=== PATIENT | male | born 1940 | race Caucasian/White ===

== ENCOUNTER → 2023-05-17 10:34 | Outpatient (REF) | payer MEDICARE, SELFPAY | LOC: WOUND 10:34 | PROVIDERS: ATTENDING PHYSICIAN Surgery; REFERRING PHYSICIAN Internal Medicine | DX: I87.311 Chronic venous hypertension (idiopathic) with ulcer of right lower extremity (principal); L97.811 Non-pressure chronic ulcer of other part of right lower leg limited to breakdown of skin; I87.2 Venous insufficiency (chronic) (peripheral); Z79.01 Long term (current) use of anticoagulants; E66.01 Morbid (severe) obesity due to excess calories; R60.0 Localized edema; E11.9 Type 2 diabetes mellitus without complications; I48.21 Permanent atrial fibrillation; I10 Essential (primary) hypertension | CPT/HCPCS: 29580; 99213 ==

== ENCOUNTER → 2023-05-24 11:04 | Outpatient (REF) | payer MEDICARE, SELFPAY | LOC: WOUND 11:04 | PROVIDERS: ATTENDING PHYSICIAN Surgery; REFERRING PHYSICIAN Internal Medicine | DX: I87.311 Chronic venous hypertension (idiopathic) with ulcer of right lower extremity (principal); L97.811 Non-pressure chronic ulcer of other part of right lower leg limited to breakdown of skin; I87.2 Venous insufficiency (chronic) (peripheral); Z79.01 Long term (current) use of anticoagulants; E66.01 Morbid (severe) obesity due to excess calories; R60.0 Localized edema; E11.9 Type 2 diabetes mellitus without complications; I48.21 Permanent atrial fibrillation; I10 Essential (primary) hypertension | CPT/HCPCS: 29580; 99212 ==

== ENCOUNTER → 2023-06-07 13:40 | Outpatient (REF) | payer MEDICARE, SELFPAY | LOC: WOUND 13:40 | PROVIDERS: ATTENDING PHYSICIAN Surgery; REFERRING PHYSICIAN Internal Medicine | DX: I87.311 Chronic venous hypertension (idiopathic) with ulcer of right lower extremity (principal); L97.811 Non-pressure chronic ulcer of other part of right lower leg limited to breakdown of skin; I87.2 Venous insufficiency (chronic) (peripheral); Z79.01 Long term (current) use of anticoagulants; E66.01 Morbid (severe) obesity due to excess calories; R60.0 Localized edema; E11.9 Type 2 diabetes mellitus without complications; I48.21 Permanent atrial fibrillation; I10 Essential (primary) hypertension | CPT/HCPCS: 29580; 99212 ==

== ENCOUNTER 2023-06-10 06:41 | Emergency (ER) | payer MEDICARE, SELFPAY ==
[2023-06-10] VITALS (7 sets, daily range): BP systolic 105–147; BP diastolic 58–89; BMI 39.9
[2023-06-10 07:47] LABS: % Basophils 0.6 % (0-2); % Immature Granulocytes 0.4 % (0-0.5); % Lymphocytes 17.1 % (20.5-51.1); % Monocytes 8.3 % (1.7-9.3); % Neutrophils 71.6 % (42.2-75.2); Absolute Basophils 0.1 10^3/uL (0-0.2); Absolute Eosinophils 0.2 10^3/uL (0-0.7); Absolute Lymphocytes 1.5 10^3/uL (1.2-3.4); Absolute Monocytes 0.8 10^3/uL (0.1-0.6); Absolute Neutrophils 6.4 10^3/uL (1.4-6.5); Hematocrit 37.6 % (39.0-52.0); Hemoglobin 12.5 g/dL (13.0-18.0); Mean Corp Hgb Conc. 33.2 g/dL (33.0-37.0); Mean Corpuscular Hgb 30.5 pg (27.0-31.0); Mean Corpuscular Volume 91.7 fL (80.0-94.0); Mean Platelet Volume 9.6 fL (7.4-10.4); Nucleated Red Blood Cells % 0 % (-); Platelet Count 213 10^3/uL (130-400); Red Cell Dist. Width 15.1 % (11.5-14.5)
[2023-06-10 07:56] LABS: ALT (SGPT) 24 U/L (0-50); AST (SGOT) 32 U/L (17-59); Albumin 4.3 g/dl (3.5-5.0); Alkaline Phosphatase 77 U/L (38-126); Blood Urea Nitrogen 25 mg/dl (9-20); Carbon Dioxide 29 mmol/L (22-30); Chloride 101 mmol/L (98-107); Glucose 185 mg/dl (70-99); Sodium 136 mmol/L (135-145); Total Bilirubin 0.8 mg/dl (0.2-1.3); Total Protein 7.4 g/dl (6.3-8.2); eGFR 54.17
[2023-06-10 08:01] LABS: NT-proBNP 1600 pg/ml; Troponin I < 0.012 ng/ml
--- NOTE | 2023-06-10 09:54 | ED.GENMED ---
History of Present Illness
General
Chief Complaint: Breathing Problem
Source: patient and family
Exam Limitations: none
Time Seen by Provider: 06/10/23 08:51
Travel History
Have you had any contact with someone who has COVID-19?: No
Do you have any symptoms of coronavirus? Fever > 100 degrees, chills, cough, shortness of breath, sore throat, loss of taste or smell, muscle aches, or headache?: No
History of Present Illness
History of Present Illness:
82-year-old male who presents with about a month of a 20 pound weight gain and increased lower extremity edema. Patient states he has chronic orthopnea that has not really changed. Shortness of breath is about at baseline. No fevers. He has been
taking a little more Lasix intermittently over the last 2 weeks. No chest pain. No fevers. Has chronic A-fib. States he has not slept in a bed in a long time as the sleep sitting up. Tries to lift his legs often. Has an appoint with his
histological illustrator on Sunday
Past History
Past History
ED Past Medical History: Arrthythmia (Atrial fibrillation), CHF, HTN, Hypercholesterolemia, NIDDM and Other (Benign brain tumor)
ED Past Surgical History: Brain, Orthopedic and Tonsilectomy
Social History
Tobacco: Non-smoker
Alcohol: None
Drug: None
Living: with family
Employment: Retired
Family History
Family History: Other (Noncontributory)
Phy Exam
Physical Exam
Physical Exam:
CONSTITUTIONAL Patient alert and oriented to person, place and time. Well-appearing. Vital signs reviewed. Obese
HEAD atraumatic, normocephalic.
EYES eyelids normal to inspection, Pupils equally round and reactive to light, Extraocular muscles intact, Conjunctiva normal, Sclera normal.
NECK normal range of motion, Trachea midline, no jugular venous distention.
RESPIRATORY CHEST No respiratory distress noted, Chest expansion equal, diminished right base
CARDIOVASCULAR somewhat regular with ectopy, Heart sounds normal.
ABDOMEN abdomen nontender, Bowel sounds normal. No distention.
BACK normal inspection, no obvious deformities
UPPER EXTREMITY range of motion normal, Motor strength normal, no cyanosis, no edema.
LOWER EXTREMITY range of motion normal, Motor strength normal, no cyanosis, chronic venous stasis changes to bilateral lower extremities with edema bilaterally to the knees.
NEURO Speech normal, No focal motor deficits, [place] coma scale 15, Memory normal, Cranial Nerves intact to screening exam.
SKIN skin warm, dry, and normal in color.
PSYCHIATRIC patient oriented to person place and time, Normal affect.
Scores
Heart Failure Risk
Heart Failure Risk Score: Yes
History of Stroke or TIA: No
History of intubation for respiratory distress: No
Heart rate on ED arrival >/= 110: No
SaO2 <90% on arrival on room air: No
HR >/=110 during 3min walk test (or too ill to perform test): No
ECG has acute ischemic changes: No
Urea >/=12mmol/L (BUN 33.6mg/dL): No
Serum CO2>/=35mmol/L: No
Troponin I or T elevated to MT Level (0.4mg/dL): No
NT-proBNP >/=5,000ng/L (5,000pg/ml): No
HF Risk Score: 0
Admission Status: LOW RISK 2.8% Consider discharge to home with f/u visit to PCP/Diaper Folder
Course
Orders/Labs/Results
Orders:
Orders
06/10/23 07:04
EKG [Electrocardiogram (*1)] Urgent
Reason for Study: Shortness of Breath
EKG- Treatment ONCE
06/10/23 07:33
BNP [NT-proBNP] Urgent
CMP [Comprehensive Metabolic Panel] Urgent
Complete Blood Count/With Diff Urgent
Troponin I Urgent
06/10/23 08:52
CR Chest - 2 Views Urgent
Comment:
Reason For Exam: sob
06/10/23 10:06
Furosemide [Lasix] 40 mg IV NOW STA
Abnormal Lab Results
06/10/23
07:33
RBC 4.10 L 10^6/uL
(4.70-6.10)
Hgb 12.5 L g/dL
(13.0-18.0)
Hct 37.6 L %
(39.0-52.0)
RDW 15.1 H %
(11.5-14.5)
Absolute Monos (auto) 0.8 H 10^3/uL
(0.1-0.6)
Lymphocytes % 17.1 L %
(20.5-51.1)
BUN 25 H mg/dl
(9-20)
Glucose 185 H mg/dl
(70-99)
06/10/23 07:33
06/10/23 07:33
Vital Signs
Initial and Last Documented VS:
Initial Vital Signs
Temp Pulse Resp BP Pulse Ox
98.5 F 63 20 105/89 93
06/10/23 06:59 06/10/23 06:59 06/10/23 06:59 06/10/23 06:59 06/10/23 06:59
Last Documented Vital Signs
Temp Pulse Resp BP Pulse Ox
98.5 F 71 16 142/58 88
06/10/23 06:59 06/10/23 12:30 06/10/23 12:30 06/10/23 12:00 06/10/23 12:30
MDM/Problems Addressed
MDM/Problems Addressed:
Volume overload, history of A-fib, CHF, diabetes
*Radiology
Radiology exam reviewed: preliminary read by ED provider (Mild volume overload) and radiology read reviewed
*Pulse Oximetry
Patient hypoxic: no
*EKG
Interpreted by ED Provider?: Yes
Interpretation: abnormal
Rate: normal
Rhythm: a-fib
[place]: left axis deviation
Ischemia: non-specific ST changes
*Critical Care Note
Total Time (30-74mins, 75-104mins- exclusive of procedures): Not Applicable
Data Reviewed
Review of Other/Old Records Reveals: Other (ECHO reviewed from 2018)
Source: patient and family
Patient Management
Discussion with other providers: Librarian Assistant (Case discussed with cardiology who agrees with outpatient management)
Escalation/DeEscalation of care consider admission/obs:
Patient to see cardiology on Sunday. He will increase his Lasix to twice daily until then. Okay for discharge outpatient management. Patient is well-appearing and diuresed well in the emergency
ED Attending Note
-
Portions of this chart may have been created with voice recognition software.� Occasional wrong word or��sound alike� substitutions may have occurred due to the inherent limitations of voice recognition software.
Discharge Plan
Departure
Patient Disposition: Home (Routine Discharge)
Date of Disposition: 06/10/23
Time of Disposition: 12:59
Patient with high blood pressure during this ER visit?: Yes
Discharge Problem:
Congestive heart failure (CHF)
Instructions: *CBC Heart Failure Instructions
Prescriptions:
No Action
atorvastatin 40 MG tablet
80 mg PO DAILY
allopurinol 100 MG tablet
100 mg PO DAILY
glipizide 5 MG tablet
10 mg PO DAILY
apixaban [Eliquis] 5 MG tablet
5 mg PO BID Qty: 60 2RF
furosemide 40 MG tablet
40 mg PO MOTUWETHFR
naproxen sodium [Aleve] 220 MG tablet
220 mg PO BID PRN (Reason: pain)
acetaminophen [Tylenol Extra Strength] 500 MG tablet
500 mg PO PRN PRN (Reason: pain)
metoprolol succinate 25 MG tablet extended release 24 hr
25 mg PO DAILY
valsartan-hydrochlorothiazide 1 EACH tablet
1 ea PO DAILY
sitagliptin phos-metformin [Janumet XR] 1 EACH tablet, ER multiphase 24 hr
1 ea PO DAILY
doxycycline hyclate 100 MG tablet
100 mg PO BID Qty: 14 0RF
cephalexin 500 mg capsule
500 mg PO Q6H 10 Days Qty: 40 0RF
doxycycline hyclate 100 mg capsule
100 mg PO BID 10 Days Qty: 20 0RF
Triple Antibiotic 3.5mg-400 unit- 5,000 unit/gram ointment
1 applic topical BID Qty: 30 0RF
cephalexin 500 mg capsule
500 mg PO QID 7 Days Qty: 28 0RF
Referrals:
Iker Mann MD [Family Provider] -
Activity Restrictions/Additional Instructions:
Please take your Lasix twice a day until you see your histological illustrator on Sunday. Return immediately for shortness of breath, fevers or any other concerns.
Interventions
Interventions:
*General Assessment Last Done: 06/10/23 10:47
*ED COVID-19 Vaccine History Last Done: 06/10/23 06:59
ED- Cardiac Assessment Last Done: 06/10/23 11:00
ED- Pulmonary Assessment Last Done: 06/10/23 11:00
[2023-06-10] MEDS: LASIX 40 MG IV (10:19)
== END 2023-06-10 14:30 | disposition home or self-care (01) ==
LOC: EMR 06:41
PROVIDERS: EMERGENCY PHYSICIAN Emergency Medicine; FAMILY PHYSICIAN Internal Medicine
DX: I50.9 Heart failure, unspecified (principal); I11.0 Hypertensive heart disease with heart failure
CPT/HCPCS: 99285; 96374; 71046; 80053; 83880; 84484; 85025; 93005

== ENCOUNTER → 2023-06-14 13:58 | Outpatient (REF) | payer MEDICARE, SELFPAY | LOC: WOUND 13:58 | PROVIDERS: ATTENDING PHYSICIAN Surgery; REFERRING PHYSICIAN Internal Medicine | DX: I87.311 Chronic venous hypertension (idiopathic) with ulcer of right lower extremity (principal); L97.811 Non-pressure chronic ulcer of other part of right lower leg limited to breakdown of skin; I87.2 Venous insufficiency (chronic) (peripheral); Z79.01 Long term (current) use of anticoagulants; E66.01 Morbid (severe) obesity due to excess calories; R60.0 Localized edema; E11.9 Type 2 diabetes mellitus without complications; I48.21 Permanent atrial fibrillation; I10 Essential (primary) hypertension | CPT/HCPCS: 29580; 99212 ==

== ENCOUNTER → 2023-06-21 14:24 | Outpatient (REF) | payer MEDICARE, SELFPAY | LOC: WOUND 14:24 | PROVIDERS: ATTENDING PHYSICIAN Surgery; REFERRING PHYSICIAN Internal Medicine | DX: I87.311 Chronic venous hypertension (idiopathic) with ulcer of right lower extremity (principal); L97.811 Non-pressure chronic ulcer of other part of right lower leg limited to breakdown of skin; I87.2 Venous insufficiency (chronic) (peripheral); Z79.01 Long term (current) use of anticoagulants; E66.01 Morbid (severe) obesity due to excess calories; R60.0 Localized edema; E11.9 Type 2 diabetes mellitus without complications; I48.21 Permanent atrial fibrillation; I10 Essential (primary) hypertension | CPT/HCPCS: 99212 ==

== ENCOUNTER 2023-06-26 10:09 | Inpatient (IN) | payer MEDICARE, SELFPAY ==
[2023-06-26] VITALS (10 sets, daily range): BP systolic 144–160; BP diastolic 63–96; BMI 41.3; BMI 39.4
[2023-06-26 00:55] LABS: % Basophils 0.6 % (0-2); % Eosinophils 2.6 % (0-6); % Immature Granulocytes 0.4 % (0-0.5); % Lymphocytes 16.3 % (20.5-51.1); % Monocytes 8.8 % (1.7-9.3); % Neutrophils 71.3 % (42.2-75.2); Absolute Basophils 0.1 10^3/uL (0-0.2); Absolute Eosinophils 0.2 10^3/uL (0-0.7); Absolute Lymphocytes 1.5 10^3/uL (1.2-3.4); Absolute Monocytes 0.8 10^3/uL (0.1-0.6); Absolute Neutrophils 6.5 10^3/uL (1.4-6.5); Hematocrit 36.6 % (39.0-52.0); Hemoglobin 12.4 g/dL (13.0-18.0); Mean Corp Hgb Conc. 33.9 g/dL (33.0-37.0); Mean Corpuscular Volume 94.6 fL (80.0-94.0); Mean Platelet Volume 10.4 fL (7.4-10.4); Nucleated Red Blood Cells % 0 % (-); Platelet Count 200 10^3/uL (130-400); Red Blood Cell Count 3.87 10^6/uL (4.70-6.10); Red Cell Dist. Width 15.4 % (11.5-14.5); White Blood Cell Count 9.1 10^3/uL (4.8-10.8)
[2023-06-26 01:03] LABS: ALT (SGPT) 24 U/L (0-50); AST (SGOT) 32 U/L (17-59); Alkaline Phosphatase 73 U/L (38-126); Blood Urea Nitrogen 39 mg/dl (9-20); Calcium 10.3 mg/dl (8.4-10.2); Carbon Dioxide 30 mmol/L (22-30); Chloride 98 mmol/L (98-107); Estimated Creatinine Clearance 49 ml/min; Glucose 210 mg/dl (70-99); Potassium 3.6 mmol/L (3.5-5.1); Sodium 137 mmol/L (135-145); Total Bilirubin 0.9 mg/dl (0.2-1.3); Total Protein 6.9 g/dl (6.3-8.2); eGFR 41.96
--- NOTE | 2023-06-26 01:11 | ED.GENMED ---
History of Present Illness
General
Chief Complaint: Breathing Problem
Source: patient, records and family
Exam Limitations: none
Time Seen by Provider: 06/26/23 00:41
Nursing documentation reviewed up to this point in time: agreed with
Travel History
Have you had any contact with someone who has COVID-19?: No
Do you have any symptoms of coronavirus? Fever > 100 degrees, chills, cough, shortness of breath, sore throat, loss of taste or smell, muscle aches, or headache?: No
History of Present Illness
History of Present Illness:
Patient very pleasant 83-year-old male with heart failure A-fib diabetes presents with shortness of breath and some chest pressure onset earlier today pulse ox 88% upon arrival, seen in the ER few weeks ago with similar complaints diuretics were
adjusted discharged home he has been taking two 40 mg Lasix in the morningone 40 mg in the evening, does not appreciate much change in his weight recently
No fevers no cough has had some increased leg edema has some recurrent leg edema had some wounds on his legs he was followed at the wound care center until recently
Past History
Past History
ED Past Medical History: Arrthythmia (Atrial fibrillation), CHF, HTN, Hypercholesterolemia, NIDDM and Other (Benign brain tumor)
ED Past Surgical History: Brain, Orthopedic and Tonsilectomy
Social History
Tobacco: Non-smoker
Alcohol: None
Drug: None
Living: with family
Employment: Retired
Family History
Family History: Other (Noncontributory)
Review of Systems
Review of Systems
All Other Systems: ROS reviewed and negative except as documented in HPI and ROS
Constitutional: Denies fever, weight gain, weight loss or fatigue
EENT: Reports no symptoms
Respiratory: Reports trouble breathing
Cardiac: Reports chest pain
ABD/GI: Reports no symptoms
: Reports no symptoms
Musculoskeletal: Reports no symptoms
Skin: Reports no symptoms
Neurological: Reports no symptoms
Hematologic/Lymphatic: Reports no symptoms
Psychiatric: Reports no symptoms
Phy Exam
Physical Exam
Physical Exam:
Physical Exam
General: 83-year male mild distress
Neck: No jaundice
Heart: Irregular
Lungs: Crackles bilaterally
Abdomen: Nontender
Neuro: alert and oriented. no focal neurological deficits
Skin: no rash
Psychiatric: cooperative
Extremities: Edema with venous stasis changes
Scores
Heart Failure Risk
Heart Failure Risk Score: Yes
History of Stroke or TIA: No
History of intubation for respiratory distress: No
Heart rate on ED arrival >/= 110: No
SaO2 <90% on arrival on room air: Yes
HR >/=110 during 3min walk test (or too ill to perform test): Yes
ECG has acute ischemic changes: No
Urea >/=12mmol/L (BUN 33.6mg/dL): Yes
Serum CO2>/=35mmol/L: No
Troponin I or T elevated to CO Level (0.4mg/dL): No
NT-proBNP >/=5,000ng/L (5,000pg/ml): No
HF Risk Score: 4
Admission Status: HIGH RISK 26.1% Consider SNF treatment or admission to hospital
Course
Orders/Labs/Results
Orders:
Orders
06/26/23 00:29
Electrocardiogram (*1) Urgent
Reason for Study: Chest Pain
Cardiac Monitoring- Treatment ONCE
EKG- Treatment ONCE
IV Insert/Care/Rem.- Treatment PRN
O2 Therapy [RESP] Urgent
Titrate/Wean O2 to maintain O2 sat greater than (%): 90
Special Instructions: Maintain sats >/=90%
Pulse Ox/spot Check [RESP] Urgent
Quantity: 1
Special Instructions: ON ROOM AIR
06/26/23 00:30
Complete Blood Count/With Diff Urgent
Comprehensive Metabolic Panel Urgent
NT-proBNP Urgent
Comment: ADDED
Troponin I Urgent
06/26/23 00:42
CR Chest Portable - 1 View Urgent
Comment:
Reason For Exam: sooob
Reason Study Needs to be Portable: Patient Unstable
06/26/23 01:11
Add On- LAB Urgent
Tests Added?: pBNP
06/26/23 01:47
Furosemide [Lasix] 60 mg IV NOW STA
Abnormal Lab Results
06/26/23
00:30
RBC 3.87 L 10^6/uL
(4.70-6.10)
Hgb 12.4 L g/dL
(13.0-18.0)
Hct 36.6 L %
(39.0-52.0)
MCV 94.6 H fL
(80.0-94.0)
MCH 32.0 H pg
(27.0-31.0)
RDW 15.4 H %
(11.5-14.5)
Absolute Monos (auto) 0.8 H 10^3/uL
(0.1-0.6)
Lymphocytes % 16.3 L %
(20.5-51.1)
BUN 39 H mg/dl
(9-20)
Creatinine 1.6 H mg/dL
(0.7-1.3)
Glucose 210 H mg/dl
(70-99)
Calcium 10.3 H mg/dl
(8.4-10.2)
06/26/23 00:30
06/26/23 00:30
Vital Signs
Initial and Last Documented VS:
Initial Vital Signs
Temp Pulse Resp Pulse Ox
98.3 F 72 20 88
06/26/23 00:24 06/26/23 00:24 06/26/23 00:24 06/26/23 00:24
Last Documented Vital Signs
Temp Pulse Resp Pulse Ox
98.3 F 72 20 88
06/26/23 00:24 06/26/23 00:24 06/26/23 00:24 06/26/23 00:24
MDM/Problems Addressed
Differential Diagnosis Includes:
Congestive heart failure, venous stasis, doubt PE as he is anticoagulated, A-fib, low clinical special for pneumonia
MDM/Problems Addressed:
Shortness of breath hypoxia
Chronic conditions affecting care: DM, HTN, Cardiomyopathy and Arrhythmia
Acute Exacerbation and/or Progression of Chronic Illness: DM, HTN, Cardiomyopathy and Arrhythmia
*Radiology
Radiology exam reviewed: preliminary read by ED provider
*Pulse Oximetry
Patient hypoxic: yes
Comment: 88
*EKG
Interpreted by ED Provider?: Yes
Interpretation: abnormal
Comparison EKG: no changes
Heart Rate: 78
Rate: normal
Rhythm: a-fib
Ischemia: non-specific ST changes
*[place] Mixer Operator Interpretation
Rate: normal
Interpretation: normal
Heart Rate: 88
Rhythm: a-fib
*Critical Care Note
Total Time (30-74mins, 75-104mins- exclusive of procedures): 15
Data Reviewed
Review of Other/Old Records Reveals: Labs, Records and Radiology Studies
Source: patient, records and family
Update Note
Update Note:
1:50 AM chest x-ray noted proBNP noted we will start IV diuretic is requiring oxygen will require admission
ED Attending Note
-
Portions of this chart may have been created with voice recognition software.� Occasional wrong word or��sound alike� substitutions may have occurred due to the inherent limitations of voice recognition software.
Discharge Plan
Departure
Prescriptions:
No Action
atorvastatin 40 MG tablet
80 mg PO DAILY
allopurinol 100 MG tablet
100 mg PO DAILY
glipizide 5 MG tablet
10 mg PO DAILY
apixaban [Eliquis] 5 MG tablet
5 mg PO BID Qty: 60 2RF
furosemide 40 MG tablet
40 mg PO MOTUWETHFR
naproxen sodium [Aleve] 220 MG tablet
220 mg PO BID PRN (Reason: pain)
acetaminophen [Tylenol Extra Strength] 500 MG tablet
500 mg PO PRN PRN (Reason: pain)
metoprolol succinate 25 MG tablet extended release 24 hr
25 mg PO DAILY
valsartan-hydrochlorothiazide 1 EACH tablet
1 ea PO DAILY
sitagliptin phos-metformin [Janumet XR] 1 EACH tablet, ER multiphase 24 hr
1 ea PO DAILY
doxycycline hyclate 100 MG tablet
100 mg PO BID Qty: 14 0RF
cephalexin 500 mg capsule
500 mg PO Q6H 10 Days Qty: 40 0RF
doxycycline hyclate 100 mg capsule
100 mg PO BID 10 Days Qty: 20 0RF
Triple Antibiotic 3.5mg-400 unit- 5,000 unit/gram ointment
1 applic topical BID Qty: 30 0RF
cephalexin 500 mg capsule
500 mg PO QID 7 Days Qty: 28 0RF
Referrals:
Iker Mann MD [Family Provider] -
Interventions
Interventions:
*Risk Screen - Suicide Last Done: 06/26/23 00:32
*General Assessment Last Done: 06/26/23 00:24
*Neglect/Abuse Screening Last Done: 06/26/23 00:32
ED- Fall Risk Assessment Last Done: 06/26/23 00:32
*ED COVID-19 Vaccine History Last Done: 06/26/23 00:32
ED- Cardiac Assessment Last Done: 06/26/23 00:32
ED- Pulmonary Assessment Last Done: 06/26/23 00:32
[2023-06-26 01:20] LABS: Troponin I 0.021 ng/ml
[2023-06-26 01:41] LABS: NT-proBNP 1750 pg/ml
[2023-06-26] MEDS: LASIX 60 MG IV (01:54)
--- NOTE | 2023-06-26 04:55 | HPS.HSE ---
Family Physician
-
Family Physician: Iker Mann MD
Chief Complaint
-
SOB
History of Present Illness
The patient is an 83 yo gentleman with PMH significant for A.fib on Eliquis, HFpEF, HLD, NIDDM, benign brain tumor, who presents to the ED due to worsening SOB associated with pleuritic chest pressure left upper chest. He was having worsening
dyspnea after increasing oral Lasix at home and also using compressive boots to help with lymphedema of b/l LE venous stasis. He was had 20 pound weight gain over the past few months; he helps take care of his who has Parkinson's Disease. He
has not noticed a recent change in diet nor change in fluid intake. No current CP. No fever, no chills, no cough, no palpitations, no n/v/d, no abdominal complaints. Symptoms of dyspnea are improving in ED following IV Lasix , however he is still
requiring O2 per NC, which he does not require at home.
ED txt:
Lasix 60 mg IV once
Medical History
Past Medical History
Past Medical History: Reports Arrhythmia (Afib on DOAC), CHF (HFpEF), HTN, Hypercholesterolemia, NIDDM and Other (bening brain tumor)
Past Surgical History: Reports Brain, Orthopedic (left knee replacement) and Tonsilectomy
Social History
Tobacco: Non-smoker
Alcohol: None
Drug: None
Personal:
Living: With Family
Family History
Family History: Not pertinent
Allergies / Home Medications
Allergies reflects when Allergies were last updated in [facility].
Home Medications with original date entered in [facility]
Allergy/Medication List:
Allergies
Allergy/AdvReac Type Severity Reaction Status Date / Time
No Known Allergies Allergy Verified 06/26/23 00:28
Home Medications
allopurinol 100 mg tablet 100 mg PO DAILY 02/18/14
atorvastatin 40 mg tablet 80 mg PO DAILY 02/18/14
glipizide 5 mg tablet 10 mg PO DAILY 02/18/14
apixaban 5 mg tablet (Eliquis) 5 mg PO BID ##60 02/20/14
acetaminophen 500 mg tablet (Tylenol Extra Strength) 500 mg PO PRN PRN pain 01/10/19
furosemide 40 mg tablet 40 mg PO DAILY 01/10/19
metoprolol succinate 25 mg tablet,extended release 24 hr 25 mg PO DAILY 01/10/19
sitagliptin phos 50 mg-metformin ER 1,000 mg tablet,extend rel 24h mp (Janumet XR) 1 ea PO DAILY 01/10/19
valsartan 320 mg-hydrochlorothiazide 25 mg tablet 1 ea PO DAILY 01/10/19
Review of Systems
-
A 12 point ROS was completed and negative except as noted: Yes
Physical Exam
Vital Signs
Vital Signs
Temp Pulse Resp BP Pulse Ox
98.3 F 58 20 160/84 88
06/26/23 00:24 06/26/23 01:54 06/26/23 00:24 06/26/23 01:54 06/26/23 00:24
Physical Exam
General: Well Developed, Well Nourished, No Apparent Distress, Comfortable and Conversant
HEENT: NormoCephalic, Anicteric and Moist mucous membranes
Respiratory: Clear
Cardiac: S1/S2 and Regular Rhythm
GI: Soft, Non Tender, Non Distended and Normal Bowel Sounds
Musculoskeletal: No Clubbing, No Cyanosis, Edema, Left Lower Extremity and Edema, Right Lower Extremity
Skin: Warm, Dry and Other (b/l venous insufficiency LE)
Neuro: AO x 3, No Motor Deficits and Nonfocal/grossly intact
Hematologic/Lymphatic: Other (LE lymphedema)
Psych: Calm
Laboratory Results
-
06/26/23 00:30
06/26/23 00:30
Laboratory Results
Total Bilirubin 0.9 mg/dl (0.2-1.3) 06/26/23 00:30
AST 32 U/L (17-59) 06/26/23 00:30
ALT 24 U/L (0-50) 06/26/23 00:30
Alkaline Phosphatase 73 U/L (38-126) 06/26/23 00:30
Troponin I 0.021 ng/ml 06/26/23 00:30
Data Reviewed
-
Diagnostic Radiology: Image Personally Visualized and interpreted (mild pulmonary vascular congestion)
Lab Data: Labs Reviewed by me
Impression/Plan
-
IMPRESSION:
The patient is an 83 yo gentleman with PMH significant for A.fib on Eliquis, HFpEF, HLD, NIDDM, benign brain tumor, who presents to the ED due to worsening SOB associated with pleuritic chest pressure left upper chest. He was having worsening
dyspnea after increasing oral Lasix at home and also using compressive boots to help with lymphedema of b/l LE venous stasis. He was had 20 pound weight gain over the past few months; he helps take care of his who has Parkinson's Disease. He
has not noticed a recent change in diet nor change in fluid intake. No current CP. No fever, no chills, no cough, no palpitations, no n/v/d, no abdominal complaints. Symptoms of dyspnea are improving in ED following IV Lasix , however he is still
requiring O2 per NC, which he does not require at home.
ED txt:
Lasix 60 mg IV once
#Acute exacerbation HFpEF
#A.fib controlled rate
#Hypoxic respiratory failure, requiring 2L NC currently, not on home oxygen
#Peripheral venous stasis changes
#GAYATHRI creat up to 1.6 from recent baseline likely 1.3, concern is for developing cardiorenal syndrome
-IV Lasix and repeat monitoring of BMP in am
-intake/output, daily weights
Plan:
-Tele monitoring,
-Cards Cx,
-Continue IV Lasix BID
-echocardiogram
-serial troponin
-continue home meds Eliquis, statin, BB
-continue Glipizide, heart healthy diet
-SSI, monitor glucose
Full Code
DVT proph- Eliquis
--- NOTE | 2023-06-26 06:00 | PTCARENOTE ---
Pt rec'd to 4E awake & alert. Denies chest pain or pressure at this time. Able to ambulate w/own walker from riggs to bed. No dyspnea noted.
[2023-06-26 08:35] LABS: Glucose - Point of Care 189 mg/dl (70-99)
[2023-06-26 08:36] LABS: Troponin I 0.016 ng/ml
[2023-06-26] MEDS: ELIQUIS 2.5 MG PO ×2 (08:37→22:09)
[2023-06-26] MEDS: ZYLOPRIM 100 MG PO (08:37)
[2023-06-26] MEDS: LIPITOR 80 MG PO (08:38)
[2023-06-26] MEDS: LASIX 40 MG IV (08:38)
[2023-06-26] MEDS: TOPROL XL 25 MG PO (08:38)
[2023-06-26] MEDS: GLUCOTROL 10 MG PO (08:38)
--- NOTE | 2023-06-26 08:38 | CON.CAR ---
Addendum entered and electronically signed by Maira Solorio MD 06/26/23 11:03:
I saw and examined the patient.
The ENGINEER EXHAUSTER's note was reviewed and I agree with the note.
Comment: 83yo with HFpEF, AF, HTN who has been struggling maintaining euvolemia at home. He has been drinking a lot of water, not releasing that didn't 'flush it all out'. ON exam, he has bibasilar rales, irreg irreg, elevated JVP, 1+ pitting
edema. Will need IV diuresis, CHF team consults for education. Will update his echo. Will monitor renal function, may need to dose reduce Eliquis.
D/w Dr Barr, will follow
Original Note:
Consultation
Consultation Request
Date/Time Consultation Requested: 06/26/23 06:00
Date/Time Consultation Performed: 06/26/23 08:45
Requesting Provider: Dr. Rose
Performing Provider: RASHIDA Washington for Dr. Solorio
Reason for Consultation: Acute on chronic HFpEF
Medical History
-
Chief Complaint: Dyspnea
History of Present Illness:
Aldo Solitario is an 83-year-old male (known to Dr. 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
emergency department the chief complaint of dyspnea. He saw Dr. Chaudhary in the outpatient setting and his furosemide was increased to 80 mg daily until he lost 10 pounds. He reports that occurred over 1 week. He returned back to 40 mg daily
approximately 2 and half weeks ago. Since then he has gained all of the weight back 'and some'. Prior to his heart failure exacerbation and seeing Dr. Chaudhary, he reports a weight of 178 pounds at home. He reports he may be having some more fluid
but denies changes in sodium intake. Cardiology has been consulted for acute heart failure management.
He is tearful during consult. His is at home. 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 She has Parkinson's disease. His children are currently helping with her care while he is hospitalized.
Past Medical History
Past Medical History: Arrhythmias (Permanent atrial fibrillation [on apixaban]), CHF, HTN, Hypercholesterolemia and NIDDM
Social History
Tobacco: Non-Smoker
Alcohol: None
Drug: None
Personal: (He is his 's caregiver)
Living: With Family
Employment: Retired
Family History
Family History: Reviewed & Not Pertinent
Allergies / Home Medications
Allergy/AdvReac Type Severity Reaction Status Date / Time
No Known Allergies Allergy Verified 06/26/23 00:28
Medication Instructions Recorded Confirmed Type
allopurinol 100 mg tablet 100 mg PO DAILY 02/18/14 06/26/23 History
atorvastatin 40 mg tablet 80 mg PO DAILY 02/18/14 06/26/23 History
glipizide 5 mg tablet 10 mg PO DAILY 02/18/14 06/26/23 History
apixaban 5 mg tablet (Eliquis) 5 mg PO BID ##60 02/20/14 06/26/23 Rx
acetaminophen 500 mg tablet 500 mg PO PRN PRN pain 01/10/19 06/26/23 History
(Tylenol Extra Strength)
furosemide 40 mg tablet 40 mg PO DAILY 01/10/19 06/26/23 History
metoprolol succinate 25 mg 25 mg PO DAILY 01/10/19 06/26/23 History
tablet,extended release 24 hr
sitagliptin phos 50 mg-metformin 1 ea PO DAILY 01/10/19 01/10/19 History
ER 1,000 mg tablet,extend rel 24h
mp (Janumet XR)
valsartan 320 1 ea PO DAILY 01/10/19 06/26/23 History
mg-hydrochlorothiazide 25 mg tablet
Review of Systems
-
History Source: Patient
All other systems: Negative unless noted
Constitutional: Weight Gain and Fatigue
Musculoskeletal: Edema
Physical Exam
Vital Signs
Temp Pulse Resp BP Pulse Ox
97.8 F 69 18 144/77 95
06/26/23 06:03 06/26/23 06:03 06/26/23 06:03 06/26/23 06:03 06/26/23 06:03
Lab Results
06/26/23 00:30
06/26/23 00:30
Troponin I 0.016 ng/ml 06/26/23 07:55
Elt-Z-Tfnwnomqorq Pept 1750 pg/ml 06/26/23 00:30
Physical Exam
General: Well Developed, Well Nourished, No Apparent Distress and Comfortable
HEENT: Normocephalic, Anicteric and Moist Mucous Membranes
Respiratory: Clear and Non Labored Respirations
Cardiac: S1/S2, Regular Rhythm and Peripheral Edema
Breast: Deferred by me
GI: Soft, Non Tender, Non Distended and Normal Bowel Sounds
Rectal: Deferred by Provider
Genito-urinary: No Costovertebral Tender
Musculoskeletal: No Clubbing, No Cyanosis and Edema
Skin: Warm and Dry
Neuro: AO x 3
Hematologic/Lymphatic: No Lymphadenopathy
Psych: Calm
Impression / Plan
-
HFpEF, acute on chronic, severe requiring hospitalization
-Diuresis with furosemide 80 IV BID, this requires intensive monitoring
-He reports a weight of 178 pounds 5 weeks ago
-He will likely need an increase in his standing diuretic
-TTE today
-Heart failure education
Permanent atrial fibrillation
-Rate controlled on metoprolol succinate
-Oral Anticoagulation: Apixaban 5mg BID, if creatinine remains >1.5 will need to decrease to 2.5 mg twice daily for age and renal function
-[id number]: Score at least 5 (Heart failure, HTN, age 75 or more, Diabetes Mellitus)
Chronic kidney disease, follow with diuresis
HTN, chronic and stable
PVD, B/L LE compression recommended
Obesity, BMI 39, affects all aspects of care
Data Reviewed
-
EKG: Report Reviewed by me (Atrial fibrillation with slow ventricular response, rate 57)
Radiology: Report Reviewed by me (CXR: Small focus of patchy increased parenchymal opacity in the medial left lower lung, with main differential considerations of atelectasis and/or pneumonia. Subtle increased interstitial markings bilaterally with
slight indistinctness of the central pulmonary vasculature. Main differential consid)
Labs: Labs Reviewed by me
Old Records: Reviewed
[2023-06-26] MEDS: NOVOLOG FLEXPEN-LOW RESISTANCE 1 UNITS SC ×2 (08:40→16:39)
[2023-06-26] MEDS: HYDROPHOR 1 APPLIC TOPICAL (10:15)
--- NOTE | 2023-06-26 11:26 | CM ---
Addendum entered by Colleen Macedo 06/26/23 12:21:
Patient seen bedside.
patient lives with spouse in a 2 story home with first floor set up.
Patient ambulates with a Rollator.
Assists spouse at home, she has Parkinsons, 3 children live close by.
Patient drives.
Patients spouse has services in the home, not sure what agency, not sure if its private or VN.
PCP: Liu
Pharmacy: [facility].
Plan: home with no needs anticiapted.
Original Note:
CM consult re medication costs.
Jardiance 10 mg, 30 tabs $96.27 per month
Farxiga 10 mg , 30 tabs $91.73 per month.
[2023-06-26 11:43] LABS: Glycohemoglobin (HgbA1c) 7.7 % (4.0-5.6)
[2023-06-26 12:12] LABS: Glucose - Point of Care 206 mg/dl (70-99)
[2023-06-26] MEDS: NOVOLOG FLEXPEN-LOW RESISTANCE 2 UNITS SC (12:47)
[2023-06-26 13:37] LABS: Troponin I 0.015 ng/ml
--- NOTE | 2023-06-26 14:58 | W.PN.HOSP.TC ---
Today's Communication/Plan
-
cont diuresis
follow weights I/Os
apprec cards
Assessment / Plan
Assessment / Plan
pt is an 83 year old male
acute hypoxemic resp failure from Hypoxic respiratory failure, requiring 2L NC currently, not on home oxygen--Acute exacerbation HFpEF--apprec cards--cont IV lasix BID--daily weights, I/Os--apprec cards--echo with EF 60-65%--troponin neg
permanent A.fib controlled rate--apprec cards--cont eliquis
Peripheral venous stasis changes--legs wrapped
GAYATHRI creat up to 1.6 from recent baseline likely 1.3, concern is for developing cardiorenal syndrome--follow creat with diuresis
type 2 DM--continue Glipizide--SSI, monitor glucose
Full Code
DVT proph- Eliquis
Anticipated Discharge: > 48 hours
Subjective/Interval History
-
Date of Service: June 26, 2023
pt does not wear O2
SOB
Objective Data
-
Vital Signs:
max temp for 24 hours
06/26/23
00:24
Temp 98.3 F
Vital Signs
Temp Pulse Resp BP Pulse Ox
97.5 F 71 20 147/72 91
06/26/23 11:10 06/26/23 11:10 06/26/23 11:10 06/26/23 11:10 06/26/23 11:10
I&O
06/25/23 06/26/23 06/27/23
06:59 06:59 06:59
Output Total 1000 / 1000
Balance -1000 / -1000
Review of Systems
-
All other systems: Reviewed and negative
Physical Exam
-
General: Well Developed, Well Nourished and No Apparent Distress
HEENT: Normocephalic and Atraumatic
Respiratory: Crackles; Negative Clear to Auscultation, Wheezes or Rhonchi
Cardiac: Irregular Rhythm; Negative Murmur
GI: Soft, Nontender, Nondistended and Normal Bowel Sounds
Musculoskeletal: No Clubbing and No Cyanosis; Negative No Edema (legs wrapped)
Skin: Warm
Neuro: Awake
[2023-06-26] MEDS: LASIX 80 MG IV (16:32)
[2023-06-26 16:38] LABS: Glucose - Point of Care 150 mg/dl (70-99)
[2023-06-26] MEDS: NEURONTIN 300 MG PO ×2 (17:46→22:09)
--- NOTE | 2023-06-26 19:39 | PTCARENOTE ---
Received patient this am AAOx3. Pt medicated with IV Lasix as ordered an diuresis well. Tolerated diet well. OOB ambulating to bathroom with assistance x1 and walker. Pt offered no complaints. Made patient comfortable. Cont to assess patient
status.
[2023-06-26 21:40] LABS: Glucose - Point of Care 173 mg/dl (70-99)
[2023-06-27 05:03] VITALS: BP 128/62
[2023-06-27 07:19] VITALS: BP 138/78
[2023-06-27 07:41] LABS: Glucose - Point of Care 187 mg/dl (70-99)
[2023-06-27] MEDS: GLUCOTROL 10 MG PO (07:53)
[2023-06-27] MEDS: LIPITOR 80 MG PO (07:54)
[2023-06-27] MEDS: ZYLOPRIM 100 MG PO (07:55)
[2023-06-27] MEDS: ELIQUIS 2.5 MG PO ×2 (07:56→20:56)
[2023-06-27] MEDS: TOPROL XL 25 MG PO (07:56)
[2023-06-27] MEDS: NEURONTIN 300 MG PO ×3 (07:58→21:00)
[2023-06-27 08:00] VITALS: BMI 38.1
[2023-06-27] MEDS: HYDROPHOR 1 APPLIC TOPICAL (08:00)
[2023-06-27] MEDS: LASIX 80 MG IV ×2 (08:09→16:06)
[2023-06-27] MEDS: NOVOLOG FLEXPEN-LOW RESISTANCE 1 UNITS SC ×2 (08:09→17:22)
[2023-06-27 08:16] VITALS: BMI 39.4
[2023-06-27 08:18] LABS: Blood Urea Nitrogen 35 mg/dl (9-20); Carbon Dioxide 29 mmol/L (22-30); Chloride 99 mmol/L (98-107); Estimated Creatinine Clearance 58 ml/min; Glucose 200 mg/dl (70-99); HDL Cholesterol 54 mg/dl; LDL Cholesterol, Calculated 59 mg/dl; Magnesium 1.8 mg/dl (1.6-2.3); Potassium 3.2 mmol/L (3.5-5.1); Sodium 135 mmol/L (135-145); Total Cholesterol 132 mg/dl (50-199); Triglyceride 99 mg/dl (10-149); Very Low Density Lipoprotein 19 mg/dl (0-30); eGFR 53.84
--- NOTE | 2023-06-27 09:07 | W.PN.CD ---
Today's Communication / Plan
-
Diurese to 275-278 lbs. and then transition to oral Lasix (60 or 80 to be decided)
Impression / Plan
-
Impression: 83yo with HFpEF, AF, HTN who has been struggling maintaining euvolemia at home.�
Plan
HFpEF, acute on chronic, severe requiring hospitalization
-Diuresis with furosemide 80 IV BID, this requires intensive monitoring
-He reports a weight of 278 pounds 5 weeks ago -> aim for that (he thinks 275 lbs. is goal weight)
-He will need an increase in his standing diuretic
-TTE (below) is unchanged
-Heart failure education
Permanent atrial fibrillation
-Rate controlled on metoprolol succinate
-Oral Anticoagulation: Apixaban 5mg BID, if creatinine goes above >1.5 again will need to decrease to 2.5 mg twice daily for age and renal function
-[id number]: Score at least 5 (Heart failure, HTN, age 75 or more, Diabetes Mellitus)
Chronic kidney disease -> improved
HTN, chronic and stable
PVD, B/L LE compression recommended
Obesity, BMI 39, affects all aspects of care
Subjective: Dyspnea is improved, no CP or palps.
Laboratory Data
06/26/23 06/27/23
00:30 07:00
Hgb 12.4 L
Potassium 3.2 L
Creatinine 1.6 H 1.3
Selected Entries
06/26/23
00:39 06/26/23
06:00 06/27/23
08:00
Actual Weight 304 lb 0.279 oz 290 lb 8 oz 281 lb
05/15/20
09:05
Actual Weight 271 lb 6.224 oz
Generic Name Dose Route Start Last Admin
Trade Name Freq PRN Reason Stop Dose Admin
Metoprolol Succinate 25 mg 06/26/23 08:00
Metoprolol 25 Mg Extended Release Tablet PO 07/24/23 07:59
DAILY HELENE
Apixaban 2.5 mg 06/26/23 08:00
Apixaban (Eliquis) 2.5 Mg Tablet PO 07/24/23 07:59
BID HELENE
Atorvastatin Calcium 80 mg 06/26/23 08:00
Atorvastatin (Lipitor) 40 Mg Tablet PO 07/24/23 07:59
DAILY HELENE
Furosemide 80 mg 06/26/23 16:00
Furosemide 100 Mg (10 Mg/Ml) 10 Ml Vial IV 07/24/23 15:59
BID AT 0800,1600 HELENE
Physical Exam
Vital Signs/Labs
Vital Signs
Temp Pulse Resp BP Pulse Ox
36.8 C 77 18 138/78 93
06/27/23 07:19 06/27/23 08:09 06/27/23 07:19 06/27/23 08:09 06/27/23 07:19
06/26/23 06/27/23 06/28/23
06:59 06:59 06:59
Actual Weight 290 lb 8 oz 281 lb
06/26/23 00:30
06/27/23 07:00
Magnesium 1.8 mg/dl (1.6-2.3) 06/27/23 07:00
Triglycerides 99 mg/dl (10-149) 06/27/23 07:00
LDL Cholesterol, Calc 59 mg/dl 06/27/23 07:00
VLDL Cholesterol, Calc 19 mg/dl (0-30) 06/27/23 07:00
HDL Cholesterol 54 mg/dl 06/27/23 07:00
06/26/23
00:30
Spn-I-Pcdvjwzpupq Pept 1750
LAB Results
06/26/23 06/26/23 06/26/23
00:30 07:10 07:55
Troponin I 0.021 Cancelled 0.016
06/26/23
13:02
Troponin I 0.015
Physical Exam
Constitutional: No acute distress
EENT: Anicteric and Moist mucous membranes
Cardiovascular: Systolic murmur absent, Diastolic murmur absent, Rhythm/rate is irregular and Pedal edema present
Respiratory: Respiratory effort normal
GI: Soft, Distention absent and Normal bowel sounds
Neuro/Psych: Alert and Oriented
Data Reviewed
-
Date of Service: June 27, 2023
[2023-06-27 11:02] VITALS: BP 130/60
[2023-06-27 12:38] LABS: Glucose - Point of Care 254 mg/dl (70-99)
[2023-06-27] MEDS: NOVOLOG FLEXPEN-LOW RESISTANCE 3 UNITS SC (12:40)
--- NOTE | 2023-06-27 14:32 | W.PN.HOSP.TC ---
Today's Communication/Plan
-
replete K
hopeful d/c tomorrow
Assessment / Plan
Assessment / Plan
pt is an 83 year old male
acute hypoxemic resp failure from acute diastolic CHF exacerbation-- weaned off O2---apprec cards--cont IV lasix BID--daily weights, I/Os---echo with EF 60-65%--troponin neg--weights down
permanent A.fib controlled rate--apprec cards--cont eliquis
Peripheral venous stasis changes--legs wrapped
GAYATHRI creat up to 1.6 from recent baseline likely 1.3, concern is for developing cardiorenal syndrome--follow creat with diuresis, improving
type 2 DM--continue Glipizide--SSI, monitor glucose
Full Code
DVT proph- Eliquis
Anticipated Discharge: Within 24 hours
Subjective/Interval History
-
Date of Service: June 27, 2023
pt wants d/c
Objective Data
-
Labs:
Laboratory Results
06/27/23
07:00
Sodium 135
Potassium 3.2 L
Chloride 99
Carbon Dioxide 29
BUN 35 H
Creatinine 1.3
Glucose 200 H
Calcium 10.0
Vital Signs:
max temp for 24 hours
06/27/23
07:19
Temp 98.2 F
Vital Signs
Temp Pulse Resp BP Pulse Ox
97.2 F 75 18 130/60 92
06/27/23 11:02 06/27/23 11:02 06/27/23 11:02 06/27/23 11:02 06/27/23 11:02
I&O
06/26/23 06/27/23 06/28/23
06:59 06:59 06:59
Intake Total 900 / 900
Output Total 1000 / 1000 2550 / 2550 300 / 300
Balance -1000 / -1000 -1650 / -1650 -300 / -300
Review of Systems
-
All other systems: Reviewed and negative
Physical Exam
-
General: Well Developed, Well Nourished and No Apparent Distress
HEENT: Normocephalic and Atraumatic
Respiratory: Clear to Auscultation; Negative Wheezes, Rales, Rhonchi or Crackles
Cardiac: Regular Rhythm and S1/S2; Negative Murmur
GI: Soft, Nontender, Nondistended and Normal Bowel Sounds
Musculoskeletal: No Clubbing, No Cyanosis and No Edema
Neuro: Awake
[2023-06-27] MEDS: KCL 40 MEQ PO (14:51)
[2023-06-27 15:19] VITALS: BP 124/53
--- NOTE | 2023-06-27 16:21 | CM ---
Plan for discharge home tomorrow with no VN, IMM provided for review. CM will continue to follow for discharge planning needs.
[2023-06-27 16:39] LABS: Glucose - Point of Care 184 mg/dl (70-99)
[2023-06-27 19:25] VITALS: BP 134/70
[2023-06-27 21:49] LABS: Glucose - Point of Care 176 mg/dl (70-99)
[2023-06-27] MEDS: DICLOFENAC 1% TOPICAL GEL 100 GRAM TOPICAL (21:55)
[2023-06-27 23:48] VITALS: BP 146/72
[2023-06-28 03:50] VITALS: BP 131/62
--- NOTE | 2023-06-28 06:58 | W.PN.UPDATE ---
Update Note
Progress Note Update
RN notifed DOG BREEDER, patient c/o chest pain/pressure with deep breaths, having since 5Am. Advised nursing to give Lasix early dose, will order Troponin once, EKG, stat Chest Xray, and 1mg IV morphine. Stable VS at present.
[2023-06-28 07:32] LABS: Glucose - Point of Care 206 mg/dl (70-99)
--- NOTE | 2023-06-28 07:38 | PTCARENOTE ---
Patient stated that he was having chest pressure when breathing. Patient AAOx3. VS BP 129/69, RR 22, O2 Sat 93% on 2L HR 79. RN reached out to the PERMIT SPECIALIST Henrietta Reilly. EKG showed A.Fib, shared to house PERMIT SPECIALIST. PERMIT SPECIALIST ordered morphine See NATALIE, chest-xray
ordered, PERMIT SPECIALIST to update attending MD. Patient reported feeling 'acceptable'.
[2023-06-28 07:44] LABS: Troponin I 0.022 ng/ml
[2023-06-28 07:49] LABS: Blood Urea Nitrogen 39 mg/dl (9-20); Calcium 9.8 mg/dl (8.4-10.2); Carbon Dioxide 33 mmol/L (22-30); Chloride 96 mmol/L (98-107); Estimated Creatinine Clearance 47 ml/min; Glucose 216 mg/dl (70-99); Potassium 3.2 mmol/L (3.5-5.1); Sodium 135 mmol/L (135-145); eGFR 41.96
--- NOTE | 2023-06-28 08:25 | W.PN.CD ---
Today's Communication / Plan
-
-
check O2 w ambulation
HF education - he needs the special manual for charming but thick-headed Italians
switch to lasix 80mg po/day starting 06/29
dc planning, probably in 24hrs
Impression / Plan
-
Impression: 83yo with HFpEF, AF, HTN who has been struggling maintaining euvolemia at home.�
Plan
HFpEF, acute on chronic, severe requiring hospitalization
-Diuresis with furosemide 80 IV BID, this requires intensive monitoring
-He reports a weight of 278 pounds 5 weeks ago -> aim for that (he thinks 275 lbs. is goal weight)
-He will need an increase in his standing diuretic to 80mg po/day and he needs to have better diet/fluid compliance
-TTE (below) is unchanged
-Heart failure education
Permanent atrial fibrillation
-Rate controlled on metoprolol succinate
-Oral Anticoagulation: Apixaban 5mg BID, if creatinine goes above >1.5 again will need to decrease to 2.5 mg twice daily for age and renal function
-[id number]: Score at least 5 (Heart failure, HTN, age 75 or more, Diabetes Mellitus)
Chronic kidney disease -> Cr 1.6 is probably his baseline
HTN, chronic and stable
PVD, B/L LE compression recommended
Obesity, BMI 39, affects all aspects of care
Subjective: Dyspnea is improved, no CP or palps.
Laboratory Data
06/26/23 06/27/23
00:30 07:00
Hgb 12.4 L
Potassium 3.2 L
Creatinine 1.6 H 1.3
Selected Entries
06/26/23
00:39 06/26/23
06:00 06/27/23
08:00
Actual Weight 304 lb 0.279 oz 290 lb 8 oz 281 lb
05/15/20
09:05
Actual Weight 271 lb 6.224 oz
Generic Name Dose Route Start Last Admin
Trade Name Raymond PALUMBO Reason Stop Dose Admin
Metoprolol Succinate 25 mg 06/26/23 08:00
Metoprolol 25 Mg Extended Release Tablet PO 07/24/23 07:59
DAILY HELENE
Apixaban 2.5 mg 06/26/23 08:00
Apixaban (Eliquis) 2.5 Mg Tablet PO 07/24/23 07:59
BID HELENE
Atorvastatin Calcium 80 mg 06/26/23 08:00
Atorvastatin (Lipitor) 40 Mg Tablet PO 07/24/23 07:59
DAILY HELENE
Furosemide 80 mg 06/26/23 16:00
Furosemide 100 Mg (10 Mg/Ml) 10 Ml Vial IV 07/24/23 15:59
BID AT 0800,1600 HELENE
Physical Exam
Vital Signs/Labs
Vital Signs
Temp Pulse Resp BP Pulse Ox
97.7 F 66 18 131/62 97
06/28/23 03:50 06/28/23 03:50 06/28/23 03:50 06/28/23 03:50 06/28/23 03:50
06/27/23 06/28/23 06/29/23
06:59 06:59 06:59
Actual Weight 281 lb
06/26/23 00:30
06/28/23 07:05
Magnesium 1.8 mg/dl (1.6-2.3) 06/27/23 07:00
Triglycerides 99 mg/dl (10-149) 06/27/23 07:00
LDL Cholesterol, Calc 59 mg/dl 06/27/23 07:00
VLDL Cholesterol, Calc 19 mg/dl (0-30) 06/27/23 07:00
HDL Cholesterol 54 mg/dl 06/27/23 07:00
06/26/23
00:30
Lbu-T-Ujxuqzpngtn Pept 1750
LAB Results
06/26/23 06/26/23 06/26/23
00:30 07:10 07:55
Troponin I 0.021 Cancelled 0.016
06/26/23 06/28/23
13:02 07:05
Troponin I 0.015 0.022
Physical Exam
Cardiovascular: Rhythm & rate is regular and Pedal edema present
Respiratory: Respiratory effort normal and Crackles Present
Data Reviewed
-
Date of Service: June 28, 2023
EKG: Tracing Personally Visualized and interpreted
Labs: Labs Reviewed by me
[2023-06-28] MEDS: LASIX 80 MG IV ×2 (09:06→15:47)
[2023-06-28] MEDS: LIPITOR 80 MG PO (09:07)
[2023-06-28] MEDS: NEURONTIN 300 MG PO ×3 (09:07→21:30)
[2023-06-28] MEDS: ZYLOPRIM 100 MG PO (09:07)
[2023-06-28] MEDS: ELIQUIS 2.5 MG PO ×2 (09:07→20:31)
[2023-06-28] MEDS: TOPROL XL 25 MG PO (09:07)
[2023-06-28] MEDS: DICLOFENAC 1% TOPICAL GEL 1 GRAM TOPICAL ×3 (09:08→18:34)
[2023-06-28] MEDS: GLUCOTROL 10 MG PO (09:08)
[2023-06-28] MEDS: HYDROPHOR 1 APPLIC TOPICAL (09:10)
--- NOTE | 2023-06-28 09:12 | PTCARENOTE ---
Pt is not experiencing any chest pain. He refused the Morphine at this time.
[2023-06-28] MEDS: NOVOLOG FLEXPEN-LOW RESISTANCE 2 UNITS SC (09:14)
[2023-06-28 10:07] VITALS: O2SAT 92; O2SAT 95
[2023-06-28 10:44] VITALS: BMI 38.2
[2023-06-28 11:02] LABS: Glucose - Point of Care 258 mg/dl (70-99)
--- NOTE | 2023-06-28 14:21 | CM ---
Patient seen at bedside with physician. Patient completed IMM and form placed on chart. Patient requested referral to have [facility] at discharge. CM will continue to follow for discharge planning needs.
Plan; home with [facility] referral pending acceptance.
[2023-06-28] MEDS: NOVOLOG FLEXPEN-LOW RESISTANCE 3 UNITS SC ×2 (15:12→18:34)
[2023-06-28 15:25] VITALS: BP 146/70
--- NOTE | 2023-06-28 16:15 | W.PN.HOSP.TC ---
Today's Communication/Plan
-
plan for d/c tomorrow if OK with cards
replete K
Assessment / Plan
Assessment / Plan
pt is an 83 year old male
acute hypoxemic resp failure from acute diastolic CHF exacerbation-- weaned off O2---apprec cards--cont IV lasix BID--daily weights, I/Os---echo with EF 60-65%--troponin neg--weights down
hypokalemia--replete
permanent A.fib controlled rate--apprec cards--cont eliquis
Peripheral venous stasis changes--legs wrapped
GAYATHRI creat up to 1.6 from recent baseline likely 1.3, concern is for developing cardiorenal syndrome--follow creat with diuresis, improving
type 2 DM--continue Glipizide--SSI, monitor glucose
Full Code
DVT proph- Eliquis
Anticipated Discharge: Within 24 hours
Subjective/Interval History
-
Date of Service: June 28, 2023
pt had chest pain early this AM--none since
Objective Data
-
Labs:
Laboratory Results
06/28/23
07:05
Sodium 135
Potassium 3.2 L
Chloride 96 L
Carbon Dioxide 33 H
BUN 39 H
Creatinine 1.6 H
Glucose 216 H
Calcium 9.8
Vital Signs:
max temp for 24 hours
06/28/23
11:18
Temp 98.1 F
Vital Signs
Temp Pulse Resp BP Pulse Ox
98.3 F 70 18 146/70 92
06/28/23 15:25 06/28/23 15:47 06/28/23 15:25 06/28/23 15:47 06/28/23 15:25
I&O
06/27/23 06/28/23 06/29/23
06:59 06:59 06:59
Intake Total 900 / 900 720 / 720
Output Total 2550 / 2550 1999 / 1999
Balance -1650 / -1650 -1280 / -1280
Review of Systems
-
All other systems: Reviewed and negative
Physical Exam
-
General: Well Developed, Well Nourished and No Apparent Distress
HEENT: Normocephalic and Atraumatic
Respiratory: Crackles
Cardiac: Irregular Rhythm
GI: Soft, Nontender, Nondistended and Normal Bowel Sounds
Musculoskeletal: No Clubbing, No Cyanosis and No Edema (legs wrapped)
Neuro: Awake
[2023-06-28] MEDS: KCL 40 MEQ PO (16:26)
[2023-06-28 16:49] LABS: Glucose - Point of Care 254 mg/dl (70-99)
[2023-06-28 19:55] VITALS: BP 133/64
[2023-06-28 21:22] LABS: Glucose - Point of Care 231 mg/dl (70-99)
[2023-06-28] MEDS: DICLOFENAC 1% TOPICAL GEL 100 GRAM TOPICAL (21:30)
[2023-06-28 23:36] VITALS: BP 115/59
[2023-06-29 03:04] VITALS: BP 120/59
[2023-06-29 06:00] VITALS: BMI 37.8
[2023-06-29 07:00] VITALS: BP 122/61
[2023-06-29 07:33] LABS: Glucose - Point of Care 222 mg/dl (70-99)
[2023-06-29] MEDS: DICLOFENAC 1% TOPICAL GEL 2 GRAM TOPICAL (08:17)
[2023-06-29] MEDS: NOVOLOG FLEXPEN-LOW RESISTANCE 2 UNITS SC (08:22)
[2023-06-29] MEDS: LIPITOR 80 MG PO (08:24)
[2023-06-29] MEDS: LASIX 80 MG IV (08:24)
[2023-06-29] MEDS: ZYLOPRIM 100 MG PO (08:25)
[2023-06-29] MEDS: HYDROPHOR 1 APPLIC TOPICAL (08:25)
[2023-06-29] MEDS: ELIQUIS 2.5 MG PO (08:25)
[2023-06-29] MEDS: GLUCOTROL 10 MG PO (08:25)
[2023-06-29] MEDS: TOPROL XL 25 MG PO (08:25)
[2023-06-29] MEDS: NEURONTIN 300 MG PO (08:26)
--- NOTE | 2023-06-29 08:26 | W.PN.CD ---
Today's Communication / Plan
-
-
he looks ok for discharge (pending review of Renal labs)
dc lasix should be 40po BID (at 8am and 2pm)
i reviewed again fluid restriction and 2gr Na diet
Impression / Plan
-
Impression: 83yo with HFpEF, AF, HTN who has been struggling maintaining euvolemia at home. He admits to dietary indiscretion�
Plan
HFpEF, acute on chronic, severe requiring hospitalization - now, much improved
-Diuresis with furosemide 80 IV BID, this requires intensive monitoring
-He reports a weight of 278 pounds 5 weeks ago -> aim for that (he thinks 275 lbs. is goal weight)
-He will need an increase in his standing diuretic to 80mg po/day (40 po BID) and he needs to have better diet/fluid compliance
-TTE (below) is unchanged
-Heart failure education has been done
Permanent atrial fibrillation
-Rate controlled on metoprolol succinate
-Oral Anticoagulation: Apixaban 5mg BID, if creatinine goes above >1.5 again will need to decrease to 2.5 mg twice daily for age and renal function
-[id number]: Score at least 5 (Heart failure, HTN, age 75 or more, Diabetes Mellitus)
Chronic kidney disease -> Cr 1.6 is probably his baseline
HTN, chronic and stable
PVD, B/L LE compression recommended
Obesity, BMI 39, affects all aspects of care
Subjective: Dyspnea is improved, no CP or palps.
Laboratory Data
06/26/23 06/27/23
00:30 07:00
Hgb 12.4 L
Potassium 3.2 L
Creatinine 1.6 H 1.3
Selected Entries
06/26/23
00:39 06/26/23
06:00 06/27/23
08:00
Actual Weight 304 lb 0.279 oz 290 lb 8 oz 281 lb
05/15/20
09:05
Actual Weight 271 lb 6.224 oz
Generic Name Dose Route Start Last Admin
Trade Name Raymond PRN Reason Stop Dose Admin
Metoprolol Succinate 25 mg 06/26/23 08:00
Metoprolol 25 Mg Extended Release Tablet PO 07/24/23 07:59
DAILY HELENE
Apixaban 2.5 mg 06/26/23 08:00
Apixaban (Eliquis) 2.5 Mg Tablet PO 07/24/23 07:59
BID HELENE
Atorvastatin Calcium 80 mg 06/26/23 08:00
Atorvastatin (Lipitor) 40 Mg Tablet PO 07/24/23 07:59
DAILY HELENE
Furosemide 80 mg 06/26/23 16:00
Furosemide 100 Mg (10 Mg/Ml) 10 Ml Vial IV 07/24/23 15:59
BID AT 0800,1600 HELENE
Physical Exam
Vital Signs/Labs
Vital Signs
Temp Pulse Resp BP Pulse Ox
98 F 77 20 120/59 95
06/29/23 03:04 06/29/23 03:04 06/29/23 03:04 06/29/23 03:04 06/29/23 03:04
06/28/23 06/29/23 06/30/23
06:59 06:59 06:59
Actual Weight 281 lb 278 lb 8 oz
06/26/23 00:30
Magnesium 1.8 mg/dl (1.6-2.3) 06/27/23 07:00
Triglycerides 99 mg/dl (10-149) 06/27/23 07:00
LDL Cholesterol, Calc 59 mg/dl 06/27/23 07:00
VLDL Cholesterol, Calc 19 mg/dl (0-30) 06/27/23 07:00
HDL Cholesterol 54 mg/dl 06/27/23 07:00
06/26/23
00:30
Eeq-B-Gccsrlcwgqd Pept 1750
LAB Results
06/26/23 06/26/23 06/28/23
07:55 13:02 07:05
Troponin I 0.016 0.015 0.022
Physical Exam
Constitutional: Comfortable
Cardiovascular: Rhythm/rate is irregular and Pedal edema present
Respiratory: Respiratory effort normal and Lungs clear to auscul.
Data Reviewed
-
Date of Service: June 29, 2023
EKG: Tracing Personally Visualized and interpreted
Medical Tests (PFT, Pathology etc): Report Reviewed by me
Labs: Labs Reviewed by me
[2023-06-29 09:05] LABS: Blood Urea Nitrogen 41 mg/dl (9-20); Calcium 9.9 mg/dl (8.4-10.2); Carbon Dioxide 32 mmol/L (22-30); Chloride 95 mmol/L (98-107); Estimated Creatinine Clearance 49 ml/min; Glucose 228 mg/dl (70-99); Magnesium 1.9 mg/dl (1.6-2.3); Potassium 3.5 mmol/L (3.5-5.1); Sodium 137 mmol/L (135-145); eGFR 45.34
--- NOTE | 2023-06-29 09:51 | PN.CDI ---
Addendum entered and electronically signed by Tameka Barr MD 06/29/23 15:22:
documentation complete
Original Note:
CDI
- -
CDI:
Physician Documentation Request
Admit Date: 06/26/23 10:09
Dear Doctor Cortney,
Please review the following and provide your response in the progress notes.
Clinical Indicators:
Documentation in the record 06/26-04/28 Progress notes includes the diagnosis of Acute Hypoxic Respiratory Failure. The patient's respiratory clinical indicators were the following:
Documented H&P,' #Hypoxic respiratory failure, requiring 2L NC currently, not on home oxygen..'
Progress notes 06/26-06/28,' acute hypoxemic resp failure from Hypoxic respiratory failure, requiring 2L NC..'
No documented tachypnea/tachycardia or accessory muscle use
Recognized standard criteria for respiratory failure includes:
(Source: [facility] Hospitalist Mar 2013)
ABGs (1 or more)
�PO2 <60 or RA SpO2 <91%
�PcO2 >50 and pH <7.35
�pO2 decrease or pcO2 increase by 10 mmHg from baseline if known Symptoms:
�Tachypnea, SOB, dyspnea
�Pallor or cyanosis
�Anxiety or restlessness
�Use of accessory muscles
�Retractions (grunting in newborns)
�Unable to speak in complete sentences
Supplemental O2 requirement of 40% (5LPM) or more Intubation is not required
Based on the above information and the recognized standard for respiratory failure could you please verify this diagnoses is still accurate and reflective of the patient�s condition to ensure quality of the medical record.
Please clarify in the Progress Notes:
� Acute Hypoxic Respiratory Failure is/was present and is a clinical diagnosis based on (please include this additional support in the medical record)
�After study Acute Hypoxic Respiratory failure has been ruled out
�Other
�Unable to determine
Use of terms such as suspected, likely, concern for, or probable (associated with a specific diagnosis that is being evaluated, monitored, or treated as if it exists) are acceptable and can be coded in the inpatient setting, when documented at the
time of discharge.
Thank you,
Mayra Gaoan RN
CDI Specialist
[place] [facility]
Please use your independent medical judgment in providing your response.
--- NOTE | 2023-06-29 10:03 | PN.CDI ---
Addendum entered and electronically signed by Tameka Barr MD 06/29/23 15:22:
documentation complete
Original Note:
CDI
- -
CDI:
Physician Documentation Request
Admit Date: 06/26/23 10:09
Dear Doctor Cortney,
Please review the following and provide your response in the progress notes.
Clinical Indicators:
Pt admitted with Acute on Chronic Diastolic CHF exacerbation on IV Lasix
Documented per H&P,' GAYATHRI creat up to 1.6 from recent baseline likely 1.3, concern is for developing cardiorenal syndrome...'
Cardiology notes,' Chronic kidney disease, follow with diuresis..'
Cardiology note 06/29,'Chronic kidney disease -> Cr 1.6 is probably his baseline...'
06/26/23 06/26/23 06/27/23
00:30 00:30 07:00
Creatinine 1.6 H 1.3
eGFR 41.96
06/27/23 06/28/23 06/28/23
07:00 07:05 07:05
Creatinine 1.6 H
eGFR 53.84 41.96
06/29/23 06/29/23
07:10 07:10
Creatinine 1.5 H
eGFR 45.34
Clarify which of the following accurately represents the patient's renal status:
GAYATHRI on CKD (Please specify stage)
GAYATHRI only
CKD (please specify stage)
Criteria for GAYATHRI*
1 Increase in serum creatinine by > or = to 0.3 mg/dL (> or = to 26.5 micromol/L) within 48 hours, OR
2 Increase in serum creatinine to > or = to 1.5 times baseline, which is known or presumed to have occurred within 7 days, OR
3 Urine volume < 0.5 nL/kg/hour for six hours
Stages of Chronic Kidney Disease*
Level Description GFR
G1 Normal or High >90
G2 Mildly decreased 60-89
G3a Mildly to moderately decreased 45-59
G3b Moderately to severely decreased 30-44
G4 Severely decreased 15-29
G5 Kidney failure <15
Use of terms such as suspected, likely, concern for, or probable (associated with a specific diagnosis that is being evaluated, monitored, or treated as if it exists) are acceptable and can be coded in the inpatient setting, when documented at the
time of discharge.
Thank you,
Mayra Gaona RN
CDI Specialist
[place] [facility]
Please use your independent medical judgment in providing your response.
*Source: Kidney Disease: Improving Global Outcomes (KDIGO) 2012
--- NOTE | 2023-06-29 11:13 | W.HF.CON ---
Heart Failure
- LV Function
Left ventricular function study result: LV Ejection fraction >40%
Ejection Fraction Percentage: 60-65
- ARNI
Patient already on ARNI: No
Heart Failure ARNI Not Indicated: LV Ejection Fraction >/= 40%
- ACEI/ARB
Patient already on ACEI/ARB: No
Heart Failure ACEI/ARB Not Indicated: LV Ejection Fraction > 40%
- Beta Tye
Patient already on Evidence Based Beta Tye: Yes
- Mineralocorticord Receptor Antagonist
Patient already on MRA: No
Heart Failure MRA Not Indicated: LV Ejection Fraction > 40%
- SGLT-2 Inhibitor
Patient already on SGLT-2 Inhibitor: No
Heart Failure SGLT-2 Inhibitor Not Indicated: LV Ejection Fraction >40%
- Afib Anticoagulation
Patient already on Anticoagulation for Afib: Yes
- NYHA CHF Classification
NYHA CHF Classification Level: Class III - Symptoms w/ min exertion, interferes w/ nml daily activity
- ACC/AHA Stage
ACC/AHA Stage: Stage C: Symptomatic Heart Failure
[2023-06-29 11:15] VITALS: BP 135/66
[2023-06-29 11:56] LABS: Glucose - Point of Care 274 mg/dl (70-99)
[2023-06-29] MEDS: NOVOLOG FLEXPEN-LOW RESISTANCE 3 UNITS SC (13:03)
--- NOTE | 2023-06-29 15:03 | W.PN.HOSP.TC ---
Today's Communication/Plan
-
d/c
Assessment / Plan
Assessment / Plan
pt is an 83 year old male
acute hypoxemic resp failure from acute diastolic CHF exacerbation-- weaned off O2---apprec cards--cont IV lasix BID--daily weights, I/Os---echo with EF 60-65%--troponin neg--weights down
hypokalemia--replete
permanent A.fib controlled rate--apprec cards--cont eliquis
Peripheral venous stasis changes--legs wrapped
GAYATHRI creat up to 1.6 from recent baseline likely 1.3, concern is for developing cardiorenal syndrome--follow creat with diuresis, improving-may end up being chronic and new baseline but cannot say that currently
type 2 DM--continue Glipizide--SSI, monitor glucose
Full Code
DVT proph- Eliquis
Anticipated Discharge: Today
Subjective/Interval History
-
Date of Service: June 29, 2023
pt cleared for d/c by cards
Objective Data
-
Labs:
Laboratory Results
06/29/23
07:10
Sodium 137
Potassium 3.5
Chloride 95 L
Carbon Dioxide 32 H
BUN 41 H
Creatinine 1.5 H
Glucose 228 H
Calcium 9.9
Vital Signs:
max temp for 24 hours
06/10/23
10:12 06/28/23
15:25 06/29/23
06:00
Temp 98.3 F
Actual Weight 133.4 kg 126.325 kg
Vital Signs
Temp Pulse Resp BP Pulse Ox
98.3 F 75 20 135/66 92
06/29/23 11:15 06/29/23 11:15 06/29/23 11:15 06/29/23 11:15 06/29/23 14:01
I&O
06/28/23 06/29/23 06/30/23
06:59 06:59 06:59
Intake Total 720 / 720 900 / 900
Output Total 1999
Balance -1280 / -1280 -1100 / -1100
Review of Systems
-
All other systems: Reviewed and negative
Physical Exam
-
General: Well Developed, Well Nourished and No Apparent Distress
HEENT: Normocephalic and Atraumatic
Respiratory: Clear to Auscultation; Negative Wheezes or Rhonchi
Cardiac: Irregular Rhythm
GI: Soft, Nontender, Nondistended and Normal Bowel Sounds
Musculoskeletal: No Clubbing, No Cyanosis and No Edema (legs wrapped)
Skin: Warm
Neuro: Awake
--- NOTE | 2023-06-29 15:15 | CM ---
Patient seen at bedside with physician. Patient for discharge home today and hard copy of prescription to accompany fax. Patient for transportation with daughter and [facility] pt/ot to follow for therapy. Please fax prescription and discharge summary to
[phone]. CM will continue to follow for discharge planning needs.
Plan; home with therapy with [facility].
[2023-06-29 15:20] VITALS: BP 137/77
--- NOTE | 2023-06-30 13:00 | W.DCSUMMARY ---
Discharge Summary
Discharge Data
Date of Admission: 06/26/23
Date of Discharge: 06/29/23
-
Pending Results: No
Hospital Course
Primary care physician : Iker Mann
Principal Discharge diagnosis : Acute hypoxemic respiratory failure from acute diastolic congestive heart failure exacerbation with hypokalemia
Chronic Discharge diagnosis : Permanent atrial fibrillation with controlled rate, peripheral venous stasis changes, acute kidney injury on chronic kidney disease likely, type 2 diabetes mellitus
Hospital Course : Patient is an 83-year-old male with a history of permanent atrial fibrillation on Eliquis, diastolic congestive heart failure among other issues who presented with worsening shortness of breath and pleuritic chest pain in the left
upper chest. He did increase his oral Lasix at home and used compressive boots to improve his lower extremity edema. He also had a 20 pound weight gain over the past few months. In the emergency department he received IV Lasix and symptoms
started to improve. But he was still requiring oxygen which she does not wear at home. He was admitted.
Problem #1: Acute hypoxemic respiratory failure from acute diastolic congestive heart failure exacerbation with hypokalemia. Patient was admitted and seen in consultation by cardiology. He was given IV Lasix for diuresis. Echocardiogram done
showed preserved ejection fraction of 60 to 65%. Weights came down nicely and the patient was weaned off oxygen. He has been cleared for discharge by cardiology.
Problem #2: All other medical issues. These include Permanent atrial fibrillation with controlled rate, peripheral venous stasis changes, acute kidney injury on chronic kidney disease likely, type 2 diabetes mellitus. These medical issues were
stable during his hospitalization. Medications were continued as able.
Patient is stable for discharge home at this time. If there are any questions regarding this dictation or his hospital stay, please not hesitate to call. Our office number is [phone].
Discharge Plan
-
Patient Disposition: Home (Routine Discharge)
Discharge Diagnosis/Procedures: Acute hypoxemic respiratory failure from acute diastolic congestive heart failure exacerbation, hypokalemia, permanent atrial fibrillation with controlled rate, peripheral venous stasis changes, acute kidney injury,
type 2 diabetes mellitus
Condition: Good
Diet: Low Sodium and Diabetic, Carb Controlled
Activity: As tolerated
Driving Restrictions: As prior to admission
Bathing Restrictions: None
Specialty Instructions: Weigh Daily- Call MD for wt gain/loss 3 lbs overnight/5 lbs in 1 week
Instructions: *CBC Heart Failure Instructions
Referrals:
Iker Mann MD [Family Provider] -
Sharon Parker CRNP [Specified Professional Personl] - 07/17/23 10:40 am
Prescriptions:
New
Eliquis 2.5 mg Tablet
2.5 mg PO BID Qty: 60 0RF
Rx Instructions:
new dose
furosemide 40 mg tablet
40 mg PO BID Qty: 60 0RF
Continued
atorvastatin 40 MG tablet
80 mg PO DAILY
allopurinol 100 MG tablet
100 mg PO DAILY
glipizide 5 MG tablet
10 mg PO DAILY
acetaminophen [Tylenol Extra Strength] 500 MG tablet
500 mg PO PRN PRN (Reason: pain)
metoprolol succinate 25 MG tablet extended release 24 hr
25 mg PO DAILY
Janumet XR 1 EACH tablet, ER multiphase 24 hr
1 ea PO DAILY
gabapentin
300 mg PO TID
Held
valsartan-hydrochlorothiazide 1 EACH tablet
160 tab PO DAILY
Hold Instructions: discuss resuming with cardiology
Rx Instructions:
pt takes 160 mg/12.5 mg
Discontinued
Eliquis 5 MG tablet
5 mg PO BID Qty: 60 2RF
furosemide 40 MG tablet
40 mg PO DAILY
Discharge Orders:
Discharge Patient (As Directed); Ordered 06/29/23
Ordered By: Tameka Barr
Discharge Date and Time
Discharge Date/Time: 06/29/23 17:48
== END 2023-06-29 17:48 | disposition home health service (06) | DRG 291 ==
LOC: 4 EAST ACU 10:09
PROVIDERS: Emergency Medicine; Nurse Practitioner Gerontology; ADMITTING PHYSICIAN Internal Medicine; ATTENDING PHYSICIAN Internal Medicine; EMERGENCY PHYSICIAN Emergency Medicine; FAMILY PHYSICIAN Internal Medicine; OTHER PHYSICIAN Internal Medicine Cardiovascular Disease
DX: I13.0 Hypertensive heart and chronic kidney disease with heart failure and stage 1 through stage 4 chronic kidney disease, or unspecified chronic kidney disease (principal); I50.33 Acute on chronic diastolic (congestive) heart failure; J96.01 Acute respiratory failure with hypoxia; N17.9 Acute kidney failure, unspecified; I48.21 Permanent atrial fibrillation; Z79.01 Long term (current) use of anticoagulants; E78.00 Pure hypercholesterolemia, unspecified; N18.9 Chronic kidney disease, unspecified; E11.22 Type 2 diabetes mellitus with diabetic chronic kidney disease; I87.8 Other specified disorders of veins; E66.9 Obesity, unspecified; Z68.39 Body mass index [BMI] 39.0-39.9, adult; E87.6 Hypokalemia
CPT/HCPCS: 71045; 80048; 80053; 80061; 82962; 83036; 83735; 83880; 84443; 84484; 85025; 93005; 93306; 94761; 96374; 99285

== ENCOUNTER → 2023-07-30 11:25 | Outpatient (REF) | payer MEDICARE, SELFPAY | LOC: WOUND 11:25 | PROVIDERS: ATTENDING PHYSICIAN Surgery; FAMILY PHYSICIAN Internal Medicine | DX: I87.311 Chronic venous hypertension (idiopathic) with ulcer of right lower extremity (principal); L97.812 Non-pressure chronic ulcer of other part of right lower leg with fat layer exposed; R60.0 Localized edema; I50.32 Chronic diastolic (congestive) heart failure; E11.9 Type 2 diabetes mellitus without complications; E66.01 Morbid (severe) obesity due to excess calories; I11.0 Hypertensive heart disease with heart failure | CPT/HCPCS: 97597; 97598; 99213 ==

== ENCOUNTER → 2023-08-07 10:18 | Outpatient (REF) | payer MEDICARE, SELFPAY | LOC: WOUND 10:18 | PROVIDERS: ATTENDING PHYSICIAN Surgery; FAMILY PHYSICIAN Internal Medicine | DX: I87.311 Chronic venous hypertension (idiopathic) with ulcer of right lower extremity (principal); L97.812 Non-pressure chronic ulcer of other part of right lower leg with fat layer exposed; R60.0 Localized edema; I50.32 Chronic diastolic (congestive) heart failure; E11.9 Type 2 diabetes mellitus without complications; I10 Essential (primary) hypertension; E66.01 Morbid (severe) obesity due to excess calories | CPT/HCPCS: 29581; 99213 ==

== ENCOUNTER → 2023-08-15 10:10 | Outpatient (REF) | payer MEDICARE, SELFPAY | LOC: WOUND 10:10 | PROVIDERS: ATTENDING PHYSICIAN Surgery; FAMILY PHYSICIAN Internal Medicine | DX: I87.311 Chronic venous hypertension (idiopathic) with ulcer of right lower extremity (principal); L97.812 Non-pressure chronic ulcer of other part of right lower leg with fat layer exposed; R60.0 Localized edema; I50.32 Chronic diastolic (congestive) heart failure; E11.9 Type 2 diabetes mellitus without complications; I10 Essential (primary) hypertension; E66.01 Morbid (severe) obesity due to excess calories | CPT/HCPCS: 29581 ==

== ENCOUNTER → 2023-08-22 10:51 | Outpatient (REF) | payer MEDICARE, SELFPAY | LOC: WOUND 10:51 | PROVIDERS: ATTENDING PHYSICIAN Surgery; FAMILY PHYSICIAN Internal Medicine | DX: I87.311 Chronic venous hypertension (idiopathic) with ulcer of right lower extremity (principal); L97.812 Non-pressure chronic ulcer of other part of right lower leg with fat layer exposed; R60.0 Localized edema; I50.32 Chronic diastolic (congestive) heart failure; E11.9 Type 2 diabetes mellitus without complications; I10 Essential (primary) hypertension; E66.01 Morbid (severe) obesity due to excess calories | CPT/HCPCS: 99213 ==

== ENCOUNTER → 2023-09-24 11:29 | Outpatient (REF) | payer MEDICARE, SELFPAY | LOC: WOUND 11:29 | PROVIDERS: ATTENDING PHYSICIAN Surgery; FAMILY PHYSICIAN Internal Medicine | DX: I87.311 Chronic venous hypertension (idiopathic) with ulcer of right lower extremity (principal); L97.812 Non-pressure chronic ulcer of other part of right lower leg with fat layer exposed; R60.0 Localized edema; I50.32 Chronic diastolic (congestive) heart failure; E11.9 Type 2 diabetes mellitus without complications; I10 Essential (primary) hypertension; E66.01 Morbid (severe) obesity due to excess calories | CPT/HCPCS: 29580; 99213 ==

== ENCOUNTER → 2023-10-01 11:40 | Outpatient (REF) | payer MEDICARE, SELFPAY | LOC: WOUND 11:40 | PROVIDERS: ATTENDING PHYSICIAN Surgery; FAMILY PHYSICIAN Internal Medicine | DX: I87.311 Chronic venous hypertension (idiopathic) with ulcer of right lower extremity (principal); L97.812 Non-pressure chronic ulcer of other part of right lower leg with fat layer exposed; R60.0 Localized edema; I50.32 Chronic diastolic (congestive) heart failure; E11.9 Type 2 diabetes mellitus without complications; I11.0 Hypertensive heart disease with heart failure; E66.01 Morbid (severe) obesity due to excess calories | CPT/HCPCS: 29580; 99213 ==

== ENCOUNTER → 2023-10-09 13:55 | Outpatient (REF) | payer MEDICARE, SELFPAY | LOC: WOUND 13:55 | PROVIDERS: ATTENDING PHYSICIAN Surgery; FAMILY PHYSICIAN Internal Medicine | DX: I87.311 Chronic venous hypertension (idiopathic) with ulcer of right lower extremity (principal); L97.812 Non-pressure chronic ulcer of other part of right lower leg with fat layer exposed; R60.0 Localized edema; I50.32 Chronic diastolic (congestive) heart failure; E66.01 Morbid (severe) obesity due to excess calories; I11.0 Hypertensive heart disease with heart failure | CPT/HCPCS: 97597 ==

== ENCOUNTER → 2023-10-12 09:05 | Outpatient (REF) | payer MEDICARE, SELFPAY | LOC: WOUND 09:05 | PROVIDERS: ATTENDING PHYSICIAN Surgery; FAMILY PHYSICIAN Internal Medicine | DX: I87.313 Chronic venous hypertension (idiopathic) with ulcer of bilateral lower extremity (principal); L97.812 Non-pressure chronic ulcer of other part of right lower leg with fat layer exposed; L97.821 Non-pressure chronic ulcer of other part of left lower leg limited to breakdown of skin; R60.0 Localized edema; I50.32 Chronic diastolic (congestive) heart failure; E11.9 Type 2 diabetes mellitus without complications; E66.01 Morbid (severe) obesity due to excess calories; I11.0 Hypertensive heart disease with heart failure | CPT/HCPCS: 10140; 29581; 99213 ==

== ENCOUNTER → 2023-10-19 09:15 | Outpatient (REF) | payer MEDICARE, SELFPAY | LOC: WOUND 09:15 | PROVIDERS: ATTENDING PHYSICIAN Surgery; FAMILY PHYSICIAN Internal Medicine | DX: I87.313 Chronic venous hypertension (idiopathic) with ulcer of bilateral lower extremity (principal); L97.812 Non-pressure chronic ulcer of other part of right lower leg with fat layer exposed; L97.821 Non-pressure chronic ulcer of other part of left lower leg limited to breakdown of skin; R60.0 Localized edema; I50.32 Chronic diastolic (congestive) heart failure; E11.9 Type 2 diabetes mellitus without complications; E66.01 Morbid (severe) obesity due to excess calories; I11.0 Hypertensive heart disease with heart failure | CPT/HCPCS: 29581; 97597; 97598 ==

== ENCOUNTER 2023-10-23 06:01 | Emergency (ER) | payer MEDICARE, SELFPAY ==
[2023-10-23 06:02] VITALS: BMI 39.4
[2023-10-23 06:04] VITALS: BP 114/87
[2023-10-23 06:06] VITALS: BP 114/87
--- NOTE | 2023-10-23 06:32 | ED.GENMED ---
History of Present Illness
General
Chief Complaint: Extremity Pain (non-traumatic)
Source: patient
Exam Limitations: none
Time Seen by Provider: 10/23/23 06:12
Travel History
Have you had any contact with someone who has COVID-19?: No
Do you have any symptoms of coronavirus? Fever > 100 degrees, chills, cough, shortness of breath, sore throat, loss of taste or smell, muscle aches, or headache?: No
Symptoms:: 11pm
History of Present Illness
History of Present Illness:
See MDM
Past History
Past History
ED Past Medical History: Arrthythmia (Atrial fibrillation), CHF, HTN, Hypercholesterolemia, NIDDM and Other (Benign brain tumor)
ED Past Surgical History: Brain, Orthopedic and Tonsilectomy
Social History
Tobacco: Non-smoker
Alcohol: None
Drug: None
Living: with family
Employment: Retired
Family History
Family History: Other (Noncontributory)
Phy Exam
Physical Exam
Physical Exam:
See MDM
Course
Orders/Labs/Results
Orders:
Orders
10/23/23 06:25
Complete Blood Count/With Diff Urgent
Comprehensive Metabolic Panel Urgent
10/23/23 08:15
Urinalysis Reflex To Culture Urgent
Date Specimen was Collected: 10/23/23
Time Specimen was Collected: 07:59
Urine Microscopic Reflex Cult Urgent
Abnormal Lab Results
10/23/23 10/23/23
06:25 08:15
RBC 3.83 L 10^6/uL
(4.70-6.10)
Hgb 12.3 L g/dL
(13.0-18.0)
Hct 36.4 L %
(39.0-52.0)
MCV 95.0 H fL
(80.0-94.0)
MCH 32.1 H pg
(27.0-31.0)
RDW 14.7 H %
(11.5-14.5)
Absolute Monos (auto) 0.7 H 10^3/uL
(0.1-0.6)
Lymphocytes % 19.5 L %
(20.5-51.1)
BUN 39 H mg/dl
(9-20)
Creatinine 1.7 H mg/dL
(0.7-1.3)
Glucose 159 H mg/dl
(70-99)
Calcium 10.4 H mg/dl
(8.4-10.2)
Ur Occult Blood Reflex 1+ A
(Negative)
Urine RBC 3-6 A /HPF
(0-2)
Urine Bacteria (Reflex) Few A
(Negative)
Urine Glucose 3+ A
(Negative)
10/23/23 06:25
10/23/23 06:25
Vital Signs
Initial and Last Documented VS:
Initial Vital Signs
Temp Resp BP Pulse Ox
98.1 F 18 114/87 93
10/23/23 06:04 10/23/23 06:04 10/23/23 06:04 10/23/23 06:04
Last Documented Vital Signs
Temp Pulse Resp BP Pulse Ox
98.1 F 60 17 123/54 97
10/23/23 06:04 10/23/23 09:22 10/23/23 09:22 10/23/23 09:20 10/23/23 08:06
MDM/Problems Addressed
Differential Diagnosis Includes:
HPI and MDM Narrative:
83-year-old male presenting with tingling in his right hand. He localizes tingling to his thumb and first 2 fingers. Patient states 'I just do not feel well'. He is also concerned about his left leg wound. He is currently being followed by wound
care. Both legs are wrapped complains about his left leg. Once I unwrapped his leg and exposed his left lower leg wound, patient states he started to feel better.
The wound appears chronic and noninfected. I discussed with patient that symptoms are likely related to carpal tunnel syndrome and patient was told that he likely has carpal tunnel. When I asked what made him call the ambulance, patient just
stated that 'I just do not feel well'.
Physical exam
General: Well appearing and non-toxic
HEENT: protecting airway
Neck: appears supple
CV: No evidence of cyanosis
Resp: No accessory muscle use
Abd: Non-distended
Extremities: Chronic wound to left leg. No surrounding infection. Sensation grossly intact to both feet and hands
Neuro: alert
Psych: Normal affect
Skin: Chronic wound to left leg
Problems Addressed including Acute and Chronic Conditions affecting care:
1. Right carpal tunnel syndrome
Acuity: acute
Prognosis: stable
Details: Discussed expectant management
2. Chronic leg wound
Acuity: acute
Prognosis: stable
Details: No evidence of infection
Updates
Blood work appears to be at baseline. Daughter at bedside. They feel comfortable going home
I did discuss that his carpal tunnel is likely the way that he is leaning on his walker and he tends to agree.
Differential Diagnosis (but not limited to): Carpal tunnel syndrome, chronic wound, UTI
Testing considered: EKG
Drug therapy (if applicable): OTC meds, please see d/c instruction regarding Rx drugs
Amount and/or Complexity of Data Reviewed
Clinical info obtained from: Patient
External data reviewed: N/A
Labs I independently reviewed (but not limited to): Creatinine at baseline
Radiology: N/A
Pulse Ox: not hypoxic
EKG independently reviewed: N/A
Staff Rn: N/A
Critical Care: N/A
Risk of Complication:
Social Determinants of health: Good social support
Discussed with other providers: N/A
Escalation of Care includes Admit/Obs: After being observed in the Emergency Department, pt stable for discharge.
Occasional wrong word or 'sound a like' substitutions may have occurred due to the inherent limitations of voice recognition software. Read the chart carefully and recognize, using context, where substitutions have occurred.
*Critical Care Note
Total Time (30-74mins, 75-104mins- exclusive of procedures): Not Applicable
ED Attending Note
-
Portions of this chart may have been created with voice recognition software.� Occasional wrong word or��sound alike� substitutions may have occurred due to the inherent limitations of voice recognition software.
Discharge Plan
Departure
Patient Disposition: Home (Routine Discharge)
Date of Disposition: 10/23/23
Time of Disposition: 09:36
Patient with high blood pressure during this ER visit?: No
Discharge Problem:
Carpal tunnel syndrome, Leg wound, left
Instructions: Carpal Tunnel Exercises
Prescriptions:
No Action
atorvastatin 40 MG tablet
80 mg PO DAILY
allopurinol 100 MG tablet
100 mg PO DAILY
glipizide 5 MG tablet
10 mg PO DAILY
acetaminophen [Tylenol Extra Strength] 500 MG tablet
500 mg PO PRN PRN (Reason: pain)
metoprolol succinate 25 MG tablet extended release 24 hr
25 mg PO DAILY
valsartan-hydrochlorothiazide 1 EACH tablet
160 tab PO DAILY
Hold Instructions: discuss resuming with cardiology
Rx Instructions:
pt takes 160 mg/12.5 mg
Janumet XR 1 EACH tablet, ER multiphase 24 hr
1 ea PO DAILY
furosemide 40 mg tablet
40 mg PO BID Qty: 60 0RF
Jardiance
1 tab PO DAILY
Eliquis 2.5 mg tablet
5 mg PO BID
Rx Instructions:
new dose
Referrals:
Iker Mann MD [Family Provider] -
Activity Restrictions/Additional Instructions:
Please return for any worsening symptoms.
You may return at any time if you have further concerns.
Please follow up with your doctor at the first available appointment, preferably this week.
Thank you for choosing [facility].
Interventions
Interventions:
*Risk Screen - Suicide Last Done: 10/23/23 06:12
*General Assessment Last Done: 10/23/23 06:12
*Neglect/Abuse Screening Last Done: 10/23/23 06:12
ED-Skin Assessment Last Done: 10/23/23 06:39
ED-Peripheral Vascular Assessment Last Done: 10/23/23 06:39
ED-Musculoskeletal Assessment Last Done: 10/23/23 08:06
Discharge Date and Time
Print Language: FINNISH
[2023-10-23 06:40] LABS: % Basophils 0.5 % (0-2); % Eosinophils 1.8 % (0-6); % Immature Granulocytes 0.5 % (0-0.5); % Lymphocytes 19.5 % (20.5-51.1); % Monocytes 8.5 % (1.7-9.3); % Neutrophils 69.2 % (42.2-75.2); Absolute Eosinophils 0.2 10^3/uL (0-0.7); Absolute Lymphocytes 1.7 10^3/uL (1.2-3.4); Absolute Monocytes 0.7 10^3/uL (0.1-0.6); Absolute Neutrophils 5.9 10^3/uL (1.4-6.5); Hematocrit 36.4 % (39.0-52.0); Hemoglobin 12.3 g/dL (13.0-18.0); Mean Corp Hgb Conc. 33.8 g/dL (33.0-37.0); Mean Corpuscular Hgb 32.1 pg (27.0-31.0); Mean Platelet Volume 9.8 fL (7.4-10.4); Nucleated Red Blood Cells % 0 % (-); Platelet Count 215 10^3/uL (130-400); Red Blood Cell Count 3.83 10^6/uL (4.70-6.10); Red Cell Dist. Width 14.7 % (11.5-14.5); White Blood Cell Count 8.6 10^3/uL (4.8-10.8)
[2023-10-23 06:56] LABS: ALT (SGPT) 19 U/L (0-50); AST (SGOT) 28 U/L (17-59); Albumin 4.2 g/dl (3.5-5.0); Alkaline Phosphatase 75 U/L (38-126); Blood Urea Nitrogen 39 mg/dl (9-20); Calcium 10.4 mg/dl (8.4-10.2); Carbon Dioxide 29 mmol/L (22-30); Chloride 100 mmol/L (98-107); Estimated Creatinine Clearance 45 ml/min; Glucose 159 mg/dl (70-99); Potassium 3.7 mmol/L (3.5-5.1); Sodium 139 mmol/L (135-145); Total Bilirubin 0.7 mg/dl (0.2-1.3); Total Protein 7.4 g/dl (6.3-8.2); eGFR 39.02
[2023-10-23 07:00] VITALS: BP 108/54
[2023-10-23 08:43] LABS: Urine Albumin Trace (Neg - Trace); Urine Bilirubin Negative (Negative); Urine Character Clear (Clear); Urine Color Straw; Urine Glucose 3+ (Negative); Urine Ketone Negative (Negative); Urine Leukocyte Negative (Negative); Urine Nitrite Negative (Negative); Urine Occult Blood 1+ (Negative); Urine Specific Gravity 1.015 (<1.030); Urine Urobilinogen Negative (Neg - 1+)
[2023-10-23 09:12] LABS: Urine Bacteria Few (Negative); Urine Squamous Cell 0-2 /LPF (Few); Urine White Cell 0-2 /HPF (0-5)
[2023-10-23 09:20] VITALS: BP 123/54
== END 2023-10-23 10:00 | disposition home or self-care (01) ==
LOC: EMR 06:01
PROVIDERS: EMERGENCY PHYSICIAN Student in an Organized Health Care Education/Training Program; FAMILY PHYSICIAN Internal Medicine
DX: G56.01 Carpal tunnel syndrome, right upper limb (principal); S81.802A Unspecified open wound, left lower leg, initial encounter; X58.XXXA Exposure to other specified factors, initial encounter
CPT/HCPCS: 99283; 80053; 81003; 81015; 85025

== ENCOUNTER → 2023-10-26 09:12 | Outpatient (REF) | payer MEDICARE, SELFPAY | LOC: WOUND 09:12 | PROVIDERS: ATTENDING PHYSICIAN Surgery; FAMILY PHYSICIAN Internal Medicine | DX: I87.313 Chronic venous hypertension (idiopathic) with ulcer of bilateral lower extremity (principal); L97.812 Non-pressure chronic ulcer of other part of right lower leg with fat layer exposed; L97.821 Non-pressure chronic ulcer of other part of left lower leg limited to breakdown of skin; R60.0 Localized edema; I50.32 Chronic diastolic (congestive) heart failure; E11.9 Type 2 diabetes mellitus without complications; E66.01 Morbid (severe) obesity due to excess calories; I11.0 Hypertensive heart disease with heart failure | CPT/HCPCS: 97597 ==

== ENCOUNTER → 2023-11-02 09:23 | Outpatient (REF) | payer MEDICARE, SELFPAY | LOC: WOUND 09:23 | PROVIDERS: ATTENDING PHYSICIAN Surgery; FAMILY PHYSICIAN Internal Medicine | DX: I87.313 Chronic venous hypertension (idiopathic) with ulcer of bilateral lower extremity (principal); L97.812 Non-pressure chronic ulcer of other part of right lower leg with fat layer exposed; L97.821 Non-pressure chronic ulcer of other part of left lower leg limited to breakdown of skin; R60.0 Localized edema; I50.32 Chronic diastolic (congestive) heart failure; E11.9 Type 2 diabetes mellitus without complications; E66.01 Morbid (severe) obesity due to excess calories; I10 Essential (primary) hypertension | CPT/HCPCS: 29580 ==

== ENCOUNTER → 2023-11-09 09:38 | Outpatient (REF) | payer MEDICARE, SELFPAY | LOC: WOUND 09:38 | PROVIDERS: ATTENDING PHYSICIAN Surgery; FAMILY PHYSICIAN Internal Medicine | DX: I87.313 Chronic venous hypertension (idiopathic) with ulcer of bilateral lower extremity (principal); L97.821 Non-pressure chronic ulcer of other part of left lower leg limited to breakdown of skin; R60.0 Localized edema; I50.32 Chronic diastolic (congestive) heart failure; E11.9 Type 2 diabetes mellitus without complications; E66.01 Morbid (severe) obesity due to excess calories; I11.0 Hypertensive heart disease with heart failure | CPT/HCPCS: 97597 ==

== ENCOUNTER 2023-11-10 09:33 | Emergency (ER) | payer MEDICARE, SELFPAY ==
[2023-11-10 09:35] VITALS: BP 124/55
--- NOTE | 2023-11-10 10:02 | ED.GENMED ---
History of Present Illness
General
Chief Complaint: Musculo-Skeletal Complaint
Source: patient
Exam Limitations: none
Time Seen by Provider: 11/10/23 09:43
Nursing documentation reviewed up to this point in time: agreed with
History of Present Illness
History of Present Illness:
83 yo M with h/o afib on eliquis
chronic lymphedema
arthritis, s/p TKR ty 4 years ago
chronically uses walker
neuropathy, diabetic
here with left sided thigh pain x 1 mo
says no injury
but the first 2 weeks mild and ambluatory like usual; but now in the past 2 weeks it has been worse. 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
he also uses 2 doses daily tylenol
no swelling, redness, warmth, radiation from back, weakness new in the leg
no change to chornic mild B/L LE weeping, sees wound care
no trauma
does sleep in a lift chair
pain worse with walking and movement
relieved with icy hot
Past History
Past History
ED Past Medical History: Arrthythmia (Atrial fibrillation), CHF, HTN, Hypercholesterolemia, NIDDM and Other (Benign brain tumor)
ED Past Surgical History: Brain, Orthopedic and Tonsilectomy
Social History
Tobacco: Non-smoker
Alcohol: None
Drug: None
Living: with family
Employment: Retired
Family History
Family History: Other (Noncontributory)
Review of Systems
Review of Systems
Allergies reviewed?: Yes
All Other Systems: Not applicable
Phy Exam
Physical Exam
Physical Exam:
GENERAL: Alert , in no apparent distress
HEAD: NCAT
NECK: no midline tenderness, active ROM intact, no paraspinal muscle tenderness;
EYE: pupils equal and reactive, EOMs intact.
ENT: o/p clr, mmm. no hemotympanum
CARDIAC: Regular rate and rhythm, no edema
LUNGS: Clear breath sounds bilaterally, no acute respiratory distress, no wheezes/rales/rhonchi
ABDOMEN: Soft, without focal tenderness, no r/g, no cvat
NEUROLOGICAL: Alert and oriented, no focal neuro deficits, CN intact, 5/5 strength, sensation intact
SKIN: Warm and dry,
MUSCULOSKELETAL: b/l LE wrapped in dressings, lymphedema
left thigh normal insepction
no swelling
no redness
nontender
miguel angel slightly with hip flexion and rotation niternal and external
no knee effusion or tenderness
back: nontender
no SI joint tendenress, neg straight leg raise
PSYCH: Normal and appropriate interaction.
Course
Orders/Labs/Results
Orders:
Orders
11/10/23 10:00
CR Femur - Left Min 2 Vw Urgent
Comment:
Reason For Exam: left lateral thigh pain x 1 mo
Hip, Left 2-3 Views [CR Hip - LT w/wo Pel 2-3 Vw*] Urgent
Comment:
Reason For Exam: left hip pain
Include a pelvis x-ray?: Yes
Lumbar Spine Complete, 4 View [CR Lumbar Spine Comp Min 4 Vw*] Urgent
Comment:
Reason For Exam: left sided leg pain
11/10/23 11:32
Oxycodone [Roxicodone] 5 mg PO NOW STA
Abnormal Lab Results
11/10/23
11:20
POC Glucose 214 H mg/dl
(70-99)
Vital Signs
Initial and Last Documented VS:
Initial Vital Signs
Temp Pulse Resp BP Pulse Ox
98.2 F 63 16 124/55 95
11/10/23 09:35 11/10/23 09:35 11/10/23 09:35 11/10/23 09:35 11/10/23 09:35
Last Documented Vital Signs
Temp Pulse Resp BP Pulse Ox
98.2 F 65 19 115/64 95
11/10/23 09:35 11/10/23 11:13 11/10/23 11:13 11/10/23 11:13 11/10/23 11:13
MDM/Problems Addressed
Differential Diagnosis Includes:
sciatica, hip arthritis, lumbar ddd
MDM/Problems Addressed:
83 y/o M with 3 weeks of left lateral thigh pain with walking, worse the past week, having more pain with weight bearing
no trauma, no swelling
no color change, no weakness
no fever/chills
no trauma
had previous arthritis severe i knee and then got a total knee replacement and had a lot of complications from that. He does use a walker at baseline now and has lymphedema in his legs. He is concerned if he has significant soreness in his hip
now. He had no trauma. There is no posterior buttock/hip pain that radiates down the back of his leg. He is not having any numbness tingling or weakness. There is no incontinence. The pain is worse with weightbearing and hip internal and
external rotation. He has not having any relief with Tylenol. He has taken his 's oxycodone 5 mg and tolerates it well, he does not get dizzy. Patient is on Eliquis. His x-rays are independently reviewed by me and patient has severe
arthritis of his left hip
Which is likely the cause of his pain. I did caution the patient about taking opiates but he is feeling like he cannot manage with just Tylenol. He will take it more at night. He feels safe with that he says that it has not not made him drowsy
before. He is cautioned about his Eliquis. Patient has Ortho follow-up in several days. Return precautions
*Critical Care Note
Total Time (30-74mins, 75-104mins- exclusive of procedures): Not Applicable
ED Attending Note
-
Portions of this chart may have been created with voice recognition software.� Occasional wrong word or��sound alike� substitutions may have occurred due to the inherent limitations of voice recognition software.
Discharge Plan
Departure
Patient Disposition: Home (Routine Discharge)
Date of Disposition: 11/10/23
Time of Disposition: 11:09
Patient with high blood pressure during this ER visit?: No
Condition: Fair
Discharge Problem:
Arthritis of hip
Instructions: Hip Pain ED
Prescriptions:
New
oxycodone 5 mg tablet
5 mg PO BID PRN (Reason: Pain) Qty: 7 0RF
No Action
atorvastatin 40 MG tablet
80 mg PO DAILY
allopurinol 100 MG tablet
100 mg PO DAILY
glipizide 5 MG tablet
10 mg PO DAILY
acetaminophen [Tylenol Extra Strength] 500 MG tablet
500 mg PO PRN PRN (Reason: pain)
metoprolol succinate 25 MG tablet extended release 24 hr
25 mg PO DAILY
valsartan-hydrochlorothiazide 1 EACH tablet
160 tab PO DAILY
Hold Instructions: discuss resuming with cardiology
Rx Instructions:
pt takes 160 mg/12.5 mg
Janumet XR 1 EACH tablet, ER multiphase 24 hr
1 ea PO DAILY
furosemide 40 mg tablet
40 mg PO BID Qty: 60 0RF
Jardiance
1 tab PO DAILY
Eliquis 2.5 mg tablet
5 mg PO BID
Rx Instructions:
new dose
Referrals:
Iker Mann MD [Family Provider] -
Activity Restrictions/Additional Instructions:
YOU HAVE FAIRLY ADVANCED ARTHRITIS CHANGES OF YOUR HIP WHICH IS LIKELY THE CAUSE OF YOUR HIP PAIN
UNFORTUNATELY, BECAUSE OF YOUR DIABETES AND BECAUSE OF YOUR ELIQUIS WE CANNOT GIVE YOU ANTIINFLAMMATORIES
YOU CAN CONTINUE YOUR TYLENOL 2 TIMES A DAY OR 3 TIMES A DAY
THEN ADDITIONALLY IF PAIN IS SEVERE YOU CAN TRY A DOSE OF OXYCODONE 1 TAB 2 TIMES A DAY NEEDED
YOU WILL NEED A STOOL SOFTENER WITH THIS MEDICATION
IT IS STRONG, NO DRIVING OR ALCOHOL
FOLLOW UPWITH YOUR FMAILY DOCTOR AND ORTHOPEDIST
RETURN FOR: FEVER, INABILITY TO WALK, SEVERE PAIN, WEAKNESS, CHES TPAIN, SHORTNESS OF BREATH, REDNESS TO THE HIP OR ANY CONCERNS.
Interventions
Interventions:
*Risk Screen - Suicide Last Done: 11/10/23 09:35
*General Assessment Last Done: 11/10/23 09:35
*Neglect/Abuse Screening Last Done: 11/10/23 09:35
*ED COVID-19 Vaccine History Last Done: 11/10/23 09:56
*Nursing Disposition Last Done: 11/10/23 11:40
ED-Musculoskeletal Assessment Last Done: 11/10/23 09:57
Discharge Date and Time
Discharge Date/Time: 11/10/23 11:41
Print Language: SERBIAN
[2023-11-10 11:13] VITALS: BP 115/64
[2023-11-10 11:21] LABS: Glucose - Point of Care 214 mg/dl (70-99)
[2023-11-10] MEDS: ROXICODONE 5 MG PO (11:37)
== END 2023-11-10 11:41 | disposition home or self-care (01) ==
LOC: EMR 09:33
PROVIDERS: EMERGENCY PHYSICIAN Student in an Organized Health Care Education/Training Program; FAMILY PHYSICIAN Internal Medicine
DX: M16.12 Unilateral primary osteoarthritis, left hip (principal); I48.91 Unspecified atrial fibrillation; Z79.01 Long term (current) use of anticoagulants; Z96.652 Presence of left artificial knee joint
CPT/HCPCS: 99283; 72110; 73502; 73552; 82962

== ENCOUNTER → 2023-11-23 09:18 | Outpatient (REF) | payer MEDICARE, SELFPAY | LOC: WOUND 09:18 | PROVIDERS: ATTENDING PHYSICIAN Surgery; FAMILY PHYSICIAN Internal Medicine | DX: I87.313 Chronic venous hypertension (idiopathic) with ulcer of bilateral lower extremity (principal); L97.821 Non-pressure chronic ulcer of other part of left lower leg limited to breakdown of skin; R60.0 Localized edema; I50.32 Chronic diastolic (congestive) heart failure; E11.9 Type 2 diabetes mellitus without complications; I10 Essential (primary) hypertension; E66.01 Morbid (severe) obesity due to excess calories | CPT/HCPCS: 11042 ==

== ENCOUNTER → 2023-12-14 09:14 | Outpatient (REF) | payer MEDICARE, SELFPAY | LOC: WOUND 09:14 | PROVIDERS: ATTENDING PHYSICIAN Surgery; FAMILY PHYSICIAN Internal Medicine | DX: I87.313 Chronic venous hypertension (idiopathic) with ulcer of bilateral lower extremity (principal); L97.821 Non-pressure chronic ulcer of other part of left lower leg limited to breakdown of skin; R60.0 Localized edema; I50.32 Chronic diastolic (congestive) heart failure; E11.9 Type 2 diabetes mellitus without complications; I10 Essential (primary) hypertension; E66.01 Morbid (severe) obesity due to excess calories | CPT/HCPCS: 99213 ==

== ENCOUNTER → 2024-05-02 12:41 | Outpatient (REF) | payer MEDICARE, SELFPAY | LOC: WOUND 12:41 | PROVIDERS: ATTENDING PHYSICIAN Surgery; FAMILY PHYSICIAN Internal Medicine | DX: I87.313 Chronic venous hypertension (idiopathic) with ulcer of bilateral lower extremity (principal); L97.811 Non-pressure chronic ulcer of other part of right lower leg limited to breakdown of skin; R60.0 Localized edema; E11.9 Type 2 diabetes mellitus without complications; I48.21 Permanent atrial fibrillation | CPT/HCPCS: 29581; 99214 ==

== ENCOUNTER → 2024-05-09 10:24 | Outpatient (REF) | payer MEDICARE, SELFPAY | LOC: WOUND 10:24 | PROVIDERS: ATTENDING PHYSICIAN Surgery; FAMILY PHYSICIAN Obstetrics & Gynecology | DX: I87.313 Chronic venous hypertension (idiopathic) with ulcer of bilateral lower extremity (principal); L97.811 Non-pressure chronic ulcer of other part of right lower leg limited to breakdown of skin; R60.0 Localized edema; E11.9 Type 2 diabetes mellitus without complications; I48.21 Permanent atrial fibrillation | CPT/HCPCS: 99212 ==

== ENCOUNTER → 2024-06-02 09:41 | Outpatient (REF) | payer MEDICARE, SELFPAY ==
[2024-06-02 10:43] LABS: % Basophils 0.7 % (0-2); % Eosinophils 2.2 % (0-6); % Immature Granulocytes 0.4 % (0-0.5); % Lymphocytes 20.9 % (20.5-51.1); % Monocytes 10.2 % (1.7-9.3); % Neutrophils 65.6 % (42.2-75.2); Absolute Basophils 0.1 10^3/uL (0-0.2); Absolute Eosinophils 0.2 10^3/uL (0-0.7); Absolute Lymphocytes 1.7 10^3/uL (1.2-3.4); Absolute Monocytes 0.9 10^3/uL (0.1-0.6); Absolute Neutrophils 5.5 10^3/uL (1.4-6.5); Hematocrit 42.3 % (39.0-52.0); Hemoglobin 13.7 g/dL (13.0-18.0); Mean Corp Hgb Conc. 32.4 g/dL (33.0-37.0); Mean Corpuscular Hgb 31.1 pg (27.0-31.0); Mean Corpuscular Volume 95.9 fL (80.0-94.0); Mean Platelet Volume 10.8 fL (7.4-10.4); Nucleated Red Blood Cells % 0 % (-); Platelet Count 217 10^3/uL (130-400); Red Blood Cell Count 4.41 10^6/uL (4.70-6.10); Red Cell Dist. Width 14.5 % (11.5-14.5); White Blood Cell Count 8.3 10^3/uL (4.8-10.8)
[2024-06-02 10:51] LABS: ALT (SGPT) 18 U/L (0-50); AST (SGOT) 24 U/L (17-59); Albumin 4.3 g/dl (3.5-5.0); Alkaline Phosphatase 70 U/L (38-126); Blood Urea Nitrogen 43 mg/dl (9-20); Calcium 10.3 mg/dl (8.4-10.2); Carbon Dioxide 30 mmol/L (22-30); Chloride 96 mmol/L (98-107); Glucose 228 mg/dl (70-99); HDL Cholesterol 51 mg/dl; LDL Cholesterol, Calculated 66 mg/dl; Magnesium 2.3 mg/dl (1.6-2.3); Potassium 4.5 mmol/L (3.5-5.1); Sodium 136 mmol/L (135-145); Total Bilirubin 0.6 mg/dl (0.2-1.3); Total Cholesterol 146 mg/dl (50-199); Total Protein 7.2 g/dl (6.3-8.2); Triglyceride 148 mg/dl (10-149); Very Low Density Lipoprotein 29 mg/dl (0-30); eGFR 45.34
[2024-06-02 11:06] LABS: Free T4 1.01 ng/dl (0.78-2.19)
[2024-06-02 11:20] LABS: TSH 4.08 uIU/ml (0.47-4.68)
[2024-06-02 14:39] LABS: Glycohemoglobin (HgbA1c) 8.4 % (4.0-5.6)
== END ==
LOC: REG 09:41
PROVIDERS: ATTENDING PHYSICIAN Registered Nurse
DX: E11.8 Type 2 diabetes mellitus with unspecified complications (principal); I48.91 Unspecified atrial fibrillation; N40.0 Benign prostatic hyperplasia without lower urinary tract symptoms
CPT/HCPCS: 36415; 80053; 80061; 83036; 83735; 84439; 84443; 85025

== ENCOUNTER → 2024-08-15 12:34 | Outpatient (REF) | payer MEDICARE, SELFPAY | LOC: WOUND 12:34 | PROVIDERS: ATTENDING PHYSICIAN Surgery; FAMILY PHYSICIAN Internal Medicine | DX: I87.313 Chronic venous hypertension (idiopathic) with ulcer of bilateral lower extremity (principal); L97.311 Non-pressure chronic ulcer of right ankle limited to breakdown of skin; L97.321 Non-pressure chronic ulcer of left ankle limited to breakdown of skin; I87.2 Venous insufficiency (chronic) (peripheral); E11.9 Type 2 diabetes mellitus without complications; E66.01 Morbid (severe) obesity due to excess calories; I50.32 Chronic diastolic (congestive) heart failure; I48.21 Permanent atrial fibrillation | CPT/HCPCS: 29581; 99213 ==

== ENCOUNTER → 2024-08-22 11:04 | Outpatient (REF) | payer MEDICARE, SELFPAY | LOC: WOUND 11:04 | PROVIDERS: ATTENDING PHYSICIAN Surgery; FAMILY PHYSICIAN Internal Medicine | DX: I87.313 Chronic venous hypertension (idiopathic) with ulcer of bilateral lower extremity (principal); L97.311 Non-pressure chronic ulcer of right ankle limited to breakdown of skin; L97.321 Non-pressure chronic ulcer of left ankle limited to breakdown of skin; I87.2 Venous insufficiency (chronic) (peripheral); E11.9 Type 2 diabetes mellitus without complications; E66.01 Morbid (severe) obesity due to excess calories; I50.32 Chronic diastolic (congestive) heart failure; I48.21 Permanent atrial fibrillation | CPT/HCPCS: 29581; 99213 ==

== ENCOUNTER → 2024-08-29 09:08 | Outpatient (REF) | payer MEDICARE, SELFPAY | LOC: WOUND 09:08 | PROVIDERS: ATTENDING PHYSICIAN Surgery; FAMILY PHYSICIAN Internal Medicine | DX: I87.313 Chronic venous hypertension (idiopathic) with ulcer of bilateral lower extremity (principal); L97.311 Non-pressure chronic ulcer of right ankle limited to breakdown of skin; L97.321 Non-pressure chronic ulcer of left ankle limited to breakdown of skin; I87.2 Venous insufficiency (chronic) (peripheral); E11.9 Type 2 diabetes mellitus without complications; E66.01 Morbid (severe) obesity due to excess calories; I50.32 Chronic diastolic (congestive) heart failure; I48.21 Permanent atrial fibrillation | CPT/HCPCS: 29581; 99213 ==

== ENCOUNTER → 2024-09-05 09:31 | Outpatient (REF) | payer MEDICARE, SELFPAY ==
[2024-09-05 10:47] LABS: % Basophils 0.8 % (0-2); % Eosinophils 4.4 % (0-6); % Immature Granulocytes 0.4 % (0-0.5); % Lymphocytes 22.3 % (20.5-51.1); % Monocytes 11.7 % (1.7-9.3); % Neutrophils 60.4 % (42.2-75.2); Absolute Basophils 0.1 10^3/uL (0-0.2); Absolute Eosinophils 0.3 10^3/uL (0-0.7); Absolute Lymphocytes 1.6 10^3/uL (1.2-3.4); Absolute Monocytes 0.9 10^3/uL (0.1-0.6); Absolute Neutrophils 4.4 10^3/uL (1.4-6.5); Hemoglobin 12.6 g/dL (13.0-18.0); Mean Corp Hgb Conc. 31.5 g/dL (33.0-37.0); Mean Corpuscular Hgb 30.9 pg (27.0-31.0); Mean Platelet Volume 10.6 fL (7.4-10.4); Nucleated Red Blood Cells % 0 % (-); Platelet Count 187 10^3/uL (130-400); Red Blood Cell Count 4.08 10^6/uL (4.70-6.10); Red Cell Dist. Width 15.2 % (11.5-14.5); White Blood Cell Count 7.3 10^3/uL (4.8-10.8)
[2024-09-05 10:55] LABS: ALT (SGPT) 20 U/L (0-50); AST (SGOT) 20 U/L (17-59); Alkaline Phosphatase 61 U/L (38-126); Blood Urea Nitrogen 22 mg/dl (9-20); Calcium 10.1 mg/dl (8.4-10.2); Carbon Dioxide 27 mmol/L (22-30); Chloride 104 mmol/L (98-107); Glucose 157 mg/dl (70-99); Magnesium 2.5 mg/dl (1.6-2.3); Potassium 4.2 mmol/L (3.5-5.1); Sodium 142 mmol/L (135-145); Total Bilirubin 0.8 mg/dl (0.2-1.3); Total Protein 6.5 g/dl (6.3-8.2)
[2024-09-05 12:45] LABS: Glycohemoglobin (HgbA1c) 8.3 % (4.0-5.6)
== END ==
LOC: OLABWPC 09:31
PROVIDERS: ATTENDING PHYSICIAN Family Medicine
DX: E11.40 Type 2 diabetes mellitus with diabetic neuropathy, unspecified (principal); I50.32 Chronic diastolic (congestive) heart failure; M19.90 Unspecified osteoarthritis, unspecified site; N18.31 Chronic kidney disease, stage 3a
CPT/HCPCS: 36415; 80053; 83036; 83735; 85025

== ENCOUNTER → 2024-09-05 10:56 | Outpatient (REF) | payer MEDICARE, SELFPAY | LOC: WOUND 10:56 | PROVIDERS: ATTENDING PHYSICIAN Surgery; FAMILY PHYSICIAN Internal Medicine | DX: I87.313 Chronic venous hypertension (idiopathic) with ulcer of bilateral lower extremity (principal); L97.311 Non-pressure chronic ulcer of right ankle limited to breakdown of skin; L97.321 Non-pressure chronic ulcer of left ankle limited to breakdown of skin; I87.2 Venous insufficiency (chronic) (peripheral); E11.9 Type 2 diabetes mellitus without complications; E66.01 Morbid (severe) obesity due to excess calories; I50.32 Chronic diastolic (congestive) heart failure; I48.21 Permanent atrial fibrillation | CPT/HCPCS: 29581; 99213 ==

== ENCOUNTER → 2024-09-11 14:53 | Outpatient (REF) | payer MEDICARE, SELFPAY | LOC: WOUND 14:53 | PROVIDERS: ATTENDING PHYSICIAN Surgery; FAMILY PHYSICIAN Internal Medicine | DX: I87.313 Chronic venous hypertension (idiopathic) with ulcer of bilateral lower extremity (principal); L97.212 Non-pressure chronic ulcer of right calf with fat layer exposed; L97.311 Non-pressure chronic ulcer of right ankle limited to breakdown of skin; L97.321 Non-pressure chronic ulcer of left ankle limited to breakdown of skin; I87.2 Venous insufficiency (chronic) (peripheral); E11.9 Type 2 diabetes mellitus without complications; E66.01 Morbid (severe) obesity due to excess calories; I50.32 Chronic diastolic (congestive) heart failure; I48.21 Permanent atrial fibrillation | CPT/HCPCS: 29581; 99213 ==

== ENCOUNTER 2024-10-19 06:51 | Inpatient (IN) | payer MEDICARE, SELFPAY ==
[2024-10-19] VITALS (10 sets, daily range): BP systolic 113–161; BP diastolic 54–74; BMI 39.1
[2024-10-19 03:48] LABS: % Basophils 0.6 % (0-2); % Eosinophils 3.6 % (0-6); % Immature Granulocytes 0.5 % (0-0.5); % Lymphocytes 15.2 % (20.5-51.1); % Monocytes 10.2 % (1.7-9.3); % Neutrophils 69.9 % (42.2-75.2); Absolute Basophils 0.1 10^3/uL (0-0.2); Absolute Eosinophils 0.3 10^3/uL (0-0.7); Absolute Lymphocytes 1.3 10^3/uL (1.2-3.4); Absolute Monocytes 0.9 10^3/uL (0.1-0.6); Absolute Neutrophils 5.8 10^3/uL (1.4-6.5); Hematocrit 38.4 % (39.0-52.0); Hemoglobin 12.4 g/dL (13.0-18.0); Mean Corp Hgb Conc. 32.3 g/dL (33.0-37.0); Mean Corpuscular Hgb 30.9 pg (27.0-31.0); Mean Corpuscular Volume 95.8 fL (80.0-94.0); Mean Platelet Volume 9.7 fL (7.4-10.4); Nucleated Red Blood Cells % 0 % (-); Platelet Count 164 10^3/uL (130-400); Red Blood Cell Count 4.01 10^6/uL (4.70-6.10); Red Cell Dist. Width 15.4 % (11.5-14.5); White Blood Cell Count 8.3 10^3/uL (4.8-10.8)
[2024-10-19 04:01] LABS: ALT (SGPT) 19 U/L (0-50); AST (SGOT) 20 U/L (17-59); Albumin 4.1 g/dl (3.5-5.0); Alkaline Phosphatase 70 U/L (38-126); Blood Urea Nitrogen 34 mg/dl (9-20); Calcium 10.4 mg/dl (8.4-10.2); Carbon Dioxide 26 mmol/L (22-30); Chloride 108 mmol/L (98-107); Estimated Creatinine Clearance 46 ml/min; Glucose 195 mg/dl (70-99); Potassium 4.3 mmol/L (3.5-5.1); Sodium 140 mmol/L (135-145)
[2024-10-19 04:10] LABS: INR 1.35; PT 16.9 Sec (11.4-14.6)
[2024-10-19 04:13] LABS: NT-proBNP 3060 pg/ml; Troponin I < 0.012 ng/ml
--- NOTE | 2024-10-19 04:14 | EDRN ---
patient fell asleep and o2 level dropped to 84%, patient placed on 3L nasal canula
--- NOTE | 2024-10-19 05:07 | ED.GENMED ---
History of Present Illness
General
Chief Complaint: Weight Changes
Source: patient
Exam Limitations: none
Time Seen by Provider: 10/19/24 05:06
Nursing documentation reviewed up to this point in time: agreed with
History of Present Illness
History of Present Illness:
Pleasant 84-year-old male presents to the emergency department from [facility] after precipitous weight gain. Patient has congestive heart failure, and feels that his recent weight gain is from his CHF. Patient lives in [place] with his
. She was recently diagnosed with Parkinson's and told that she needed to move out of independent living into the retirement part of the facility. Patient feels that he needs to be with her. 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
that he has been neglecting his own health to care for her. He is here with his daughter who has noticed his recent decline in health. 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
Past History
Past History
ED Past Medical History: Arrthythmia (Atrial fibrillation), CHF, HTN, Hypercholesterolemia, NIDDM and Other (Benign brain tumor)
ED Past Surgical History: Brain, Orthopedic and Tonsilectomy
Social History
Tobacco: Non-smoker
Alcohol: None
Drug: None
Living: with family
Employment: Retired
Family History
Family History: Other (Noncontributory)
Review of Systems
Review of Systems
Allergies reviewed?: Yes
Other source history: family
All Other Systems: ROS reviewed and negative except as documented in HPI and ROS
Constitutional: Reports weight gain (Approximate 30 pounds), fatigue and sleep disturbance
EENT: Reports no symptoms
Respiratory: Reports no symptoms
Cardiac: Reports no symptoms
ABD/GI: Reports no symptoms
: Reports no symptoms
Musculoskeletal: Reports no symptoms
Skin: Reports rash (Bilateral lower extremity erythema)
Neurological: Reports no symptoms
Endocrine: Reports no symptoms
Hematologic/Lymphatic: Reports no symptoms
Psychiatric: Reports no symptoms
Phy Exam
General Physical Exam
General Presentation: mild distress
General age: appears older than age
General Skin: warm and dry
General Habitus: debilitated and elderly
General Mental: alert
General Hydration: appears well hydrated
Cardiovascular Exam
Cardiovascular Exam: irregularly irregular
Pulmonary Exam
Pulmonary Exam: lungs clear and no respiratory distress
Neurological Exam
Neurological Exam: alert and oriented x3
Musculoskeletal Exam
Musculoskeletal Exam: edema and neuro vasc intact
Skin Exam
Skin Exam: erythema and other (Blistering on the lower extremities)
Psychiatric Exam
Psychiatric Exam: normal mood/affect
Scores
Heart Failure Risk
Heart Failure Risk Score: Yes
History of Stroke or TIA: No
History of intubation for respiratory distress: No
Heart rate on ED arrival >/= 110: No
SaO2 <90% on arrival on room air: No
HR >/=110 during 3min walk test (or too ill to perform test): Yes
ECG has acute ischemic changes: No
Urea >/=12mmol/L (BUN 33.6mg/dL): Yes
Serum CO2>/=35mmol/L: No
Troponin I or T elevated to MN Level (0.4mg/dL): No
NT-proBNP >/=5,000ng/L (5,000pg/ml): No
HF Risk Score: 3
Admission Status: HIGH RISK 15.9% Consider SNF treatment or admission to hospital
Course
Orders/Labs/Results
Orders:
Orders
10/19/24 03:39
Electrocardiogram (*1) Urgent
Reason for Study: Other
Other Reason for Exam: Respiratory Distress
Cardiac Monitoring- Treatment ONCE
EKG- Treatment ONCE
IV Insert/Care/Rem.- Treatment PRN
O2 Therapy [RESP] Urgent
Titrate/Wean O2 to maintain O2 sat greater than (%): 93
Special Instructions: TO MAINTAIN CONTINUOUS O2 SATS >/= 93%
Pulse Ox/cont/shift [RESP] Urgent
Quantity: 1
Special Instructions: continuous pulse ox
10/19/24 03:40
Complete Blood Count/With Diff Urgent
Comprehensive Metabolic Panel Urgent
NT-proBNP Urgent
Prothrombin Time Urgent
Troponin I Urgent
Abnormal Lab Results
10/19/24
03:40
RBC 4.01 L 10^6/uL
(4.70-6.10)
Hgb 12.4 L g/dL
(13.0-18.0)
Hct 38.4 L %
(39.0-52.0)
MCV 95.8 H fL
(80.0-94.0)
MCHC 32.3 L g/dL
(33.0-37.0)
RDW 15.4 H %
(11.5-14.5)
Absolute Monos (auto) 0.9 H 10^3/uL
(0.1-0.6)
Lymphocytes % 15.2 L %
(20.5-51.1)
Monocytes % 10.2 H %
(1.7-9.3)
PT 16.9 H Sec
(11.4-14.6)
Chloride 108 H mmol/L
(98-107)
BUN 34 H mg/dl
(9-20)
Creatinine 1.6 H mg/dL
(0.7-1.3)
Glucose 195 H mg/dl
(70-99)
Calcium 10.4 H mg/dl
(8.4-10.2)
10/19/24 03:40
10/19/24 03:40
Vital Signs
Initial and Last Documented VS:
Initial Vital Signs
BP
131/58
10/19/24 03:26
Last Documented Vital Signs
Temp Pulse Resp BP Pulse Ox
98.6 F 58 15 147/71 95
10/19/24 03:29 10/19/24 04:30 10/19/24 04:30 10/19/24 04:00 10/19/24 04:30
*Pulse Oximetry
Patient hypoxic: no (95% on room air)
*Critical Care Note
Total Time (30-74mins, 75-104mins- exclusive of procedures): Not Applicable
ED Attending Note
-
Portions of this chart may have been created with voice recognition software.� Occasional wrong word or��sound alike� substitutions may have occurred due to the inherent limitations of voice recognition software.
Discharge Plan
Departure
Patient Disposition: Admit
Date of Disposition: 10/19/24
Time of Disposition: 05:55
Presentation/result/management discussed w/ accepting MD/DO: Hospitalist
Condition: Fair
Discharge Problem:
CHF (congestive heart failure), Weakness, Weight gain
Prescriptions:
No Action
atorvastatin 40 MG tablet
80 mg PO DAILY
allopurinol 100 MG tablet
100 mg PO DAILY
glipizide 5 MG tablet
10 mg PO DAILY
acetaminophen [Tylenol Extra Strength] 500 MG tablet
500 mg PO PRN PRN (Reason: pain)
metoprolol succinate 25 MG tablet extended release 24 hr
25 mg PO DAILY
furosemide 40 mg tablet
40 mg PO BID Qty: 60 0RF
Eliquis 2.5 mg tablet
5 mg PO BID
Rx Instructions:
new dose
multivitamin Tablet
1 tab PO DAILY
polyethylene glycol 3350 [Miralax] 17 gram Powder In Packet
17 g PO DAILY
potassium chloride 10 mEq Tablet Extended Release
10 meq PO DAILY
melatonin 3 mg Tablet
3 mg PO HS
tamsulosin 0.4 mg Capsule
0.4 mg PO DAILY
gabapentin 300 mg Capsule
300 mg PO TID
valsartan 160 mg Tablet
160 mg PO DAILY
Januvia 100 mg Tablet
100 mg PO DAILY
Referrals:
Major Silva MD [Family Provider, Family Practice]
Activity Restrictions/Additional Instructions:
Thank You for choosing [facility].
It was a pleasure meeting you and taking part in your care. We hope for your continued healing and wellness.
Please read discharge instructions in their entirety. However, they are for general education and may not describe your exact diagnosis at discharge. Information on your ER visit and medical conditions were discussed with you along with appropriate
follow up information...
If indicated, please take your medications as instructed and indicated on discharge paperwork.
Please schedule a follow up appointment as directed. Call to schedule an appointment
Please return to the emergency department with ANY change in, persisting, or worsening of symptoms. If any of your symptoms do not improve, or persist, or become more severe within 6-12 hours, please return to the emergency department for further
care.
Please return to the emergency department if you develop a headache, neck pain/stiffness, fever greater than 100.4F, chest pain, shortness of breath, persistent nausea, vomiting, slurred speech, difficulty walking, numbness/tingling, weakness, signs
of infection or any other symptoms that are worrisome to you.
If you have any questions or concerns please do not hesitate to call the Hospital at or E-mail me directly at [email or web address]
Interventions
Interventions:
*Risk Screen - Suicide Last Done: 10/19/24 03:29
*General Assessment Last Done: 10/19/24 03:29
*Neglect/Abuse Screening Last Done: 10/19/24 03:29
*ED- Fall Risk Assessment Last Done: 10/19/24 03:29
*ED COVID-19 Vaccine History Last Done: 10/19/24 03:29
Discharge Date and Time
Print Language: KOREAN
--- NOTE | 2024-10-19 05:12 | EDRN ---
Patient keeps having episodes of bradycardia, has dropped as low as 40, informed Dr. Lewis, patient is asleep, daughter at bedside said she isnt aware of him having a low heart rate, will continue to monitor and print rhythm strip for episode
--- NOTE | 2024-10-19 05:55 | HPS.HSE ---
Family Physician
-
Family Physician: Major Silva MD
Chief Complaint
-
Weight gain
History of Present Illness
This is an 84-year-old male with past medical history significant for atrial fibrillation, congestive heart failure, dyn-[id number] diabetes, BPH and hypertension who presents to the emergency department with approximately 1 month of
increasing weight gain.
Patient stated that when he left the hospital and the last time he checked his weight about 1 month ago he was 268 pounds. He was told that when he is weight increase it by 10 pounds or more he should be evaluated. Patient checked his weight at
around 2 AM today and he said he weighed 288 pounds. His last check was about 3 weeks to a month ago. Patient has not been checking regularly due to stressor is associated with moving from his current assisted living facility with current location
to accommodate his who was recently diagnosed with Parkinson's and slated to be [facility] facility. Patient does state that he has been having increasing lower extremity edema for which she has been having wound dressing however despite
a wound dressing and some application of compression boots he has had further increases in his lower extremity swelling and associated blistering. He denies any fevers or chills. He reports chronic dyspnea on exertion which he says is slightly
worse recently. Denies orthopnea. Does report getting up in the middle of night to catch his breath. He denies any cough. He denies any wheezing. Denies any recent changes to his medications. He reports that he has been compliant with the use
medication regimen.
In the emergency department he was afebrile, oxygen saturation of 95% on room air. Blood pressure 147/71 with a pulse rate of 58.
ECG shows atrial fibrillation at rate of 57. Troponin less than 0.012, BNP 3000. Xray pending
CBC was unremarkable.
Electrolytes were within normal range. BUN and creatinine were increased from prior at 24 and 1.6. Glucose was 195.
Medical History
Past Medical History
Past Medical History: Reports Arrhythmia (Afib on DOAC), CHF (HFpEF), HTN, Hypercholesterolemia, NIDDM and Other (bening brain tumor)
Past Surgical History: Reports Brain, Orthopedic (left knee replacement) and Tonsilectomy
Social History
Tobacco: Non-smoker
Alcohol: None
Drug: None
Personal:
Living: With Family
Family History
Family History: Not pertinent
Allergies / Home Medications
Allergies reflects when Allergies were last updated in [employer].
Home Medications with original date entered in [employer]
Allergy/Medication List:
Allergies
Allergy/AdvReac Type Severity Reaction Status Date / Time
No Known Allergies Allergy Verified 10/19/24 03:38
Home Medications
allopurinol 100 mg tablet 100 mg PO DAILY Gout 02/18/14
atorvastatin 40 mg tablet 80 mg PO DAILY High Cholesterol 02/18/14
glipizide 5 mg tablet 10 mg PO DAILY Diabetes 02/18/14
acetaminophen 500 mg tablet (Tylenol Extra Strength) 500 mg PO PRN PRN pain 01/10/19
metoprolol succinate 25 mg tablet,extended release 24 hr 25 mg PO DAILY Blood Pressure 01/10/19
furosemide 40 mg tablet 40 mg PO BID Fluid retention/Swelling #60 tabs 06/29/23
apixaban 2.5 mg tablet (Eliquis) 5 mg PO BID Blood clot prevention/tx 10/23/23
gabapentin 300 mg capsule 300 mg PO TID 10/19/24
melatonin 3 mg tablet 3 mg PO HS 10/19/24
multivitamin 1 tab PO DAILY 10/19/24
polyethylene glycol 3350 17 gram oral powder packet (Miralax) 17 g PO DAILY 10/19/24
potassium chloride 10 mEq tablet,extended release 10 meq PO DAILY 10/19/24
sitagliptin phosphate 100 mg tablet (Januvia) 100 mg PO DAILY 10/19/24
tamsulosin 0.4 mg capsule 0.4 mg PO DAILY 10/19/24
valsartan 160 mg tablet 160 mg PO DAILY 10/19/24
Review of Systems
-
Constitutional: Reports No Symptoms
EENT: Reports No Symptoms
Respiratory: Reports No Symptoms
Cardiac: Reports No Symptoms
Abdomen/GI: Reports No Symptoms
: Reports No Symptoms
Musculoskeletal: Reports Edema
Skin: Reports Rash
Neurological: Reports No Symptoms
Endocrine: Reports No Symptoms
Hematologic/Lymphatic: Reports No Symptoms
Psych: Reports No Symptoms
Physical Exam
Vital Signs
Vital Signs
Temp Pulse Resp BP Pulse Ox
98.6 F 58 15 147/71 95
10/19/24 03:29 10/19/24 04:30 10/19/24 04:30 10/19/24 04:00 10/19/24 04:30
Physical Exam
General: No Apparent Distress and Conversant
HEENT: NormoCephalic, Anicteric, Moist mucous membranes, Atraumatic, PERRLA and Oxygen
Respiratory: Clear
Cardiac: S1/S2 and Irregular Rhythm
Breast: Deferred by me
GI: Soft, Non Tender, Non Distended and Normal Bowel Sounds
Rectal: Deferred by Provider
Genito-urinary: Deferred by me
Musculoskeletal: No Clubbing, No Cyanosis, Edema, Left Lower Extremity and Edema, Right Lower Extremity
Skin: Warm and Rash (simple blisters in RLE)
Neuro: AO x 3 and Nonfocal/grossly intact
Hematologic/Lymphatic: No Lymphadenopathy
Laboratory Results
-
10/19/24 03:40
10/19/24 03:40
Laboratory Results
PT 16.9 Sec (11.4-14.6) H 10/19/24 03:40
INR 1.35 10/19/24 03:40
Total Bilirubin 1.0 mg/dl (0.2-1.3) 10/19/24 03:40
AST 20 U/L (17-59) 10/19/24 03:40
ALT 19 U/L (0-50) 10/19/24 03:40
Alkaline Phosphatase 70 U/L (38-126) 10/19/24 03:40
Troponin I < 0.012 ng/ml 10/19/24 03:40
Impression/Plan
-
IMPRESSION:
84-year-old male with past medical history of congestive heart failure, preserved EF, type 2 diabetes, hypertension, hyperlipidemia, atrial fibrillation on anticoagulation who presents emergency department with approximately 30 pound weight gain
over the last 1 month. BNP has doubled. Patient has peripheral edema and is volume overloaded and CHF exacerbation. He has minimal pulmonary symptoms at this time. Provider S2 dietary restrictions noted. No chest pain, rate controlled atrial
fibrillation remains. No signs of acute ischemia.
PLAN:
CHF exacerbation
-Admit to telemetry
-Hemodynamically stable, Lasix 80 mg IV every 12 for now and then titrate to 40 mg weight goes down
-Continue valsartan, continue beta-dez
- Daily weights and ins and outs
-Echo was 1 year ago, obtain repeat echo
-Fluid and salt restriction
-Cardiology consult
Atrial fibrillation-pulmonary atrial fibrillation, rate controlled
-Continue metoprolol succinate 25 mg daily
-Continue anticoagulation with apixaban 5 mg twice daily
Diabetes
- Continue patient's glipizide and sitagliptin
-Sensitive sliding scale insulin
BPH
-Continue tamsulosin
CKD - Mild rise in Cr from 1.3 to 1.6. Suspect due to volume overload
- monitor for now
- avoid nephrotoxins
DVT prophylaxis�on apixaban
CODE STATUS�full code
[2024-10-19] MEDS: LASIX 80 MG IV ×2 (06:14→15:41)
[2024-10-19 08:25] LABS: Glucose - Point of Care 179 mg/dl (70-99)
--- NOTE | 2024-10-19 08:30 | PTCARENOTE ---
Patient admitted from ED, AAOx3, denies any acute complaints. Pulled over from stretcher to bed d/t generalized weakness. Pt satting 98% on 3L NC, oxygen removed and SpO2 96% on RA. Oriented patient and daughter to room and plan of care. Call placed
to patient's living facility for clarification of medication orders, pharmacy made aware of changes.
Notified Dr. Lawler of patient's low HR and A fib status. HR dropping to 35-40on telemetry, patient denying symptoms. Cardiology notified of consult.
[2024-10-19] MEDS: JANUVIA 100 MG PO (09:15)
[2024-10-19] MEDS: GLUCOTROL 10 MG PO (09:15)
[2024-10-19] MEDS: DIOVAN 160 MG PO (09:15)
[2024-10-19] MEDS: LIPITOR 80 MG PO (09:15)
[2024-10-19] MEDS: FLOMAX 0.4 MG PO (09:15)
[2024-10-19] MEDS: NEURONTIN 300 MG PO ×3 (09:15→22:05)
[2024-10-19] MEDS: THERAGRAN 1 TABLET PO (09:15)
[2024-10-19] MEDS: ELIQUIS 2.5 MG PO ×2 (09:16→20:15)
[2024-10-19] MEDS: ZYLOPRIM 100 MG PO (09:16)
[2024-10-19] MEDS: NOVOLOG FLEXPEN-LOW RESISTANCE 1 UNITS SC (09:16)
--- NOTE | 2024-10-19 09:33 | W.PN.HOSP.TC ---
Today's Communication/Plan
-
IV diuresis
Assessment / Plan
Assessment / Plan
Physical Exam
General: No Apparent Distress and Conversant
HEENT: NormoCephalic, Anicteric, Moist mucous membranes, Atraumatic, PERRLA and Oxygen
Respiratory: Clear
Cardiac: S1/S2 and Irregular Rhythm, systolic murmur
GI: Soft, Non Tender, Non Distended and Normal Bowel Sounds
Musculoskeletal: No Clubbing, No Cyanosis, Edema, Left Lower Extremity and Edema, Right Lower Extremity. Wounds on right lower extremity. Venous stasis changes present.
Skin: Warm and Rash (simple blisters in RLE)
Neuro: AO x 3 and Nonfocal/grossly intact
Hematologic/Lymphatic: No Lymphadenopathy
A/P:
Acute on chronic HFpEF:
IV diuretics, Lasix 80 mg twice a day
BNP upon admission 3060
Monitor strict I/O
Monitor daily weight
Monitor renal function and electrolytes
Reviewed latest echocardiogram on our system
Continue guideline-directed medical therapy for heart failure (GDMT)--> B-Blockers, ARB, and SGLT-i.
Fluid restriction
Salt restriction
Heart failure education
Follow up clinical response
Cardiology consult-discussed with cardiology today
GAYATHRI on CKD:
Suspect cardiorenal syndrome
Continue to monitor renal function while diuresis
Avoid nephrotoxic
Permanent A-fib:
On rate control, metoprolol succinate 25 mg p.o. daily
On anticoagulation, Eliquis 2.5 mL twice a day
Chronic lower extremity lymphedema:
Compression after diuresis
Wound care nurse consult
Hypertension:
Continue usual meds
Hyperlipidemia:
Continue statin
Diabetes mellitus type 2:
Insulin sliding scale
Glipizide and sitagliptin
BPH:
Continue tamsulosin 0.4 mg p.o. daily
Gout:
Continue allopurinol
DVT prophylaxis:
On Eliquis
CODE STATUS:
Full code
Anticipated Discharge: > 48 hours
Subjective/Interval History
-
Date of Service: October 19, 2024
He has less lower extremity edema. No shortness of breath at rest but more so on exertion. Afebrile
Objective Data
-
Labs:
Laboratory Results
10/19/24
03:40
WBC 8.3
Hgb 12.4 L
Hct 38.4 L
Plt Count 164
PT 16.9 H
INR 1.35
Sodium 140
Potassium 4.3
Chloride 108 H
Carbon Dioxide 26
BUN 34 H
Creatinine 1.6 H
Glucose 195 H
Calcium 10.4 H
Total Bilirubin 1.0
AST 20
ALT 19
Alkaline Phosphatase 70
Vital Signs:
Vital Signs
Temp Pulse Resp BP Pulse Ox
97.9 F 53 18 146/58 96
10/19/24 08:15 10/19/24 08:15 10/19/24 08:15 10/19/24 08:15 10/19/24 08:40
[2024-10-19] MEDS: TOPROL XL PO (10:09)
[2024-10-19 11:39] LABS: Glucose - Point of Care 226 mg/dl (70-99)
--- NOTE | 2024-10-19 12:30 | CON.CAR ---
Addendum entered and electronically signed by Regan Sagastume MD 10/19/24 13:59:
Patient seen and examined in collaboration with PGY 2 resident; agree with below.
- 84-year-old male (known to Dr. Sanchez, his primary [employer]) with chronic HFpEF, permanent atrial fibrillation (on Eliquis), diabetes, and CKD presenting with CHF exacerbation.
- Patient has been experiencing progressive shortness of breath and weight gain over the past few months; his legs are now weeping and he has been being treated at the wound clinic.
- Physical examination: Heart irregular rate and rhythm, 1/6 systolic murmur; lungs with bibasilar crackles; 3+ bilateral pitting edema with erythema.
- Cardiac BNP is 3060.
- Patient takes furosemide 40 mg twice daily at home; has gained over 20 pounds over the past year and a half.
- Acute on chronic HFpEF exacerbation--this is a threat to life.
- Continue Lasix 80 mg IV twice daily, which was started yesterday.
- Closely monitor daily weights and I/Os.
- library monitor.
- Will follow.
Original Note:
Documented by User: Michele Wheatley MD, Resident 10/19/24 13:17
Consultation
Consultation Request
Date/Time Consultation Requested: 10-19-24
Date/Time Consultation Performed: 10-19-24
Requesting Provider: Dr. Giuseppe Dixon
Performing Provider: Dr. Regan Sagastume
Reason for Consultation: AoC-HFpEF
Medical History
-
Chief Complaint: BL LE edema, weight gain
History of Present Illness:
Aldo Solitario, 84-year-old male with chronic HFpEF, permanent AFib on apixaban, CKD3a and T2DM, is admitted to the hospital with increased BL LE swelling and weight gain. Per the patient, he was about 268 lbs a month ago and has noted significant
weight gain and lower extremity swelling since then. Was 288 lbs before coming into the hospital. He and his have been going through a rough time socially and financially, and he has not taken care of himself well in the past couple of months.
Notes slightly increased dyspnea on exertion. No orthopnea or paroxysmal dyspnea. No palpitations, chest pains, lightheadedness, headaches, abdominal or back pain. He is not on an SGLT2 as it is unaffordable. Not MRA either due to renal function.
Past Medical History
Past Medical History: Arrhythmias (Permanent atrial fibrillation [on apixaban]), CHF, HTN, Hypercholesterolemia and NIDDM
Social History
Tobacco: Non-Smoker
Alcohol: None
Drug: None
Personal: (He is his 's caregiver)
Living: With Family
Employment: Retired
Family History
Family History: Reviewed & Not Pertinent
Allergies / Home Medications
Allergy/AdvReac Type Severity Reaction Status Date / Time
No Known Allergies Allergy Verified 10/19/24 03:38
�Medication �Instructions �Recorded �Confirmed �Type
allopurinol 100 mg tablet 100 mg PO DAILY Gout 02/18/14 10/19/24 History
atorvastatin 40 mg tablet 80 mg PO DAILY High Cholesterol 02/18/14 10/19/24 History
acetaminophen 500 mg tablet 500 mg PO PRN PRN pain 01/10/19 10/19/24 History
(Tylenol Extra Strength)
metoprolol succinate 25 mg 25 mg PO DAILY Blood Pressure 01/10/19 10/19/24 History
tablet,extended release 24 hr
furosemide 40 mg tablet 40 mg PO BID Fluid 06/29/23 10/19/24 Rx
retention/Swelling #60 tabs
apixaban 2.5 mg tablet (Eliquis) 2.5 mg PO BID Blood clot 10/23/23 10/19/24 History
prevention/tx
gabapentin 300 mg capsule 300 mg PO TID 10/19/24 10/19/24 History
glipizide 10 mg tablet, extended 10 mg PO DAILY Diabetes 10/19/24 10/19/24 History
release 24 hr
melatonin 3 mg tablet 3 mg PO HS 10/19/24 10/19/24 History
multivitamin 1 tab PO DAILY 10/19/24 10/19/24 History
polyethylene glycol 3350 17 gram 17 g PO DAILY 10/19/24 10/19/24 History
oral powder packet (Miralax)
potassium chloride 10 mEq 10 meq PO DAILY 10/19/24 10/19/24 History
tablet,extended release
sitagliptin phosphate 100 mg 100 mg PO DAILY 10/19/24 10/19/24 History
tablet (Januvia)
tamsulosin 0.4 mg capsule 0.4 mg PO DAILY 10/19/24 10/19/24 History
valsartan 160 mg tablet 160 mg PO DAILY 10/19/24 10/19/24 History
Review of Systems
-
History Source: Patient
All other systems: Negative unless noted
Respiratory: Other (see HPI)
Cardiac: Other (see HPI)
Musculoskeletal: Other (see HPI)
Physical Exam
Vital Signs
Temp Pulse Resp BP Pulse Ox
97.4 F 59 18 136/55 92
10/19/24 11:30 10/19/24 11:30 10/19/24 11:30 10/19/24 11:30 10/19/24 11:30
Lab Results
10/19/24 03:40
10/19/24 03:40
Troponin I < 0.012 ng/ml 10/19/24 03:40
Swm-S-Xafvbuuyvly Pept 3060 pg/ml 10/19/24 03:40
Physical Exam
General: No Apparent Distress and Comfortable
HEENT: Normocephalic, Anicteric and Moist Mucous Membranes
Respiratory: Crackles (BL diffuse) and Non Labored Respirations
Cardiac: S1/S2 and Irregular Rhythm
GI: Soft and Non Distended
Genito-urinary: No Costovertebral Tender
Musculoskeletal: No Clubbing, No Cyanosis and Edema (3+ BL LE)
Skin: Warm, Dry and Other (wounds)
Neuro: Awake, Alert, Oriented, No Motor Deficits and Nonfocal/Grossly Intact
Hematologic/Lymphatic: No Lymphadenopathy
Psych: Calm
Impression / Plan
-
Acute on chronic heart failure with preserved ejection fraction
- pro-BNP 3060 on admission.
- Continue IV furosemide 80 mg twice a day.
- Daily weights, I&Os, sodium and fluid restriction.
- Repeat echo.
- Follow BMP and Mg.
- SGLT2 previously unaffordable; can check again.
Permanent atrial fibrillation
- Continue metoprolol succinate 25 mg once a day.
- [id number]: Score at least 5 (Heart failure, HTN, age 75 or more, Diabetes Mellitus)
- Continue apixaban 2.5 mg twice a day (age and renal function).
- Monitor on tele.
Chronic kidney disease, follow with diuresis
HTN, chronic and stable
PVD, B/L LE compression recommended
Obesity, BMI 39, affects all aspects of care
Peripheral neuropathy
Financial insecurity
BPH

Documented by User: Regan Sagastume MD 10/19/24 13:54
Data Reviewed
-
EKG: Tracing Personally Visualized and interpreted (EKG 10/19/2024): Atrial fibrillation with slow ventricular response at 57 bpm with left axis deviation, right bundle branch block, and lateral T wave abnormality.)
Medical Tests (Nuc Med, Echo etc): Discussed with Patient
Labs: Labs Reviewed by me
[2024-10-19] MEDS: NOVOLOG FLEXPEN-LOW RESISTANCE 2 UNITS SC (13:40)
--- NOTE | 2024-10-19 15:48 | CM ---
CM reviewed chart, patient seen bedside, initial assessment completed. Patient reside with his who currently is in the [facility] facility at [place], patient resides in independent living at [place]. Patient reports using a wheeled walker
at home, history with [facility] PT/OT, denies SNF. Patient confirms PCP Major Silva, pharmacy [facility] in [place] (preferred) or [facility], confirms prescription coverage. Consult received for cost of Dapagliflozin 10 mg once a day for 90 day
supply, Empagliflozin 10 mg once a day for 90 day supply, spoke with pharmacist, Dapagliflozin- $344.60, Empagliflozin- $361.68. Patient updated, Physician updated. CM will continue to follow for all discharge planning needs, patient may benefit
from PT/OT evals.
Plan; return to [facility], my benefit from PT/OT evals
[2024-10-19 17:11] LABS: Glucose - Point of Care 147 mg/dl (70-99)
[2024-10-19] MEDS: NOVOLOG FLEXPEN-LOW RESISTANCE SC (17:17)
[2024-10-19 21:13] LABS: Glucose - Point of Care 169 mg/dl (70-99)
[2024-10-19] MEDS: MELATONIN 3 MG PO (22:05)
[2024-10-20 03:31] VITALS: BP 141/68
[2024-10-20 06:00] VITALS: BMI 36.0
[2024-10-20 07:00] VITALS: BP 149/80
[2024-10-20 07:43] LABS: Glucose - Point of Care 174 mg/dl (70-99)
[2024-10-20] MEDS: NOVOLOG FLEXPEN-LOW RESISTANCE 1 UNITS SC ×2 (07:53→12:12)
[2024-10-20] MEDS: LASIX 80 MG IV ×2 (07:54→15:14)
[2024-10-20] MEDS: ELIQUIS 2.5 MG PO ×2 (07:54→20:06)
[2024-10-20] MEDS: GLUCOTROL 10 MG PO (07:54)
[2024-10-20] MEDS: JANUVIA 100 MG PO (07:54)
[2024-10-20] MEDS: FLOMAX 0.4 MG PO (07:54)
[2024-10-20] MEDS: DIOVAN 160 MG PO (07:54)
[2024-10-20] MEDS: NEURONTIN 300 MG PO ×3 (07:55→21:42)
[2024-10-20] MEDS: LIPITOR 80 MG PO (07:55)
[2024-10-20] MEDS: TOPROL XL PO (07:55)
[2024-10-20] MEDS: THERAGRAN 1 TABLET PO (07:55)
[2024-10-20] MEDS: ZYLOPRIM 100 MG PO (07:55)
[2024-10-20 08:22] LABS: Blood Urea Nitrogen 34 mg/dl (9-20); Calcium 10.2 mg/dl (8.4-10.2); Carbon Dioxide 29 mmol/L (22-30); Chloride 104 mmol/L (98-107); Estimated Creatinine Clearance 47 ml/min; Glucose 167 mg/dl (70-99); Magnesium 2.3 mg/dl (1.6-2.3); Potassium 4.2 mmol/L (3.5-5.1); Sodium 141 mmol/L (135-145); eGFR 45.06
--- NOTE | 2024-10-20 10:08 | W.PN.CD ---
Today's Communication / Plan
-
IV diuresis
update echo
Impression / Plan
-
A/P: 84-year-old male with chronic HFpEF, permanent AFib on apixaban, CKD3a and T2DM, is admitted to the hospital with increased BL LE swelling and weight gain.
Acute on chronic heart failure with preserved ejection fraction
- pro-BNP 3060 on admission.
- Continue IV furosemide 80 mg twice a day; likley PO tomorrow
- Daily weights, I&Os, sodium and fluid restriction.
- Repeat echo.
- Follow BMP and Mg.
- SGLT2 previously unaffordable
Permanent atrial fibrillation
- Continue metoprolol succinate 25 mg once a day.
- [id number]: Score at least 5 (Heart failure, HTN, age 75 or more, Diabetes Mellitus)
- Continue apixaban 2.5 mg twice a day (age and renal function).
- Monitor on tele.
Chronic kidney disease, follow with diuresis
HTN, chronic and stable
PVD, B/L LE compression recommended
Obesity, BMI 39, affects all aspects of care
Peripheral neuropathy
Financial insecurity
BPH
Subjective: Feeling improved
Physical Exam
Vital Signs/Labs
Vital Signs
Temp Pulse Resp BP Pulse Ox
97.8 F 57 18 149/80 93
10/20/24 07:00 10/20/24 07:55 10/20/24 07:00 10/20/24 07:00 10/20/24 08:30
10/19/24 10/20/24 10/21/24
06:59 06:59 06:59
Actual Weight 288 lb 265 lb 1 oz
10/19/24 03:40
10/20/24 05:58
PT 16.9 Sec (11.4-14.6) H 10/19/24 03:40
INR 1.35 10/19/24 03:40
Magnesium 2.3 mg/dl (1.6-2.3) 10/20/24 05:58
10/19/24
03:40
Sip-M-Zpdwnooblqm Pept 3060
LAB Results
10/19/24
03:40
Troponin I < 0.012
Physical Exam
Constitutional: No acute distress
EENT: Anicteric
Cardiovascular: Rhythm/rate is irregular and Pedal edema present (chronic venous stasis )
Respiratory: Respiratory effort normal and Lungs clear to auscul.
GI: Soft
Neuro/Psych: AO x 3
Data Reviewed
-
Date of Service: October 20, 2024
EKG: Tracing Personally Visualized and interpreted (af)
Echo: Report Reviewed by me
Labs: Labs Reviewed by me
--- NOTE | 2024-10-20 11:09 | WOUNDNOTE ---
L LATERAL 5TH TOE
--- NOTE | 2024-10-20 11:10 | WOUNDNOTE ---
R ANTERIOR LOWER LEG
--- NOTE | 2024-10-20 11:10 | WOUNDNOTE ---
R MEDIAL LOWER LEG
--- NOTE | 2024-10-20 11:15 | WOUNDNOTE ---
WON RN note: Patient admitted with CHF.
See H&P for complete history. Lives at [place].
PMH: Past Medical History: Reports Arrhythmia (Afib on DOAC), CHF (HFpEF), HTN, Hypercholesterolemia, NIDDM and Other (bening brain tumor)
Past Surgical History: Reports Brain, Orthopedic (left knee replacement) and Tonsilectomy
Wound Location and type/assessment: Patient admitted with: R medial lower leg venous ulcer with cluster of open blisters, small drainage. + palpable pedal pulses, 2+ edema. Patient able to turn self in bed, sacrum and heels are intact. Patient
states he went to [facility] in past, last was 09/11/24. He confirmed he had other blisters on R leg that were healed out at wound center. R leg with visible pink scars from previous ulcers. Patient states he gets wound care at [place], using Betadine and
dry dressing, not using compression stockings. Patient said he does have lymphedema pumps that he uses 2 x per day and has a recliner chair to elevate his legs.
Appetite: Good.
Pressure redistribution devices in place: Accumax, is Ad jacquie and can turn self in bed.
Plan: Dressing changed on R leg, honey gel dressing and samuel wrap applied. Encouraged patient to elevate legs whenever he is in recliner chair at bedside. Teaching done with patient regarding wound care and compression.
Will confirm orders with hospitalist and updated nurse Maria Del Rosario. Updated care plan and will follow as needed.
Note to case management of equipment requested for discharge: [facility] for wound care.
Recommend follow up at wound care center upon discharge.
[2024-10-20 12:07] LABS: Glucose - Point of Care 179 mg/dl (70-99)
--- NOTE | 2024-10-20 12:13 | W.PN.HOSP.TC ---
Today's Communication/Plan
-
See plan
Assessment / Plan
Assessment / Plan
Gen: NAD, AAOx3.
Eyes: EOMI, PERRLA, no scleral icterus.
Neck: supple.
CV: RRR, +S1/S2, no m/r/g.
Resp: CTAB, no rales, wheezes, or rhonchi.
Abd: +BS, soft, NT, ND
Skin: B/L LE chronic venous stasis dermatitis and 3+ tense edema
Neuro: CN 2-12 intact, non-focal.
Psych: Normal mood and affect.
CXR: Mild cardiomegaly and increased pulmonary vascularity suggesting mild CHF.
Acute on chronic HFpEF:
-CXR above
-proBNP 3060, trop NEG
-cont IV lasix, daily wts, I/Os, FR
-check echo
-cards following, discussed with cardiology. Likely transition to PO diuretic tomorrow.
Other problems:
GAYATHRI has been ruled out, CKD3a only
Permanent A-fib: Cont BB/Eliquis
Chronic lower extremity lymphedema: compression
Essential HTN: cont BB/ARB
HLD: cont statin
DM2: cont glipizide/sitagliptin/SSI/accuchecks
BPH: cont Flomax
Gout: cont allopurinol
FULL/Eliquis
Anticipated Discharge: Within 24 hours
Subjective/Interval History
-
Date of Service: October 20, 2024
Currently denies shortness of breath.
Objective Data
-
Labs:
Laboratory Results
10/20/24
05:58
Sodium 141
Potassium 4.2
Chloride 104
Carbon Dioxide 29
BUN 34 H
Creatinine 1.5 H
Glucose 167 H
Calcium 10.2
Vital Signs:
Vital Signs
Temp Pulse Resp BP Pulse Ox
97.7 F 51 18 149/80 95
10/20/24 11:00 10/20/24 11:00 10/20/24 11:00 10/20/24 07:00 10/20/24 11:00
I&O
10/19/24 10/20/24 10/21/24
06:59 06:59 06:59
Intake Total 600 / 600
Output Total 2125 / 2125
Balance -1525 / -1525
[2024-10-20 12:16] VITALS: BP 133/61
[2024-10-20 15:30] VITALS: BP 157/63
[2024-10-20 16:56] LABS: Glucose - Point of Care 200 mg/dl (70-99)
[2024-10-20] MEDS: NOVOLOG FLEXPEN-LOW RESISTANCE 2 UNITS SC (16:59)
[2024-10-20 19:11] VITALS: BP 138/62
[2024-10-20 21:00] LABS: Glucose - Point of Care 127 mg/dl (70-99)
[2024-10-20] MEDS: MELATONIN 3 MG PO (21:43)
[2024-10-20 22:57] VITALS: BP 99/42
[2024-10-21 02:57] VITALS: BP 113/55
[2024-10-21 06:00] VITALS: BMI 36.8
[2024-10-21 07:00] VITALS: BP 136/67
[2024-10-21 07:38] LABS: Glucose - Point of Care 169 mg/dl (70-99)
[2024-10-21 07:39] LABS: Blood Urea Nitrogen 33 mg/dl (9-20); Calcium 10.3 mg/dl (8.4-10.2); Carbon Dioxide 31 mmol/L (22-30); Chloride 102 mmol/L (98-107); Estimated Creatinine Clearance 51 ml/min; Glucose 180 mg/dl (70-99); Potassium 3.6 mmol/L (3.5-5.1); Sodium 142 mmol/L (135-145); eGFR 48.95
[2024-10-21] MEDS: NOVOLOG FLEXPEN-LOW RESISTANCE 1 UNITS SC ×3 (07:58→17:12)
[2024-10-21] MEDS: FLOMAX 0.4 MG PO (08:00)
[2024-10-21] MEDS: HYDROPHOR 1 APPLIC TOPICAL (08:00)
[2024-10-21] MEDS: ELIQUIS 2.5 MG PO ×2 (08:00→09:06)
[2024-10-21] MEDS: GLUCOTROL 10 MG PO (08:00)
[2024-10-21] MEDS: DIOVAN 160 MG PO (08:00)
[2024-10-21] MEDS: THERAGRAN 1 TABLET PO (08:01)
[2024-10-21] MEDS: NEURONTIN 300 MG PO ×3 (08:01→22:06)
[2024-10-21] MEDS: JANUVIA 100 MG PO (08:01)
[2024-10-21] MEDS: TOPROL XL 25 MG PO (08:01)
[2024-10-21] MEDS: LIPITOR 80 MG PO (08:01)
[2024-10-21] MEDS: ZYLOPRIM 100 MG PO (08:02)
[2024-10-21] MEDS: LASIX 80 MG IV ×2 (08:07→15:10)
--- NOTE | 2024-10-21 08:34 | W.PN.CD ---
Today's Communication / Plan
-
Last day of diuretics
Continue apixaban adjust to 5 mg today given Cr of 1.4
Switch to PO lasix tomorrow
We will sign off please call with questions/concerns.
Impression / Plan
-
A/P: 84-year-old male with chronic HFpEF, permanent AFib on apixaban, CKD3a and T2DM, is admitted to the hospital with increased BL LE swelling and weight gain.
Acute on chronic heart failure with preserved ejection fraction
- pro-BNP 3060 on admission.
- Continue IV furosemide 80 mg twice a day last day today
- Daily weights, I&Os, sodium and fluid restriction.
- Echo below
- Follow BMP and Mg.
- SGLT2 previously unaffordable
Permanent atrial fibrillation
- Continue metoprolol succinate 25 mg once a day.
- [id number]: Score at least 5 (Heart failure, HTN, age 75 or more, Diabetes Mellitus)
- Continue apixaban adjust to 5 mg today given Cr of 1.4
- Monitor on tele.
Chronic kidney disease, follow with diuresis
HTN, chronic and stable
PVD, B/L LE compression recommended
Obesity, BMI 39, affects all aspects of care
Peripheral neuropathy
Financial insecurity
BPH
Subjective: Feeling improved
Physical Exam
Vital Signs/Labs
Vital Signs
Temp Pulse Resp BP Pulse Ox
97.3 F 64 16 136/67 98
10/21/24 07:00 10/21/24 08:01 10/21/24 07:00 10/21/24 07:00 10/21/24 07:00
10/20/24 10/21/24 10/22/24
06:59 06:59 06:59
Actual Weight 265 lb 1 oz 271 lb 1 oz
10/19/24 03:40
10/21/24 06:19
PT 16.9 Sec (11.4-14.6) H 10/19/24 03:40
INR 1.35 10/19/24 03:40
Magnesium 2.3 mg/dl (1.6-2.3) 10/20/24 05:58
10/19/24
03:40
Llg-G-Cmsufgxeuwq Pept 3060
LAB Results
10/19/24
03:40
Troponin I < 0.012
Physical Exam
Constitutional: No acute distress and Comfortable
EENT: Anicteric
Cardiovascular: Rhythm/rate is irregular and Pedal edema present (tense edematous legs)
Respiratory: Respiratory effort normal and Lungs clear to auscul.
GI: Soft
Neuro/Psych: AO x 3
Data Reviewed
-
Date of Service: October 21, 2024
EKG: Tracing Personally Visualized and interpreted (af)
Echo: Tracing Personally Visualized and interpreted and Report Reviewed by me
Labs: Labs Reviewed by me
[2024-10-21 11:07] VITALS: BP 119/58
[2024-10-21 11:17] LABS: Glucose - Point of Care 197 mg/dl (70-99)
--- NOTE | 2024-10-21 11:58 | W.PN.HOSP.TC ---
Today's Communication/Plan
-
see plan
Assessment / Plan
Assessment / Plan
Gen: NAD, AAOx3.
Eyes: EOMI, PERRLA, no scleral icterus.
Neck: supple.
CV: Remains RRR, +S1/S2, no m/r/g.
Resp: Faint rales in the bases
Abd: +BS, soft, NT, ND
Skin: Remains B/L LE chronic venous stasis dermatitis and 3+ tense edema
Neuro: CN 2-12 intact, non-focal.
Psych: Normal mood and affect.
CXR: Mild cardiomegaly and increased pulmonary vascularity suggesting mild CHF.
Echo: TDS.
In limited views normal LV size and function without regional wall motion
abnormality.
LVEF is 55-60% by visual estimation.
Mild concentric LVH.
Dilated RV with normal systolic function.
Mild aortic regurgitation.
Estimated pulmonary artery pressure of 30-35 mmHg assuming a right atrial
pressure of 3 mmHg.
Compared to prior from June 26, 2023, no significant change.
Acute on chronic HFpEF:
-CXR above
-proBNP 3060, trop NEG
-cont IV lasix, daily wts, I/Os, FR
-echo above
-cards following, discussed with cardiology. Cont IV Lasix today, likely transition to PO diuretic tomorrow.
Other problems:
GAYATHRI has been ruled out, CKD3a only
Permanent A-fib: Cont BB/Eliquis
Chronic lower extremity lymphedema: compression to B/L LEs
Essential HTN: cont BB/ARB
HLD: cont statin
DM2: cont glipizide/sitagliptin/SSI/accuchecks
BPH: cont Flomax
Gout: cont allopurinol
FULL/Eliquis
Anticipated Discharge: Within 24 hours
Subjective/Interval History
-
Date of Service: October 21, 2024
No new complaints.
Objective Data
-
Labs:
Laboratory Results
10/21/24
06:19
Sodium 142
Potassium 3.6
Chloride 102
Carbon Dioxide 31 H
BUN 33 H
Creatinine 1.4 H
Glucose 180 H
Calcium 10.3 H
Vital Signs:
Vital Signs
Temp Pulse Resp BP Pulse Ox
97.6 F 60 20 119/58 97
10/21/24 11:07 10/21/24 11:07 10/21/24 11:07 10/21/24 11:07 10/21/24 11:07
I&O
10/20/24 10/21/24 10/22/24
06:59 06:59 06:59
Intake Total 1080 / 1080 900 / 900
Output Total 2124 / 212 1900 / 1900
Balance -1045 / -1045 -1000 / -1000
[2024-10-21 15:00] VITALS: BP 110/48
--- NOTE | 2024-10-21 15:53 | CM ---
front of house manager reviewed patient's chart and met with patient and is for discharge to home when stable, patient is currently on 1 liter of oxygen 95%, patient did not require oxygen prior to admission, patient would benefit from visiting nurses at
discharge and patient is agreeable to [facility], [facility] liaison contacted.
Plan; Home with spouse and [facility].
--- NOTE | 2024-10-21 16:28 | VNURNOTE ---
Home Health Liaison met with patient at bedside to discuss [facility] nurse/therapy, visits, schedule and homebound status. Patient is agreeable and understands that visits at home will be 2-3 x per week to assess and teach medical management. Patient
states he will be moving to [facility] this Sunday. He will no longer be at [facility]. Pt is unsure if he will continue with DR Silva as PCP or if he'll return to Dr Mann - he is agreeable to continue with Dr Silva if he goes to [facility]. Patient
will contact [facility] to obtain info.
Patient is aware that [facility]N will contact them for start of care in 1-2 days after discharge from .
[facility] referral completed in [facility].
[2024-10-21 16:36] LABS: Glucose - Point of Care 192 mg/dl (70-99)
[2024-10-21 19:03] VITALS: BP 133/56
[2024-10-21] MEDS: ELIQUIS 5 MG PO (19:50)
[2024-10-21 21:23] LABS: Glucose - Point of Care 227 mg/dl (70-99)
[2024-10-21] MEDS: MELATONIN 3 MG PO (22:06)
[2024-10-21 23:00] VITALS: BP 104/45
[2024-10-22 03:00] VITALS: BP 111/54
[2024-10-22 06:00] VITALS: BMI 36.7
[2024-10-22 07:30] VITALS: BP 116/50
[2024-10-22 07:42] LABS: Glucose - Point of Care 204 mg/dl (70-99)
[2024-10-22 07:58] LABS: Blood Urea Nitrogen 43 mg/dl (9-20); Calcium 10.3 mg/dl (8.4-10.2); Carbon Dioxide 31 mmol/L (22-30); Chloride 99 mmol/L (98-107); Estimated Creatinine Clearance 45 ml/min; Glucose 185 mg/dl (70-99); Potassium 3.4 mmol/L (3.5-5.1); Sodium 140 mmol/L (135-145)
[2024-10-22] MEDS: NEURONTIN 300 MG PO (08:26)
[2024-10-22] MEDS: GLUCOTROL 10 MG PO (08:26)
[2024-10-22] MEDS: THERAGRAN 1 TABLET PO (08:26)
[2024-10-22] MEDS: JANUVIA 100 MG PO (08:26)
[2024-10-22] MEDS: LIPITOR 80 MG PO (08:26)
[2024-10-22] MEDS: ELIQUIS 5 MG PO (08:27)
[2024-10-22] MEDS: LASIX 40 MG PO (08:27)
[2024-10-22] MEDS: TOPROL XL 25 MG PO (08:27)
[2024-10-22] MEDS: ZYLOPRIM 100 MG PO (08:27)
[2024-10-22] MEDS: DIOVAN 160 MG PO (08:27)
[2024-10-22] MEDS: FLOMAX 0.4 MG PO (08:27)
[2024-10-22] MEDS: NOVOLOG FLEXPEN-LOW RESISTANCE 2 UNITS SC (08:28)
[2024-10-22] MEDS: HYDROPHOR 1 APPLIC TOPICAL (08:29)
--- NOTE | 2024-10-22 10:15 | W.PN.HOSP.TC ---
Today's Communication/Plan
-
d/c
Assessment / Plan
Assessment / Plan
Gen: NAD, AAOx3.
Eyes: EOMI, PERRLA, no scleral icterus.
Neck: supple.
CV: Continues to remain RRR, +S1/S2, no m/r/g.
Resp: CTAB anteriorly
Abd: +BS, soft, NT, ND
Skin: 3+ B/L LE tense edema
Neuro: CN 2-12 intact, non-focal.
Psych: Normal mood and affect.
CXR: Mild cardiomegaly and increased pulmonary vascularity suggesting mild CHF.
Echo: TDS.
In limited views normal LV size and function without regional wall motion
abnormality.
LVEF is 55-60% by visual estimation.
Mild concentric LVH.
Dilated RV with normal systolic function.
Mild aortic regurgitation.
Estimated pulmonary artery pressure of 30-35 mmHg assuming a right atrial
pressure of 3 mmHg.
Compared to prior from June 26, 2023, no significant change.
Acute on chronic HFpEF:
-CXR above
-proBNP 3060, trop NEG
-s/p IV lasix, now transitioned to PO Lasix
-daily wts, I/Os, FR
-echo above
-cards following, discussed with cardiology, medically cleared for d/c
Other problems:
GAYATHRI has been ruled out, CKD3a only
Permanent A-fib: Cont BB/Eliquis
Chronic lower extremity lymphedema: compression to B/L LEs
Essential HTN: cont BB/ARB
HLD: cont statin
DM2: cont glipizide/sitagliptin/SSI/accuchecks
BPH: cont Flomax
Gout: cont allopurinol
FULL/Eliquis
Total time spent on d/c = 31 min. This included today's physical exam, progress note, review of laboratory and diagnostic data, preparation of discharge documents and prescriptions, and discussions about the pt's hospital course and discharge plan
with the patient and other medical office manager involved in the patient's care.
Anticipated Discharge: Today
Subjective/Interval History
-
Date of Service: October 22, 2024
Denies shortness of breath.
Objective Data
-
Labs:
Laboratory Results
10/22/24
06:28
Sodium 140
Potassium 3.4 L
Chloride 99
Carbon Dioxide 31 H
BUN 43 H
Creatinine 1.6 H
Glucose 185 H
Calcium 10.3 H
Vital Signs:
Vital Signs
Temp Pulse Resp BP Pulse Ox
98.2 F 63 16 116/50 91
10/22/24 07:30 10/22/24 08:27 10/22/24 07:30 10/22/24 08:27 10/22/24 07:30
I&O
10/21/24 10/22/24 10/23/24
06:59 06:59 06:59
Intake Total 900 / 900 900 / 900
Output Total 1900 / 1900 950 / 950
Balance -1000 / -1000 -50 / -50
[2024-10-22 10:42] LABS: Glucose - Point of Care 257 mg/dl (70-99)
[2024-10-22 11:01] VITALS: BP 102/45
--- NOTE | 2024-10-22 11:26 | CM ---
Chart reviewed and patient is for discharge today to home with [facility]. Per patient his family, daughter and son in law to transport to home.
Plan; H0me today with [facility]
[2024-10-22] MEDS: NOVOLOG FLEXPEN-LOW RESISTANCE 3 UNITS SC (12:19)
[2024-10-22 14:28] VITALS: BP 105/69
--- NOTE | 2024-10-22 16:05 | W.DCSUMMARY ---
Discharge Summary
Discharge Data
Date of Admission: 10/19/24
Date of Discharge: 10/22/24
-
Pending Results: No
Hospital Course
Primary diagnoses:
Acute on chronic heart failure with preserved ejection fraction
Secondary diagnoses:
Chronic kidney disease stage 3a
Permanent atrial fibrillation
Chronic lower extremity lymphedema
Essential hypertension
Hyperlipidemia
Type 2 diabetes mellitus
Benign prostatic hypertrophy
Gout
Consultants:
Cardiology
Imaging:
CXR: Mild cardiomegaly and increased pulmonary vascularity suggesting mild CHF.
Echo: TDS.
In limited views normal LV size and function without regional wall motion
abnormality.
LVEF is 55-60% by visual estimation.
Mild concentric LVH.
Dilated RV with normal systolic function.
Mild aortic regurgitation.
Estimated pulmonary artery pressure of 30-35 mmHg assuming a right atrial
pressure of 3 mmHg.
Compared to prior from June 26, 2023, no significant change.
Hospital course: 84-year-old male who presented with a chief complaint of weight gain as outlined in the H&P done on admission. Chest x-ray above. proBNP was 3060, troponin was negative. The patient was diuresed with IV Lasix and then transition
to oral Lasix. Echocardiogram above. Cardiology is on consultation and medically cleared the patient for discharge.
Discharge Plan
-
Patient Disposition: Home with Home Care
Discharge Diagnosis/Procedures: Acute on chronic heart failure with preserved ejection fraction
Condition: Good
Diet: Diabetic, Carb Controlled and Other diet
Additional Diets: fluid restrict to 1200cc/day
Activity: As tolerated
Driving Restrictions: Not until seen by your Dr
Blood Work: BMP and CBC in 1 week, prescription from PCP
Activity Restrictions/Additional Instructions:
Wound Care Instructions
R medial lower leg: clean with soap and water, smear of honey gel to open areas then dry dressing, change daily.
R leg knee high Lincoln wrap daily can remove at bedtime
Resume Lymphedema pumps as previously ordered, can keep lincoln wrap on during treatment
leg elevation when sitting
Increase protein in diet to help with wound healing
Follow up at wound care center call for an appointment.
Instructions: *CBC Heart Failure Instructions
Referrals:
Major Silva MD [Family Provider, Family Practice] - in less than 1 week
Prescriptions:
Continued
atorvastatin 40 MG tablet
80 mg PO DAILY
allopurinol 100 MG tablet
100 mg PO DAILY
acetaminophen [Tylenol Extra Strength] 500 MG tablet
500 mg PO PRN PRN (Reason: pain)
metoprolol succinate 25 MG tablet extended release 24 hr
25 mg PO DAILY
furosemide 40 mg tablet
40 mg PO BID Qty: 60 0RF
Eliquis 2.5 mg tablet
2.5 mg PO BID
multivitamin Tablet
1 tab PO DAILY
polyethylene glycol 3350 [Miralax] 17 gram Powder In Packet
17 g PO DAILY
potassium chloride 10 mEq Tablet Extended Release
10 meq PO DAILY
melatonin 3 mg Tablet
3 mg PO HS
tamsulosin 0.4 mg Capsule
0.4 mg PO DAILY
gabapentin 300 mg Capsule
300 mg PO TID
valsartan 160 mg Tablet
160 mg PO DAILY
Januvia 100 mg Tablet
100 mg PO DAILY
glipizide 10 mg tablet extended release 24hr
10 mg PO DAILY
Discharge Orders:
Discharge Patient (As Directed); Ordered 10/22/24
Ordered By: Romero Brown
Discharge Date and Time
Print Language: ZAMBIAN
--- NOTE | 2024-10-22 16:34 | PTCARENOTE ---
Pt dc'd to home with VN, iv removed, tele removed, paperowrk reviewed, all belongings with pt. Pt escorted to son's car via staff escort via w/c
--- NOTE | 2024-10-23 15:44 | W.HF.CON ---
Heart Failure
- LV Function
Left ventricular function study result: LV Ejection fraction >/= 50%
Ejection Fraction Percentage: 55-60
- ARNI
Patient already on ARNI: No
Heart Failure ARNI Not Indicated: LV Ejection Fraction >/= 40%
- ACEI/ARB
Patient already on ACEI/ARB: Yes
- Beta Tye
Patient already on Evidence Based Beta Tye: Yes
- Mineralocorticord Receptor Antagonist
Patient already on MRA: No
Heart Failure MRA Not Indicated: LV Ejection Fraction > 40%
- SGLT-2 Inhibitor
Patient already on SGLT-2 Inhibitor: No
Heart Failure SGLT-2 Inhibitor Contraindication: Patient Refusal
- Afib Anticoagulation
Patient already on Anticoagulation for Afib: Yes
- NYHA CHF Classification
NYHA CHF Classification Level: Class III - Symptoms w/ min exertion, interferes w/ nml daily activity
- ACC/AHA Stage
ACC/AHA Stage: Stage C: Symptomatic Heart Failure
== END 2024-10-22 16:15 | disposition home health service (06) | DRG 291 ==
LOC: 4 WEST ACU 06:51
PROVIDERS: ADMITTING PHYSICIAN Internal Medicine; ATTENDING PHYSICIAN Internal Medicine; CONSULT PHYSICIAN Internal Medicine; EMERGENCY PHYSICIAN Student in an Organized Health Care Education/Training Program; FAMILY PHYSICIAN Family Medicine
DX: I13.0 Hypertensive heart and chronic kidney disease with heart failure and stage 1 through stage 4 chronic kidney disease, or unspecified chronic kidney disease (principal); I50.33 Acute on chronic diastolic (congestive) heart failure; I48.21 Permanent atrial fibrillation; E11.22 Type 2 diabetes mellitus with diabetic chronic kidney disease; E11.51 Type 2 diabetes mellitus with diabetic peripheral angiopathy without gangrene; E11.42 Type 2 diabetes mellitus with diabetic polyneuropathy; N18.31 Chronic kidney disease, stage 3a; N40.0 Benign prostatic hyperplasia without lower urinary tract symptoms; I89.0 Lymphedema, not elsewhere classified; E78.00 Pure hypercholesterolemia, unspecified; M10.9 Gout, unspecified; G20.A1 Parkinson's disease without dyskinesia, without mention of fluctuations; E66.9 Obesity, unspecified; Z79.01 Long term (current) use of anticoagulants; Z79.899 Other long term (current) drug therapy; Z68.39 Body mass index [BMI] 39.0-39.9, adult; Z59.86 Financial insecurity
CPT/HCPCS: 71046; 80048; 80053; 82962; 83735; 83880; 84443; 84484; 85025; 85610; 87070; 93005; 93306; 99285

== ENCOUNTER → 2024-10-27 11:52 | Outpatient (REF) | payer MEDICARE, SELFPAY ==
[2024-10-27 13:15] LABS: % Basophils 0.8 % (0-2); % Eosinophils 3.7 % (0-6); % Immature Granulocytes 0.2 % (0-0.5); % Lymphocytes 18.7 % (20.5-51.1); % Monocytes 9.6 % (1.7-9.3); Absolute Basophils 0.1 10^3/uL (0-0.2); Absolute Eosinophils 0.3 10^3/uL (0-0.7); Absolute Lymphocytes 1.6 10^3/uL (1.2-3.4); Absolute Monocytes 0.8 10^3/uL (0.1-0.6); Absolute Neutrophils 5.8 10^3/uL (1.4-6.5); Hematocrit 39.8 % (39.0-52.0); Hemoglobin 12.5 g/dL (13.0-18.0); Mean Corp Hgb Conc. 31.4 g/dL (33.0-37.0); Mean Corpuscular Hgb 30.2 pg (27.0-31.0); Mean Corpuscular Volume 96.1 fL (80.0-94.0); Mean Platelet Volume 11.2 fL (7.4-10.4); Nucleated Red Blood Cells % 0 % (-); Platelet Count 215 10^3/uL (130-400); Red Blood Cell Count 4.14 10^6/uL (4.70-6.10); Red Cell Dist. Width 15.5 % (11.5-14.5); White Blood Cell Count 8.7 10^3/uL (4.8-10.8)
[2024-10-27 13:36] LABS: ALT (SGPT) 18 U/L (0-50); AST (SGOT) 24 U/L (17-59); Albumin 4.2 g/dl (3.5-5.0); Alkaline Phosphatase 57 U/L (38-126); Blood Urea Nitrogen 45 mg/dl (9-20); Calcium 10.3 mg/dl (8.4-10.2); Carbon Dioxide 27 mmol/L (22-30); Chloride 105 mmol/L (98-107); Glucose 170 mg/dl (70-99); Potassium 4.2 mmol/L (3.5-5.1); Sodium 140 mmol/L (135-145); Total Bilirubin 1.2 mg/dl (0.2-1.3); Total Protein 7.3 g/dl (6.3-8.2); eGFR 45.06
[2024-10-27 14:02] LABS: Glycohemoglobin (HgbA1c) 8.5 % (4.0-5.6)
== END ==
LOC: OLABPATH 11:52
PROVIDERS: ATTENDING PHYSICIAN Internal Medicine
DX: I50.32 Chronic diastolic (congestive) heart failure (principal); I48.91 Unspecified atrial fibrillation; E11.8 Type 2 diabetes mellitus with unspecified complications
CPT/HCPCS: 36415; 80053; 83036; 85025

== ENCOUNTER 2024-11-15 12:22 | Inpatient (IN) | payer MEDICARE, SELFPAY ==
[2024-11-15] VITALS (8 sets, daily range): BP systolic 126–150; BP diastolic 54–80; BMI 38.6; BMI 39.0
--- NOTE | 2024-11-15 10:20 | ED.GENMED ---
History of Present Illness
<Eva Magaña PA-C - Last Filed: 11/15/24 11:45>
General
Chief Complaint: Male Genito-Urinary Symptoms
Source: patient and family
Exam Limitations: none
Time Seen by Provider: 11/15/24 09:42
Nursing documentation reviewed up to this point in time: agreed with
History of Present Illness
History of Present Illness:
84 y/o M with h/o HFpEF on lasix 40 mg BID
here with increasing weight gain and edema in legs and now into scrotum and abdomen
pt had been having some chaffing in between his legs and daughter bought a cream so when he started having some swelling in the scrotum she thought maybe it was a reaction to the cream
but pt did mention he was weighed this morning and has put on about 5-6 pounds since discharge 3 weeks ago here for CHF with exac requiring IV diuresis
pt says his legs are pretty swollen at baseline but this is worse and limiting his mobility
he never had scrotal edema before and his penis is not visualized due to the sewlling which is causing some issues urinating. pt doesn't feel like he cannot empty bladder but urine is spraying in different directions
he doesn't have inguinal or perineal pain, fever ,cp, sob
pt is anticoagulated
just moved to a new facility with his who has parkinsons and is having a lot of emotional stress, doesn't like it there.
Past History
<Eva Magaña PA-C - Last Filed: 11/15/24 11:45>
Past History
ED Past Medical History: Arrthythmia (Atrial fibrillation), CHF, HTN, Hypercholesterolemia, NIDDM and Other (Benign brain tumor)
ED Past Surgical History: Brain, Orthopedic and Tonsilectomy
Social History
Tobacco: Non-smoker
Alcohol: None
Drug: None
Living: with family
Employment: Retired
Family History
Family History: Other (Noncontributory)
Review of Systems
<Eva Magaña PA-C - Last Filed: 11/15/24 11:45>
Review of Systems
Allergies reviewed?: Yes
All Other Systems: Not applicable
Phy Exam
<Eva Magaña PA-C - Last Filed: 11/15/24 11:45>
Physical Exam
Physical Exam:
GENERAL: Alert , in no apparent distress
EYE: pupils equal and reactive
NECK: Supple
ENT: o/p clr, mmm.
CARDIAC: Irregular, slow
LUNGS: Crackles at bases bilaterally, no dyspnea
ABDOMEN: Soft, without focal tenderness, some edema into the lower abdomen no r/g, no cvat, normal bowel sounds
Scrotal edema, faint pink skin changes throughout the edema of his legs, thighs, inguinal region
NEUROLOGICAL: Alert and oriented, no focal neuro deficits
SKIN: Warm and dry, skin intact.
MUSCULOSKELETAL: Significant pitting bilateral lower extremity edema extending up through his thighs into his scrotum and abdomen
PSYCH: Normal and appropriate interaction.
Course
<Eva Magaña PA-C - Last Filed: 11/15/24 11:45>
Orders/Labs/Results
Orders:
Orders
11/15/24 10:14
Bladder Scan- Treatment ONCE
11/15/24 10:15
Electrocardiogram (*1) Stat
Reason for Study: Other
Other Reason for Exam: chest pain
EKG- Treatment ONCE
Urinalysis Reflex To Culture Urgent
Date Specimen was Collected: 11/15/24
Time Specimen was Collected: 11:17
CR Chest - 2 Views Urgent
Comment:
Reason For Exam: edema
11/15/24 10:33
Complete Blood Count/With Diff Urgent
Comprehensive Metabolic Panel Urgent
Magnesium Urgent
NT-proBNP Urgent
11/15/24 11:11
Furosemide [Lasix] 40 mg IV NOW STA
11/15/24 11:57
Admit/Transfer Patient As Directed
Co-Sign Provider:
Level of Care: Inpatient admission
Assign to:: Telemetry
Physician / Group: Dr Lawler
Diagnosis: CHF
Reason for Telemetry: Subacute Heart Failure
Date to Stop Telemetry: 11/17/24
Time to Stop Telemetry: 11:00
Reason for Hospitalization: CHF
Expected length of stay greater than two midnights?: Yes
ELOS- Estimated Length of Stay in days: 2
I certify the patient meets the requirements for IP care: Yes
11/15/24 11:58
PRN Pain Medication Management As Directed
May give lesser potent ordered pain med per pt: Yes
preference::
Protocol:: Medication orders for pain may be administered in a
manner that supports deferring to patient preference
when the pt is:
- Requesting an ordered lesser potent pain medication.
Least to most potent pain medications are defined
as: acetaminophen < NSAID < tramadol < opioids
(morphine, oxycodone, hydromorphone).
- Requesting a lesser dose of the same medication IF
ORDERED.
- Requesting a less intrusive route of administration
if both routes are prescribed by the provider (PO <
IV).
11/15/24 11:59
Code Status As Directed
Resuscitation Status: Full Code
11/15/24 12:02
Furosemide [Lasix] 80 mg IV NOW STA
11/15/24 12:11
Dextrose 50%-Water [Dextrose 50% Syringe] 12.5 grams IV [id number] PRN
Glucagon [GlucaGen] 1 mg IM PRN PRN
Bedside Glucose Monitoring As Directed
Frequency: AC&HS
Additional Instructions:: Change to q6h if pt on TPN, tube feeding or not eating
11/15/24 16:30
Insulin Aspart Corrective Mod [Novolog Flexpen-Moderate Resistance] See Protocol SC AC
11/17/24 11:00
DC Protocol for Telemetry ONCE
Abnormal Lab Results
11/15/24
10:33
RBC 4.07 L 10^6/uL
(4.70-6.10)
Hgb 12.5 L g/dL
(13.0-18.0)
MCV 96.3 H fL
(80.0-94.0)
MCHC 31.9 L g/dL
(33.0-37.0)
RDW 16.0 H %
(11.5-14.5)
Absolute Lymphs (auto) 1.0 L 10^3/uL
(1.2-3.4)
Absolute Monos (auto) 0.7 H 10^3/uL
(0.1-0.6)
Neutrophils % 76.7 H %
(42.2-75.2)
Lymphocytes % 11.2 L %
(20.5-51.1)
BUN 32 H mg/dl
(9-20)
Creatinine 1.6 H mg/dL
(0.7-1.3)
Glucose 208 H mg/dl
(70-99)
Calcium 10.5 H mg/dl
(8.4-10.2)
Magnesium 2.4 H mg/dl
(1.6-2.3)
11/15/24 10:33
11/15/24 10:33
Vital Signs
Initial and Last Documented VS:
Initial Vital Signs
Temp Pulse Resp BP Pulse Ox
97.7 F 57 16 131/63 91
11/15/24 09:04 11/15/24 09:04 11/15/24 09:04 11/15/24 09:04 11/15/24 09:04
Last Documented Vital Signs
Temp Pulse Resp BP Pulse Ox
97.7 F 53 11 127/69 97
11/15/24 09:04 11/15/24 12:19 11/15/24 12:00 11/15/24 12:19 11/15/24 12:15
<Meghan Braga MD - Last Filed: 11/15/24 12:38>
Orders/Labs/Results
Orders:
Orders
11/15/24 10:14
Bladder Scan- Treatment ONCE
11/15/24 10:15
Electrocardiogram (*1) Stat
Reason for Study: Other
Other Reason for Exam: chest pain
EKG- Treatment ONCE
Urinalysis Reflex To Culture Urgent
Date Specimen was Collected: 11/15/24
Time Specimen was Collected: 11:17
CR Chest - 2 Views Urgent
Comment:
Reason For Exam: edema
11/15/24 10:33
Complete Blood Count/With Diff Urgent
Comprehensive Metabolic Panel Urgent
Magnesium Urgent
NT-proBNP Urgent
11/15/24 11:11
Furosemide [Lasix] 40 mg IV NOW STA
11/15/24 11:57
Admit/Transfer Patient As Directed
Co-Sign Provider:
Level of Care: Inpatient admission
Assign to:: Telemetry
Physician / Group: Dr Lawler
Diagnosis: CHF
Reason for Telemetry: Subacute Heart Failure
Date to Stop Telemetry: 11/17/24
Time to Stop Telemetry: 11:00
Reason for Hospitalization: CHF
Expected length of stay greater than two midnights?: Yes
ELOS- Estimated Length of Stay in days: 2
I certify the patient meets the requirements for IP care: Yes
11/15/24 11:58
PRN Pain Medication Management As Directed
May give lesser potent ordered pain med per pt: Yes
preference::
Protocol:: Medication orders for pain may be administered in a
manner that supports deferring to patient preference
when the pt is:
- Requesting an ordered lesser potent pain medication.
Least to most potent pain medications are defined
as: acetaminophen < NSAID < tramadol < opioids
(morphine, oxycodone, hydromorphone).
- Requesting a lesser dose of the same medication IF
ORDERED.
- Requesting a less intrusive route of administration
if both routes are prescribed by the provider (PO <
IV).
11/15/24 11:59
Code Status As Directed
Resuscitation Status: Full Code
11/15/24 12:02
Furosemide [Lasix] 80 mg IV NOW STA
11/15/24 12:11
Dextrose 50%-Water [Dextrose 50% Syringe] 12.5 grams IV [id number] PRN
Glucagon [GlucaGen] 1 mg IM PRN PRN
Bedside Glucose Monitoring As Directed
Frequency: AC&HS
Additional Instructions:: Change to q6h if pt on TPN, tube feeding or not eating
11/15/24 16:30
Insulin Aspart Corrective Mod [Novolog Flexpen-Moderate Resistance] See Protocol SC AC
11/17/24 11:00
DC Protocol for Telemetry ONCE
Abnormal Lab Results
11/15/24
10:33
RBC 4.07 L 10^6/uL
(4.70-6.10)
Hgb 12.5 L g/dL
(13.0-18.0)
MCV 96.3 H fL
(80.0-94.0)
MCHC 31.9 L g/dL
(33.0-37.0)
RDW 16.0 H %
(11.5-14.5)
Absolute Lymphs (auto) 1.0 L 10^3/uL
(1.2-3.4)
Absolute Monos (auto) 0.7 H 10^3/uL
(0.1-0.6)
Neutrophils % 76.7 H %
(42.2-75.2)
Lymphocytes % 11.2 L %
(20.5-51.1)
BUN 32 H mg/dl
(9-20)
Creatinine 1.6 H mg/dL
(0.7-1.3)
Glucose 208 H mg/dl
(70-99)
Calcium 10.5 H mg/dl
(8.4-10.2)
Magnesium 2.4 H mg/dl
(1.6-2.3)
11/15/24 10:33
11/15/24 10:33
Vital Signs
Initial and Last Documented VS:
Initial Vital Signs
Temp Pulse Resp BP Pulse Ox
97.7 F 57 16 131/63 91
11/15/24 09:04 11/15/24 09:04 11/15/24 09:04 11/15/24 09:04 11/15/24 09:04
Last Documented Vital Signs
Temp Pulse Resp BP Pulse Ox
97.7 F 53 11 127/69 97
11/15/24 09:04 11/15/24 12:19 11/15/24 12:00 11/15/24 12:19 11/15/24 12:15
<Eva Magaña PA-C - Last Filed: 11/15/24 11:45>
MDM/Problems Addressed
Differential Diagnosis Includes:
chf, urinary retention, beth's
MDM/Problems Addressed:
84 y/o M with h/o CHF on lasix 40 mg BID
doesn't get weighed regularly
inc edema into his scrotum/abdomen
no reports of dyspnea but pt is hypoxic with sleeping
bradycardic, slow a fib on eliquis, on metoprolol, awake and alert, tolerating the RHr 40s
significant edema into his abdomen
scrotal edema
no urinary retnetion
k normal
bnp 2k
cxr mild pulm edema
tra admit for IV diruesis
CKD stable.
<Eva Magaña PA-C - Last Filed: 11/15/24 11:45>
*Pulse Oximetry
SaO2: 91
Oxygen Mode of Delivery: Room air
Patient hypoxic: yes (91)
*Critical Care Note
Total Time (30-74mins, 75-104mins- exclusive of procedures): Not Applicable
ED Attending Note
<Eva Magaña PA-C - Last Filed: 11/15/24 11:45>
-
Portions of this chart may have been created with voice recognition software.� Occasional wrong word or��sound alike� substitutions may have occurred due to the inherent limitations of voice recognition software.
<Meghan Braga MD - Last Filed: 11/15/24 12:38>
ED Attending Note
Patient seen and examined by attending physician: Yes
I performed the substantive portion of visit, reviewed & personally made and approve the management plan that is documented in note by myself or MIKE.: Yes
ED Attending Note:
Patient patient's breathing comfortably. Abdomen is soft and nontender. Patient has a nonfocal neurological exam. Heart rate 30s to 40s.
Discharge Plan
Departure
Patient Disposition: Admit
Date of Disposition: 11/15/24
Time of Disposition: 11:38
Admit to: Telemetry
Presentation/result/management discussed w/ accepting MD/DO: Hospitalist
Condition: Fair
Covid-19: Not Applicable
Discharge Problem:
Diastolic CHF
Interventions
Interventions:
*Risk Screen - Suicide Last Done: 11/15/24 09:04
*General Assessment Last Done: 11/15/24 09:04
*Neglect/Abuse Screening Last Done: 11/15/24 09:04
[2024-11-15 10:49] LABS: Hematocrit 39.2 % (39.0-52.0); Hemoglobin 12.5 g/dL (13.0-18.0); Mean Corp Hgb Conc. 31.9 g/dL (33.0-37.0); Mean Corpuscular Volume 96.3 fL (80.0-94.0); Nucleated Red Blood Cells % 0 % (-); Platelet Count 163 10^3/uL (130-400); Red Cell Dist. Width 16.0 % (11.5-14.5)
[2024-11-15 11:09] LABS: ALT (SGPT) 20 U/L (0-50); AST (SGOT) 20 U/L (17-59); Albumin 4.1 g/dl (3.5-5.0); Alkaline Phosphatase 66 U/L (38-126); Blood Urea Nitrogen 32 mg/dl (9-20); Calcium 10.5 mg/dl (8.4-10.2); Carbon Dioxide 28 mmol/L (22-30); Chloride 107 mmol/L (98-107); Glucose 208 mg/dl (70-99); Magnesium 2.4 mg/dl (1.6-2.3); Potassium 4.2 mmol/L (3.5-5.1); Sodium 140 mmol/L (135-145); Total Protein 7.1 g/dl (6.3-8.2); eGFR 41.70
--- NOTE | 2024-11-15 12:02 | HPS.HSE ---
Family Physician
-
Family Physician: Nima Chase
Chief Complaint
-
sob
History of Present Illness
Patient 84-year-old male with history of CHF, A-fib, hypertension, hyperlipidemia, diabetes mellitus, came into the hospital shortness of breath and increasing peripheral edema patient has been having increased peripheral edema in his lower
extremity, abdomen, scrotal area and he has been experiencing shortness of breath that has been progressively getting worse. Patient also has weight gain. Patient had a recent hospitalization for heart failure. He denies any chest pain. Patient
is compliant with his diuretics. He denies any fevers or chills. In the ER he was noted to have elevated BNP and chest x-ray with heart failure features and he was given IV Lasix. He was referred to hospitalist service for further evaluation.
Medical History
Past Medical History
Past Medical History: Reports Arrhythmia (Afib on DOAC), CHF (HFpEF), HTN, Hypercholesterolemia, NIDDM and Other (bening brain tumor)
Past Surgical History: Reports Brain, Orthopedic (left knee replacement) and Tonsilectomy
Social History
Tobacco: Non-smoker
Alcohol: None
Drug: None
Personal:
Living: With Family
Family History
Family History: Not pertinent
Allergies / Home Medications
Allergies reflects when Allergies were last updated in [facility].
Home Medications with original date entered in [facility]
Allergy/Medication List:
Allergies
Allergy/AdvReac Type Severity Reaction Status Date / Time
No Known Allergies Allergy Verified 11/15/24 09:04
Home Medications
allopurinol 100 mg tablet 100 mg PO DAILY Gout 02/18/14
atorvastatin 40 mg tablet 80 mg PO DAILY High Cholesterol 02/18/14
acetaminophen 500 mg tablet (Tylenol Extra Strength) 500 mg PO PRN PRN pain 01/10/19
metoprolol succinate 25 mg tablet,extended release 24 hr 25 mg PO DAILY Blood Pressure 01/10/19
furosemide 40 mg tablet 40 mg PO BID Fluid retention/Swelling #60 tabs 06/29/23
apixaban 2.5 mg tablet (Eliquis) 2.5 mg PO BID Blood clot prevention/tx 10/23/23
gabapentin 300 mg capsule 300 mg PO TID NEUROPATHIC PAIN 10/19/24
glipizide 10 mg tablet, extended release 24 hr 10 mg PO DAILY Diabetes 10/19/24
melatonin 3 mg tablet 3 mg PO HS Sleep 10/19/24
multivitamin 1 tab PO DAILY Supplement 10/19/24
polyethylene glycol 3350 17 gram oral powder packet (Miralax) 17 g PO DAILY Constipation 10/19/24
potassium chloride 10 mEq tablet,extended release 10 meq PO DAILY Supplement 10/19/24
sitagliptin phosphate 100 mg tablet (Januvia) 100 mg PO DAILY Diabetes 10/19/24
tamsulosin 0.4 mg capsule 0.4 mg PO DAILY Urinary Issue 10/19/24
valsartan 160 mg tablet 160 mg PO DAILY Blood Pressure 10/19/24
Review of Systems
-
A 12 point ROS was completed and negative except as noted: Yes
Physical Exam
Vital Signs
Vital Signs
Temp Pulse Resp BP Pulse Ox
97.7 F 57 16 131/63 91
11/15/24 09:04 11/15/24 09:04 11/15/24 09:04 11/15/24 09:04 11/15/24 10:22
Physical exam:
General: Acutely ill
HEENT: Normocephalic, Atraumatic and Moist Mucous Membranes
Respiratory: Coarse crackles bilaterally, no wheezes or rhonchi
Cardiac: Irregular rate and rhythm, and S1/S2
GI: Soft, Nontender and Nondistended
Musculoskeletal: No Clubbing, No Cyanosis. Bilateral lower extremity edema and anasarca present with scrotal edema
Neuro: Awake, Alert and Oriented, no gross neurological deficits
Psych: Calm
Physical Exam
General: Other
Laboratory Results
-
11/15/24 10:33
11/15/24 10:33
Laboratory Results
Total Bilirubin 1.1 mg/dl (0.2-1.3) 11/15/24 10:33
AST 20 U/L (17-59) 11/15/24 10:33
ALT 20 U/L (0-50) 11/15/24 10:33
Alkaline Phosphatase 66 U/L (38-126) 11/15/24 10:33
Data Reviewed
-
Diagnostic Radiology: Image Personally Visualized and interpreted
Lab Data: Labs Reviewed by me
Impression/Plan
-
IMPRESSION:
Patient 84-year-old male with history of heart failure, CKD, multiple other medical problems presented to the hospital with worsening shortness of breath and exacerbation of heart failure. Patient increased risk morbidity and mortality therefore he
will need to be diuresed intravenously in the hospital and intense monitoring of renal function and electrolytes and vital signs while inpatient.
PLAN:
Acute on chronic HFpEF:
IV diuretics, Lasix 80 mg twice a day
BNP upon admission, 2610
Monitor strict I/O
Monitor daily weight
Monitor renal function and electrolytes
Reviewed latest echocardiogram on our system
Continue guideline-directed medical therapy for heart failure (GDMT)--> B-Blockers of Toprol-XL, ARB of valsartan, SGLT-i of Januvia, no MRA.
Fluid restriction
Salt restriction
Heart failure education
Follow up clinical response
Cardiology consult-discussed with clearance diver Dr. Sagastume
CKD stage III:
Avoid nephrotoxic
Monitor renal function closely
Monitor urine output
Creatinine today 1.6 which is close to his baseline (last creatinine 1.5 on October 2024)
Permanent atrial fibrillation:
Continue rate control agents, B-Blockers of metoprolol succinate 25 mg p.o. daily
Continue anticoagulation, DOAC of Eliquis 2.5 mg p.o. twice a day
Continue cardiac monitoring
Hypertension:
Continue usual meds
Hyperlipidemia:
Continue statin
Diabetes mellitus type 2:
Continue insulin sliding
Hold oral hypoglycemics until follow-up renal function and blood sugars
BPH:
Continue Flomax
Gout:
Continue allopurinol renally dose
Anemia:
No signs of bleeding and hemoglobin close at baseline
Continue to monitor hemoglobin
DVT prophylaxis:
Eliquis
CODE STATUS:
Full code
Time spent 75 minutes
--- NOTE | 2024-11-15 12:13 | CON.CAR ---
Addendum entered and electronically signed by Regan Sagastume MD 11/15/24 14:04:
Patient seen and examined in collaboration with [facility]; agree with below.
- 84-year-old male with chronic KFpEF, permanent A-fib (on Eliquis), hypertension, hyperlipidemia, CKD, and obesity presenting with acute on chronic CHF exacerbation (dyspnea and progressive edema).
-The patient has progressive dyspnea, crackles, and notable edema on examination.
- The patient was recently hospitalized and was discharged to home on Lasix 40 mg PO BID, although it appears the patient should have been discharged on Lasix 80 mg PO BID.
- The patient will be admitted to the hospitalist service for diuresis; recommend Lasix 80 mg IV BID.
- shelter monitor.
Original Note:
Consultation
Consultation Request
Date/Time Consultation Requested: 11/15/2024 11:55
Date/Time Consultation Performed: 11/15/2024 12:05
Requesting Provider: Dr. Lawler
Performing Provider: RASHIDA Washington for Dr. Sagastume
Reason for Consultation: Acute on chronic HFpEF
Medical History
-
Chief Complaint: Swollen testicles
History of Present Illness:
Aldo Solitario is an 84 year old male (known to Dr. Sanchez, his primary frame opener), with chronic HFpEF, permanent atrial fibrillation (on apixaban), CKD3a, and type 2 diabetes mellitus who presented to the emergency department with swollen
testicles. He was found to be in acute on chronic heart failure. He was admitted to the hospital service. Cardiology was consulted for heart failure management. His renal function is at its baseline, proBNP 2610, and CXR with mild pulmonary
edema. He will be admitted for diuresis. He denies missed doses of home diuretic. He denies chest pain and shortness of breath.
Past Medical History
Past Medical History: Arrhythmias (Permanent atrial fibrillation [on apixaban]), CHF (HFpEF), HTN, Hypercholesterolemia, NIDDM and Renal Failure (CKD)
Social History
Tobacco: Non-Smoker
Alcohol: None
Drug: None
Personal:
Employment: Retired
Family History
Family History: Reviewed & Not Pertinent
Allergies / Home Medications
Allergy/AdvReac Type Severity Reaction Status Date / Time
No Known Allergies Allergy Verified 11/15/24 09:04
�Medication �Instructions �Recorded �Confirmed �Type
allopurinol 100 mg tablet 100 mg PO DAILY Gout 02/18/14 10/19/24 History
atorvastatin 40 mg tablet 80 mg PO DAILY High Cholesterol 02/18/14 10/19/24 History
acetaminophen 500 mg tablet 500 mg PO PRN PRN pain 01/10/19 10/19/24 History
(Tylenol Extra Strength)
metoprolol succinate 25 mg 25 mg PO DAILY Blood Pressure 01/10/19 10/19/24 History
tablet,extended release 24 hr
furosemide 40 mg tablet 40 mg PO BID Fluid 06/29/23 10/19/24 Rx
retention/Swelling #60 tabs
apixaban 2.5 mg tablet (Eliquis) 2.5 mg PO BID Blood clot 10/23/23 10/19/24 History
prevention/tx
gabapentin 300 mg capsule 300 mg PO TID NEUROPATHIC PAIN 10/19/24 10/19/24 History
glipizide 10 mg tablet, extended 10 mg PO DAILY Diabetes 10/19/24 10/19/24 History
release 24 hr
melatonin 3 mg tablet 3 mg PO HS Sleep 10/19/24 10/19/24 History
multivitamin 1 tab PO DAILY Supplement 10/19/24 10/19/24 History
polyethylene glycol 3350 17 gram 17 g PO DAILY Constipation 10/19/24 10/19/24 History
oral powder packet (Miralax)
potassium chloride 10 mEq 10 meq PO DAILY Supplement 10/19/24 10/19/24 History
tablet,extended release
sitagliptin phosphate 100 mg 100 mg PO DAILY Diabetes 10/19/24 10/19/24 History
tablet (Januvia)
tamsulosin 0.4 mg capsule 0.4 mg PO DAILY Urinary Issue 10/19/24 10/19/24 History
valsartan 160 mg tablet 160 mg PO DAILY Blood Pressure 10/19/24 10/19/24 History
Review of Systems
-
History Source: Patient
All other systems: Negative unless noted
Constitutional: Weight Gain and Fatigue
EENT: No Symptoms
Respiratory: No Symptoms
Cardiac: No Symptoms
Abdomen/GI: No Symptoms
: Other (Swollen testicles)
Musculoskeletal: Edema
Skin: No Symptoms
Neurological: No Symptoms
Endocrine: No Symptoms
Hematologic/Lymphatic: No Symptoms
Physical Exam
Vital Signs
Temp Pulse Resp BP Pulse Ox
97.7 F 57 16 131/63 91
11/15/24 09:04 11/15/24 09:04 11/15/24 09:04 11/15/24 09:04 11/15/24 10:22
Lab Results
11/15/24 10:33
11/15/24 10:33
Evj-G-Zopbsimdgai Pept 2610 pg/ml 11/15/24 10:33
Physical Exam
General: Well Developed, Well Nourished, No Apparent Distress and Comfortable
HEENT: Normocephalic, Anicteric and Moist Mucous Membranes
Respiratory: Crackles and Non Labored Respirations
Cardiac: S1/S2, Irregular Rhythm and Peripheral Edema
Breast: Deferred by me
GI: Soft, Non Tender and Normal Bowel Sounds
Rectal: Deferred by Provider
Genito-urinary: No Costovertebral Tender
Musculoskeletal: No Clubbing
Skin: Warm and Dry
Neuro: AO x 3
Hematologic/Lymphatic: No Lymphadenopathy
Psych: Calm
Impression / Plan
-
I/P: 84M with chronic HFpEF, permanent atrial fibrillation (on apixaban), CKD3a, and type 2 diabetes mellitus who presented to the emergency department with swollen testicles.
Outpatient frame opener: Dr. Sanchez
HFpEF, acute on chronic
-Pitting edema to thighs, with a proBNP of 2600 and mild pulmonary edema on CXR
-Diuresis with furosemide 80 mg IV twice daily, this requires intensive monitoring
-His discharge dose will likely be furosemide 80 mg p.o. twice daily
-SGLT2i cost prohibitive, no documented hyperkalemia, can consider low-dose MRA
-Daily weights, I&Os, sodium and fluid restriction.
-Echo below
Permanent atrial fibrillation
- Continue metoprolol succinate 25 mg once a day.
- [id number]: Score at least 5 (Heart failure, HTN, age 75 or more, Diabetes Mellitus)
-Oral anticoagulation: Apixaban 2.5 mg twice daily, he denies missed doses and abnormal bleeding (age 84, creatinine 1.6)
Type 2 diabetes mellitus, HgbA1c 8.5%, per primary service
Chronic kidney disease, stage 3, follow with diuresis
HTN, chronic and stable
PVD, B/L LE compression recommended
Obesity, BMI 39, affects all aspects of care
Peripheral neuropathy
BPH
SUBJECTIVE:
As above.
DATA:
Transthoracic echocardiogram, 10/20/2024:
TDS.
In limited views normal LV size and function without regional wall motion
abnormality.
LVEF is 55-60% by visual estimation.
Mild concentric LVH.
Dilated RV with normal systolic function.
Mild aortic regurgitation.
Estimated pulmonary artery pressure of 30-35 mmHg assuming a right atrial
pressure of 3 mmHg.
Compared to prior from June 26, 2023, no significant change.
Data Reviewed
-
EKG: Report Reviewed by me
Radiology: Report Reviewed by me
Medical Tests (Nuc Med, Echo etc): Report Reviewed by me
Labs: Labs Reviewed by me
Old Records: Reviewed
[2024-11-15] MEDS: LASIX 40 MG IV ×2 (12:19→13:13)
[2024-11-15 16:56] LABS: Glucose - Point of Care 158 mg/dl (70-99)
[2024-11-15] MEDS: NOVOLOG FLEXPEN-MODERATE RESISTANCE 1 UNITS SC (17:22)
[2024-11-15 20:40] LABS: Glucose - Point of Care 200 mg/dl (70-99)
[2024-11-15] MEDS: ELIQUIS 2.5 MG PO (20:57)
[2024-11-16] VITALS (7 sets, daily range): BP systolic 113–160; BP diastolic 50–72; PULSE 65; O2SAT 94; BMI 39.0
[2024-11-16 07:30] LABS: Hematocrit 39.0 % (39.0-52.0); Hemoglobin 12.5 g/dL (13.0-18.0); Mean Corp Hgb Conc. 32.1 g/dL (33.0-37.0); Mean Corpuscular Volume 96.1 fL (80.0-94.0); Platelet Count 171 10^3/uL (130-400); Red Cell Dist. Width 15.9 % (11.5-14.5)
[2024-11-16 07:50] LABS: Blood Urea Nitrogen 28 mg/dl (9-20); Calcium 10.1 mg/dl (8.4-10.2); Carbon Dioxide 28 mmol/L (22-30); Chloride 104 mmol/L (98-107); Estimated Creatinine Clearance 49 ml/min; Glucose 173 mg/dl (70-99); Magnesium 2.4 mg/dl (1.6-2.3); Potassium 4.1 mmol/L (3.5-5.1); Sodium 140 mmol/L (135-145); eGFR 45.06
[2024-11-16 08:10] LABS: Glucose - Point of Care 160 mg/dl (70-99)
[2024-11-16] MEDS: TOPROL XL 25 MG PO (09:10)
[2024-11-16] MEDS: ZYLOPRIM 100 MG PO (09:10)
[2024-11-16] MEDS: ELIQUIS 2.5 MG PO ×2 (09:10→20:49)
[2024-11-16] MEDS: FLOMAX 0.4 MG PO (09:10)
[2024-11-16] MEDS: LIPITOR 80 MG PO (09:10)
[2024-11-16] MEDS: LASIX 80 MG IV ×2 (09:11→15:16)
[2024-11-16] MEDS: NOVOLOG FLEXPEN-MODERATE RESISTANCE 1 UNITS SC ×2 (09:12→17:59)
--- NOTE | 2024-11-16 10:27 | W.PN.HOSP.TC ---
Today's Communication/Plan
-
IV Lasix
Assessment / Plan
Assessment / Plan
Physical exam:
General: Acutely ill
HEENT: Normocephalic, Atraumatic and Moist Mucous Membranes
Respiratory: Coarse crackles bilaterally, no wheezes or rhonchi
Cardiac: Irregular rate and rhythm, and S1/S2
GI: Soft, Nontender and Nondistended
Musculoskeletal: No Clubbing, No Cyanosis. Bilateral lower extremity edema and anasarca present with scrotal edema
Neuro: Awake, Alert and Oriented, no gross neurological deficits
Psych: Calm
A/P:
Acute on chronic HFpEF:
Cont IV diuretics, Lasix 80 mg twice a day
Requires intensive monitoring of renal function and electrolytes
BNP upon admission, 2610
Monitor strict I/O
Monitor daily weight
Monitor renal function and electrolytes
Reviewed latest echocardiogram on our system
Continue guideline-directed medical therapy for heart failure (GDMT)--> B-Blockers of Toprol-XL, ARB of valsartan, no MRA or SGL inhibitor.
Fluid restriction
Salt restriction
Heart failure education
Follow up clinical response
Cardiology consult appreciated
PT eval
CKD stage III:
Avoid nephrotoxic
Monitor renal function closely
Monitor urine output
Creatinine today 1.5 which is his baseline (last creatinine 1.5 on October 2024)
Permanent atrial fibrillation:
Continue rate control agents, B-Blockers of metoprolol succinate 25 mg p.o. daily
Continue anticoagulation, DOAC of Eliquis 2.5 mg p.o. twice a day
Continue cardiac monitoring
Hypertension:
Continue usual meds
Hyperlipidemia:
Continue statin
Diabetes mellitus type 2:
Continue insulin sliding
Resume oral hypoglycemics, glipizide and Januvia since renal function stable and mild hyperglycemia.
Continue to monitor blood sugars
BPH:
Continue Flomax
Gout:
Continue allopurinol renally dose
Anemia:
No signs of bleeding and hemoglobin at baseline
Continue to monitor hemoglobin while on anticoagulant
DVT prophylaxis:
Eliquis
CODE STATUS:
Full code
Total time spent on today's encounter was 52 minutes which included time spent in counseling the patient/family regarding diagnosis and treatment plan as listed above, goals of care, and symptom management. Case was discussed with nursing staff,
specialists, and care coordinators/case management. All labs and imaging personally reviewed by me. Remainder the time spent in detailed review of previous records, lab data, imaging, and other medical provider documentation.
Anticipated Discharge: > 48 hours
Subjective/Interval History
-
Date of Service: November 16, 2024
Patient feels better today. Less shortness of breath. Less peripheral edema. No chest pain.
Objective Data
-
Labs:
Laboratory Results
11/16/24
06:10
WBC 8.6
Hgb 12.5 L
Hct 39.0
Plt Count 171
Sodium 140
Potassium 4.1
Chloride 104
Carbon Dioxide 28
BUN 28 H
Creatinine 1.5 H
Glucose 173 H
Calcium 10.1
Vital Signs:
Vital Signs
Temp Pulse Resp BP Pulse Ox
97.9 F 62 17 137/60 95
11/16/24 07:00 11/16/24 07:00 11/16/24 07:00 11/16/24 07:00 11/16/24 07:00
I&O
11/15/24 11/16/24 11/17/24
06:59 06:59 06:59
Intake Total 720 / 720
Output Total 1345 / 1345 750 / 750
Balance -625 / -625 -750 / -750
[2024-11-16 12:16] LABS: Glucose - Point of Care 248 mg/dl (70-99)
[2024-11-16] MEDS: NOVOLOG FLEXPEN-MODERATE RESISTANCE 3 UNITS SC (12:52)
--- NOTE | 2024-11-16 14:51 | CM ---
CM following re: discharge planning.
Reviewed pt's chart, met with pt.
Pt is an 84 year old male, admitted with primary dx of Acute on chronic HFpEF
Pt reports he and his spouse just moved in to [facility] in [place] 1.5 weeks ago, has 4 supportive children. Pt reports her ambulates with a walker, current with [facility] and [facility]. Pt expressed his desire to return
back to [facility] with resumptions of [facility] and [facility].
PT and OT will evaluate the pt to determine a level of care at discharge.
D/C plan: per pt's request return back to [facility] with resumptions of [facility].
CM will follow with discharge plan updates as hospitalization progresses
[2024-11-16] MEDS: JANUVIA 100 MG PO (15:16)
[2024-11-16] MEDS: COLACE 100 MG PO ×2 (15:16→20:48)
[2024-11-16] MEDS: GLUCOTROL 10 MG PO (15:16)
--- NOTE | 2024-11-16 16:21 | W.PN.CD ---
Today's Communication / Plan
-
-Continue furosemide 80 mg IV twice daily
Impression / Plan
-
I/P: 84M with chronic HFpEF, permanent atrial fibrillation (on apixaban), CKD3a, and type 2 diabetes mellitus who presented to the emergency department with swollen testicles.
Outpatient back panel padder: Dr. Sanchez
HFpEF, acute on chronic
-Pitting edema to thighs, with a proBNP of 2600 and mild pulmonary edema on CXR
-Continue furosemide 80 mg IV twice daily; this requires intensive monitoring
-His discharge dose will likely be furosemide 80 mg p.o. twice daily
-SGLT2i cost prohibitive, no documented hyperkalemia, can consider low-dose MRA
-Continue to monitor daily weights, I&Os, sodium and fluid restriction.
Permanent atrial fibrillation
- Continue metoprolol succinate 25 mg once a day.
- [id number]: Score at least 5 (Heart failure, HTN, age 75 or more, Diabetes Mellitus)
-Oral anticoagulation: Apixaban 2.5 mg twice daily, he denies missed doses and abnormal bleeding (age 84, creatinine 1.6)
Type 2 diabetes mellitus
-HgbA1c 8.5%.
- Continue management as per primary Hospitalist team.
Chronic kidney disease, stage 3:
- Relatively stable at baseline.
HTN:
- Slightly increasing
- Continue current medications for now.
PVD, B/L LE compression recommended
Obesity, BMI 39, affects all aspects of care
Peripheral neuropathy
BPH
DATA:
Transthoracic echocardiogram, 10/20/2024:
TDS.
In limited views normal LV size and function without regional wall motion
abnormality.
LVEF is 55-60% by visual estimation.
Mild concentric LVH.
Dilated RV with normal systolic function.
Mild aortic regurgitation.
Estimated pulmonary artery pressure of 30-35 mmHg assuming a right atrial
pressure of 3 mmHg.
Compared to prior from June 26, 2023, no significant change.
Physical Exam
Vital Signs/Labs
Vital Signs
Temp Pulse Resp BP Pulse Ox
98.1 F 64 17 156/71 93
11/16/24 15:00 11/16/24 15:00 11/16/24 15:00 11/16/24 15:00 11/16/24 15:00
11/15/24 11/16/24 11/17/24
06:59 06:59 06:59
Actual Weight 130.272 kg
11/16/24 06:10
11/16/24 06:10
Magnesium 2.4 mg/dl (1.6-2.3) H 11/16/24 06:10
11/15/24
10:33
Ivb-C-Dztnkmmrhpz Pept 2610
Physical Exam
Constitutional: No acute distress and Comfortable
EENT: Anicteric
Cardiovascular: Rhythm/rate is irregular, Pedal edema present (Taught 2-3+ bilateral pitting edema), Systolic murmur present (/) and S1S2 is normal
Respiratory: Respiratory effort normal and Crackles Present (Bibasilar)
GI: Soft
Neuro/Psych: AO x 3
Other: Skin (Warm)
Data Reviewed
-
Date of Service: November 16, 2024
EKG: Tracing Personally Visualized and interpreted (Telemetry: Rate-controlled atrial fibrillation)
Echo: Report Reviewed by me (LVEF 55-60%; mild aortic regurgitation.)
Medical Tests (PFT, Pathology etc): Discussed with Patient
Labs: Labs Reviewed by me
[2024-11-16 17:43] LABS: Glucose - Point of Care 173 mg/dl (70-99)
--- NOTE | 2024-11-16 18:20 | PTCARENOTE ---
Pt 97% on 2L O2. Attempted to have Pt on RA during shift. Pt stated feeling SOB and POX showed 87-89%. 2L placed POX 95%. Verbal education about CHF given to patient when patient asked why he was retaining so much fluid. Pt emotional and is worried
about at long term. Pt was assisted with calling daughter which was effective in reducing anxiety/emotional distress. Denies pain/discomfort. Call saunders within reach.
[2024-11-16 21:25] LABS: Glucose - Point of Care 171 mg/dl (70-99)
[2024-11-16] MEDS: NEURONTIN 100 MG PO (22:02)
[2024-11-16] MEDS: MELATONIN 3 MG PO (22:02)
[2024-11-17] VITALS (7 sets, daily range): BP systolic 102–127; BP diastolic 41–63; O2SAT 95; BMI 36.9; BMI 36.6
[2024-11-17 06:11] LABS: Hematocrit 39.9 % (39.0-52.0); Hemoglobin 12.7 g/dL (13.0-18.0); Mean Corp Hgb Conc. 31.8 g/dL (33.0-37.0); Mean Corpuscular Volume 95.0 fL (80.0-94.0); Platelet Count 171 10^3/uL (130-400); Red Cell Dist. Width 16.0 % (11.5-14.5)
[2024-11-17 06:38] LABS: Blood Urea Nitrogen 30 mg/dl (9-20); Calcium 10.1 mg/dl (8.4-10.2); Carbon Dioxide 30 mmol/L (22-30); Chloride 99 mmol/L (98-107); Estimated Creatinine Clearance 45 ml/min; Glucose 156 mg/dl (70-99); Potassium 3.4 mmol/L (3.5-5.1); Sodium 137 mmol/L (135-145); eGFR 41.70
[2024-11-17 07:55] LABS: Glucose - Point of Care 193 mg/dl (70-99)
--- NOTE | 2024-11-17 08:04 | W.PN.CD ---
Today's Communication / Plan
-
- add low dose Spironolactone. will need to monitor labs closely including renal profile one week and three weeks after discharge
- Patient still with significant edema and needs additional diuresis.
- replace K today
- wean O2 as tolerated
Impression / Plan
-
I/P: 84M with chronic HFpEF, permanent atrial fibrillation (on apixaban), CKD3a, and type 2 diabetes mellitus who presented to the emergency department with scrotal edema
Outpatient senior communications engineer: Dr. Sanchez
HFpEF, acute on chronic
-Pitting edema to thighs, with a proBNP of 2600 and mild pulmonary edema on CXR
-Continue furosemide 80 mg IV twice daily; this requires intensive monitoring
-His discharge dose will likely be furosemide 80 mg p.o. twice daily
-SGLT2i cost prohibitive, no documented hyperkalemia
- add low dose Spironolactone. will need to monitor labs closely including renal profile one week and three weeks after discharge
- Patient still with significant edema and needs addtional diuresis.
-Continue to monitor daily weights, I&Os, sodium and fluid restriction.
Permanent atrial fibrillation
- Continue metoprolol succinate 25 mg once a day.
- [id number]: Score at least 5 (Heart failure, HTN, age 75 or more, Diabetes Mellitus)
-Oral anticoagulation: Apixaban 2.5 mg twice daily, he denies missed doses and abnormal bleeding (age 84, creatinine 1.6)
Type 2 diabetes mellitus
-HgbA1c 8.5%.
- Continue management as per primary Hospitalist team.
Chronic kidney disease, stage 3:
- Relatively stable at baseline.
HTN:
- Slightly increasing
- Continue current medications for now.
PVD, B/L LE compression recommended
Obesity, BMI 39, affects all aspects of care
Peripheral neuropathy
BPH
DATA:
Transthoracic echocardiogram, 10/20/2024:
TDS.
In limited views normal LV size and function without regional wall motion
abnormality.
LVEF is 55-60% by visual estimation.
Mild concentric LVH.
Dilated RV with normal systolic function.
Mild aortic regurgitation.
Estimated pulmonary artery pressure of 30-35 mmHg assuming a right atrial
pressure of 3 mmHg.
Compared to prior from June 26, 2023, no significant change.
Physical Exam
Vital Signs/Labs
Vital Signs
Temp Pulse Resp BP Pulse Ox
97 F 52 16 113/63 97
11/17/24 07:30 11/17/24 07:30 11/17/24 07:30 11/17/24 07:30 11/17/24 07:30
11/16/24 11/17/24 11/18/24
06:59 06:59 06:59
Actual Weight 130.272 kg 123.332 kg
11/17/24 05:53
11/17/24 05:53
Magnesium 2.4 mg/dl (1.6-2.3) H 11/16/24 06:10
11/15/24
10:33
Iua-L-Ojukrhvuxjk Pept 2610
Physical Exam
Constitutional: No acute distress
Cardiovascular: Rhythm/rate is irregular
Respiratory: Respiratory effort normal
GI: Soft
Neuro/Psych: Alert
Other: Other (bilat edema up thorughthe thighs . also some sacral edema)
Data Reviewed
-
Date of Service: November 17, 2024
Medical Decision Making: Reviewed Test Results
Medical Tests (PFT, Pathology etc): Report Reviewed by me
Labs: Labs Reviewed by me
[2024-11-17] MEDS: NOVOLOG FLEXPEN-MODERATE RESISTANCE 1 UNITS SC (08:49)
[2024-11-17] MEDS: LIPITOR 80 MG PO (08:50)
[2024-11-17] MEDS: DIOVAN 160 MG PO (08:50)
[2024-11-17] MEDS: ZYLOPRIM 100 MG PO (08:51)
[2024-11-17] MEDS: ELIQUIS 2.5 MG PO ×2 (08:51→21:19)
[2024-11-17] MEDS: GLUCOTROL 10 MG PO (08:51)
[2024-11-17] MEDS: FLOMAX 0.4 MG PO (08:51)
[2024-11-17] MEDS: TOPROL XL PO (08:52)
[2024-11-17] MEDS: COLACE 100 MG PO (08:53)
[2024-11-17] MEDS: LASIX 80 MG IV ×2 (08:53→15:36)
--- NOTE | 2024-11-17 09:00 | W.PN.HOSP.TC ---
Today's Communication/Plan
-
Add Lantus
c/w IV Lasix
Replace K
Assessment / Plan
Assessment / Plan
Physical exam:
General: Chronically ill looking, Obese, not in distress
HEENT: Normocephalic, Atraumatic and Moist Mucous Membranes
Respiratory: basal crackles bilaterally, no wheezes or rhonchi
Cardiac: Irregular rate and rhythm, and S1/S2
GI: Soft, Nontender and Nondistended
Musculoskeletal: No Clubbing, No Cyanosis. Bilateral lower extremity edema and anasarca present with scrotal edema
Neuro: Awake, Alert and Oriented, no gross neurological deficits
Psych: Calm
A/P:
Acute on chronic HFpEF:
Cont IV diuretics, Lasix 80 mg twice a day
Requires intensive monitoring of renal function and electrolytes
BNP upon admission, 2610
Monitor strict I/O
Monitor daily weight, he lost weight but still clinically volume overload with crackle sin lungs, edema in dependent legs and pt ( still feels the same since coming in )
Monitor renal function and electrolytes
Reviewed latest echocardiogram on our system
Continue guideline-directed medical therapy for heart failure (GDMT)--> B-Blockers of Toprol-XL, ARB of valsartan, no MRA or SGL inhibitor.
Fluid restriction
Salt restriction
Heart failure education
Follow up clinical response
Cardiology consult appreciated
PT eval
CKD stage IIIb:
Avoid nephrotoxic
Monitor renal function closely
Monitor urine output
Creatinine today 1.5 which is his baseline (last creatinine 1.5 on October 2024)
Hypokalemia, replace
Permanent atrial fibrillation:
Continue rate control agents, B-Blockers of metoprolol succinate 25 mg p.o. daily
Continue anticoagulation, DOAC of Eliquis 2.5 mg p.o. twice a day
Continue cardiac monitoring
Essential Hypertension:
Continue BP medications, monitor BP
Hyperlipidemia:
Continue statin
Diabetes mellitus type 2:
Poorly controlled
HGB A1C in October 2024 around 8.5
Continue insulin sliding, ad Lantus
Resumed oral hypoglycemics, glipizide and Januvia since renal function stable.
Continue to monitor blood sugars
Hypercalcemia, resolved.
Hypoxia only
CXR on admission : Cardiomegaly with mild pulmonary edema.
c/w diuretic therapy
No cough
Hypermagnesemia
# Morbid Obesity
BMI 36
# Chronic lower extremity
R lower leg venous ulcer
BPH:
Continue Flomax
Gout:
Continue allopurinol renally dose
Anemia:
No signs of bleeding and hemoglobin at baseline
Continue to monitor hemoglobin while on anticoagulant
DVT prophylaxis:
Eliquis
CODE STATUS:
Full code
Total time spent to see the patient, examine the patient, review data and lab result, discuss treatment plan with patient, nursing staff around 55 minutes
Anticipated Discharge: 24 - 48 hours
Subjective/Interval History
-
Date of Service: November 17, 2024
No chest pain
No abdominal pain
He reports he feels the same
Objective Data
-
Labs:
Laboratory Results
11/17/24
05:53
WBC 9.7
Hgb 12.7 L
Hct 39.9
Plt Count 171
Sodium 137
Potassium 3.4 L
Chloride 99
Carbon Dioxide 30
BUN 30 H
Creatinine 1.6 H
Glucose 156 H
Calcium 10.1
Vital Signs:
Vital Signs
Temp Pulse Resp BP Pulse Ox
97 F 52 16 113/63 97
11/17/24 07:30 11/17/24 07:30 11/17/24 07:30 11/17/24 07:30 11/17/24 07:30
I&O
11/16/24 11/17/24 11/18/24
06:59 06:59 06:59
Intake Total 720 / 720 1380 / 1380
Output Total 1345 / 1345 2750 / 2750 250 / 250
Balance -625 / -625 -1370 / -1370 -250 / -250
[2024-11-17] MEDS: KCL 20 MEQ PO (09:57)
[2024-11-17] MEDS: ALDACTONE 12.5 MG PO (09:57)
[2024-11-17] MEDS: JANUVIA 100 MG PO (09:58)
--- NOTE | 2024-11-17 09:58 | WOUNDNOTE ---
Wound Care Instructions Right Lower Extremity Wound- Clean with normal saline, apply silicone border foam. Change Q 48 hours and PRN drainage.
Continue with compression as ordered by your Physician
Continue following up with your Engraver Machine
--- NOTE | 2024-11-17 09:59 | WOUNDNOTE ---
[facility] RN note: Patient admitted with CHF/SOB
See H&P for complete history.
PMH: A-fib, CHF, HTN, osteoarthritis, diabetes. Resides in [place] with .
Wound Location and type/assessment: Patient admitted with right LE wound, likely venous. See work list for details and measurements. Patient has blood filled flat blister on left 5th toe. Patient follows with repair specialist and has his toenails clipped
last week. No drainage or opening from blister. Patient has + palpable pedal pulses with venous stasis changes to legs. He reports wearing compression wraps at home and wears compression pumps for an hour daily. Sacrum and heels intact. Patient
stands with minimal assistance and ambulates to bathroom.
Appetite: Good
Pressure redistribution devices in place: Centrella Max Air, bariatric air cushion added to chair
Plan: Local wound care provided as ordered to right leg wound. Patient agreeable to have compression applied after AM care. RN Sanju aware of plan. Orders confirmed with Hospitalist.
--- NOTE | 2024-11-17 10:10 | WOUNDNOTE ---
LEFT 5th toe blister 1938, [id number]
--- NOTE | 2024-11-17 10:11 | WOUNDNOTE ---
Right lower leg wound
[2024-11-17 11:36] LABS: Glucose - Point of Care 246 mg/dl (70-99)
[2024-11-17] MEDS: NOVOLOG FLEXPEN-MODERATE RESISTANCE 3 UNITS SC (11:56)
[2024-11-17 16:58] LABS: Glucose - Point of Care 101 mg/dl (70-99)
[2024-11-17] MEDS: NOVOLOG FLEXPEN-MODERATE RESISTANCE SC (17:14)
[2024-11-17] MEDS: COLACE PO (21:18)
[2024-11-17 21:24] LABS: Glucose - Point of Care 174 mg/dl (70-99)
[2024-11-17] MEDS: LANTUS 0.07 UNITS SC (21:30)
[2024-11-17] MEDS: MELATONIN 3 MG PO (21:36)
[2024-11-17] MEDS: NEURONTIN 100 MG PO (21:37)
[2024-11-18] VITALS (7 sets, daily range): BP systolic 105–131; BP diastolic 45–86; PULSE 65; O2SAT 93; BMI 36.1
[2024-11-18 06:14] LABS: Blood Urea Nitrogen 38 mg/dl (9-20); Calcium 10.0 mg/dl (8.4-10.2); Carbon Dioxide 32 mmol/L (22-30); Chloride 100 mmol/L (98-107); Estimated Creatinine Clearance 42 ml/min; Glucose 152 mg/dl (70-99); Potassium 3.4 mmol/L (3.5-5.1); Sodium 137 mmol/L (135-145); eGFR 38.78
[2024-11-18 07:42] LABS: Glucose - Point of Care 155 mg/dl (70-99)
[2024-11-18] MEDS: NOVOLOG FLEXPEN-MODERATE RESISTANCE 1 UNITS SC ×2 (09:05→16:51)
[2024-11-18] MEDS: DIOVAN 160 MG PO (09:06)
[2024-11-18] MEDS: ALDACTONE 12.5 MG PO (09:06)
[2024-11-18] MEDS: LIPITOR 80 MG PO (09:06)
[2024-11-18] MEDS: FLOMAX 0.4 MG PO (09:06)
[2024-11-18] MEDS: ZYLOPRIM 100 MG PO (09:06)
[2024-11-18] MEDS: COLACE 100 MG PO (09:07)
[2024-11-18] MEDS: GLUCOTROL 10 MG PO (09:07)
[2024-11-18] MEDS: JANUVIA 100 MG PO (09:07)
[2024-11-18] MEDS: LASIX 80 MG IV (09:08)
[2024-11-18] MEDS: ELIQUIS 2.5 MG PO ×2 (09:09→20:41)
[2024-11-18] MEDS: BenGay-Like 1 APPLIC TOPICAL ×2 (09:10→16:44)
--- NOTE | 2024-11-18 09:13 | W.PN.HOSP.TC ---
Today's Communication/Plan
-
Discharge if ok with cardiology
Assessment / Plan
Assessment / Plan
Physical exam:
General: Chronically ill looking, Obese, not in distress
HEENT: Normocephalic, Atraumatic and Moist Mucous Membranes
Respiratory: basal crackles bilaterally, no wheezes or rhonchi
Cardiac: Irregular rate and rhythm, and S1/S2
GI: Soft, Nontender and Nondistended
Musculoskeletal: No Clubbing, No Cyanosis. Bilateral lower extremity edema and anasarca present with scrotal edema
Neuro: Awake, Alert and Oriented, no gross neurological deficits
Psych: Calm
A/P:
Acute on chronic HFpEF:
s/ p IV diuretics, Lasix 80 mg twice a day
Required intensive monitoring of renal function and electrolytes
BNP upon admission, 2610
Monitor strict I/O
Monitor daily weight, he lost weight but still clinically volume overload with crackle sin lungs, edema in dependent legs and pt ( still feels the same since coming in )
Monitor renal function and electrolytes
Reviewed latest echocardiogram on our system
Continue guideline-directed medical therapy for heart failure (GDMT)--> B-Blockers of Toprol-XL, ARB of valsartan, no MRA or SGL inhibitor.
Fluid restriction
Salt restriction
Heart failure education
Follow up clinical response
Cardiology consult appreciated
PT eval
CKD stage IIIb:
Avoid nephrotoxic
Monitor renal function closely
Monitor urine output
Creatinine today 1.5 which is his baseline (last creatinine 1.5 on October 2024)
Hypokalemia, replace
Permanent atrial fibrillation:
Continue rate control agents, B-Blockers of metoprolol succinate 25 mg p.o. daily
Continue anticoagulation, DOAC of Eliquis 2.5 mg p.o. twice a day
Continue cardiac monitoring
Essential Hypertension:
Continue BP medications, monitor BP
Hyperlipidemia:
Continue statin
Diabetes mellitus type 2:
Poorly controlled
HGB A1C in October 2024 around 8.5
Continue insulin sliding, ad Lantus
Resumed oral hypoglycemics, glipizide and Januvia since renal function stable.
Continue to monitor blood sugars
Hypercalcemia, resolved.
Hypoxia only
CXR on admission : Cardiomegaly with mild pulmonary edema.
c/w diuretic therapy
No cough
Hypermagnesemia
# Morbid Obesity
BMI 36
# Chronic lower extremity
R lower leg venous ulcer
BPH:
Continue Flomax
Gout:
Continue allopurinol renally dose
Anemia:
No signs of bleeding and hemoglobin at baseline
Continue to monitor hemoglobin while on anticoagulant
DVT prophylaxis:
Eliquis
CODE STATUS:
Full code
Total discharge time spent to see the patient, examine the patient, review data and lab result, discuss discharge plan with patient, nursing staff around 67 minutes
Anticipated Discharge: Today
Subjective/Interval History
-
Date of Service: November 18, 2024
He feels better
He wants to go home
Objective Data
-
Labs:
Laboratory Results
11/18/24
05:31
Sodium 137
Potassium 3.4 L
Chloride 100
Carbon Dioxide 32 H
BUN 38 H
Creatinine 1.7 H
Glucose 152 H
Calcium 10.0
Vital Signs:
Vital Signs
Temp Pulse Resp BP Pulse Ox
98.0 F 64 17 120/60 94
11/18/24 07:18 11/18/24 07:18 11/18/24 07:18 11/18/24 07:18 11/18/24 07:18
I&O
11/17/24 11/18/24 11/19/24
06:59 06:59 06:59
Intake Total 1380 / 1380 1680 / 1680
Output Total 2750 / 2750 950 / 950
Balance -1370 / -1370 730 / 730
[2024-11-18] MEDS: TOPROL XL 25 MG PO (09:24)
[2024-11-18] MEDS: KCL 20 MEQ PO ×2 (11:28→20:43)
[2024-11-18 11:39] LABS: Glucose - Point of Care 225 mg/dl (70-99)
--- NOTE | 2024-11-18 12:29 | W.PN.CD ---
Addendum entered and electronically signed by Fran Siddiqui MD 11/18/24 15:36:
-
We will sign off. Please call with questions.
-
Addendum entered and electronically signed by Fran Siddiqui MD 11/18/24 15:35:
I saw and examined the patient.
The AFFILIATE MANAGER's note was reviewed and I agree with the note.
Comment: He is improved but still has significant edema. He is ready for PO regimen.
We will arrange f/u in our office.
Admit weight 129 kg and today 120.5 but still has at least 3-5 kg of fluid to remove.
Original Note:
Today's Communication / Plan
-
Discharge on lasix 80mg PO BID and spironolactone 12.5mg daily
Impression / Plan
-
I/P: 84M with chronic HFpEF, permanent atrial fibrillation (on apixaban), CKD3a, and type 2 diabetes mellitus who presented to the emergency department with scrotal edema
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 Sanchez
HFpEF, acute on chronic
-Pitting edema to thighs, with a proBNP of 2600 and mild pulmonary edema on CXR
-Transition from IV to oral and discharge on 80mg lasix twice daily
-SGLT2i cost prohibitive, no documented hyperkalemia
- GDMT: On Toprol-XL, ARB of valsartan, SGLT-i of Januvia, no MRA.
- add low dose Spironolactone. Will need to monitor labs closely including renal profile two weeks and four weeks after discharge
- Patient now satting well on room air. Still with significant edema and needs additional diuresis.
- Has lost 8.5kg since admission
-Continue to monitor daily weights, I&Os, sodium and fluid restriction.
Permanent atrial fibrillation
- Continue metoprolol succinate 25 mg once a day.
- [id number]: Score at least 5 (Heart failure, HTN, age 75 or more, Diabetes Mellitus)
-Oral anticoagulation: Apixaban 2.5 mg twice daily, he denies missed doses and abnormal bleeding (age 84, creatinine 1.7)
Type 2 diabetes mellitus
-HgbA1c 8.5%.
- Continue management as per primary Hospitalist team.
Chronic kidney disease, stage 3:
- Relatively stable at baseline.
- repeat labs in outpatient
HTN:
- Slightly increasing
- Continue current medications for now.
Hypokalemia
- Replete as needed
PVD, B/L LE compression recommended
Obesity, BMI 39, affects all aspects of care
Peripheral neuropathy
BPH
DATA:
Transthoracic echocardiogram, 10/20/2024:
TDS.
In limited views normal LV size and function without regional wall motion
abnormality.
LVEF is 55-60% by visual estimation.
Mild concentric LVH.
Dilated RV with normal systolic function.
Mild aortic regurgitation.
Estimated pulmonary artery pressure of 30-35 mmHg assuming a right atrial
pressure of 3 mmHg.
Compared to prior from June 26, 2023, no significant change.
Physical Exam
Vital Signs/Labs
Vital Signs
Temp Pulse Resp BP Pulse Ox
98.1 F 65 16 125/56 96
11/18/24 11:45 11/18/24 11:45 11/18/24 11:45 11/18/24 11:45 11/18/24 11:45
11/17/24 11/18/24 11/19/24
06:59 06:59 06:59
Actual Weight 123.332 kg 120.5 kg
11/17/24 05:53
11/18/24 05:31
Magnesium 2.4 mg/dl (1.6-2.3) H 11/16/24 06:10
11/15/24
10:33
[id number] Pept 2610
Physical Exam
Constitutional: Comfortable
Cardiovascular: Rhythm/rate is irregular and Pedal edema present
Respiratory: Crackles Present (Bilateral lower lung salazar )
GI: Soft, Distention absent and Normal bowel sounds
Neuro/Psych: AO x 3
Other: Other (Scrotal edema )
Data Reviewed
-
Date of Service: November 18, 2024
[2024-11-18] MEDS: NOVOLOG FLEXPEN-MODERATE RESISTANCE 3 UNITS SC (12:42)
[2024-11-18] MEDS: LASIX 40 MG IV (16:45)
[2024-11-18 16:47] LABS: Glucose - Point of Care 153 mg/dl (70-99)
--- NOTE | 2024-11-18 16:48 | CHAP ---
Mr. Solitario called and requested outside production inspector support. I provided emotional and spiritual support for approximately 30 minutes until his nurse came (he had expressed that he was hoping for care soon). I will return tomorrow morning at his request.
[2024-11-18] MEDS: MELATONIN 3 MG PO (20:36)
[2024-11-18] MEDS: NEURONTIN 100 MG PO (20:36)
[2024-11-18] MEDS: LANTUS 0.07 UNITS SC (20:42)
[2024-11-18 21:00] LABS: Glucose - Point of Care 175 mg/dl (70-99)
[2024-11-18] MEDS: LOTRIMIN 1% CREAM 1 APPLIC TOPICAL (21:13)
[2024-11-18] MEDS: BenGay-Like TOPICAL (21:14)
[2024-11-19 03:14] VITALS: BP 109/47
[2024-11-19 06:00] VITALS: BMI 36.3
[2024-11-19 06:10] LABS: Blood Urea Nitrogen 36 mg/dl (9-20); Calcium 10.0 mg/dl (8.4-10.2); Carbon Dioxide 32 mmol/L (22-30); Chloride 100 mmol/L (98-107); Estimated Creatinine Clearance 44 ml/min; Glucose 159 mg/dl (70-99); Potassium 3.5 mmol/L (3.5-5.1); Sodium 136 mmol/L (135-145); eGFR 41.70
[2024-11-19 07:28] VITALS: BP 120/54
[2024-11-19 07:56] LABS: Glucose - Point of Care 156 mg/dl (70-99)
[2024-11-19] MEDS: NOVOLOG FLEXPEN-MODERATE RESISTANCE 1 UNITS SC ×2 (09:04→12:51)
[2024-11-19] MEDS: DIOVAN 160 MG PO (09:04)
[2024-11-19] MEDS: FLOMAX 0.4 MG PO (09:05)
[2024-11-19] MEDS: ELIQUIS 2.5 MG PO (09:05)
[2024-11-19] MEDS: LASIX 80 MG PO (09:05)
[2024-11-19] MEDS: GLUCOTROL 10 MG PO (09:05)
[2024-11-19] MEDS: ZYLOPRIM 100 MG PO (09:05)
[2024-11-19] MEDS: JANUVIA 100 MG PO (09:05)
[2024-11-19] MEDS: BenGay-Like 1 APPLIC TOPICAL (09:05)
[2024-11-19] MEDS: ALDACTONE 12.5 MG PO (09:05)
[2024-11-19] MEDS: TOPROL XL 25 MG PO (09:05)
[2024-11-19] MEDS: LIPITOR 80 MG PO (09:05)
[2024-11-19] MEDS: LOTRIMIN 1% CREAM 1 APPLIC TOPICAL (09:06)
[2024-11-19 09:17] VITALS: PULSE 64; O2SAT 97
--- NOTE | 2024-11-19 09:29 | W.PN.HOSP.TC ---
Today's Communication/Plan
-
dc
Assessment / Plan
Assessment / Plan
Physical exam:
General: Chronically ill looking, Obese, not in distress
HEENT: Normocephalic, Atraumatic and Moist Mucous Membranes
Respiratory: basal crackles bilaterally, no wheezes or rhonchi
Cardiac: Irregular rate and rhythm, and S1/S2
GI: Soft, Nontender and Nondistended. Groin fungal infection.
Musculoskeletal: No Clubbing, No Cyanosis. Bilateral lower extremity edema and anasarca present with scrotal edema
Neuro: Awake, Alert and Oriented, no gross neurological deficits
Psych: Calm
A/P:
Acute on chronic HFpEF:
s/ p IV diuretics, Lasix 80 mg twice a day with Aldactone.
Required intensive monitoring of renal function and electrolytes
BNP upon admission, 2610
Monitored strict I/O
Monitored daily weight, he lost weight but still clinically volume overload with crackle sin lungs, edema in dependent legs and pt ( still feels the same since coming in )
Monitored renal function and electrolytes
Reviewed latest echocardiogram on our system
Continue guideline-directed medical therapy for heart failure (GDMT)--> B-Blockers of Toprol-XL, ARB of valsartan, no MRA or SGL inhibitor.
Fluid restriction & Salt restriction
Heart failure education was done
Cardiology consult appreciated
PT eval
CKD stage IIIb:
Avoid nephrotoxic
Monitored renal function closely
Monitored urine output
Creatinine today 1.6 (last creatinine 1.5 on October 2024)
Hypokalemia, replaced
Permanent atrial fibrillation:
Continue rate control agents, B-Blockers of metoprolol succinate 25 mg p.o. daily
Continue anticoagulation, DOAC of Eliquis 2.5 mg p.o. twice a day
No chest pain or palpitations
Essential Hypertension:
Continue BP medications, monitor BP
Hyperlipidemia:
Continue statin
Diabetes mellitus type 2:
Poorly controlled
HGB A1C in October 2024 around 8.5
Continue insulin sliding, ad Lantus
Resumed oral hypoglycemics, glipizide and Januvia since renal function stable.
Continue to monitor blood sugars
Hypercalcemia, resolved.
# Tinea cruris
given anti-fungal [place]
He was educated to keep it clean and dry after washing with soap and water then apply the skin cream.
Hypoxia only
For home O2 evaluation
CXR on admission : Cardiomegaly with mild pulmonary edema.
c/w diuretic therapy
No cough
Hypermagnesemia
# Morbid Obesity
BMI 36
# Chronic lower extremity
R lower leg venous ulcer
BPH:
Continue Flomax
Gout:
Continue allopurinol renally dose
Anemia:
No signs of bleeding and hemoglobin at baseline
Continue to monitor hemoglobin while on anticoagulant
DVT prophylaxis:
Eliquis
CODE STATUS:
Full code
Total discharge time spent to see the patient, examine the patient, review data and lab result, discuss discharge plan with patient, nursing staff around 67 minutes
Anticipated Discharge: Today
Subjective/Interval History
-
Date of Service: November 19, 2024
No chest pain
No sob
Objective Data
-
Labs:
Laboratory Results
11/19/24
05:23
Sodium 136
Potassium 3.5
Chloride 100
Carbon Dioxide 32 H
BUN 36 H
Creatinine 1.6 H
Glucose 159 H
Calcium 10.0
Vital Signs:
Vital Signs
Temp Pulse Resp BP Pulse Ox
98.4 F 56 18 120/54 97
11/19/24 07:28 11/19/24 09:04 11/19/24 07:28 11/19/24 09:04 11/19/24 07:28
I&O
11/18/24 11/19/24 11/20/24
06:59 06:59 06:59
Intake Total 1680 / 1680 1500 / 1500
Output Total 950 / 950 1290 / 1290
Balance 730 / 730 210 / 210
[2024-11-19 11:09] VITALS: BP 129/58
--- NOTE | 2024-11-19 11:32 | CM ---
CM contacted Aldo' son regarding discharge to [facility] today. He is away and had just found out that his father was in the hospital, but will contact his sister to see if she can take her dad back to [facility]. Alternate plan will be w/c van
transport which will cost $105.
Await update from pt's family regarding transportation back to [facility] and coordinate as needed.
--- NOTE | 2024-11-19 11:43 | CM ---
Addendum entered by Sulema Beltran 11/19/24 12:54:
Pt's daughter called to say that she would be coming to provide transport back to [facility]. She will come to the unit when she arrives.
Original Note:
Pt is cleared for discharge to [facility] today. CM spoke with pt's son who is away on vacation and will contact his sister to discuss transportation.
[facility] report: [phone]
[facility]
[2024-11-19 12:06] LABS: Glucose - Point of Care 189 mg/dl (70-99)
--- NOTE | 2024-11-19 15:16 | W.DCSUMMARY ---
Discharge Summary
Discharge Data
Date of Admission: 11/15/24
Date of Discharge: 11/19/24
-
Pending Results: No
Hospital Course
84 years old male presented to the hospital with increasing fluid retention and scrotal swelling. Patient was diagnosed with acute on chronic heart failure with a preserved ejection fraction. He was started on intravenous furosemide treatment and
was followed by compugraph operator. He had echocardiogram in October 2024 that showed LVEF 55 to 60%, dilated right ventricle, mild aortic root urination, PASP around 30 to 35 mmHg. Chest radiography showed cardiomegaly with mild pulmonary edema. His
admission weight was 130 kg. After aggressive diuretic therapy, his weight dropped to 121 kg upon discharge. Renal function was monitored. His creatinine upon discharge was 1.6. Patient was started on low-dose Aldactone. Pharmaceutical Engineer
recommended to be discharged on Lasix 80 mg twice a day. Patient was given a prescription to repeat blood work after discharge to monitor renal function. He was noted to have severe intertrigo in bilateral groins. He was educated about skin care
and application of antifungal treatment. Patient had hypoxia upon admission but later resolved. Home oxygen evaluation did not show need for oxygen. Patient was evaluated by physical therapy recommended home health services. manager ship was
involved in discharge planning. Patient remained hemodynamically stable was discharged home in a stable condition.
Discharge Plan
-
Patient Disposition: Home with Home Care
Discharge Diagnosis/Procedures: Congestive heart failure, you are seen by compugraph operator. Increase Lasix to 80 mg twice a day and addition of potassium sparing diuretic called Aldactone. Do blood work as instructed.
- Obesity, BMI 36, consistent with obesity class II, continue to lose weight and low carbohydrate diet.
-Fungal infection of the groins. Wash the area with soap and water, dry well. Apply antifungal cream twice daily until redness disappears.
- Kidney insufficiency, we reduced the dose of gabapentin to avoid side effects.
-Diabetes : your hemoglobin A1c is 8.5 in October 2024, which means poorly controlled diabetes. Discuss with your primary care doctor to make adjustments to your diabetes management.
Diet: Low Sodium and Diabetic, Carb Controlled
Blood Work: A BMP has been ordered for you. Please complete it 48 hours prior to your cardiology follow-up.
Referrals:
Eva Rahman NP [Specified Professional Personl, Cardiology] - 11/28/24 9:40 am
Nima Chase DO [Family Provider] - in one to two weeks
Prescriptions:
New
spironolactone 25 mg Tablet
12.5 mg PO DAILY Qty: 30 0RF
furosemide 80 mg Tablet
80 mg PO BID@0800,1600 Qty: 60 0RF
clotrimazole [Athlete's Foot (clotrimazole)] 1 % Cream
1 applic topical BID Qty: 90 0RF
gabapentin 100 mg Capsule
100 mg PO HS Qty: 30 0RF
Continued
allopurinol 100 MG tablet
100 mg PO DAILY
metoprolol succinate 25 MG tablet extended release 24 hr
25 mg PO DAILY
Eliquis 2.5 mg tablet
2.5 mg PO BID
multivitamin Tablet
1 tab PO DAILY
polyethylene glycol 3350 [Miralax] 17 gram Powder In Packet
17 g PO DAILYPRN PRN (Reason: constipation)
melatonin 3 mg Tablet
3 mg PO HS
tamsulosin 0.4 mg Capsule
0.4 mg PO DAILY
valsartan 160 mg Tablet
160 mg PO DAILY
Januvia 100 mg Tablet
100 mg PO DAILY
atorvastatin 80 mg Tablet
80 mg PO HS
acetaminophen [Tylenol] 325 mg Tablet
650 mg PO Q6HPRN MDD 3000 mg PRN (Reason: mild pain)
glipizide 10 mg Tablet
10 mg PO DAILY
loperamide 2 mg Tablet
2 mg PO Q4HPRN MDD 8 mg PRN (Reason: loose stool)
docusate sodium [Colace] 100 mg Capsule
100 mg PO [id number] PRN (Reason: constipation)
potassium chloride 10 mEq Tablet,Er Particles/Crystals
10 meq PO DAILY
Discontinued
acetaminophen [Tylenol Extra Strength] 500 MG tablet
1,000 mg PO BID
furosemide 40 mg tablet
40 mg PO BID Qty: 60 0RF
gabapentin 300 mg Capsule
300 mg PO TID
clotrimazole 1 % Solution
1 applic TOPICAL DIRECTED
Patient Comments:
11/15/2024, 'apply to toes on L foot topically in the morning for athlete's foot; apply to toes daily in A.M. and after showers'.
Discharge Orders:
Discharge Patient (As Directed); Ordered 11/19/24
Ordered By: Sae Houston
Discharge Date and Time
Discharge Date/Time: 11/19/24 16:03
Print Language: MAORI
[2024-11-19 15:19] VITALS: BP 133/53
== END 2024-11-19 16:03 | disposition home health service (06) | DRG 291 ==
LOC: 3 WEST ACU 12:22
PROVIDERS: Physician Assistant; ADMITTING PHYSICIAN Hospitalist; ATTENDING PHYSICIAN Internal Medicine; EMERGENCY PHYSICIAN Emergency Medicine; FAMILY PHYSICIAN Internal Medicine; OTHER PHYSICIAN Internal Medicine
DX: I13.0 Hypertensive heart and chronic kidney disease with heart failure and stage 1 through stage 4 chronic kidney disease, or unspecified chronic kidney disease (principal); I50.33 Acute on chronic diastolic (congestive) heart failure; I48.21 Permanent atrial fibrillation; N18.32 Chronic kidney disease, stage 3b; E11.22 Type 2 diabetes mellitus with diabetic chronic kidney disease; Z79.01 Long term (current) use of anticoagulants; E87.6 Hypokalemia; E83.52 Hypercalcemia; R09.02 Hypoxemia; E66.01 Morbid (severe) obesity due to excess calories; Z68.36 Body mass index [BMI] 36.0-36.9, adult; E83.41 Hypermagnesemia; N40.0 Benign prostatic hyperplasia without lower urinary tract symptoms; D63.1 Anemia in chronic kidney disease; Z79.84 Long term (current) use of oral hypoglycemic drugs; Z96.652 Presence of left artificial knee joint; Z79.899 Other long term (current) drug therapy; B35.3 Tinea pedis; E66.812 Obesity, class 2; E78.00 Pure hypercholesterolemia, unspecified; K59.00 Constipation, unspecified; L30.4 Erythema intertrigo
CPT/HCPCS: 51798; 71046; 80048; 80053; 82962; 83735; 83880; 85025; 85027; 93005; 96374; 97110; 97162; 97166; 97530; 99285

== ENCOUNTER → 2024-11-20 12:06 | Outpatient (REF) | payer MEDICARE, SELFPAY ==
[2024-11-20 12:55] LABS: Blood Urea Nitrogen 42 mg/dl (9-20); Calcium 9.5 mg/dl (8.4-10.2); Carbon Dioxide 31 mmol/L (22-30); Chloride 99 mmol/L (98-107); Glucose 135 mg/dl (70-99); Magnesium 2.5 mg/dl (1.6-2.3); Potassium 3.4 mmol/L (3.5-5.1); Sodium 135 mmol/L (135-145); eGFR 36.21
== END ==
LOC: OLABPATH 12:06
PROVIDERS: ATTENDING PHYSICIAN Internal Medicine
DX: E11.8 Type 2 diabetes mellitus with unspecified complications (principal); I13.0 Hypertensive heart and chronic kidney disease with heart failure and stage 1 through stage 4 chronic kidney disease, or unspecified chronic kidney disease; I50.32 Chronic diastolic (congestive) heart failure
CPT/HCPCS: 36415; 80048; 83735

== ENCOUNTER → 2024-12-02 10:22 | Outpatient (REF) | payer MEDICARE, SELFPAY ==
[2024-12-02 12:32] LABS: Blood Urea Nitrogen 50 mg/dl (9-20); Calcium 9.8 mg/dl (8.4-10.2); Carbon Dioxide 28 mmol/L (22-30); Chloride 103 mmol/L (98-107); Glucose 154 mg/dl (70-99); Potassium 4.3 mmol/L (3.5-5.1); Sodium 137 mmol/L (135-145); eGFR 31.90
== END ==
LOC: OLABPATH 10:22
PROVIDERS: ATTENDING PHYSICIAN Internal Medicine
DX: F41.9 Anxiety disorder, unspecified (principal); M17.0 Bilateral primary osteoarthritis of knee; N40.0 Benign prostatic hyperplasia without lower urinary tract symptoms
CPT/HCPCS: 36415; 80048

== ENCOUNTER → 2024-12-03 11:14 | Outpatient (REF) | payer MEDICARE, SELFPAY ==
[2024-12-03 12:23] LABS: Blood Urea Nitrogen 55 mg/dl (9-20); Calcium 9.8 mg/dl (8.4-10.2); Carbon Dioxide 28 mmol/L (22-30); Chloride 102 mmol/L (98-107); Glucose 168 mg/dl (70-99); Magnesium 2.6 mg/dl (1.6-2.3); Potassium 4.4 mmol/L (3.5-5.1); Sodium 137 mmol/L (135-145); eGFR 28.46
== END ==
LOC: OLABPATH 11:14
PROVIDERS: ATTENDING PHYSICIAN Internal Medicine
DX: E87.6 Hypokalemia (principal); I48.91 Unspecified atrial fibrillation; I50.32 Chronic diastolic (congestive) heart failure
CPT/HCPCS: 36415; 80048; 83735

== ENCOUNTER → 2024-12-18 09:49 | Outpatient (REF) | payer MEDICARE, SELFPAY ==
[2024-12-18 10:24] LABS: Blood Urea Nitrogen 50 mg/dl (9-20); Calcium 10.4 mg/dl (8.4-10.2); Carbon Dioxide 28 mmol/L (22-30); Chloride 101 mmol/L (98-107); Glucose 204 mg/dl (70-99); Potassium 4.0 mmol/L (3.5-5.1); Sodium 137 mmol/L (135-145); eGFR 31.90
== END ==
LOC: OLABPATH 09:49
PROVIDERS: ATTENDING PHYSICIAN Internal Medicine
DX: I50.32 Chronic diastolic (congestive) heart failure (principal); I10 Essential (primary) hypertension
CPT/HCPCS: 36415; 80048

== ENCOUNTER → 2025-02-05 10:53 | Outpatient (REF) | payer MEDICARE, SELFPAY ==
[2025-02-05 12:07] LABS: Hematocrit 35.3 % (39.0-52.0); Hemoglobin 11.6 g/dL (13.0-18.0); Mean Corp Hgb Conc. 32.9 g/dL (33.0-37.0); Mean Corpuscular Volume 93.9 fL (80.0-94.0); Nucleated Red Blood Cells % 0 % (-); Platelet Count 187 10^3/uL (130-400); Red Cell Dist. Width 15.3 % (11.5-14.5)
[2025-02-05 12:17] LABS: ALT (SGPT) 17 U/L (0-50); AST (SGOT) 22 U/L (17-59); Albumin 4.3 g/dl (3.5-5.0); Alkaline Phosphatase 63 U/L (38-126); Blood Urea Nitrogen 97 mg/dl (9-20); Calcium 10.2 mg/dl (8.4-10.2); Carbon Dioxide 26 mmol/L (22-30); Chloride 97 mmol/L (98-107); Glucose 205 mg/dl (70-99); Potassium 4.6 mmol/L (3.5-5.1); Sodium 135 mmol/L (135-145); Total Protein 7.8 g/dl (6.3-8.2); eGFR 18.15
[2025-02-05 13:06] LABS: TSH 6.28 uIU/ml (0.47-4.68)
== END ==
LOC: OLABPATH 10:53
PROVIDERS: ATTENDING PHYSICIAN Internal Medicine
DX: E11.40 Type 2 diabetes mellitus with diabetic neuropathy, unspecified (principal); E78.5 Hyperlipidemia, unspecified; I50.32 Chronic diastolic (congestive) heart failure
CPT/HCPCS: 36415; 80053; 84443; 85025

== ENCOUNTER → 2025-02-12 11:00 | Outpatient (REF) | payer MEDICARE, SELFPAY ==
[2025-02-12 12:08] LABS: Hematocrit 32.9 % (39.0-52.0); Hemoglobin 11.0 g/dL (13.0-18.0); Mean Corp Hgb Conc. 33.4 g/dL (33.0-37.0); Mean Corpuscular Volume 92.2 fL (80.0-94.0); Nucleated Red Blood Cells % 0 % (-); Platelet Count 170 10^3/uL (130-400); Red Cell Dist. Width 15.4 % (11.5-14.5)
[2025-02-12 12:56] LABS: Glycohemoglobin (HgbA1c) 8.8 % (4.0-5.6)
[2025-02-12 13:46] LABS: ALT (SGPT) 17 U/L (0-50); AST (SGOT) 20 U/L (17-59); Albumin 4.2 g/dl (3.5-5.0); Alkaline Phosphatase 61 U/L (38-126); Blood Urea Nitrogen 103 mg/dl (9-20); Calcium 10.0 mg/dl (8.4-10.2); Carbon Dioxide 21 mmol/L (22-30); Chloride 102 mmol/L (98-107); Glucose 174 mg/dl (70-99); Potassium 3.9 mmol/L (3.5-5.1); Total Protein 7.5 g/dl (6.3-8.2); eGFR 21.31
[2025-02-12 14:28] LABS: Sodium 135 mmol/L (135-145)
== END ==
LOC: OLABPATH 11:00
PROVIDERS: ATTENDING PHYSICIAN Internal Medicine
DX: E11.40 Type 2 diabetes mellitus with diabetic neuropathy, unspecified (principal); E78.5 Hyperlipidemia, unspecified; E87.6 Hypokalemia; I10 Essential (primary) hypertension; I13.0 Hypertensive heart and chronic kidney disease with heart failure and stage 1 through stage 4 chronic kidney disease, or unspecified chronic kidney disease; I48.91 Unspecified atrial fibrillation; I50.32 Chronic diastolic (congestive) heart failure; M10.9 Gout, unspecified; R60.9 Edema, unspecified
CPT/HCPCS: 36415; 80053; 83036; 85025

== ENCOUNTER 2025-03-24 03:01 | Inpatient (IN) | payer MEDICARE, SELFPAY ==
[2025-03-23 22:32] VITALS: BP 103/40
[2025-03-24] VITALS (9 sets, daily range): BP systolic 70–143; BP diastolic 40–95; BMI 36.6; BMI 34.0
--- NOTE | 2025-03-24 00:03 | ED.GENMED ---
History of Present Illness
<Negrito Mckenzie MD, Resident - Last Filed: 03/24/25 01:47>
General
Chief Complaint: Skin Problem
Time Seen by Provider: 03/23/25 23:40
History of Present Illness
History of Present Illness:
Patient is an 84-year-old male with PMH of diabetes, chronic venous insufficiency, A-fib, CHF, HTN, and HLD who presents to the [place] ED from [facility] with left lower extremity swelling, redness, and pain. Patient developed an
ulcer on the lateral plantar aspect of his left foot approximately 6 weeks ago. Patient was seen by podiatry at that time and has been followed by weekly wound care for his ulcer for the last 6 weeks. Over the past 2 days, patient has developed
increasing swelling and redness of his foot and left lower leg, with shooting pain in his foot earlier today. Nursing at his assisted living facility became concerned for infection and started him on doxycycline 100 mg p.o. at 7 PM this evening.
No other symptoms, including chest pain, shortness of breath, fever, fatigue, chills, weakness, or numbness.
Past History
<Negrito Mckenzie MD, Resident - Last Filed: 03/24/25 01:47>
Past History
ED Past Medical History: Arrthythmia (Atrial fibrillation), CHF, HTN, Hypercholesterolemia, NIDDM and Other (Benign brain tumor)
ED Past Surgical History: Brain, Orthopedic and Tonsilectomy
Social History
Tobacco: Non-smoker
Alcohol: None
Drug: None
Living: with family
Employment: Retired
Family History
Family History: Other (Noncontributory)
Review of Systems
<Negrito Mckenzie MD, Resident - Last Filed: 03/24/25 01:47>
Review of Systems
Constitutional: Denies fever, fatigue or chills
Respiratory: Denies trouble breathing
Cardiac: Denies chest pain
ABD/GI: Denies abdominal pain, nausea, vomiting or diarrhea
Neurological: Denies weakness or numbness
Phy Exam
<Negrito Mckenzie MD, Resident - Last Filed: 03/24/25 01:47>
Physical Exam
Physical Exam:
General: NAD. Conversant.
MSK: 1�2 cm, foul-smelling, ulcer on lateral plantar aspect of left foot. Left foot and lower leg markedly swollen relative to right. Left foot mildly erythematous, mildly TTP. Motor, sensory intact bilateral lower extremities.
CV: RRR. S1, S2 noted. No M/R/G. Pulses 2+ bilateral lower extremities.
Pulm: CTAB. No wheezes or crackles.
Neuro: A&O x 3. NFD. CN II through XII grossly intact.
Integ: Reddish-brown skin discoloration bilateral lower legs, with left more pronounced than right.
Psych: Calm.
Sepsis
<Negrito Mckenzie MD, Resident - Last Filed: 03/24/25 01:47>
Sepsis Screening
Sepsis Assessment: Sepsis
Sepsis Screen
Sepsis Screen: Sepsis
Date: 03/24/25
Time: 01:45
Course
<Negrito Mckenzie MD, Resident - Last Filed: 03/24/25 01:47>
Orders/Labs/Results
Orders:
Orders
03/24/25 00:13
Foot, Left 3 View [CR Foot - Left Min 3 Views] Urgent
Comment:
Reason For Exam: lateral ulcer
03/24/25 00:38
Complete Blood Count/With Diff Urgent
Comprehensive Metabolic Panel Urgent
03/24/25 01:18
Vancomycin [Vancocin] 2,000 mg 0.9% Sodium Chloride 500 ml [Nss] 500 ml IV NOW
03/24/25 01:19
CefTRIAXone [Rocephin] 1,000 mg IV NOW STA
03/24/25 01:45
Lactic Acid Q4H
Comment: CANCEL 2nd LACTIC ACID IF 1st LACTIC ACID IS LESS THAN 2
Blood Culture Q30M
GREGG Source: Blood/Venous
Specimen Description:
03/24/25 02:15
Blood Culture Q30M
GREGG Source: Blood/Venous
Specimen Description:
03/24/25 05:45
Lactic Acid Q4H
Comment: CANCEL 2nd LACTIC ACID IF 1st LACTIC ACID IS LESS THAN 2
Abnormal Lab Results
03/24/25
00:38
WBC 12.8 H 10^3/uL
(4.8-10.8)
RBC 3.45 L 10^6/uL
(4.70-6.10)
Hgb 10.5 L g/dL
(13.0-18.0)
Hct 31.9 L %
(39.0-52.0)
MCHC 32.9 L g/dL
(33.0-37.0)
RDW 15.3 H %
(11.5-14.5)
Abs Immat Gran (auto) 0.1 H 10^3/uL
(0-0.05)
Absolute Neuts (auto) 9.9 H 10^3/uL
(1.4-6.5)
Absolute Monos (auto) 1.1 H 10^3/uL
(0.1-0.6)
Neutrophils % 76.8 H %
(42.2-75.2)
Lymphocytes % 11.8 L %
(20.5-51.1)
Sodium 131 L mmol/L
(135-145)
Chloride 91 L mmol/L
(98-107)
Carbon Dioxide 31 H mmol/L
(22-30)
BUN 87 H mg/dl
(9-20)
Creatinine 2.3 H mg/dL
(0.7-1.3)
Glucose 268 H mg/dl
(70-99)
03/24/25 00:38
03/24/25 00:38
Vital Signs
Initial and Last Documented VS:
Initial Vital Signs
Temp Pulse Resp BP Pulse Ox
98.4 F 70 24 103/40 95
03/23/25 22:32 03/23/25 22:32 03/23/25 22:32 03/23/25 22:32 03/23/25 22:32
Last Documented Vital Signs
Temp Pulse Resp BP Pulse Ox
98.4 F 63 18 100/43 96
03/23/25 22:32 03/24/25 01:37 03/24/25 01:37 03/24/25 01:37 03/24/25 01:37
<Cecilia Luo, DO - Last Filed: 03/24/25 01:22>
Orders/Labs/Results
Orders:
Orders
03/24/25 00:13
Foot, Left 3 View [CR Foot - Left Min 3 Views] Urgent
Comment:
Reason For Exam: lateral ulcer
03/24/25 00:38
Complete Blood Count/With Diff Urgent
Comprehensive Metabolic Panel Urgent
03/24/25 01:18
Vancomycin [Vancocin] 2,000 mg 0.9% Sodium Chloride 500 ml [Nss] 500 ml IV NOW
03/24/25 01:19
CefTRIAXone [Rocephin] 1,000 mg IV NOW STA
03/24/25 01:45
Lactic Acid Q4H
Comment: CANCEL 2nd LACTIC ACID IF 1st LACTIC ACID IS LESS THAN 2
Blood Culture Q30M
GREGG Source: Blood/Venous
Specimen Description:
03/24/25 02:15
Blood Culture Q30M
GREGG Source: Blood/Venous
Specimen Description:
03/24/25 05:45
Lactic Acid Q4H
Comment: CANCEL 2nd LACTIC ACID IF 1st LACTIC ACID IS LESS THAN 2
Abnormal Lab Results
03/24/25
00:38
WBC 12.8 H 10^3/uL
(4.8-10.8)
RBC 3.45 L 10^6/uL
(4.70-6.10)
Hgb 10.5 L g/dL
(13.0-18.0)
Hct 31.9 L %
(39.0-52.0)
MCHC 32.9 L g/dL
(33.0-37.0)
RDW 15.3 H %
(11.5-14.5)
Abs Immat Gran (auto) 0.1 H 10^3/uL
(0-0.05)
Absolute Neuts (auto) 9.9 H 10^3/uL
(1.4-6.5)
Absolute Monos (auto) 1.1 H 10^3/uL
(0.1-0.6)
Neutrophils % 76.8 H %
(42.2-75.2)
Lymphocytes % 11.8 L %
(20.5-51.1)
Sodium 131 L mmol/L
(135-145)
Chloride 91 L mmol/L
(98-107)
Carbon Dioxide 31 H mmol/L
(22-30)
BUN 87 H mg/dl
(9-20)
Creatinine 2.3 H mg/dL
(0.7-1.3)
Glucose 268 H mg/dl
(70-99)
03/24/25 00:38
03/24/25 00:38
Vital Signs
Initial and Last Documented VS:
Initial Vital Signs
Temp Pulse Resp BP Pulse Ox
98.4 F 70 24 103/40 95
03/23/25 22:32 03/23/25 22:32 03/23/25 22:32 03/23/25 22:32 03/23/25 22:32
Last Documented Vital Signs
Temp Pulse Resp BP Pulse Ox
98.4 F 63 18 100/43 96
03/23/25 22:32 03/24/25 01:37 03/24/25 01:37 03/24/25 01:37 03/24/25 01:37
<Negrito Mckenzie MD, Resident - Last Filed: 03/24/25 01:47>
MDM/Problems Addressed
Differential Diagnosis Includes:
Cellulitis
Osteomyelitis
Necrotizing fasciitis
Sepsis
MDM/Problems Addressed:
Assessment: Patient is an 84-year-old male with PMH of diabetes, CHF, A-fib, HTN, HLD, and chronic venous insufficiency who presents to the ED with 2 days of progressive left foot and lower leg edema, erythema, and pain in the setting of chronic
ulcer on the lateral plantar aspect of his left foot. No chest pain or shortness of breath. Neurovascularly intact. BP somewhat soft (103/40), tachypneic (24), afebrile, nontachycardic. Physical exam shows foul-smelling, mildly TTP ulcer on
plantar aspect of left foot. Started on doxycycline 100 mg p.o. at nursing facility [facility]. Labs remarkable for mild leukocytosis, mild anemia, mild hyponatremia, hyperglycemia, and chronic renal insufficiency. Concern for cellulitis, osteomyelitis,
necrotizing fasciitis, and sepsis, among other pathology.
Plan:
#Left foot ulcer
Labs: CBC, CMP, blood cultures, lactate
Imaging: Left foot x-ray
Antibiotics
- Vancomycin
- Ceftriaxone
Plan for admission
<Negrito Mckenzie MD, Resident - Last Filed: 03/24/25 01:47>
*Pulse Oximetry
SaO2: 95
Oxygen Mode of Delivery: Room air
Patient hypoxic: no
*Critical Care Note
Total Time (30-74mins, 75-104mins- exclusive of procedures): Not Applicable
ED Attending Note
<Negrito Mckenzie MD, Resident - Last Filed: 03/24/25 01:47>
-
Portions of this chart may have been created with voice recognition software.� Occasional wrong word or��sound alike� substitutions may have occurred due to the inherent limitations of voice recognition software.
<Cecilia Luo DO - Last Filed: 03/24/25 01:22>
ED Attending Note
Patient seen and examined by attending physician: Yes
I performed the substantive portion of visit, reviewed & personally made and approve the management plan that is documented in note by myself or MIKE.: Yes
I performed a history and physical exam of patient and discussed management with resident, I reviewed resident's note and agree with documented findings and plan of care.: Yes
ED Attending Note:
84-year-old male with history of diabetes with chronic neuropathy, CHF, hypertension, A-fib presenting to the emergency department for wound to the left plantar foot. Patient reports wound for the past 6 weeks. Patient arrives from her facility,
where podiatry comes about once a month. Reports that initially they were managing it with Betadine. In the past few weeks they were using a different solution. He saw the retail wireless associate 2 weeks ago who switched him back to Betadine. He has wound
care see him daily. Tonight they were concerned that his left lower extremity was swollen and warm. Patient also notes some generalized pain. Denies any fever. Denies any trauma. Vital signs on arrival are significant for mild hypotension.
On exam patient is resting comfortably, no acute distress. Patient is nontoxic in appearance. However does have significant swelling to his left lower extremity with generalized erythema. Swelling extends from the foot up to the proximal hester.
Edema is pitting, 2-3+. Sensation grossly intact and pulses intact. Patient with large ulceration at the lateral aspect of the plantar left foot with malodor. No active drainage. Concern for acute infection. Plan for laboratory analysis and
x-ray imaging. However at this time feel patient will warrant IV antibiotics and podiatry consultation for possible operative debridement
01:15 -x-ray shows soft tissue inflammation at area of left fifth MTP. Cannot safely rule out osteomyelitis. Plan for antibiotics and podiatry consultation.
Discharge Plan
Departure
Patient Disposition: Admit
Date of Disposition: 03/24/25
Time of Disposition: 01:23
Presentation/result/management discussed w/ accepting MD/DO: Hospitalist
Patient with high blood pressure during this ER visit?: No
Condition: Fair
Discharge Problem:
Open wound of plantar aspect of left foot
Prescriptions:
No Action
allopurinol 100 MG tablet
100 mg PO DAILY
metoprolol succinate 25 MG tablet extended release 24 hr
25 mg PO DAILY
Eliquis 2.5 mg tablet
2.5 mg PO BID
multivitamin Tablet
1 tab PO DAILY
polyethylene glycol 3350 [Miralax] 17 gram Powder In Packet
17 g PO DAILYPRN PRN (Reason: constipation)
melatonin 3 mg Tablet
3 mg PO HS
tamsulosin 0.4 mg Capsule
0.4 mg PO DAILY
valsartan 160 mg Tablet
160 mg PO DAILY
Januvia 100 mg Tablet
100 mg PO DAILY
atorvastatin 80 mg Tablet
80 mg PO HS
acetaminophen [Tylenol] 325 mg Tablet
650 mg PO Q6HPRN MDD 3000 mg PRN (Reason: mild pain)
glipizide 10 mg Tablet
10 mg PO DAILY
loperamide 2 mg Tablet
2 mg PO Q4HPRN MDD 8 mg PRN (Reason: loose stool)
docusate sodium [Colace] 100 mg Capsule
100 mg PO [id number] PRN (Reason: constipation)
potassium chloride 10 mEq Tablet,Er Particles/Crystals
10 meq PO DAILY
spironolactone 25 mg Tablet
12.5 mg PO DAILY Qty: 30 0RF
furosemide 80 mg Tablet
80 mg PO BID@0800,1600 Qty: 60 0RF
clotrimazole [Athlete's Foot (clotrimazole)] 1 % Cream
1 applic topical BID Qty: 90 0RF
gabapentin 100 mg Capsule
100 mg PO HS Qty: 30 0RF
Referrals:
Nima Chase, [Family Provider]
Interventions
Interventions:
*Risk Screen - Suicide Last Done: 03/23/25 22:32
*Neglect/Abuse Screening Last Done: 03/23/25 22:32
ED-Skin Assessment Last Done: 03/23/25 22:45
Discharge Date and Time
Print Language: ITALIAN
[2025-03-24 00:51] LABS: Hematocrit 31.9 % (39.0-52.0); Hemoglobin 10.5 g/dL (13.0-18.0); Mean Corp Hgb Conc. 32.9 g/dL (33.0-37.0); Mean Corpuscular Volume 92.5 fL (80.0-94.0); Nucleated Red Blood Cells % 0 % (-); Platelet Count 187 10^3/uL (130-400); Red Cell Dist. Width 15.3 % (11.5-14.5)
[2025-03-24 01:07] LABS: ALT (SGPT) 14 U/L (0-50); AST (SGOT) 22 U/L (17-59); Albumin 3.7 g/dl (3.5-5.0); Alkaline Phosphatase 65 U/L (38-126); Blood Urea Nitrogen 87 mg/dl (9-20); Calcium 10.0 mg/dl (8.4-10.2); Carbon Dioxide 31 mmol/L (22-30); Chloride 91 mmol/L (98-107); Glucose 268 mg/dl (70-99); Potassium 3.7 mmol/L (3.5-5.1); Sodium 131 mmol/L (135-145); Total Protein 6.9 g/dl (6.3-8.2); eGFR 26.98
[2025-03-24] MEDS: ROCEPHIN 1000 MG IV (01:30)
[2025-03-24] MEDS: VANCOCIN 540 MG IV (01:33)
--- NOTE | 2025-03-24 02:01 | HPS.HSE ---
Family Physician
-
Family Physician: Nima Chase
Chief Complaint
-
Leg swelling
History of Present Illness
This is a 84-year-old male with past medical history significant for jce-zzrcxfc-ytwqpuuuf diabetes, CHF with preserved EF, atrial fibrillation on anticoagulation, gout, BPH presenting to the emergency department with swelling and redness in the
left lower extremity.
Patient reports that he has had a left lateral foot wound for several weeks that is being followed by wound care nurse and podiatry. He had been told that the wound was healing for a while although he has had constant drainage from that wound which
is on the plantar surface of the lateral fifth metatarsal. He has been wrapping his foot to prevent swelling. When his nurse came to visit him today and unwrap the foot and she noted swelling and erythema up to the knee. She was concerned about
infection. Call was made to the physician who recommended starting doxycycline and sending patient to the emergency department.
Patient himself denies having any fevers or chills. He reports pain radiating from the tip of his toes to his Achilles but not up his leg. He has not had pain with this wound in the past.
In the emergency department patient was afebrile, blood pressure 100/40 with a pulse rate of 63 and oxygen saturation of 96% on room air. X-ray of the left lower extremity shows some soft tissue changes lateral to the wound concerning for
osteomyelitis.
He had a white count of 12.8 hemoglobin and platelets were normal. Electrolytes show a sodium of 131 potassium of 3.7 with normal being bicarb. He has been in creatinine similar to his recent baseline of 87 and 2.3 with a glucose of 268. Rest of
the labs are unremarkable. Lactate is pending
Medical History
Past Medical History
Past Medical History: Reports Arrhythmia (Afib on DOAC), CHF (HFpEF), HTN, Hypercholesterolemia, NIDDM and Other (bening brain tumor)
Past Surgical History: Reports Brain, Orthopedic (left knee replacement) and Tonsilectomy
Social History
Tobacco: Non-smoker
Alcohol: None
Drug: None
Personal:
Living: With Family
Family History
Family History: Not pertinent
Allergies / Home Medications
Allergies reflects when Allergies were last updated in [employer] [employer].
Home Medications with original date entered in [employer] [employer]
Allergy/Medication List:
Allergies
Allergy/AdvReac Type Severity Reaction Status Date / Time
No Known Allergies Allergy Verified 11/15/24 09:04
Home Medications
allopurinol 100 mg tablet 100 mg PO DAILY Gout 02/18/14
atorvastatin 40 mg tablet 80 mg PO DAILY High Cholesterol 02/18/14
acetaminophen 500 mg tablet (Tylenol Extra Strength) 500 mg PO PRN PRN pain 01/10/19
metoprolol succinate 25 mg tablet,extended release 24 hr 25 mg PO DAILY Blood Pressure 01/10/19
furosemide 40 mg tablet 40 mg PO BID Fluid retention/Swelling #60 tabs 06/29/23
apixaban 2.5 mg tablet (Eliquis) 2.5 mg PO BID Blood clot prevention/tx 10/23/23
gabapentin 300 mg capsule 300 mg PO TID NEUROPATHIC PAIN 10/19/24
glipizide 10 mg tablet, extended release 24 hr 10 mg PO DAILY Diabetes 10/19/24
melatonin 3 mg tablet 3 mg PO HS Sleep 10/19/24
multivitamin 1 tab PO DAILY Supplement 10/19/24
polyethylene glycol 3350 17 gram oral powder packet (Miralax) 17 g PO DAILY Constipation 10/19/24
potassium chloride 10 mEq tablet,extended release 10 meq PO DAILY Supplement 10/19/24
sitagliptin phosphate 100 mg tablet (Januvia) 100 mg PO DAILY Diabetes 10/19/24
tamsulosin 0.4 mg capsule 0.4 mg PO DAILY Urinary Issue 10/19/24
valsartan 160 mg tablet 160 mg PO DAILY Blood Pressure 10/19/24
Review of Systems
-
Constitutional: Reports No Symptoms
EENT: Reports No Symptoms
Respiratory: Reports No Symptoms
Cardiac: Reports No Symptoms
Abdomen/GI: Reports No Symptoms
: Reports No Symptoms
Musculoskeletal: Reports Edema and Other (Left lower extremity swelling, wound in the left foot with some drainage redness and pain)
Skin: Reports No Symptoms
Neurological: Reports No Symptoms
Endocrine: Reports No Symptoms
Hematologic/Lymphatic: Reports No Symptoms
Psych: Reports No Symptoms
Physical Exam
Vital Signs
Vital Signs
Temp Pulse Resp BP Pulse Ox
98.4 F 63 18 100/43 96
03/23/25 22:32 03/24/25 01:37 03/24/25 01:37 03/24/25 01:37 03/24/25 01:37
Physical Exam
General: Well Developed, Well Nourished and No Apparent Distress
HEENT: NormoCephalic, Moist mucous membranes and Atraumatic
Respiratory: Clear
Cardiac: S1/S2 and Regular Rhythm; No Murmur or Rub
GI: Soft, Non Tender, Non Distended and Normal Bowel Sounds; No Organomegaly
Rectal: Deferred by Provider
Musculoskeletal: No Clubbing, No Cyanosis and Edema, Left Lower Extremity
Skin: Ulcers (Ulcer in the lateral aspect of the fifth metatarsal on the plantar surface that is about 3 cm in diameter. There is now minimal drainage from the site but it is open. I could not see any bone. There is surrounding erythema
induration going up the leg to the knee.); No Rash
Neuro: AO x 3 and Nonfocal/grossly intact
Hematologic/Lymphatic: No Lymphadenopathy
Laboratory Results
-
03/24/25 00:38
03/24/25 00:38
Laboratory Results
Total Bilirubin 1.0 mg/dl (0.2-1.3) 03/24/25 00:38
AST 22 U/L (17-59) 03/24/25 00:38
ALT 14 U/L (0-50) 03/24/25 00:38
Alkaline Phosphatase 65 U/L (38-126) 03/24/25 00:38
Data Reviewed
-
Diagnostic Radiology: Image Personally Visualized and interpreted
Lab Data: Labs Reviewed by me
Old Records: Reviewed
Impression/Plan
-
IMPRESSION:
84 male, history of jsq-swwqmjt-uaipehkcu diabetes complicated by peripheral neuropathy, atrial fibrillation on Eliquis, CHF with preserved EF, hypertension, hyperlipidemia and hypothyroid who presents to the emergency department with redness and
swelling of the left lower extremity that developed acutely over the last 24 hours and associated pain. There is a large diabetic foot ulcer of the left lower extremity with surrounding cellulitis. X-ray suggestive of deep soft tissue changes
lateral to the wound and is concerning for osteomyelitis.
PLAN:
Diabetic foot infection recurrent cellulitis
- Admit to [facility]
- Blood cultures sent
- Wound culture
- Check ESR and CRP
- MRI foot in a.m.
- MRSA swab, continue vancomycin for now, continue ceftriaxone plus Flagyl
- Infectious disease consultation
- Podiatry consultation (Patient has been seen by Dr. Reginald Baca who's not affiliated with )
CHF -euvolemic appearing, no shortness of breath, no chest pain
- Continue Lasix 80 mg twice daily, metolazone 2.5 mg every other day
- daily weight
- Monitor ins and out
- Continue GDMT with spironolactone, valsartan with hold parameters
Diabetes
- Continue glipizide,
- Sliding scale insulin
Atrial fibrillation
- Continue Eliquis for now
- Continue metoprolol 25 mg daily with hold parameters
CKD stage III -stable creatinine
- Avoid nephrotoxins
-Renal dose medications
DVT prophylaxis�on apixaban
CODE STATUS�full code
[2025-03-24 04:37] LABS: Glucose - Point of Care 322 mg/dl (70-99)
[2025-03-24] MEDS: FLAGYL 500 MG 100 IV (05:26)
[2025-03-24] MEDS: NOVOLOG FLEXPEN 4 UNITS SC (05:30)
--- NOTE | 2025-03-24 06:14 | PTCARENOTE ---
patient arrived from the ED via stretcher. patient pulled over from stretcher to bed. patient AOx3. assessment completed. oriented to room. call saunders within reach. POC ongoing.
--- NOTE | 2025-03-24 06:24 | PTCARENOTE ---
patient blood sugar checked when arrived to unit. resulted 322. RASHIDA Reilly. notified. New orders placed for 4 units of insulin. See MAR for administration.
[2025-03-24 07:15] LABS: Hematocrit 30.8 % (39.0-52.0); Hemoglobin 10.6 g/dL (13.0-18.0); Mean Corp Hgb Conc. 34.4 g/dL (33.0-37.0); Mean Corpuscular Volume 91.9 fL (80.0-94.0); Nucleated Red Blood Cells % 0 % (-); Platelet Count 177 10^3/uL (130-400); Red Cell Dist. Width 15.1 % (11.5-14.5)
--- NOTE | 2025-03-24 07:26 | W.PN.HOSP.TC ---
Today's Communication/Plan
-
MRI foot scan, Blood culture, wound culture pending
PERIPHERAL ARTERIAL STUDY PENDING.
Assessment / Plan
Assessment / Plan
84-year-old male with known history of noninsulin dependent diabetes, CHF with preserved ejection fraction, A-fib on Eliquis 2.5 mg twice daily, gout, BPH presented with left lower extremity cellulitis.
# Diabetic foot polymicrobial infection-recurrent cellulitis:
ESR 132 high, leukocytosis
Pending blood culture, wound culture results.
MRI foot results pending.
MRSA screening pending
ID consulted : ceftriaxone, Flagyl discontinued and started on Zosyn day 1.
Wound dressing completed today morning.
Leg elevation recommended.
Peripheral arterial study results are pending.
Wound is covered with dry sterile gauze-Podiatry consulted
#CHF -euvolemic appearing, no shortness of breath, no chest pain
- Continue Lasix 80 mg twice daily, metolazone 2.5 mg every other day
- daily weight
- Monitor ins and out
- Continue GDMT with spironolactone, valsartan with hold parameters
Diabetes
- Continue glipizide,
- Sliding scale insulin
Atrial fibrillation
- Continue Eliquis for now
- Continue metoprolol 25 mg daily with hold parameters
CKD stage III -stable creatinine
- Avoid nephrotoxins
-Renal dose medications
DVT prophylaxis�on apixaban
CODE STATUS�full code
Disposition:
Anticipated Discharge: 24 - 48 hours
Subjective/Interval History
-
Date of Service: March 24, 2025
Overnight the patient does not have concern for left lower limb pain, fever, chills.
He mention history of rashes, swelling comparatively reduced from the admission.
Objective Data
-
Labs:
Laboratory Results
03/24/25 03/24/25
00:38 07:00
WBC 12.8 H 10.7
Hgb 10.5 L 10.6 L
Hct 31.9 L 30.8 L
Plt Count 187 177
Sodium 131 L Pending
Potassium 3.7 Pending
Chloride 91 L Pending
Carbon Dioxide 31 H Pending
BUN 87 H Pending
Creatinine 2.3 H Pending
Glucose 268 H Pending
Calcium 10.0 Pending
Total Bilirubin 1.0
AST 22
ALT 14
Alkaline Phosphatase 65
Vital Signs:
Vital Signs
Temp Pulse Resp BP Pulse Ox
97.7 F 70 18 111/53 96
03/24/25 07:00 03/24/25 07:00 03/24/25 07:00 03/24/25 07:00 03/24/25 07:00
Review of Systems
-
History Source: Patient
All other systems: Reviewed and negative
Physical Exam
-
General: No Apparent Distress
Respiratory: Clear to Auscultation
Cardiac: Regular Rhythm and S1/S2
GI: Soft, Nontender, Nondistended and Normal Bowel Sounds
Genito-urinary: No Costovertebral Tender
Musculoskeletal: No Clubbing, No Edema and Other
Skin: Other (Left lower extremity -rash, warm, swelling, tender. Wound dressing done today.)
Neuro: AO x 3
Hematologic / Lymphatic: No Lymphadenopathy
Psych: Calm
[2025-03-24 07:47] LABS: Glucose - Point of Care 257 mg/dl (70-99)
[2025-03-24] MEDS: NEURONTIN 300 MG PO ×2 (08:18→21:18)
[2025-03-24] MEDS: FLOMAX 0.4 MG PO (08:18)
[2025-03-24] MEDS: ZYLOPRIM 100 MG PO (08:18)
[2025-03-24] MEDS: DIOVAN 160 MG PO (08:18)
[2025-03-24] MEDS: LASIX 80 MG PO ×2 (08:18→15:18)
--- NOTE | 2025-03-24 08:18 | PHA.VAN.IN ---
Assessment
- Assessment
Renal Function: Unknown baseline
Concomitant Antimicrobials: ceftriaxone, metronidazole
Plan
- Plan
Initial / Loading Dose: 2000mg - 03/24 01:33
Maintenance Regimen: dosing by level
Monitoring: random 03/25 06
Pharmacokinetics Vancomycin I
- -
Patient Age: 84
Patient Sex: Male
Vancomycin Day #: 1
Indication: Skin And Soft Tissue
Requesting Provider: Dr. Dixon
Pertinent Antimicrobial Allergies:
NKDA
Height / Weight:
Height 6 ft
Actual Weight 113.483 kg
Pertinent Past Medical History: BMI ~ 34, DM 2, CKD
- Vital Signs / Lab Results
Temp Pulse Resp BP Pulse Ox
97.7 F 70 18 111/53 96
03/24/25 07:00 03/24/25 07:00 03/24/25 07:00 03/24/25 07:00 03/24/25 07:00
Lab Results - Hematology
03/24/25 03/24/25
00:38 07:00
WBC 12.8 H 10.7
Lab Results - Chemistry
03/24/25
00:38
BUN 87 H
Creatinine 2.3 H
Albumin 3.7
03/24/25 03/24/25
02:00 05:45
Lactic Acid 1.0 Cancelled
[2025-03-24] MEDS: TOPROL XL 25 MG PO (08:19)
[2025-03-24] MEDS: ALDACTONE 12.5 MG PO (08:19)
[2025-03-24] MEDS: ELIQUIS 2.5 MG PO ×2 (08:19→21:17)
[2025-03-24 08:26] LABS: Blood Urea Nitrogen 77 mg/dl (9-20); Calcium 9.9 mg/dl (8.4-10.2); Carbon Dioxide 32 mmol/L (22-30); Chloride 92 mmol/L (98-107); Estimated Creatinine Clearance 31 ml/min; Glucose 261 mg/dl (70-99); Potassium 3.1 mmol/L (3.5-5.1); Sodium 130 mmol/L (135-145); eGFR 28.46
--- NOTE | 2025-03-24 08:51 | CON.MD ---
Consultation - Medical
-
CC: left Leg swelling and erythema
History of Present Illness:
This is a 84-year-old male with past medical history significant for mxr-yfltlts-qcwjzlwho diabetes, CHF with preserved EF, atrial fibrillation on anticoagulation, gout, BPH presenting to the emergency department with swelling and redness and wound
on the left lower extremity.
Patient reports that he has had a left lateral foot wound for 6 weeks. He has been treating with his acid etch operator, Reginald Rock and a wound care nurse at home. He has been using wound gel and bandaging the site. He relates persistent drainage
from that wound which is on the plantar surface of the lateral fifth metatarsal. Yesterday the wound care nurse noted increased pain, swelling and erythema up to the knee. She was concerned about infection. Call was made to the acid etch operator who
recommended starting doxycycline and sending patient to the emergency department.
Patient himself denies having any fevers or chills.
Past Medical History
Arrhythmia (Afib on DOAC), CHF (HFpEF), HTN, Hypercholesterolemia, NIDDM and Other (bening brain tumor)
Past Surgical History:
Brain, Orthopedic (left knee replacement) and Tonsilectomy
Social History
Tobacco: Non-smoker
Alcohol: None
Drug: None
Personal:
Living: With Family
Family History
Not pertinent
Allergies
Allergy/AdvReac Type Severity Reaction Status Date / Time
No Known Allergies Allergy Verified 11/15/24 09:04
Home Medications
allopurinol 100 mg tablet 100 mg PO DAILY Gout 02/18/14
atorvastatin 40 mg tablet 80 mg PO DAILY High Cholesterol 02/18/14
acetaminophen 500 mg tablet (Tylenol Extra Strength) 500 mg PO PRN PRN pain 01/10/19
metoprolol succinate 25 mg tablet,extended release 24 hr 25 mg PO DAILY Blood Pressure 01/10/19
furosemide 40 mg tablet 40 mg PO BID Fluid retention/Swelling #60 tabs 06/29/23
apixaban 2.5 mg tablet (Eliquis) 2.5 mg PO BID Blood clot prevention/tx 10/23/23
gabapentin 300 mg capsule 300 mg PO TID NEUROPATHIC PAIN 10/19/24
glipizide 10 mg tablet, extended release 24 hr 10 mg PO DAILY Diabetes 10/19/24
melatonin 3 mg tablet 3 mg PO HS Sleep 10/19/24
multivitamin 1 tab PO DAILY Supplement 10/19/24
polyethylene glycol 3350 17 gram oral powder packet (Miralax) 17 g PO DAILY Constipation 10/19/24
potassium chloride 10 mEq tablet,extended release 10 meq PO DAILY Supplement 10/19/24
sitagliptin phosphate 100 mg tablet (Januvia) 100 mg PO DAILY Diabetes 10/19/24
tamsulosin 0.4 mg capsule 0.4 mg PO DAILY Urinary Issue 10/19/24
valsartan 160 mg tablet 160 mg PO DAILY Blood Pressure 10/19/24
Physical Exam:
Left LE with generalized edema, weakly palpable pulses, CFT WNL, loss of pedal hair, atrophic changes to digits. There is a 2 cm soft eschar at the base fo the 5th metatarsal. Small amount of liquefactive fluid expressed with compression of the
site. It does not probe directly to bone, but the tissue in eschar is soft and necrotic appearing There is erythema extending from the 5th metatarsal base eschar to dorsal foot and level of ankle. Foot is warm to touch
X-ray suggestive of deep soft tissue changes lateral to the wound and is concerning for osteomyelitis.
Impression:
Left foot Eschar with cellulitis
Type 2 Diabetes Mellitus with neuropathy
Plan:
Blood cultures/wound cultures pending
Continue Ancef
ID consult pending
MRI pending
JAZZMINE/PVR pending
Discussed wound at length with patient
Site is covered with dry sterile gauze.
-
Consultation
-
Date/Time Consultation Requested: 03/24/25 3:36am
Date/Time Consultation Performed: 03/24/25 8:52 am
Requesting Provider: Destiny
Performing Provider: Jerrod
Reason for Consultation: Left foot escar with cellulitis
[2025-03-24] MEDS: KCL 40 MEQ PO ×2 (09:09→13:45)
[2025-03-24] MEDS: NOVOLOG FLEXPEN-LOW RESISTANCE 3 UNITS SC (09:10)
--- NOTE | 2025-03-24 09:45 | CON.ID ---
Consultation
-
Date/Time Consultation Requested: March 24, 2025 [id number]
Date/Time Consultation Performed: March 24, 2025 [id number]
Requesting Provider: Dr. Dixon
Performing Provider: Dr. Tiffany Doshi
Reason for Consultation: Foot wound
Chief Complaint / Past History
Chief Complaint
Left legredness and swelling
History of Present Illness
84-year-old male with history of diabetes mellitus, gout, CKD 3, chronic nonhealing left foot wound who presented to the ED March 23 with acute left leg swelling and redness. He reports he has a left lateral plantar foot wound for approximately
6 weeks manage by his ceo and founder and home wound nurse. He was told wound was getting better. However yesterday when nurse came by, she noted foot and leg significantly swollen with erythema from the wound up to below the knee. He was therefore
sent to the ER. Patient reports chills. The leg looks a little bit better today. He is to have MRI of the foot. Currently on antibiotics.
Past History
Additional Past Medical History:
Diabetes mellitus
Neuropathy
HTN
HLD
HFpEF
Afib
gout
BPH
CKD3
Benign brain tumor resection
L TKR
Allergy History:
No Known Allergies Allergy (Verified 03/23/25 22:34)
Medications Reviewed: Yes
Current Antibiotics:
Vancomycin
Ceftriaxone
Metronidazole
Social History
Tobacco: Non-Smoker
Alcohol: None
Drug: None
Personal:
Living: With Family
Family History
Family History: Not Pertinent
Review of Systems
Review of Systems
General: Chills; Negative Fever or Change in Appetite
HEENT: Negative Stiff Neck or Headache
Respiratory: Negative Dyspnea or Cough
Gasteroenterology: Negative Nausea, Vomiting or Diarrhea
Genital / Urological: Negative Dysuria or Flank Pain
Endocrine: Weakness
All systems: All other systems were reviewed and were negative
Vital Signs
Temp Pulse Resp BP Pulse Ox
97.7 F 70 18 111/53 96
03/24/25 07:00 03/24/25 07:00 03/24/25 07:00 03/24/25 07:00 03/24/25 07:00
Physical Exam
Physical Exam
Constitutional: No Acute Distress and Comfortable
Eyes: No Conjunctival Hemorrhage and Sclera Anicteric
Cardiovascular: Regular Rate and S1/S2
Pulmonary: Clear
Gastrointestinal: Non Tender, Non Distended and Normal Bowel Sounds
Genito-Urinary: Negative CVA Tenderness
Extremities: Edema (LLE 2-3+ edema foot to knee), Erythema (dorsum of foot extending to below knee, + warmth) and Pulses (weak left pedal)
Wound: Other (Left foot: 5th mid-metatarsal plantar side with catrachita-size flat wound, somewhat wet, + erythema to foot)
Neurological: AO x 3
Lab / Diagnostic Study Results
03/24/25 07:00
03/24/25 07:00
Abs Immat Gran (auto) 0.1 10^3/uL (0-0.05) H 03/24/25 07:00
Absolute Neuts (auto) 8.3 10^3/uL (1.4-6.5) H 03/24/25 07:00
Absolute Lymphs (auto) 1.2 10^3/uL (1.2-3.4) 03/24/25 07:00
Absolute Monos (auto) 0.8 10^3/uL (0.1-0.6) H 03/24/25 07:00
Absolute Basos (auto) 0.0 10^3/uL (0-0.2) 03/24/25 07:00
Immature Gran % 0.7 % (0-0.5) H 03/24/25 07:00
Neutrophils % 77.8 % (42.2-75.2) H 03/24/25 07:00
Lymphocytes % 11.2 % (20.5-51.1) L 03/24/25 07:00
Monocytes % 7.9 % (1.7-9.3) 03/24/25 07:00
Eosinophils % 2.0 % (0-6) 03/24/25 07:00
Basophils % 0.4 % (0-2) 03/24/25 07:00
ESR 132 mm/hour (0-20) H 03/24/25 07:00
Lactic Acid Cancelled 03/24/25 05:45
Microbiology Results
Micro:
03/24/25 05:10 MRSA Screen - Pending
Nose
03/24/25 02:00 Blood Culture - Pending
Blood/Venous
03/24/25 02:00 Blood Culture - Pending
Blood/Venous
03/24/25 L Foot XRAY: Soft tissue gas adjacent to the fifth metatarsal base at the site of the reported soft tissue ulcer. No osseous destructive changes to confirm acute osteomyelitis by radiograph. The patient is currently scheduled for an MRI of
the left foot, which will be more sensitive for osteomyelitis.
Assessment / Plan
# Acute cellulitis of LLE
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
# Leukocytosis
# DM with neuropathy
# CKD3
- Await MRI
-Follow blood cx's
-PAD work-up
- DC Vanco, ceftriaxone, metronidazole
- Start Zosyn
- Elevate leg
# Conditions present on admission:
Diabetes mellitus
Neuropathy
HTN
HLD
HFpEF
Afib
gout
BPH
CKD3
Benign brain tumor resection
L TKR
--- NOTE | 2025-03-24 10:02 | CM ---
Addendum entered by Colleen Macedo 03/24/25 13:33:
Current with [facility], referral in [facility].
[facility] ([facility])

6
Original Note:
IA complete. Independent with ADls and IADLs. LIve with his in an apartment at [facility] community, in independent living. NO hx of SNF, home O2. No insecurities identified. Confirmed PCP, Rx and insurance.
Previous [facility]. Is current with [facility] for wound care.
Does not have a drug plan. States that money from his rent is used for medication expenses;
Offer pt VN for CHF assessment and education. Pt declined stating a nurse from the [facility] checks on him daily
PCP: Nima Chase
Rx: Ozzie Zapata
Possible osteomyelitis of left foot. MRI pending. Continues on IV ABX
Plan: home with resumption of wound care with [facility].
[2025-03-24 10:06] LABS: Glycohemoglobin (HgbA1c) 10.0 % (4.0-5.9)
[2025-03-24 13:38] LABS: Glucose - Point of Care 455 mg/dl (70-99)
[2025-03-24] MEDS: ZOSYN 50 IV ×3 (13:46→23:53)
[2025-03-24 14:22] LABS: Glucose 394 mg/dl (70-99)
[2025-03-24] MEDS: NOVOLOG FLEXPEN-LOW RESISTANCE 5 UNITS SC (14:24)
[2025-03-24 16:47] LABS: Glucose - Point of Care 377 mg/dl (70-99)
[2025-03-24] MEDS: NOVOLOG FLEXPEN-MODERATE RESISTANCE 7 UNITS SC (17:27)
[2025-03-24] MEDS: LANTUS 0.1 UNITS SC (21:18)
[2025-03-24] MEDS: MELATONIN 3 MG PO (21:18)
[2025-03-24] MEDS: LIPITOR 80 MG PO (21:18)
[2025-03-24 21:20] LABS: Glucose - Point of Care 326 mg/dl (70-99)
[2025-03-24] MEDS: TYLENOL 650 MG PO (21:35)
--- NOTE | 2025-03-24 23:45 | PTCARENOTE ---
Pt with manual BP of 70/40. Pt asymptomatic. RASHIDA Butler notified. One time dose of midodrine and STAT CBC ordered. Refer to MAR. Plan of care ongoing.
[2025-03-25] VITALS (7 sets, daily range): BP systolic 96–112; BP diastolic 44–62; PULSE 78–79; O2SAT 94; BMI 34.7
--- NOTE | 2025-03-25 00:24 | W.PN.UPDATE ---
Update Note
Progress Note Update
RN reports BP 81/49 GR 77 Manual BP 76/50
asymptomatic,
Hgb stable
Will order Midodrine 5mg POx1
BP 98/50 HR 81
[2025-03-25 00:56] LABS: Platelet Count 220 10^3/uL (130-400)
[2025-03-25 00:57] LABS: Hematocrit 33.5 % (39.0-52.0); Hemoglobin 11.0 g/dL (13.0-18.0); Mean Corp Hgb Conc. 32.8 g/dL (33.0-37.0); Mean Corpuscular Volume 93.6 fL (80.0-94.0); Red Cell Dist. Width 15.3 % (11.5-14.5)
--- NOTE | 2025-03-25 02:00 | PTCARENOTE ---
Pt with repeat BPs of 96/54 and 98/44 after administration of midodrine. RASHIDA Butler updated. Plan of care ongoing.
[2025-03-25] MEDS: ZOSYN 50 IV ×4 (05:20→23:46)
[2025-03-25 06:41] LABS: Hematocrit 32.0 % (39.0-52.0); Hemoglobin 11.2 g/dL (13.0-18.0); Mean Corp Hgb Conc. 35.0 g/dL (33.0-37.0); Mean Corpuscular Volume 90.7 fL (80.0-94.0); Platelet Count 205 10^3/uL (130-400); Red Cell Dist. Width 15.1 % (11.5-14.5)
[2025-03-25 07:10] LABS: ALT (SGPT) 14 U/L (0-50); AST (SGOT) 18 U/L (17-59); Albumin 3.8 g/dl (3.5-5.0); Alkaline Phosphatase 73 U/L (38-126); Blood Urea Nitrogen 77 mg/dl (9-20); Calcium 10.1 mg/dl (8.4-10.2); Carbon Dioxide 30 mmol/L (22-30); Chloride 89 mmol/L (98-107); Estimated Creatinine Clearance 29 ml/min; Glucose 316 mg/dl (70-99); Potassium 3.6 mmol/L (3.5-5.1); Sodium 129 mmol/L (135-145); Total Protein 7.1 g/dl (6.3-8.2); eGFR 25.63
--- NOTE | 2025-03-25 07:32 | W.PN.HOSP.TC ---
Today's Communication/Plan
-
Monitor CBC, CMP
Wound culture results are pending
Held Lasix, metolazone due to hypotension.
N.p.o. from dinner.
Assessment / Plan
Assessment / Plan
84-year-old male with known history of noninsulin dependent diabetes, CHF with preserved ejection fraction, A-fib on Eliquis 2.5 mg twice daily, gout, BPH presented with left lower extremity cellulitis.
# Diabetic foot polymicrobial infection-recurrent cellulitis:
ESR 132 high, leukocytosis WBC= 14.6(h)-->14.2(h)
blood culture results are negative
wound culture results are pending.
MRI foot results 03/24/25:
1. LARGE 3.3 cm SOFT TISSUE WOUND plantar to the 5th metatarsal base containing soft tissue emphysema.
2. ACUTE CELLULITIS throughout the lateral and dorsal forefoot.
3. No MRI evidence for acute osteomyelitis.
4. Severe acute on chronic muscle denervation throughout the foot.
5. Severe longitudinal split tear of the peroneus brevis tendon with surrounding stenosing tenosynovitis.
MRSA screening negative.
ID consulted : ceftriaxone, Flagyl discontinued and started on Zosyn day 2.
Wound dressing for today.
Leg elevation recommended.
Peripheral arterial study: JAZZMINE= normal limits.
Wound is covered with dry sterile gauze-Podiatry consulted.
N.p.o. from dinner due to ulcer debridement from drill press hand for tomorrow.
#CHF -euvolemic appearing, no shortness of breath, no chest pain
- Held Lasix 80 mg twice daily, metolazone 2.5 mg due to hypotension.
- daily weight
- Monitor ins and out
Diabetes
- Continue glipizide,
- Sliding scale insulin, added 5 units of insulin while given the blood glucose level for today.
- His blood glucose level today is 316.
Atrial fibrillation
- Continue Eliquis for now
- Continue metoprolol 25 mg daily with hold parameters
CKD stage III -stable creatinine
- Avoid nephrotoxins
-Renal dose medications
DVT prophylaxis�on apixaban
CODE STATUS�full code
Disposition: SNF
Anticipated Discharge: 24 - 48 hours
Subjective/Interval History
-
Date of Service: March 25, 2025
Overnight the patient had left leg pain, swelling. He feels comparing with yesterday its getting worse.
He has no concern for fever, chills, chest pain, palpitation, dyspnea, dysuria.
Overnight his blood pressure dropped to 80/49 and administered midodrine 5 mg stat.
Objective Data
-
Labs:
Laboratory Results
03/25/25 03/25/25
00:34 06:27
WBC 14.6 H 14.3 H
Hgb 11.0 L 11.2 L
Hct 33.5 L 32.0 L
Plt Count 220 D 205
Sodium 129 L
Potassium 3.6
Chloride 89 L
Carbon Dioxide 30
BUN 77 H
Creatinine 2.4 H
Glucose 316 H
Calcium 10.1
Total Bilirubin 1.2
AST 18
ALT 14
Alkaline Phosphatase 73
Vital Signs:
Vital Signs
Temp Pulse Resp BP Pulse Ox
98.7 F 81 16 98/50 95
03/24/25 23:00 03/25/25 03:10 03/24/25 23:00 03/25/25 03:10 03/24/25 23:00
I&O
03/24/25 03/25/25 03/26/25
06:59 06:59 06:59
Intake Total 1920 / 1920
Output Total 1500 / 1500
Balance 420 / 420
Review of Systems
-
History Source: Patient
All other systems: Reviewed and negative
Physical Exam
-
General: Well Developed and No Apparent Distress
Respiratory: Clear to Auscultation
Cardiac: Regular Rhythm and S1/S2
Genito-urinary: No Costovertebral Tender
Musculoskeletal: No Clubbing
Skin: Other (left side foot dressing +; rashes spreading more comparing with yesterday. tenderness present. )
Neuro: AO x 3
Hematologic / Lymphatic: No Lymphadenopathy
[2025-03-25 07:50] LABS: Glucose - Point of Care 331 mg/dl (70-99)
--- NOTE | 2025-03-25 08:54 | W.PN.POD ---
Today's Communication
Today's Communication
Left foot wound with cellulitis
Assessment / Plan
-
Infected Left foot Eschar with cellulitis
Type 2 Diabetes Mellitus with neuropathy
MRI and vascular studies reviewed and discussed
Wound is sharply excisionally debrided to the level of subcutaneous tissue with a 15 blade and the wound was flushed and packed with iodoform packing
Surgical debridement in OR [id number], surgical consent is reviewed and discussed.
Zosyn per ID
Subjective
Chief Complaint
Left foot wound with cellulitis
Subjective
Patient was seen at bedside. Sitting up and conversational. No complaints of pain.
Objective
Temp Pulse Resp BP Pulse Ox
97.8 F 58 16 108/62 96
03/25/25 07:41 03/25/25 07:41 03/25/25 07:41 03/25/25 07:41 03/25/25 07:41
03/25/25 06:27
03/25/25 06:27
Vital Signs and Lab results were reviewed.
Physical Exam
Physical Exam
Left LE with generalized edema, weakly palpable pulses, CFT WNL, loss of pedal hair, atrophic changes to digits. There is a 2 cm soft eschar at the base fo the 5th metatarsal. Small amount of liquefactive fluid expressed with compression of the
site. It does not probe directly to bone, but the tissue in eschar is soft and necrotic appearing There is erythema extending from the 5th metatarsal base eschar to dorsal foot and level of ankle. Foot is warm to touch
X-ray suggestive of deep soft tissue changes lateral to the wound and is concerning for osteomyelitis.
MRI IMPRESSION:
1. LARGE 3.3 cm SOFT TISSUE WOUND plantar to the 5th metatarsal base containing soft tissue emphysema.
2. ACUTE CELLULITIS throughout the lateral and dorsal forefoot.
3. No MRI evidence for acute osteomyelitis.
4. Severe acute on chronic muscle denervation throughout the foot.
5. Severe longitudinal split tear of the peroneus brevis tendon with surrounding stenosing tenosynovitis.
[2025-03-25] MEDS: DIOVAN PO (08:58)
[2025-03-25] MEDS: NEURONTIN 300 MG PO ×2 (08:59→20:48)
[2025-03-25] MEDS: ZYLOPRIM 100 MG PO (08:59)
[2025-03-25] MEDS: ALDACTONE 12.5 MG PO (08:59)
[2025-03-25] MEDS: FLOMAX 0.4 MG PO (08:59)
[2025-03-25] MEDS: ELIQUIS 2.5 MG PO ×2 (09:00→20:47)
[2025-03-25] MEDS: TOPROL XL PO (09:00)
[2025-03-25] MEDS: LASIX PO (09:02)
[2025-03-25] MEDS: NOVOLOG FLEXPEN-MODERATE RESISTANCE 7 UNITS SC ×2 (09:02→13:41)
--- NOTE | 2025-03-25 09:31 | CM ---
Addendum entered by Leesa Card 03/25/25 11:54:
updated Codi ACOSTA [phone] at [facility]
Addendum entered by Leesa Card 03/25/25 09:37:
PT/OT to eval
Original Note:
Patient seen at bedside
cont on IV antibiotic
current with [facility]
referral in [facility]
PLAN: home with resumption of wound care with [facility] when stable, CM to continue to follow
--- NOTE | 2025-03-25 10:07 | PN.DE.MGMTRT ---
Insulin Management
- -
03/25/2025: Diabetes Management Consult
84 year old male with PMH: A-Fib on DOAC, CHF (HFpEF), HTN, Hypercholesterolemia, CKD 3, Gout, BPH, Bening brain tumor, T2DM and chronic nonhealing left foot wound who presented to the ED 03/23 with acute LLE swelling and redness. He reports he has
a left lateral plantar foot wound for approximately 6 weeks manage by his hedis analyst and home wound nurse. He was told wound was getting better. However yesterday when nurse came by, she noted foot and leg were significantly swollen with erythema
from the wound up to below the knee, so he was sent to the ER. Patient reports that the leg looks a little bit better today. He is to have MRI of the foot. Currently on antibiotics.
Patient is awake, alert, oriented, sitting up in bed, offers no complaints, able to discuss diabetes care plan.
States he was very worried about Osteo ho his foot but the MRI came back negative and that the arterial study showed normal blood flow.
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 Current A1C 10%, worsened, was 8.8% in 02/2025. Cr 2.5, eGFR 25.63 today (baseline Cr 1.6) He has not been testing his blood sugars because his primary doctor at the facility said he
didn't have to check it.
Patient is noted for Hyperglycemia since admission. 03/24 glucose range was 257 to 455, was on corrective insulin with meals, received 5-7 units.
HS glucose was 326, received Lantus 10 units, fasting 316 V, 331 POC, received 7 units corrective insulin.
Dr. Barba has increased Lantus to 15 units @ HS and started AC NovoLog 5 units. current glucose is 421
Discussed with patient his current A1C and glucose trend, explained importance of optimal glucose control given chronic nonhealing wound.
Discussed insulin as best course of management given GAYATHRI with Cr of 2.3 in setting of CKD3 and patient was agreeable to insulin therapy.
Will increase AC NovoLog to 8 units, 1st dose NOW and change Lantus schedule to AM, starting today. Give 15 units Lantus now and daily.
Will cont moderate corrective with meals. Closely monitor glucose trend and adjust insulin dose if necessary
Discussed with Nurse. Cont to follow.
Will ask Diabetes Nurse Educator to see pt for glucose monitor and insulin instructions.
Diabetes History
- -
Type of Diabetes: 2 requiring insulin
Pre-Admission Diabetes Regimen
03/25/25
06:27
Creatinine 2.4 H
Lab Results
Hemoglobin A1c 10.0 % (4.0-5.9) H 03/24/25 07:00
Insulin Pump Settings
IP Diabetes Regimen
03/24/25 03/24/25 03/24/25
13:36 13:50 16:45
Glucose 394 H
POC Glucose 455 H* 377 H
03/24/25 03/25/25 03/25/25
21:18 06:27 07:48
Glucose 316 H
POC Glucose 326 H 331 H
Meal type: Lunch
Meal type: Breakfast
Amount consumed: 100%
Amount consumed: 100%
Patient Education
[2025-03-25 11:00] LABS: Glucose - Point of Care 412 mg/dl (70-99)
[2025-03-25 11:43] LABS: Glucose 383 mg/dl (70-99)
[2025-03-25] MEDS: LANTUS 0.15 UNITS SC (11:45)
[2025-03-25] MEDS: NOVOLOG FLEXPEN 8 UNITS SC ×3 (11:48→18:13)
[2025-03-25 13:36] LABS: Glucose - Point of Care 314 mg/dl (70-99)
--- NOTE | 2025-03-25 13:50 | W.PN.ID1 ---
Date of Service
Date of Service: March 25, 2025
Today's Communication
Continue Zosyn
Assessment / Plan
# Acute cellulitis of LLE, improving
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 No osteo on MRI.
# Leukocytosis - stable
# DM with neuropathy
# CKD3
- MRI - large wound with subcutaneous emphysema. No osteo
- Arterial duplex: no significant stenosis
- blood cx's neg to date
- For OR debridement, per podiatry
- Continue Zosyn (d3)
- Follow wbc
# Conditions present on admission:
Diabetes mellitus
Neuropathy
HTN
HLD
HFpEF
Afib
gout
BPH
CKD3
Benign brain tumor resection
L TKR
Chief Complaint
-: Cellulitis
Subjective / Review of Systems
No complaints.
Vital Signs / Physical Exam
Vital Signs
Vital Signs
Temp Pulse Resp BP Pulse Ox
97.8 F 58 16 108/62 96
03/25/25 07:41 03/25/25 09:00 03/25/25 07:41 03/25/25 09:00 03/25/25 09:30
Physical Exam
Constitutional: No Acute Distress
Pulmonary: Clear
Gastrointestinal: Soft, Non Tender, Non Distended and Normal Bowel Sounds
Extremities: Edema (LLE), Erythema (foot to below knee erytehma/warmth decreasing) and Venous Insufficiency
Wound: Other (Left plantar 5th metarsal wound stable)
Neurological: AO x 3
Objective Data
Lab Data
Lab Results
03/25/25 06:27
03/25/25 11:05
ESR 132 mm/hour (0-20) H 03/24/25 07:00
Estimated Creat Clear 29 ml/min 03/25/25 06:27
Lactic Acid Cancelled 03/24/25 05:45
Total Bilirubin 1.2 mg/dl (0.2-1.3) 03/25/25 06:27
AST 18 U/L (17-59) 03/25/25 06:27
ALT 14 U/L (0-50) 03/25/25 06:27
Alkaline Phosphatase 73 U/L (38-126) 03/25/25 06:27
Most recent labs reviewed.
Micro Results:
03/24/25 05:10 MRSA Screen - Final
Nose No Methicillin Resistant Staphylococcus aureus isolated.
03/24/25 02:00 Blood Culture - Preliminary
Blood/Venous No Growth in 24 hours- Final report to follow
03/24/25 02:00 Blood Culture - Preliminary
Blood/Venous No Growth in 24 hours- Final report to follow
03/24/25 MRI LLE:
1. LARGE 3.3 cm SOFT TISSUE WOUND plantar to the 5th metatarsal base containing soft tissue emphysema.
2. ACUTE CELLULITIS throughout the lateral and dorsal forefoot.
3. No MRI evidence for acute osteomyelitis.
4. Severe acute on chronic muscle denervation throughout the foot.
5. Severe longitudinal split tear of the peroneus brevis tendon with surrounding stenosing tenosynovitis.
03/24/25 L Foot XRAY: Soft tissue gas adjacent to the fifth metatarsal base at the site of the reported soft tissue ulcer. No osseous destructive changes to confirm acute osteomyelitis by radiograph. The patient is currently scheduled for an MRI of
the left foot, which will be more sensitive for osteomyelitis.
Care Review
Plan reviewed with: Physician (Dr. Elder)
--- NOTE | 2025-03-25 16:41 | PTCARENOTE ---
Addendum entered by Victoria Parker RN 03/25/25 17:05:
Addendum: Patient also concerned about TID injections of mealtime insulin. Will discuss with BUSINESS DEVELOPMENT AGENT for discharge planning back to his home at [facility].
Original Note:
03/25/2025 DIABETES EDUCATION CONSULTATION
I met with patient to review diabetes management. He is inpatient with a LLE infection, surgery planned for tomorrow.
I educated on physiology of T2D, organ damage, managing with medications, monitoring BG. reinforced signs of hyperglycemia, hypoglycemia and hypoglycemia protocol; BS parameters and recommended HbA1c goals, glucometer and CGM instructions, glucose
tracker, medic alert bracelet and outpatient DSME program. Written material provided.
I provided patient with a [employer] glucometer sample kit. Provided verbal instructions on proper blood sugar testing technique, and demonstration. Mr. Solitario has neuropathy in hands, with difficulty was able to take cap off lancing
pedro. Was not able to insert lancet into lancing device or insert test strip into glucometer.
I educated and demonstrated on insulin injection technique, timing, and storage. Discussed long and short acting insulin; onset/peak/duration Discussed normal target glucose ranges and a monitoring schedule 15 minutes before each meal when
prescribed Novolog, and before bedtime. He completed a repeat demonstration of insulin injection but had great difficulty placing and removing the insulin pen needle.
We discussed his living arrangement. He lives in an assisted living facility with his who has Parkinson's Disease. He has RN's who visit daily to administer medications and perform wound care. He does not independently administer any
medications.
He has a PCP at his LTC facility, does not feel he received adequate care which led to his foot wound worsening.
Encouraged patient to follow up with PCP for post d/c appointment and to monitor medication and blood glucose levels. Provided list of endocrinologists if desired, to contact insurance company to verify in network status. Will discuss LT
living situation with BUSINESS DEVELOPMENT AGENT. Patient verbalized understanding.
[2025-03-25 17:53] LABS: Glucose - Point of Care 155 mg/dl (70-99)
[2025-03-25] MEDS: NOVOLOG FLEXPEN-MODERATE RESISTANCE 1 UNITS SC (18:06)
[2025-03-25 21:49] LABS: Glucose - Point of Care 205 mg/dl (70-99)
[2025-03-25] MEDS: LIPITOR 80 MG PO (22:45)
[2025-03-25] MEDS: MELATONIN 3 MG PO (22:45)
[2025-03-26] VITALS (15 sets, daily range): BP systolic 74–109; BP diastolic 41–59; BMI 35.6
[2025-03-26 00:42] LABS: Glucose - Point of Care 191 mg/dl (70-99)
[2025-03-26 06:17] LABS: Glucose - Point of Care 229 mg/dl (70-99)
[2025-03-26] MEDS: NOVOLOG FLEXPEN-MODERATE RESISTANCE 3 UNITS SC (06:24)
[2025-03-26] MEDS: ZOSYN 50 IV ×3 (06:27→19:53)
[2025-03-26 06:42] LABS: Hematocrit 34.7 % (39.0-52.0); Hemoglobin 11.3 g/dL (13.0-18.0); Mean Corp Hgb Conc. 32.6 g/dL (33.0-37.0); Mean Corpuscular Volume 93.8 fL (80.0-94.0); Platelet Count 207 10^3/uL (130-400); Red Cell Dist. Width 15.2 % (11.5-14.5)
--- NOTE | 2025-03-26 06:46 | W.PN.HOSP.TC ---
Today's Communication/Plan
-
nephrology consulted for elevated creatinine.
cmp, cbc
insulin on hold.
Assessment / Plan
Assessment / Plan
84-year-old male with known history of noninsulin dependent diabetes, CHF with preserved ejection fraction, A-fib on Eliquis 2.5 mg twice daily, gout, BPH presented with left lower extremity cellulitis.
Vitals BP overnight 70/40---108/62, CA 82, respiratory 17, O2 sat 92
Patient currently n.p.o. today morning has BG 227 high.
hold insulin because he is in NPO due to his todays late evening procedure.
MRSA negative
Blood culture prelim negative
# Diabetic foot polymicrobial infection-recurrent cellulitis:
ESR 132 high, leukocytosis WBC= 14.6(h)-->14.2-- 14.3---14 (today), hemoglobin 11.2---11.3,
blood culture results are negative
wound culture results are pending.
MRI foot results 03/24/25:
1. LARGE 3.3 cm SOFT TISSUE WOUND plantar to the 5th metatarsal base containing soft tissue emphysema.
2. ACUTE CELLULITIS throughout the lateral and dorsal forefoot.
3. No MRI evidence for acute osteomyelitis.
4. Severe acute on chronic muscle denervation throughout the foot.
5. Severe longitudinal split tear of the peroneus brevis tendon with surrounding stenosing tenosynovitis.
MRSA screening negative.
ID consulted : ceftriaxone, Flagyl discontinued and started on Zosyn day 2.
Wound dressing for today.
Leg elevation recommended.
Peripheral arterial study: JAZZMINE= normal limits.
Wound is covered with dry sterile gauze-Podiatry consulted.
N.p.o. from dinner due to ulcer debridement from space engineer today.
Sodium 128 low,
potassium 3.4 low 40 mill equal potassium chloride per oral replenished,
bun 80 high, creatinine 2.42----> 3 today, funding coordinator consulted.
#CHF -euvolemic appearing, no shortness of breath, no chest pain
- Restarted Lasix 80 mg twice daily, metolazone 2.5 mg due to hypotension.
- daily weight
- Monitor ins and out
Diabetes
- hold glipizide,
- Sliding scale insulin on hold for the procedure.
- His blood glucose level today is 316-->227-->262 (h) and he is in NPO.
-plan to recheck blood glucose around 12 PM, if still its high, start with low dose of insulin.
Atrial fibrillation
- Continue Eliquis for now
- Continue metoprolol 25 mg daily with hold parameters
CKD stage III -stable creatinine
- Avoid nephrotoxins
-Renal dose medications
DVT prophylaxis�on apixaban
CODE STATUS�full code
Disposition: SNF
Anticipated Discharge: 24 - 48 hours
Subjective/Interval History
-
Date of Service: March 26, 2025
Overnight he has no concern for cough, chills, dyspnea, fever, palpitation, abdominal pain, leg pain, swelling.
He is on n.p.o. from midnight for debridement procedure cultures on today evening around 5 PM.
Objective Data
-
Labs:
Laboratory Results
03/26/25
06:06
WBC 14.0 H
Hgb 11.3 L
Hct 34.7 L
Plt Count 207
Sodium Pending
Potassium Pending
Chloride Pending
Carbon Dioxide Pending
BUN Pending
Creatinine Pending
Glucose Pending
Calcium Pending
Total Bilirubin Pending
AST Pending
ALT Pending
Alkaline Phosphatase Pending
Vital Signs:
Vital Signs
Temp Pulse Resp BP Pulse Ox
98.5 F 77 16 101/57 94
03/25/25 23:00 03/25/25 23:00 03/25/25 23:00 03/25/25 23:00 03/25/25 23:00
I&O
03/24/25 03/25/25 03/26/25
06:59 06:59 06:59
Intake Total 1920 / 1920 660 / 660
Output Total 1500 / 1500 800 / 800
Balance 420 / 420 -140 / -140
Review of Systems
-
History Source: Patient
All other systems: Reviewed and negative
Physical Exam
-
General: Well Developed, Well Nourished and No Apparent Distress
Respiratory: Clear to Auscultation
Cardiac: Regular Rhythm and S1/S2
GI: Soft and Nontender
Genito-urinary: No Costovertebral Tender
Neuro: AO x 3
Hematologic / Lymphatic: No Lymphadenopathy
Psych: Calm
[2025-03-26 07:09] LABS: ALT (SGPT) 14 U/L (0-50); AST (SGOT) 18 U/L (17-59); Albumin 3.8 g/dl (3.5-5.0); Alkaline Phosphatase 81 U/L (38-126); Blood Urea Nitrogen 80 mg/dl (9-20); Calcium 10.1 mg/dl (8.4-10.2); Carbon Dioxide 29 mmol/L (22-30); Chloride 89 mmol/L (98-107); Estimated Creatinine Clearance 24 ml/min; Glucose 213 mg/dl (70-99); Potassium 3.4 mmol/L (3.5-5.1); Sodium 128 mmol/L (135-145); Total Protein 7.3 g/dl (6.3-8.2); eGFR 19.61
--- NOTE | 2025-03-26 07:52 | PN.DE.MGMTRT ---
Insulin Management
- -
03/26/2025: Diabetes Management Consult Follow up
84 year old male admitted with acute LLE swelling and redness. PMH: A-Fib on DOAC, CHF (HFpEF), HTN, Hypercholesterolemia, CKD 3, Gout, BPH, Benign brain tumor, T2DM and chronic nonhealing left foot wound. He reports he has a left lateral plantar
foot wound for approximately 6 weeks manage by his insurance verification specialist and home wound nurse. He was told wound was getting better. However 03/23 when nurse came by, she noted foot and leg were significantly swollen with erythema from the wound up to below
the knee, so he was sent to the ER. Patient reports that the leg looks a little bit better today. He is to have MRI of the foot. Currently on antibiotics. Prior to admission was taking Glipizide 10mg daily & Januvia 100mg daily. Current A1C 10%,
worsened, was 8.8% in 02/2025. Cr 3, eGFR 19.61 today (baseline Cr 1.6)
Patient is awake, alert, oriented, sitting out of bed, offers no complaints, able to discuss diabetes care plan.
Patient has had diabetes 20+ years. He resides at an Assisted Living Facility where his medications are administered to him by staff. Discussed insulin as best course of management given GAYATHRI with Cr of 2.3 in setting of CKD3 and patient was
agreeable to insulin therapy.
Patient is noted for Hyperglycemia since admission. 03/25 glucose range was 155 to 412, was on corrective insulin with meals, received 5-7 units.
03/26 Patient is NPO today. Yesterday patient received 15 units lantus in AM and 8 units novolog AC. Glucose range 155 to 412.
S/P OR when diet resumed will increase AC NovoLog to 10 units, cont moderate corrective with meals. Will increase AM lantus to 18 units first dose tomorrow 03/27.
Discussed with Nurse. Cont to follow.
Patient is currently residing in Assisted Living Facility, where glucose monitoring and medication administration is done for patient.
Diabetes History
- -
Type of Diabetes: 2 requiring insulin
Pre-Admission Diabetes Regimen
03/26/25
06:06
Creatinine 3.0 H
Lab Results
Hemoglobin A1c 10.0 % (4.0-5.9) H 03/24/25 07:00
Insulin Pump Settings
IP Diabetes Regimen
03/25/25 03/25/25 03/25/25
10:53 11:05 13:34
Glucose 383 H
POC Glucose 412 H 314 H
03/25/25 03/25/25 03/26/25
17:52 21:48 00:42
Glucose
POC Glucose 155 H 205 H 191 H
03/26/25 03/26/25
06:06 06:16
Glucose 213 H
POC Glucose 229 H
Meal type: Lunch
Meal type: Breakfast
Amount consumed: 100%
Amount consumed: 100%
Patient Education
[2025-03-26 08:31] LABS: Glucose - Point of Care 227 mg/dl (70-99)
--- NOTE | 2025-03-26 08:53 | W.PN.ID1 ---
Date of Service
Date of Service: March 26, 2025
Today's Communication
Continue Zosyn.
Await OR cx's.
Assessment / Plan
# Acute cellulitis of LLE, improving
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 No osteo on MRI.
# Leukocytosis - stable
# DM with neuropathy
# CKD3
- MRI - large wound with subcutaneous emphysema. No osteo
- Arterial duplex: no significant stenosis
- blood cx's neg to date
- For OR debridement and cx's today, per podiatry
- Continue Zosyn (d4)
- Follow wbc
# Conditions present on admission:
Diabetes mellitus
Neuropathy
HTN
HLD
HFpEF
Afib
gout
BPH
CKD3
Benign brain tumor resection
L TKR
Chief Complaint
-: Cellulitis
Subjective / Review of Systems
Leg better.
Vital Signs / Physical Exam
Vital Signs
Vital Signs
Temp Pulse Resp BP Pulse Ox
98.5 F 82 17 105/50 92
03/26/25 08:21 03/26/25 08:21 03/26/25 08:21 03/26/25 08:21 03/26/25 08:21
Physical Exam
Constitutional: No Acute Distress
Pulmonary: Clear
Gastrointestinal: Soft, Non Tender, Non Distended and Normal Bowel Sounds
Extremities: Edema (LLE decreasing), Erythema (foot to below knee erytehma/warmth continues to decrease) and Venous Insufficiency
Wound: Other (Left foot dressing dry)
Neurological: AO x 3
Objective Data
Lab Data
Lab Results
03/26/25 06:06
03/26/25 06:06
ESR 132 mm/hour (0-20) H 03/24/25 07:00
Estimated Creat Clear 24 ml/min 03/26/25 06:06
Lactic Acid Cancelled 03/24/25 05:45
Total Bilirubin 1.2 mg/dl (0.2-1.3) 03/26/25 06:06
AST 18 U/L (17-59) 03/26/25 06:06
ALT 14 U/L (0-50) 03/26/25 06:06
Alkaline Phosphatase 81 U/L (38-126) 03/26/25 06:06
Most recent labs reviewed.
Micro Results:
03/24/25 02:00 Blood Culture - Preliminary
Blood/Venous No Growth in 48 hours- Final report to follow
03/24/25 02:00 Blood Culture - Preliminary
Blood/Venous No Growth in 48 hours- Final report to follow
03/24/25 05:10 MRSA Screen - Final
Nose No Methicillin Resistant Staphylococcus aureus isolated.
03/24/25 MRI LLE:
1. LARGE 3.3 cm SOFT TISSUE WOUND plantar to the 5th metatarsal base containing soft tissue emphysema.
2. ACUTE CELLULITIS throughout the lateral and dorsal forefoot.
3. No MRI evidence for acute osteomyelitis.
4. Severe acute on chronic muscle denervation throughout the foot.
5. Severe longitudinal split tear of the peroneus brevis tendon with surrounding stenosing tenosynovitis.
03/24/25 L Foot XRAY: Soft tissue gas adjacent to the fifth metatarsal base at the site of the reported soft tissue ulcer. No osseous destructive changes to confirm acute osteomyelitis by radiograph. The patient is currently scheduled for an MRI of
the left foot, which will be more sensitive for osteomyelitis.
Care Review
Plan reviewed with: Physician (Hospitalist team)
--- NOTE | 2025-03-26 09:36 | CM ---
patient seen at bedside
cont IV antibiotic
For OR debridement and cx's
MRI foot results 03/24-
1. LARGE 3.3 cm SOFT TISSUE WOUND plantar to the 5th metatarsal base containing soft tissue emphysema.
2. ACUTE CELLULITIS throughout the lateral and dorsal forefoot.
3. No MRI evidence for acute osteomyelitis
current with [facility] -referral in [facility] for [facility]
PLAN: anticipate home with [facility] to continue to follow for needs
[2025-03-26] MEDS: ALDACTONE 12.5 MG PO (09:38)
[2025-03-26] MEDS: FLOMAX 0.4 MG PO (09:43)
[2025-03-26] MEDS: DIOVAN PO (09:43)
[2025-03-26] MEDS: ELIQUIS 2.5 MG PO ×2 (09:43→19:54)
[2025-03-26] MEDS: TOPROL XL 25 MG PO (09:44)
[2025-03-26] MEDS: ZYLOPRIM 100 MG PO (09:44)
[2025-03-26] MEDS: NEURONTIN 300 MG PO ×2 (09:44→19:54)
[2025-03-26] MEDS: KCL 40 MEQ PO ×2 (09:45→20:46)
[2025-03-26] MEDS: NOVOLOG FLEXPEN SC ×3 (09:51→20:38)
[2025-03-26] MEDS: LANTUS SC (09:59)
[2025-03-26] MEDS: LANTUS 0.15 UNITS SC (12:15)
[2025-03-26 12:24] LABS: Glucose - Point of Care 262 mg/dl (70-99)
--- NOTE | 2025-03-26 13:00 | W.CON.NEPH ---
Consultation
-
Date/Time Consultation Requested: March 26, 2025 at 7 AM
Date/Time Consultation Performed: March 26, 2025 at 1 PM
Requesting Provider: Kezia Gonzalez
Performing Provider: Dr. Lemon
Reason for Consultation: Acute on chronic kidney disease
Medical History
-
Chief Complaint: Acute on chronic kidney disease
History of Present Illness:
84-year-old male with known history of noninsulin dependent diabetes, CHF with preserved ejection fraction, A-fib on Eliquis 2.5 mg twice daily, gout, BPH presented with left lower extremity cellulitis. He has a large wound on the plantar surface
of his metatarsal being seen by podiatry and infectious disease on antibiotics. He has a history of CHF and is on Lasix 80 twice a day, metolazone he is on valsartan and spironolactone.
Renal consultation for acute on chronic kidney disease with a creatinine at 3 with a baseline creatinine labile between 1.5 and 1.8. Most recent January 2025 creatinine was 3.2.
Past Medical History
Noninsulin dependent diabetes, CHF with preserved ejection fraction, A-fib on Eliquis 2.5 mg twice daily, gout, BPH
Social History
Tobacco: Non-Smoker
Alcohol: None
Family History
Family History: Not Pertinent
Allergies / Home Medications
Allergy/AdvReac Type Severity Reaction Status Date / Time
No Known Allergies Allergy Verified 03/23/25 22:34
�Medication �Instructions �Recorded �Confirmed �Type
allopurinol 100 mg tablet 100 mg PO DAILY Gout 02/18/14 03/24/25 History
metoprolol succinate 25 mg 25 mg PO DAILY Blood Pressure 01/10/19 03/24/25 History
tablet,extended release 24 hr
apixaban 2.5 mg tablet (Eliquis) 2.5 mg PO BID Blood clot 10/23/23 03/24/25 History
prevention/tx
melatonin 3 mg tablet 3 mg PO HSPRN PRN sleep 10/19/24 03/24/25 History
multivitamin 1 tab PO DAILY Supplement 10/19/24 03/24/25 History
polyethylene glycol 3350 17 gram 17 g PO DAILYPRN PRN constipation 10/19/24 03/24/25 History
oral powder packet (Miralax)
sitagliptin phosphate 100 mg 100 mg PO DAILY Diabetes 10/19/24 03/24/25 History
tablet (Januvia)
tamsulosin 0.4 mg capsule 0.4 mg PO DAILY Urinary Issue 10/19/24 03/24/25 History
valsartan 160 mg tablet 160 mg PO DAILY Blood Pressure 10/19/24 03/24/25 History
acetaminophen 325 mg tablet 650 mg PO Q6HPRN PRN mild pain 11/15/24 03/24/25 History
(Tylenol)
atorvastatin 80 mg tablet 80 mg PO HS High Cholesterol 11/15/24 03/24/25 History
docusate sodium 100 mg capsule 100 mg PO [id number] PRN constipation 11/15/24 03/24/25 History
(Colace)
glipizide 10 mg tablet 10 mg PO DAILY Diabetes 11/15/24 03/24/25 History
loperamide 2 mg tablet 2 mg PO Q4HPRN PRN loose stool 11/15/24 03/24/25 History
potassium chloride 10 mEq 10 meq PO DAILY Electrolyte 11/15/24 03/24/25 History
tablet,extended release(part/cryst) Repletion
furosemide 80 mg tablet 80 mg PO BID@0800,1600 #60 tabs 11/19/24 03/24/25 Rx
spironolactone 25 mg tablet 12.5 mg (1/2 x 25 mg) PO DAILY #30 11/19/24 03/24/25 Rx
tabs
buspirone 5 mg tablet 5 mg PO BID Mental Health/Anxiety 03/24/25 03/24/25 History
gabapentin 300 mg capsule 300 mg PO TID Pain 03/24/25 03/24/25 History
levothyroxine 25 mcg tablet 25 mcg PO DAILY@0600 Thyroid 03/24/25 03/24/25 History
metolazone 2.5 mg tablet 2.5 mg PO Q48H Fluid 03/24/25 03/24/25 History
Retention/Swelling
Review of Systems
-
No chest pain or shortness of breath
All other systems: Negative unless noted
Physical Exam
Vital Signs
Vital Signs
Temp Pulse Resp BP Pulse Ox
98.5 F 82 17 105/50 92
03/26/25 08:21 03/26/25 08:21 03/26/25 08:21 03/26/25 08:21 03/26/25 08:21
Lab Results
WBC 14.0 10^3/uL (4.8-10.8) H 03/26/25 06:06
RBC 3.70 10^6/uL (4.70-6.10) L 03/26/25 06:06
Hgb 11.3 g/dL (13.0-18.0) L 03/26/25 06:06
Hct 34.7 % (39.0-52.0) L 03/26/25 06:06
Plt Count 207 10^3/uL (130-400) 03/26/25 06:06
Sodium 128 mmol/L (135-145) L 03/26/25 06:06
Potassium 3.4 mmol/L (3.5-5.1) L 03/26/25 06:06
Chloride 89 mmol/L (98-107) L 03/26/25 06:06
Carbon Dioxide 29 mmol/L (22-30) 03/26/25 06:06
BUN 80 mg/dl (9-20) H 03/26/25 06:06
Creatinine 3.0 mg/dL (0.7-1.3) H 03/26/25 06:06
eGFR 19.61 03/26/25 06:06
Glucose 213 mg/dl (70-99) H 03/26/25 06:06
Calcium 10.1 mg/dl (8.4-10.2) 03/26/25 06:06
Albumin 3.8 g/dl (3.5-5.0) 03/26/25 06:06
Physical Exam
General no acute distress
HEENT no cephalic atraumatic extraocular muscle intact no scleral icterus no JVD neck supple
lungs clear to auscultation bilateral
heart regular S1-S2 positive
abdomen soft nontender positive bowel sounds
extremities positive edema pulses present bilateral/foot wound
Neurologically nonfocal alert and oriented x 3
Skin no lesions no abrasions no petechiae
Psych normal affect no bizarre behavior
Data Reviewed
-
CT Scan: Image Personally Visualized and interpreted
Labs: Labs Reviewed by me and Discussed with Patient
Assessment/Plan
-
84-year-old male with known history of noninsulin dependent diabetes, CHF with preserved ejection fraction, A-fib on Eliquis 2.5 mg twice daily, gout, BPH presented with left lower extremity cellulitis. He has a large wound on the plantar surface
of his metatarsal being seen by podiatry and infectious disease on antibiotics. He has a history of CHF and is on Lasix 80 twice a day, metolazone he is on valsartan and spironolactone.
Renal consultation for acute on chronic kidney disease with a creatinine at 3 with a baseline creatinine labile between 1.5 and 1.8. Most recent January 2025 creatinine was 3.2.
Impression.
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
Hyponatremia
Foot wound for debridement.
Sepsis.
Diabetes stable.
Plan.
Patient has significant hypotension on significant dose of diuretics Lasix 80 mg as well as a spironolactone and metolazone as well as valsartan. All which I will discontinue as his blood pressure was in the 80s. Systolic this is contributing to
both acute kidney injury and hyponatremia. Patient does not examine volume overloaded.
A.m. labs.
Daily weights.
I will refrain from giving IV fluids for now but urinary stop above medications.
--- NOTE | 2025-03-26 13:29 | W.PN.POD ---
Today's Communication
Today's Communication
Left foot infected wound
Assessment / Plan
-
Infected Left foot Eschar with cellulitis
Type 2 Diabetes Mellitus with neuropathy
Surgical debridement in OR today 03/26, surgical consent is reviewed and discussed. We discussed the risks, benefits and complications of surgery at length.
Zosyn per ID
Will take OR cultures
Subjective
Chief Complaint
Left foot wound
Subjective
Patient sitting up and awake. No complaints of pain
Objective
Temp Pulse Resp BP Pulse Ox
98.5 F 82 17 105/50 92
03/26/25 08:21 03/26/25 08:21 03/26/25 08:21 03/26/25 08:21 03/26/25 08:21
03/26/25 06:06
03/26/25 06:06
Vital Signs and Lab results were reviewed.
Physical Exam
Physical Exam
Left LE with generalized edema, weakly palpable pulses, CFT WNL, loss of pedal hair, atrophic changes to digits. Bandages are intact with no strikethrough. Extremity with less edema and less erythema today.
X-ray IMPRESSION:
Soft tissue gas adjacent to the fifth metatarsal base at the site of the reported soft tissue ulcer.
No osseous destructive changes to confirm acute osteomyelitis by radiograph.
MRI IMPRESSION:
1. LARGE 3.3 cm SOFT TISSUE WOUND plantar to the 5th metatarsal base containing soft tissue emphysema.
2. ACUTE CELLULITIS throughout the lateral and dorsal forefoot.
3. No MRI evidence for acute osteomyelitis.
4. Severe acute on chronic muscle denervation throughout the foot.
5. Severe longitudinal split tear of the peroneus brevis tendon with surrounding stenosing tenosynovitis.
[2025-03-26] MEDS: NOVOLOG FLEXPEN-MODERATE RESISTANCE 5 UNITS SC (13:37)
[2025-03-26 17:10] LABS: Glucose - Point of Care 236 mg/dl (70-99)
[2025-03-26 18:04] LABS: Glucose - Point of Care 223 mg/dl (70-99)
--- NOTE | 2025-03-26 19:30 | PTCARENOTE ---
Received pt from PACU. Called 3W for report and was told 'the RN that had him today already left'.
[2025-03-26] MEDS: LASIX PO (19:48)
[2025-03-26 20:05] LABS: Glucose - Point of Care 215 mg/dl (70-99)
[2025-03-26] MEDS: NOVOLOG FLEXPEN-MODERATE RESISTANCE SC (20:13)
[2025-03-26] MEDS: NOVOLOG FLEXPEN 3 UNITS SC (20:38)
[2025-03-26] MEDS: LIPITOR 80 MG PO (20:46)
[2025-03-26] MEDS: MELATONIN 3 MG PO (22:36)
[2025-03-26] MEDS: NSS 250 IV (22:58)
--- NOTE | 2025-03-26 23:15 | PTCARENOTE ---
Pt's BP persistently soft, 22:30 BP 84/57 with a MAP of 59. Reached out to House Provider. Orders received for 5mg midodrine and a 250mL NS bolus at 125mL/hr. Medications administered, will continue to monitor.
[2025-03-26 23:55] LABS: Glucose - Point of Care 288 mg/dl (70-99)
[2025-03-27] VITALS (7 sets, daily range): BP systolic 89–110; BP diastolic 44–54; PULSE 66–93; O2SAT 97; BMI 36.1
[2025-03-27] MEDS: ZOSYN 50 IV ×5 (00:50→23:53)
[2025-03-27 07:16] LABS: Hematocrit 30.4 % (39.0-52.0); Hemoglobin 10.1 g/dL (13.0-18.0); Mean Corp Hgb Conc. 33.2 g/dL (33.0-37.0); Mean Corpuscular Volume 96.5 fL (80.0-94.0); Nucleated Red Blood Cells % 0 % (-); Platelet Count 201 10^3/uL (130-400); Red Cell Dist. Width 15.4 % (11.5-14.5)
--- NOTE | 2025-03-27 07:20 | W.PN.HOSP.TC ---
Today's Communication/Plan
-
Adjust insulin depending on blood glucose levels.
Echo ordered
Cardiology consultation
CBC, CMP
Patient on incentive spirometry
Assessment / Plan
Assessment / Plan
84-year-old male with known history of noninsulin dependent diabetes, CHF with preserved ejection fraction, A-fib on Eliquis 2.5 mg twice daily, gout, BPH presented with left lower extremity cellulitis.
# LLE cellulitis secondary to diabetic foot polymicrobial infection s/p debridement day 1:
WBC 14.0--10.8 downtrending, hemoglobin 11.3---10.1, blood glucose 288 high
Sodium 130 potassium 4.1 BUN 85H creatinine 3.0--3.5
Wound culture reports are pending
Blood culture final report arrived with no growth in 72 hours.
MRI foot results 03/24/25:
1. LARGE 3.3 cm SOFT TISSUE WOUND plantar to the 5th metatarsal base containing soft tissue emphysema.
2. ACUTE CELLULITIS throughout the lateral and dorsal forefoot.
3. No MRI evidence for acute osteomyelitis.
4. Severe acute on chronic muscle denervation throughout the foot.
5. Severe longitudinal split tear of the peroneus brevis tendon with surrounding stenosing tenosynovitis.
MRSA screening negative.
ID consulted : ceftriaxone, Flagyl discontinued and started on Zosyn day 2.
Wound dressing for today.
Leg elevation recommended.
Peripheral arterial study: JAZZMINE= normal limits.
Surgical debridement in OR 03/26 for the infected left foot eschar with cellulitis.
Antibiotic on day 3
Resume normal diet.
#CHF -euvolemic appearing, no shortness of breath, no chest pain:
Vitals BP overnight 75/41---93/44,administered parenteral electrolytes 1 L, midodrine 5 mg p.o. stat, NC 71---64, respiratory 15---20, O2 sat 98 at 2 L nasal cannula.
Currently Lasix 80 IV administered by the finding of bilateral lower lobe crackles.
spirometry
Chest x-ray on 03/27/2025:
1. Mild prominence of the interstitial compartment, suggestive of mild pulmonary vascular congestion.
2. Hazy opacity at the left lung base, associated with haziness of the left hemidiaphragm. Findings may related to left lower lobe subsegmental atelectasis, pneumonia, or alveolar pulmonary edema.
3. Moderate elevation of the right hemidiaphragm. Suspected bibasilar subsegmental atelectasis.
restarted metolazone because of the pulmonary crackles, dyspnea, Chest X ray impression of pulmonary edema,and elevated creatinine, increasing weight, BNP suspecting of congestive heart failure.
To monitor daily weights.
Monitor ins and out
Echo for tomorrow.
Cardiology consulted
Diabetes
- hold glipizide,
-adjust insulin depends on the blood glucose level.
- His blood glucose level today is 316-->227-->262 (h)
Atrial fibrillation
- Continue Eliquis for now
- Continue metoprolol 25 mg daily with hold parameters
CKD stage III -stable creatinine
-Avoid nephrotoxins
-Renal dose medications
DVT prophylaxis�on apixaban
CODE STATUS�full code
Disposition: SNF
Anticipated Discharge: 24 - 48 hours
Subjective/Interval History
-
Date of Service: March 27, 2025
Overnight he felt he wants to spit phlegm when he was coughing.
Currently around 8: 40 AM and I saw the patient he has concern for cough with phlegm, and no concern for shortness of breath, palpitation, chest pain, dizziness, left lower leg swelling, pain.
Objective Data
-
Labs:
Laboratory Results
03/27/25
06:18
WBC 10.8
Hgb 10.1 L
Hct 30.4 L
Plt Count 201
Sodium Pending
Potassium Pending
Chloride Pending
Carbon Dioxide Pending
BUN Pending
Creatinine Pending
Glucose Pending
Calcium Pending
Total Bilirubin Pending
AST Pending
ALT Pending
Alkaline Phosphatase Pending
Vital Signs:
Vital Signs
Temp Pulse Resp BP Pulse Ox
97.8 F 64 20 93/44 98
03/27/25 03:00 03/27/25 03:00 03/27/25 03:00 03/27/25 03:00 03/27/25 03:00
I&O
03/26/25 03/27/25 03/28/25
06:59 06:59 06:59
Intake Total 660 / 660 950 / 950
Output Total 800 / 800 200 / 200
Balance -140 / -140 750 / 750
Review of Systems
-
History Source: Patient
All other systems: Reviewed and negative
Physical Exam
-
General: Well Developed and Respiratory Distress
Respiratory: Crackles (Bilateral lower lobe crackles)
Cardiac: Regular Rhythm and S1/S2
GI: Soft, Nontender and Nondistended
Genito-urinary: No Costovertebral Tender
Skin: Warm
Neuro: AO x 3
Psych: Calm
--- NOTE | 2025-03-27 07:34 | PN.DE.MGMTRT ---
Insulin Management
- -
03/27/2025: Diabetes Management Follow up
84 year old male admitted with acute LLE swelling and redness. PMH: A-Fib on DOAC, CHF (HFpEF), HTN, Hypercholesterolemia, CKD 3, Gout, BPH, Benign brain tumor, T2DM and chronic nonhealing left foot wound. He reports he has a left lateral plantar
foot wound for approximately 6 weeks manage by his groundwater monitoring technician and home wound nurse. He was told wound was getting better. However 03/23 when nurse came by, she noted foot and leg were significantly swollen with erythema from the wound up to below
the knee, so he was sent to the ER. Patient reports that the leg looks a little bit better today. He is to have MRI of the foot. Currently on antibiotics. Prior to admission was taking Glipizide 10mg daily & Januvia 100mg daily. Current A1C 10%,
worsened, was 8.8% in 02/2025. Cr 3, eGFR 19.61 today (baseline Cr 1.6)
Patient was off the floor for testing at time of my visit, unable to discuss diabetes care plan for today.
Patient has had diabetes 20+ years. He resides at an Assisted Living Facility where his medications are administered to him by staff. Discussed insulin as best course of management given GAYATHRI with Cr of 2.3 in setting of CKD3 and patient was
agreeable to insulin therapy.
Patient is noted for Hyperglycemia since admission. 03/25 glucose range was 155 to 412, was on corrective insulin with meals, received 5-7 units.
03/26 Patient was NPO for OR. Received 15 units Lantus in AM and 8 units NovoLog AC yesterday.
Glucose range 155 to 412, ac NovoLog was increased to 10 units and Lantus to 18 units.
Pt is Now s/p and doing well. Pt did not receive AC NovoLog yesterday due to NPO status. HS glucose was 215, fasting 233 V today.
Will make no changes to already adjusted insulin regimen: Lantus 18 units, AC NovoLog 10 units and moderate corrective with meals.
Discussed with Nurse. Cont to follow.
Patient is currently residing in Assisted Living Facility, where glucose monitoring and medication administration is done for patient.
Diabetes History
- -
Type of Diabetes: 2 requiring insulin
Pre-Admission Diabetes Regimen
Lab Results
Hemoglobin A1c 10.0 % (4.0-5.9) H 03/24/25 07:00
Insulin Pump Settings
IP Diabetes Regimen
03/26/25 03/26/25 03/26/25
08:30 12:20 17:07
POC Glucose 227 H 262 H 236 H
03/26/25 03/26/25 03/26/25
18:02 20:03 23:54
POC Glucose 223 H 215 H 288 H
Meal type: Dinner
Amount consumed: 100%
Patient Education
[2025-03-27 07:48] LABS: ALT (SGPT) 12 U/L (0-50); AST (SGOT) 15 U/L (17-59); Albumin 3.2 g/dl (3.5-5.0); Alkaline Phosphatase 59 U/L (38-126); Blood Urea Nitrogen 85 mg/dl (9-20); Calcium 9.3 mg/dl (8.4-10.2); Carbon Dioxide 29 mmol/L (22-30); Chloride 91 mmol/L (98-107); Estimated Creatinine Clearance 20 ml/min; Glucose 233 mg/dl (70-99); Potassium 4.1 mmol/L (3.5-5.1); Sodium 130 mmol/L (135-145); Total Protein 6.2 g/dl (6.3-8.2); eGFR 16.30
[2025-03-27] MEDS: FLOMAX 0.4 MG PO (08:06)
[2025-03-27] MEDS: ELIQUIS 2.5 MG PO ×2 (08:06→19:18)
[2025-03-27] MEDS: NEURONTIN 300 MG PO ×2 (08:06→19:18)
[2025-03-27] MEDS: ZYLOPRIM 100 MG PO (08:07)
[2025-03-27] MEDS: TOPROL XL PO (08:07)
[2025-03-27 08:14] LABS: Glucose - Point of Care 245 mg/dl (70-99)
[2025-03-27] MEDS: NOVOLOG FLEXPEN 10 UNITS SC ×3 (08:18→17:49)
[2025-03-27] MEDS: NOVOLOG FLEXPEN-MODERATE RESISTANCE 3 UNITS SC (08:18)
[2025-03-27] MEDS: LASIX 80 MG IV (08:43)
--- NOTE | 2025-03-27 08:58 | W.PN.POD ---
Today's Communication
Today's Communication
S/P I&D left foot
Assessment / Plan
-
Infected Left foot Eschar with cellulitis S/P I&D - POD # 1
Type 2 Diabetes Mellitus with neuropathy
Surgical debridement in OR was performed yesterday. See Surgical report. Wound is flushed and packed today. I will continue daily flush/pack. I am recommend return to OR Sunday for integra grafting and vac application. We discussed the risks,
benefits and complications of this surgery at length.
Zosyn per ID
OR cultures pending.
Subjective
Chief Complaint
Left foot wound s/p I&D
Subjective
Patient is awake and conversational with no complaints of pain
Objective
Temp Pulse Resp BP Pulse Ox
97.9 F 74 18 100/52 95
03/27/25 08:01 03/27/25 08:43 03/27/25 08:01 03/27/25 08:43 03/27/25 08:01
03/27/25 06:18
03/27/25 06:18
Vital Signs and Lab results were reviewed.
Physical Exam
Physical Exam
Left LE with generalized edema, weakly palpable pulses, CFT WNL, loss of pedal hair, atrophic changes to digits. Bandages are intact with bloody strikethrough. Extremity with less edema and less erythema today. Foot wound appears healthy and
bleeding. It measures 2.5 cm x 2.5 cm x 1.0 cm. No odor, no purulence. No bone exposed.
--- NOTE | 2025-03-27 09:30 | W.PN.NEPH.PH ---
Today's Communication / Plan
-
cont lasix
follow labs, urine studies and renal US
Assessment/Plan
-
84-year-old male with known history of noninsulin dependent diabetes, CHF with preserved ejection fraction, A-fib on Eliquis 2.5 mg twice daily, gout, BPH presented with left lower extremity cellulitis. He has a large wound on the plantar surface
of his metatarsal being seen by podiatry and infectious disease on antibiotics. He has a history of CHF and is on Lasix 80 twice a day, metolazone he is on valsartan and spironolactone.
Renal consultation for acute on chronic kidney disease with a creatinine at 3 with a baseline creatinine labile between 1.5 and 1.8. Most recent January 2025 creatinine was 3.2.
Impression.
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
Hyponatremia
Foot wound for debridement.
Sepsis.
Diabetes stable.
Plan.
GAYATHRI-likely prerenal vs cardiorenal
check urine studies and follow bladder scan, renal US
BP now improving , cont to hold ARB and avoid nephrotoxins
given resp symp on O2 and CXR Pulm edema agree with lasix and q48hr metolazone
hold Aldactone for time being, echo noted nrml EF
monitor UOP, maintain FR
no emergent indication of dialysis however high risk based on labs and response to diuretics
d/w pt and primary
high risk encounter
high risk encounter
-
-
Date of Service: March 27, 2025
CC / HPI / ROS
-
Chief Complaint:
GAYATHRI
History of Present Illness:
cr up at 3.5, UOP not measured
BP are better this am but remain soft
on O2 2lit
no fever
Review of Systems:
no sob at rest and on O2
no cp
no n/v
Labs
-
Labs:
WBC 10.8 10^3/uL (4.8-10.8) 03/27/25 06:18
RBC 3.15 10^6/uL (4.70-6.10) L 03/27/25 06:18
Hgb 10.1 g/dL (13.0-18.0) L 03/27/25 06:18
Hct 30.4 % (39.0-52.0) L 03/27/25 06:18
Plt Count 201 10^3/uL (130-400) 03/27/25 06:18
Sodium 130 mmol/L (135-145) L 03/27/25 06:18
Potassium 4.1 mmol/L (3.5-5.1) 03/27/25 06:18
Chloride 91 mmol/L (98-107) L 03/27/25 06:18
Carbon Dioxide 29 mmol/L (22-30) 03/27/25 06:18
BUN 85 mg/dl (9-20) H 03/27/25 06:18
Creatinine 3.5 mg/dL (0.7-1.3) H 03/27/25 06:18
eGFR 16.30 03/27/25 06:18
Glucose 233 mg/dl (70-99) H 03/27/25 06:18
Calcium 9.3 mg/dl (8.4-10.2) 03/27/25 06:18
Jlw-E-Gosvxlpickw Pept 2240 pg/ml 03/27/25 06:18
Albumin 3.2 g/dl (3.5-5.0) L 03/27/25 06:18
Physical Exam
-
Vital Signs:
Vital Signs
Temp Pulse Resp BP Pulse Ox
98.1 F 73 18 105/54 97
03/27/25 11:42 03/27/25 11:42 03/27/25 11:42 03/27/25 11:42 03/27/25 11:42
Cardiovascular:: Regular rate and rhythm
Respiratory:: Bilateral: Rales
Lung Excursion:: Normal
Abdomen:: Nontender and Soft
Extremity Edema:: +2: Right: and None: Left: (trace, chr skin changes)
Sethi Catheter: No
--- NOTE | 2025-03-27 10:22 | W.PN.ID1 ---
Date of Service
Date of Service: March 27, 2025
Today's Communication
Continue abx.
Assessment / Plan
# Acute cellulitis of LLE, improving
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 No osteo on MRI.
# Leukocytosis - stable
# DM with neuropathy
# CKD3
- MRI - large wound with subcutaneous emphysema. No osteo
- Arterial duplex: no significant stenosis
- blood cx's neg to date
- s/p OR debridement 03/26/25; cx's pending
- Continue Zosyn (d#5)
- Follow wbc, temp curve
# Conditions present on admission:
Diabetes mellitus
Neuropathy
HTN
HLD
HFpEF
Afib
gout
BPH
CKD3
Benign brain tumor resection
L TKR
Chief Complaint
-: Cellulitis
Subjective / Review of Systems
Review of Systems: No Fever and No Chills
Vital Signs / Physical Exam
Vital Signs
Vital Signs
Temp Pulse Resp BP Pulse Ox
97.9 F 74 18 100/52 95
03/27/25 08:01 03/27/25 08:43 03/27/25 08:01 03/27/25 08:43 03/27/25 08:01
Physical Exam
Constitutional: No Acute Distress, Comfortable and Non-toxic
Pulmonary: Clear and Non Labored
Gastrointestinal: Soft, Non Tender, Non Distended and Normal Bowel Sounds
Extremities: Edema (LLE; decreasing), Erythema (left foot to below knee erytehma/warmth continues to decrease) and Venous Insufficiency (B/L LE's)
Wound: Other (Left foot dressed in CHRISTINE wrap)
Neurological: AO x 3
Psychological: Calm
Objective Data
Lab Data
Lab Results
03/27/25 06:18
03/27/25 06:18
ESR 132 mm/hour (0-20) H 03/24/25 07:00
Estimated Creat Clear 20 ml/min 03/27/25 06:18
Lactic Acid Cancelled 03/24/25 05:45
Total Bilirubin 0.9 mg/dl (0.2-1.3) 03/27/25 06:18
AST 15 U/L (17-59) L 03/27/25 06:18
ALT 12 U/L (0-50) 03/27/25 06:18
Alkaline Phosphatase 59 U/L (38-126) 03/27/25 06:18
Most recent labs reviewed.
Micro Results:
03/24/25 02:00 Blood Culture - Preliminary
Blood/Venous No Growth in 72 hours- Final report to follow
03/24/25 02:00 Blood Culture - Preliminary
Blood/Venous No Growth in 72 hours- Final report to follow
03/26/25 17:40 Wound Culture - Pending
Foot - Left Gram Stain - Preliminary
03/26/25 17:40 Anaerobic Culture - Pending
Foot - Left
03/24/25 05:10 MRSA Screen - Final
Nose No Methicillin Resistant Staphylococcus aureus isolated.
03/24/25 MRI LLE:
1. LARGE 3.3 cm SOFT TISSUE WOUND plantar to the 5th metatarsal base containing soft tissue emphysema.
2. ACUTE CELLULITIS throughout the lateral and dorsal forefoot.
3. No MRI evidence for acute osteomyelitis.
4. Severe acute on chronic muscle denervation throughout the foot.
5. Severe longitudinal split tear of the peroneus brevis tendon with surrounding stenosing tenosynovitis.
03/24/25 L Foot XRAY: Soft tissue gas adjacent to the fifth metatarsal base at the site of the reported soft tissue ulcer. No osseous destructive changes to confirm acute osteomyelitis by radiograph. The patient is currently scheduled for an MRI of
the left foot, which will be more sensitive for osteomyelitis.
[2025-03-27] MEDS: ZAROXOLYN 2.5 MG PO (11:36)
[2025-03-27 11:58] LABS: Glucose - Point of Care 304 mg/dl (70-99)
[2025-03-27] MEDS: LANTUS 0.18 UNITS SC (12:07)
[2025-03-27] MEDS: NOVOLOG FLEXPEN-MODERATE RESISTANCE 7 UNITS SC ×2 (12:08→17:50)
[2025-03-27] MEDS: ANESTHETIC LOZENGE 1 LOZENGE PO (12:18)
[2025-03-27 16:58] LABS: Glucose - Point of Care 304 mg/dl (70-99)
[2025-03-27] MEDS: MELATONIN 3 MG PO (21:50)
[2025-03-27] MEDS: LIPITOR 80 MG PO (21:50)
[2025-03-27 21:51] LABS: Urine Character Clear (Clear)
[2025-03-27 22:07] LABS: Urine Red Blood Cell 0-2 /HPF (0-2)
[2025-03-27 22:10] LABS: Glucose - Point of Care 272 mg/dl (70-99)
[2025-03-28 03:23] VITALS: BP 102/47
[2025-03-28] MEDS: ZOSYN 50 IV ×3 (05:29→19:42)
[2025-03-28 05:57] LABS: Hematocrit 29.9 % (39.0-52.0); Hemoglobin 9.9 g/dL (13.0-18.0); Mean Corp Hgb Conc. 33.1 g/dL (33.0-37.0); Mean Corpuscular Volume 95.8 fL (80.0-94.0); Platelet Count 190 10^3/uL (130-400); Red Cell Dist. Width 15.1 % (11.5-14.5)
[2025-03-28 06:00] VITALS: BMI 36.2
[2025-03-28 06:17] LABS: ALT (SGPT) 11 U/L (0-50); AST (SGOT) 16 U/L (17-59); Albumin 3.2 g/dl (3.5-5.0); Alkaline Phosphatase 61 U/L (38-126); Blood Urea Nitrogen 91 mg/dl (9-20); Calcium 9.2 mg/dl (8.4-10.2); Carbon Dioxide 30 mmol/L (22-30); Chloride 90 mmol/L (98-107); Estimated Creatinine Clearance 22 ml/min; Glucose 226 mg/dl (70-99); Potassium 3.6 mmol/L (3.5-5.1); Sodium 128 mmol/L (135-145); Total Protein 6.3 g/dl (6.3-8.2); eGFR 18.15
--- NOTE | 2025-03-28 08:05 | CON.CAR ---
Addendum entered and electronically signed by Alberto Bae MD 03/28/25 13:59:
I saw and examined the patient.
The DRUG DISCOVERY INFORMATICS SPECIALIST's note was reviewed and I agree with the note.
Comment:
84-year-old man with HFpEF, CKD, and permanent atrial fibrillation who presented with left foot wound s/p OR debridement with wound cultures growing MRSA, Enterococcus, and strep agalactiae. Cardiology is consulted due to concern for CHF. Patient
reports breathing and lower extremity edema are at baseline. He is very concerned about his foot infection.
Physical exam: Regular rate, irregular rhythm, no murmurs/rubs/gallops, decreased breath sounds at bilateral bases, 1+ left lower extremity edema, trace RLE edema
Labs notable for proBNP 2220, creatinine 3.2 (baseline 2.3), sodium 128
CXR with mild pulmonary edema
TTE 03/27/2025: LVEF 59%, mildly dilated RV, PASP 45 mmHg
HFpEF: Acute on chronic. Severe exacerbation requiring IV diuresis and close monitoring of labs/telemetry. Continue Lasix 80 mg IV twice daily. Metolazone every 48 hours also ordered (he apparently takes this as needed at home). We will need to
closely monitor creatinine and sodium. Nephrology is on board. No SGLT2 inhibitor or MRA due to GAYATHRI/CKD.
Permanent atrial fibrillation: Continue metoprolol for rate control. Hold Eliquis given plan to go back to the OR on Sunday.
Infected foot wound: Continue antibiotics. ID following. Plan is back to OR on Sunday.
Original Note:
Consultation
Consultation Request
Date/Time Consultation Requested: 03/27/2025 5P
Date/Time Consultation Performed: 03/28/2025 8A
Requesting Provider: Dr. Gonzalez
Performing Provider: RASHIDA Durant for Dr. Rodrigez
Reason for Consultation: HFpEF
Medical History
-
Chief Complaint: Swelling/redness to LLE
History of Present Illness:
Mr. Cha is an 84-year-old male with chronic HFpEF, permanent atrial fibrillation (on Eliquis), CKD3a, type 2 diabetes mellitus, left foot wound followed by wound care nurse and podiatry, who presented to the ER with worsened redness and swelling
to left lower extremity. He was admitted to hospitalist service and now status post left foot wound debridement on 03/26/2025. We are consulted for acute HFpEF, probnp 2240, CXR with mild CHF. He denies any shortness of breath or other cardiac
symptoms.
Outpatient art studio teacher: Dr. Sanchez
Past Medical History
Past Medical History: Other (as above)
Social History
Tobacco: Non-Smoker
Personal:
Living: With Family
Employment: Retired
Family History
Family History: Reviewed & Not Pertinent
Allergies / Home Medications
Allergy/AdvReac Type Severity Reaction Status Date / Time
No Known Allergies Allergy Verified 03/23/25 22:34
�Medication �Instructions �Recorded �Confirmed �Type
allopurinol 100 mg tablet 100 mg PO DAILY Gout 02/18/14 03/24/25 History
metoprolol succinate 25 mg 25 mg PO DAILY Blood Pressure 01/10/19 03/24/25 History
tablet,extended release 24 hr
apixaban 2.5 mg tablet (Eliquis) 2.5 mg PO BID Blood clot 10/23/23 03/24/25 History
prevention/tx
melatonin 3 mg tablet 3 mg PO HSPRN PRN sleep 10/19/24 03/24/25 History
multivitamin 1 tab PO DAILY Supplement 10/19/24 03/24/25 History
polyethylene glycol 3350 17 gram 17 g PO DAILYPRN PRN constipation 10/19/24 03/24/25 History
oral powder packet (Miralax)
sitagliptin phosphate 100 mg 100 mg PO DAILY Diabetes 10/19/24 03/24/25 History
tablet (Januvia)
tamsulosin 0.4 mg capsule 0.4 mg PO DAILY Urinary Issue 10/19/24 03/24/25 History
valsartan 160 mg tablet 160 mg PO DAILY Blood Pressure 10/19/24 03/24/25 History
acetaminophen 325 mg tablet 650 mg PO Q6HPRN PRN mild pain 11/15/24 03/24/25 History
(Tylenol)
atorvastatin 80 mg tablet 80 mg PO HS High Cholesterol 11/15/24 03/24/25 History
docusate sodium 100 mg capsule 100 mg PO [id number] PRN constipation 11/15/24 03/24/25 History
(Colace)
glipizide 10 mg tablet 10 mg PO DAILY Diabetes 11/15/24 03/24/25 History
loperamide 2 mg tablet 2 mg PO Q4HPRN PRN loose stool 11/15/24 03/24/25 History
potassium chloride 10 mEq 10 meq PO DAILY Electrolyte 11/15/24 03/24/25 History
tablet,extended release(part/cryst) Repletion
furosemide 80 mg tablet 80 mg PO BID@0800,1600 #60 tabs 11/19/24 03/24/25 Rx
spironolactone 25 mg tablet 12.5 mg (1/2 x 25 mg) PO DAILY #30 11/19/24 03/24/25 Rx
tabs
buspirone 5 mg tablet 5 mg PO BID Mental Health/Anxiety 03/24/25 03/24/25 History
gabapentin 300 mg capsule 300 mg PO TID Pain 03/24/25 03/24/25 History
levothyroxine 25 mcg tablet 25 mcg PO DAILY@0600 Thyroid 03/24/25 03/24/25 History
metolazone 2.5 mg tablet 2.5 mg PO Q48H Fluid 03/24/25 03/24/25 History
Retention/Swelling
Review of Systems
-
History Source: Patient
All other systems: Negative unless noted
Physical Exam
Vital Signs
Temp Pulse Resp BP Pulse Ox
99.0 F 79 17 102/47 94
03/28/25 03:23 03/28/25 03:23 03/28/25 03:23 03/28/25 03:23 03/28/25 03:23
Lab Results
03/28/25 05:44
03/28/25 05:44
Oky-A-Eocwfnmflqp Pept 2240 pg/ml 03/27/25 06:18
Physical Exam
General: Well Developed, Well Nourished and No Apparent Distress
HEENT: Normocephalic, Anicteric and Moist Mucous Membranes
Respiratory: Clear (mildly diminished bibasilar) and Non Labored Respirations
Cardiac: S1/S2, Irregular Rhythm and Peripheral Edema (trace LE edema)
Breast: Deferred by me
GI: Soft, Non Tender and Normal Bowel Sounds
Rectal: Deferred by Provider
Genito-urinary: Clear Urine
Musculoskeletal: No Clubbing and No Cyanosis
Skin: Warm, Dry and Other (left foot dressing intact)
Neuro: AO x 3
Hematologic/Lymphatic: No Lymphadenopathy
Psych: Calm
Impression / Plan
-
HFpEF - mild, acute on chronic.
- post op left foot wound debridement 03/26/25.
- LLE edema, with a proBNP of 2600 and mild pulmonary edema on CXR. he denies any SOB.
- IV Lasix 80mg daily, requires intensive monitoring.
- SGLT2i is cost prohibitive.
- GDMT: On Toprol-XL, valsartan, Aldactone.
- continue to monitor daily weights, I&Os, sodium and fluid restriction.
Permanent atrial fibrillation - chronic, rate controlled.
- Continue metoprolol succinate 25 mg once a day.
- [id number]: Score at least 5 (Heart failure, HTN, age 75 or more, Diabetes Mellitus)
- Oral anticoagulation: Apixaban 2.5 mg twice daily, he denies missed doses and abnormal bleeding (age 84, creatinine 1.7)
Type 2 diabetes mellitus - HgbA1c 8.5%.
- management per primary Hospitalist team.
Chronic kidney disease, stage 3 - worse than baseline.
-creatinine up to 3.2 from baseline 2.0-2.4.
HTN - stable on meds, monitor.
Left foot wound - managed by podiatry s/p surgical debridement 03/26/25.
- ABX per hospitalist.
Data Reviewed
-
Radiology: Report Reviewed by me (CXR: Mild prominence of the interstitial compartment, suggestive of mild pulmonary vascular congestion. hazy opacity LL base possible LLL atelectasis/PNA/alveolar edema, elevated hemidiaphragm)
Medical Tests (Nuc Med, Echo etc): Report Reviewed by me (Echo 03/27/2025: Normal biventricular size and function without regional motion abnormality, EF 59%, mildly dilated RV with normal function, mildly elevated PASP 45 mmHg, mildly dilated
aortic root at SOV 4.0 cm)
Labs: Labs Reviewed by me
Old Records: Reviewed
[2025-03-28 08:19] LABS: Glucose - Point of Care 248 mg/dl (70-99)
[2025-03-28] MEDS: ZYLOPRIM 100 MG PO (08:19)
[2025-03-28] MEDS: TOPROL XL 25 MG PO (08:19)
[2025-03-28] MEDS: FLOMAX 0.4 MG PO (08:19)
--- NOTE | 2025-03-28 08:19 | W.PN.POD ---
Today's Communication
Today's Communication
S/P I&D left foot wound
Assessment / Plan
-
Stage 2 left foot wound S/P I&D with resolving cellulitis- POD # 2
Type 2 Diabetes Mellitus with neuropathy
Wound is flushed and packed today. Will continue daily flush/pack. I am recommend return to OR Sunday for integra grafting and vac application. We discussed the risks, benefits and complications of this surgery at length.
Zosyn per ID
OR cultures pending.
Subjective
Chief Complaint
Left foot wound - S/P I&D POD #2
Subjective
Patient is awake and conversational, no complaints of pain
Objective
Temp Pulse Resp BP Pulse Ox
99.0 F 79 17 102/47 94
03/28/25 03:23 03/28/25 03:23 03/28/25 03:23 03/28/25 03:23 03/28/25 03:23
03/28/25 05:44
03/28/25 05:44
Vital Signs and Lab results were reviewed.
Physical Exam
Physical Exam
Left LE with significantly less edema - skin tension lines are present, erythema is resoved. palpable pulses, CFT WNL, loss of pedal hair, atrophic changes to digits. Bandages are intact with bloody strikethrough on inner bandages. Foot wound
appears healthy and bleeding. It measures 2.5 cm x 2.5 cm x 1.0 cm. No odor, no purulence. No bone exposed.
[2025-03-28] MEDS: NEURONTIN 300 MG PO ×2 (08:23→19:43)
[2025-03-28] MEDS: ELIQUIS 2.5 MG PO (08:23)
[2025-03-28 08:27] VITALS: BP 128/50
--- NOTE | 2025-03-28 08:54 | W.PN.HOSP.TC ---
Today's Communication/Plan
-
Continue IV diuretics
Start vancomycin and continue Zosyn
Continue to monitor cultures
Increase Lantus to 22 units and continue mealtime insulin and ISS
Trend BMP and urine output
Assessment / Plan
Assessment / Plan
#Decompensated HFpEF
#Hypoxemic respiratory insufficiency
- Volume status difficult to assess; had uptrending weights with worsening renal function when off diuretics
- TTE here with LVEF 59%, mild pulmonary hypertension; no known history of ischemic heart disease
- Home regimen includes GDMT with MRA and ARB, diuresis with Lasix 80 BID + metolazone Q48
- Has been transitioned to IV Lasix 80 mg daily, metolazone remains continued as dosed at home
- Continue with IV Lasix 80 mg and home metolazone, monitor BMP + I's and O's + weights
- Continue to monitor on telemetry, wean oxygen for SpO2 goal >90%
- Cardiology and nephrology following
#GAYATHRI on CKD stage III
- Baseline creatinine near 1.5; likely associated with poorly controlled diabetes
- Creatinine here uptrending due to cardiorenal physiology decompensated HFpEF
- Creatinine peaked at 3.5; started on IV diuretics down to 3.2 today
- Holding home spironolactone and valsartan
- Continue diuretics and trend BMP + UOP
- Avoid nephrotoxic agents
#Hypervolemic hyponatremia
- Serum sodium in the range of 128-130
- Continue to trend BMP on IV diuretics
- Consider urine studies if worsening
#Diabetic foot ulcer of LLE plantar surface
- POD 2 from OR debridement, had bedside debridement performed prior to that
- MRI without signs of osteomyelitis; arterial ultrasound without macrovascular PAD
- Initially on broad-spectrum antibiotics; de-escalated to IV Zosyn alone, OR cultures pending
- Continue with IV Zosyn, follow cultures, trend CBC and temperature curve
- Plan for further OR debridement on Beni with podiatry
#IDDM with hyperglycemia
#Peripheral neuropathy
- A1c here was 10.3%; Home regimen included glipizide and Januvia
- Has history of peripheral neuropathy for which he takes gabapentin
- Home regimen transition to Lantus 18U and NovoLog 10U AC with ISS
- Continue to titrate insulin for BG goal 140-180
#Paroxysmal AF
- Home medications include metoprolol succinate 25 mg and Eliquis
- No known history of EP interventions
- Currently NSR, monitor telemetry
#Gout
- Home regimen includes allopurinol
- No signs of flare at this time
#Dyslipidemia
- Home regimen includes high intensity atorvastatin
Diet: Diabetic
DVT prophylaxis: on apixaban
CODE STATUS: full code
Disposition: SNF when medically stable
Discussed with brass roller
Anticipated Discharge: > 48 hours
Subjective/Interval History
-
Date of Service: March 28, 2025
Seen and examined at bedside. No acute events reported overnight. AFVSS
Renal function improving with creatinine down from 3.5-3.2. Net -550 mL reported, BP improved, weight stable
Denies any new complaints this morning. Denies chest pain or dyspnea
Objective Data
-
Labs:
Laboratory Results
03/28/25
05:44
WBC 12.3 H
Hgb 9.9 L
Hct 29.9 L
Plt Count 190
Sodium 128 L
Potassium 3.6
Chloride 90 L
Carbon Dioxide 30
BUN 91 H
Creatinine 3.2 H
Glucose 226 H
Calcium 9.2
Total Bilirubin 0.8
AST 16 L
ALT 11
Alkaline Phosphatase 61
Vital Signs:
Vital Signs
Temp Pulse Resp BP Pulse Ox
98.0 F 77 18 128/50 92
03/28/25 08:27 03/28/25 08:27 03/28/25 08:27 03/28/25 08:27 03/28/25 08:27
I&O
03/27/25 03/28/25 03/29/25
06:59 06:59 06:59
Intake Total 950 / 950 700 / 700
Output Total 200 / 200 1250 / 1250
Balance 750 / 750 -550 / -550
Review of Systems
-
History Source: Patient
All other systems: Reviewed and negative
Physical Exam
-
General: Well Developed, No Apparent Distress and Obese
HEENT: Normocephalic, Atraumatic, Moist Mucous Membranes and Oxygen
Respiratory: Rales and Non Labored Respirations; Negative Wheezes, Rhonchi or Accessory Resp Muscle Use
Cardiac: Regular Rhythm and S1/S2; Negative Murmur, Rub or Gallop
GI: Soft, Nontender, Nondistended and Normal Bowel Sounds
Musculoskeletal: No Clubbing, No Cyanosis and Other (Trace edema)
Skin: Warm and Dry; Negative Rash
Neuro: AO x 3, Nonfocal/Grossly Intact and Central Nerve's Intact; Negative Tremors
Psych: Calm
Data Reviewed
-
Labs: Labs Reviewed by me and Discussed with Patient
[2025-03-28] MEDS: LANTUS 0.18 UNITS SC (09:05)
[2025-03-28] MEDS: ANESTHETIC LOZENGE 1 LOZENGE PO (09:06)
[2025-03-28] MEDS: NOVOLOG FLEXPEN 10 UNITS SC ×3 (09:06→17:59)
[2025-03-28] MEDS: NOVOLOG FLEXPEN-MODERATE RESISTANCE 3 UNITS SC ×2 (09:07→17:58)
[2025-03-28] MEDS: LASIX 80 MG IV ×2 (09:10→16:27)
--- NOTE | 2025-03-28 10:26 | W.PN.NEPH.PH ---
Today's Communication / Plan
-
cont diuresis, FR and follow labs
Assessment/Plan
-
84-year-old male with known history of noninsulin dependent diabetes, CHF with preserved ejection fraction, A-fib on Eliquis 2.5 mg twice daily, gout, BPH presented with left lower extremity cellulitis. He has a large wound on the plantar surface
of his metatarsal being seen by podiatry and infectious disease on antibiotics. He has a history of CHF and is on Lasix 80 twice a day, metolazone he is on valsartan and spironolactone.
Renal consultation for acute on chronic kidney disease with a creatinine at 3 with a baseline creatinine labile between 1.5 and 1.8. Most recent January 2025 creatinine was 3.2.
Impression.
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
Hyponatremia
Foot wound for debridement.
Sepsis.
Diabetes stable.
Plan.
GAYATHRI-cr is slightly better with diuretics suggest cardiorenal
bland UA and Fena not low, follow bladder scan 127cc, renal US non acute , U PCr 0.4
BP are stable now, cont to hold ARB and avoid nephrotoxins
cont with lasix -can increase to BID, and q48hr metolazone
hold Aldactone for time being, echo noted nrml EF
monitor UOP, maintain FR
hypervolemic hyponatremia-monitor for now
no emergent indication of dialysis however high risk based on labs and response to diuretics
d/w pt
-
-
Date of Service: March 28, 2025
CC / HPI / ROS
-
Chief Complaint:
GAYATHRI
History of Present Illness:
cr down to 3.2, UOP non oliguric
BP stable
off O2
no fever
Review of Systems:
no sob at rest
no cp
no n/v
Labs
-
Labs:
WBC 12.3 10^3/uL (4.8-10.8) H 03/28/25 05:44
RBC 3.12 10^6/uL (4.70-6.10) L 03/28/25 05:44
Hgb 9.9 g/dL (13.0-18.0) L 03/28/25 05:44
Hct 29.9 % (39.0-52.0) L 03/28/25 05:44
Plt Count 190 10^3/uL (130-400) 03/28/25 05:44
Sodium 128 mmol/L (135-145) L 03/28/25 05:44
Potassium 3.6 mmol/L (3.5-5.1) 03/28/25 05:44
Chloride 90 mmol/L (98-107) L 03/28/25 05:44
Carbon Dioxide 30 mmol/L (22-30) 03/28/25 05:44
BUN 91 mg/dl (9-20) H 03/28/25 05:44
Creatinine 3.2 mg/dL (0.7-1.3) H 03/28/25 05:44
eGFR 18.15 03/28/25 05:44
Glucose 226 mg/dl (70-99) H 03/28/25 05:44
Calcium 9.2 mg/dl (8.4-10.2) 03/28/25 05:44
Myl-O-Phocyeebppu Pept 2240 pg/ml 03/27/25 06:18
Albumin 3.2 g/dl (3.5-5.0) L 03/28/25 05:44
Physical Exam
-
Vital Signs:
Vital Signs
Temp Pulse Resp BP Pulse Ox
98.0 F 77 18 128/50 92
03/28/25 08:27 03/28/25 09:10 03/28/25 08:27 03/28/25 09:10 03/28/25 08:27
Cardiovascular:: Regular rate and rhythm
Respiratory:: Bilateral: Rales
Lung Excursion:: Normal
Abdomen:: Nontender and Soft
Extremity Edema:: +2: Right: and None: Left: (trace, chr skin changes)
Sethi Catheter: No
[2025-03-28 11:43] LABS: Glucose - Point of Care 295 mg/dl (70-99)
[2025-03-28] MEDS: NOVOLOG FLEXPEN-MODERATE RESISTANCE 5 UNITS SC (12:36)
--- NOTE | 2025-03-28 13:08 | PHA.VAN.IN ---
Assessment
- Assessment
Renal Function: SCR Appears Elevated from baseline
Concomitant Antimicrobials: piperacillin/tazobactam
Plan
- Plan
Initial / Loading Dose: 2000mg - administration pending
Maintenance Regimen: dosing by level
Monitoring: random 03/29 06
Pharmacokinetics Vancomycin I
- -
Patient Age: 84
Patient Sex: Male
Vancomycin Day #: 1
Indication: Skin And Soft Tissue
Requesting Provider: Dr. Barba
Pertinent Antimicrobial Allergies:
NKDA
Height / Weight:
Height 6 ft
Actual Weight 120.973 kg
Pertinent Past Medical History: BMI ~ 36, DM 2, CKD
- Vital Signs / Lab Results
Temp Pulse Resp BP Pulse Ox
98.0 F 77 18 128/50 92
03/28/25 08:27 03/28/25 09:10 03/28/25 08:27 03/28/25 09:10 03/28/25 08:27
Lab Results - Hematology
03/26/25 03/27/25 03/28/25
06:06 06:18 05:44
WBC 14.0 H 10.8 12.3 H
Lab Results - Chemistry
03/26/25 03/27/25 03/28/25
06:06 06:18 05:44
BUN 80 H 85 H 91 H
Creatinine 3.0 H 3.5 H 3.2 H
Estimated Creat Clear 24 20 22
Albumin 3.8 3.2 L 3.2 L
Lab Results - Urine
03/27/25
21:43
Urine Nitrite Negative
Ur Leukocyte Esterase Negative
Urine WBC 3-5
Ur Squamous Epith Cells 6-10
Urine Bacteria Few A
Microbiology Results
03/26/25 17:40 Wound Culture - Preliminary
Foot - Left Staph aureus MRSA
Enterococcus species
Gram Stain - Preliminary
03/24/25 02:00 Blood Culture - Preliminary
Blood/Venous No Growth in 4 days- Final report to follow
03/24/25 02:00 Blood Culture - Preliminary
Blood/Venous No Growth in 4 days- Final report to follow
03/26/25 17:40 Anaerobic Culture - Preliminary
Foot - Left Culture pending. Anaerobic cultures are examined after 3
days incubation. Additional information to follow.
[2025-03-28 14:22] VITALS: BP 107/53
--- NOTE | 2025-03-28 14:44 | PTCARENOTE ---
received from [address] into room 2131. AOx3, VSS. Discussed plan of care. Oriented to new room. Left w/ call saunders in reach.
--- NOTE | 2025-03-28 14:50 | W.PN.ID1 ---
Date of Service
Date of Service: March 28, 2025
Today's Communication
continue vancomycin and zosyn
Assessment / Plan
# Acute cellulitis of LLE, improving
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 No osteo on MRI.
# Leukocytosis - stable
# DM with neuropathy
# CKD3
- getting daily flushing/packing with podiatry and to return to the OR sunday for graft and vac
- MRI - large wound with subcutaneous emphysema. No osteo
- Arterial duplex: no significant stenosis
- blood cx's neg to date
- s/p OR debridement 03/26/25; cx's MRSA, Enterococcus and GBS
- Continue Zosyn (d#6), agree with vancomycin (d#1)
- Follow wbc, temp curve
# Conditions present on admission:
Diabetes mellitus
Neuropathy
HTN
HLD
HFpEF
Afib
gout
BPH
CKD3
Benign brain tumor resection
L TKR
Chief Complaint
-: Cellulitis
Subjective / Review of Systems
afebrile
bp stable
plan to return to the OR sunday
Vital Signs / Physical Exam
Vital Signs
Vital Signs
Temp Pulse Resp BP Pulse Ox
98.4 F 81 16 107/53 91
03/28/25 14:22 03/28/25 14:22 03/28/25 14:22 03/28/25 14:22 03/28/25 14:22
Physical Exam
Constitutional: No Acute Distress
Cardiovascular: Regular Rate and S1/S2; Negative Murmur or Rub
Pulmonary: Clear and Symmetric; Negative Wheezes or Rales
Gastrointestinal: Soft, Non Tender, Non Distended and Normal Bowel Sounds
Skin: Warm and Dry; Negative Rash or Jaundice
Wound: Other (dressing clean dry, intact; deferred take down)
Objective Data
Lab Data
Lab Results
03/28/25 05:44
03/28/25 05:44
ESR 132 mm/hour (0-20) H 03/24/25 07:00
Estimated Creat Clear 22 ml/min 03/28/25 05:44
Lactic Acid Cancelled 03/24/25 05:45
Total Bilirubin 0.8 mg/dl (0.2-1.3) 03/28/25 05:44
AST 16 U/L (17-59) L 03/28/25 05:44
ALT 11 U/L (0-50) 03/28/25 05:44
Alkaline Phosphatase 61 U/L (38-126) 03/28/25 05:44
Most recent labs reviewed.
Micro Results:
03/26/25 17:40 Wound Culture - Preliminary
Foot - Left Staph aureus MRSA
Enterococcus species
Streptococcus agalactiae
Gram Stain - Preliminary
03/24/25 02:00 Blood Culture - Preliminary
Blood/Venous No Growth in 4 days- Final report to follow
03/24/25 02:00 Blood Culture - Preliminary
Blood/Venous No Growth in 4 days- Final report to follow
03/26/25 17:40 Anaerobic Culture - Preliminary
Foot - Left Culture pending. Anaerobic cultures are examined after 3
days incubation. Additional information to follow.
03/24/25 05:10 MRSA Screen - Final
Nose No Methicillin Resistant Staphylococcus aureus isolated.
03/24/25 MRI LLE:
1. LARGE 3.3 cm SOFT TISSUE WOUND plantar to the 5th metatarsal base containing soft tissue emphysema.
2. ACUTE CELLULITIS throughout the lateral and dorsal forefoot.
3. No MRI evidence for acute osteomyelitis.
4. Severe acute on chronic muscle denervation throughout the foot.
5. Severe longitudinal split tear of the peroneus brevis tendon with surrounding stenosing tenosynovitis.
03/24/25 L Foot XRAY: Soft tissue gas adjacent to the fifth metatarsal base at the site of the reported soft tissue ulcer. No osseous destructive changes to confirm acute osteomyelitis by radiograph. The patient is currently scheduled for an MRI of
the left foot, which will be more sensitive for osteomyelitis.
Care Review
Plan reviewed with: Physician (Dr Barba - addition of [facility])
[2025-03-28] MEDS: VANCOCIN 540 MG IV (16:27)
[2025-03-28] MEDS: LIPITOR 80 MG PO (21:23)
[2025-03-28] MEDS: MELATONIN 3 MG PO (21:23)
[2025-03-28] MEDS: TYLENOL 650 MG PO (23:00)
[2025-03-28 23:47] VITALS: BP 97/46
[2025-03-29] MEDS: ZOSYN 50 IV ×5 (00:04→23:44)
[2025-03-29 06:00] VITALS: BMI 36.0
--- NOTE | 2025-03-29 07:21 | PHA.VAN.FU ---
Vancomycin Assessment / Plan
- Assessment
Renal Function: No New Labs Today
In the past 24 hrs, patient has been: Afebrile
Concomitant Antimicrobials: piperacillin/tazobactam
- Assessment - Therapeutic Drug Monitoring
Random Level: 20.8 - drawn ~13.5H after 2g loading dose
- Dosing Plan
Dosing by Level: Hold off on dosing today
- Monitoring Plan
Random Level: 03/30 0600
- Follow Up
Pharmacy will continue to follow.
Vancomycin Follow UP
- -
Patient Age: 84
Patient Sex: Male
Vancomycin Day #: 2
Indication: Skin And Soft Tissue
Requesting Provider: Dr. Barba / Abeba
Pertinent Antimicrobial Allergies:
NKDA
Height / Weight:
Height 6 ft
Actual Weight 120.259 kg
Pertinent Past Medical History: BMI ~ 36, DM 2, CKD
- Vital Signs / Lab Results
Temp Pulse Resp BP Pulse Ox
98.1 F 78 16 97/46 95
03/28/25 23:47 03/28/25 23:47 03/28/25 23:47 03/28/25 23:47 03/28/25 23:47
Lab Results - Hematology
03/27/25 03/28/25
06:18 05:44
WBC 10.8 12.3 H
Lab Results - Chemistry
03/27/25 03/28/25
06:18 05:44
BUN 85 H 91 H
Creatinine 3.5 H 3.2 H
Estimated Creat Clear 20 22
Albumin 3.2 L 3.2 L
Microbiology Results
03/26/25 17:40 Wound Culture - Preliminary
Foot - Left Staph aureus MRSA
Enterococcus species
Streptococcus agalactiae
Gram Stain - Preliminary
03/24/25 02:00 Blood Culture - Final
Blood/Venous No Growth - Final Report
03/24/25 02:00 Blood Culture - Final
Blood/Venous No Growth - Final Report
03/26/25 17:40 Anaerobic Culture - Preliminary
Foot - Left Culture pending. Anaerobic cultures are examined after 3
days incubation. Additional information to follow.
Therapeutic Drug Monitoring
Random Vancomycin 20.8 ug/ml 03/29/25 06:15
[2025-03-29 07:30] VITALS: BP 93/52
[2025-03-29] MEDS: FLOMAX 0.4 MG PO (08:22)
[2025-03-29] MEDS: NEURONTIN 300 MG PO ×2 (08:23→19:50)
[2025-03-29] MEDS: TOPROL XL PO (08:23)
[2025-03-29] MEDS: ZYLOPRIM 100 MG PO (08:23)
[2025-03-29 08:28] LABS: Glucose - Point of Care 208 mg/dl (70-99)
[2025-03-29 08:28] LABS: Glucose - Point of Care 249 mg/dl (70-99)
[2025-03-29 08:28] LABS: Glucose - Point of Care 263 mg/dl (70-99)
[2025-03-29 08:28] LABS: Glucose - Point of Care 217 mg/dl (70-99)
[2025-03-29] MEDS: NOVOLOG FLEXPEN-MODERATE RESISTANCE 3 UNITS SC ×3 (08:29→17:11)
[2025-03-29] MEDS: LANTUS 0.22 UNITS SC (08:29)
[2025-03-29] MEDS: NOVOLOG FLEXPEN 10 UNITS SC ×3 (08:30→17:11)
[2025-03-29] MEDS: LASIX IV (08:31)
--- NOTE | 2025-03-29 08:31 | W.PN.HOSP.TC ---
Today's Communication/Plan
-
Continue IV vancomycin and Zosyn
Follow cultures and biopsy results
Start midodrine for hypotension
Consider right heart cath
Continue to titrate insulin as needed
N.p.o. at midnight for the OR tomorrow
Assessment / Plan
Assessment / Plan
#Decompensated HFpEF
#Hypoxemic respiratory insufficiency
- TTE here with LVEF 59%, mild pulmonary hypertension; no known history of ischemic heart disease
- Home regimen includes GDMT with MRA and ARB, diuresis with Lasix 80 BID + metolazone 2.5 Q48
- As of morning 03/29 holding IV Lasix and metolazone with hypotension, monitor BMP + I's and O's + weights
- Continue to monitor on telemetry, wean oxygen for SpO2 goal >90%
- Cardiology and nephrology following
- Would benefit from right heart cath
#GAYATHRI on CKD stage III
- Baseline creatinine near 1.5; likely associated with poorly controlled diabetes
- Creatinine here uptrending due to cardiorenal physiology decompensated HFpEF
- Creatinine peaked at 3.5; started on IV diuretics with minimal improvement, developed HoTN
- Holding home spironolactone, valsartan, Lasix and metolazone
- Trend BMP + UOP, MAP > 65 mmHg, avoid nephrotoxic agents
- Consider RHC as above
#Hypotension
- Difficult to determine if this is due to hypovolemia or hypervolemia, difficult volume assessment
- Was receiving IV diuretics which are now held due to the soft blood pressures this morning
- Discussed with nephrology, will hold off on diuretics for today, may need right heart cath
- Start midodrine 5 mg 3 times daily and monitor BPs with MAP goal >65
#Hypervolemic hyponatremia
- Serum sodium in the range of 128-130
- Continue to trend BMP on IV diuretics
- Consider urine studies if worsening
#Diabetic foot ulcer of LLE plantar surface
- POD 2 from OR debridement, had bedside debridement performed prior to that
- MRI without signs of osteomyelitis; arterial ultrasound without macrovascular PAD
- Wound cultures growing polymicrobial species including MRSA; final cultures pending
- Continue with IV vancomycin and Zosyn, follow cultures and bone biopsy, trend CBC and temperature curve
- Plan for further OR debridement on Sunday with podiatry, Bhupinder held
#IDDM with hyperglycemia
#Peripheral neuropathy
- A1c here was 10.3%; Home regimen included glipizide and Januvia
- Has history of peripheral neuropathy for which he takes gabapentin
- Home regimen transitioned to Lantus 22U and NovoLog 10U AC with ISS
- Continue to titrate insulin for BG goal 140-180
#Paroxysmal AF
- Home medications include metoprolol succinate 25 mg and Eliquis
- No known history of EP interventions
- Currently NSR, monitor telemetry
#Gout
- Home regimen includes allopurinol
- No signs of flare at this time
#Dyslipidemia
- Home regimen includes high intensity atorvastatin
Diet: Diabetic, 2g sodium restricted, 40 oz FR
DVT prophylaxis: SCDs
CODE STATUS: full code
Disposition: SNF when medically stable
Discussed with security clerk
Anticipated Discharge: > 48 hours
Subjective/Interval History
-
Date of Service: March 29, 2025
Seen and examined at the bedside. No acute events reported overnight. BP hypotensive this morning, otherwise stable and afebrile, on room air
WBC downtrending slowly to 12.2 today. Hemoglobin stable at 10.3. Renal function stable with creatinine 3.4. Potassium 3.2
Patient denies any complaints including lightheadedness, chest pain, dyspnea, other pain, fevers or chills, GI or urinary issues.
Objective Data
-
Labs:
Laboratory Results
03/29/25
06:15
WBC Pending
Hgb Pending
Hct Pending
Plt Count Pending
Sodium Pending
Potassium Pending
Chloride Pending
Carbon Dioxide Pending
BUN Pending
Creatinine Pending
Glucose Pending
Calcium Pending
Vital Signs:
Vital Signs
Temp Pulse Resp BP Pulse Ox
97.9 F 74 16 93/52 91
03/29/25 07:30 03/29/25 07:30 03/29/25 07:30 03/29/25 07:30 03/29/25 07:30
I&O
03/28/25 03/29/25 03/30/25
06:59 06:59 06:59
Intake Total 700 / 700 2100 / 2100
Output Total 1250 / 1250 1420 / 1420
Balance -550 / -550 680 / 680
Review of Systems
-
History Source: Patient
All other systems: Reviewed and negative
Physical Exam
-
General: Well Developed, No Apparent Distress and Obese
HEENT: Normocephalic, Atraumatic, Moist Mucous Membranes and Anicteric
Respiratory: Rales and Non Labored Respirations; Negative Wheezes, Rhonchi or Accessory Resp Muscle Use
Cardiac: Regular Rhythm and S1/S2; Negative Murmur, Rub, JVD or Gallop
GI: Soft, Nontender, Nondistended and Normal Bowel Sounds
Musculoskeletal: No Clubbing, No Cyanosis, No Edema and Other (Left foot bandaged)
Skin: Warm and Dry; Negative Rash or Jaundice
Neuro: AO x 3, Nonfocal/Grossly Intact and Central Nerve's Intact; Negative Tremors
Psych: Calm
Data Reviewed
-
Labs: Labs Reviewed by me, Discussed with Physician, Discussed with Nurse and Discussed with Patient
[2025-03-29 08:33] LABS: Hematocrit 31.4 % (39.0-52.0); Hemoglobin 10.3 g/dL (13.0-18.0); Mean Corp Hgb Conc. 32.8 g/dL (33.0-37.0); Mean Corpuscular Volume 94.0 fL (80.0-94.0); Nucleated Red Blood Cells % 0 % (-); Platelet Count 223 10^3/uL (130-400); Red Cell Dist. Width 15.3 % (11.5-14.5)
[2025-03-29 08:39] LABS: Blood Urea Nitrogen 89 mg/dl (9-20); Calcium 9.7 mg/dl (8.4-10.2); Carbon Dioxide 28 mmol/L (22-30); Chloride 90 mmol/L (98-107); Estimated Creatinine Clearance 21 ml/min; Glucose 188 mg/dl (70-99); Potassium 3.2 mmol/L (3.5-5.1); Sodium 129 mmol/L (135-145); eGFR 16.88
--- NOTE | 2025-03-29 09:31 | W.PN.POD ---
Today's Communication
Today's Communication
Left foot wound S/P I&D
Assessment / Plan
-
Stage 2 left foot wound S/P I&D with resolving cellulitis- POD # 3
Type 2 Diabetes Mellitus with neuropathy
Wound is flushed and packed today. Will continue daily flush/pack. I am recommend return to OR Sunday for integra grafting and vac application. We discussed the risks, benefits and complications of this surgery at length.
Zosyn per ID
OR cultures pending.
Subjective
Chief Complaint
Left foot wound with resolving cellulitis - S/P I&D
Subjective
Patient is awake with no complaints of pain.
Objective
Temp Pulse Resp BP Pulse Ox
97.9 F 74 16 93/52 91
03/29/25 07:30 03/29/25 07:30 03/29/25 07:30 03/29/25 08:23 03/29/25 09:09
03/29/25 06:15
03/29/25 06:15
Vital Signs and Lab results were reviewed.
Physical Exam
Physical Exam
Left LE with significantly less edema - skin tension lines are present, erythema is resolved. palpable pulses, CFT WNL, loss of pedal hair, atrophic changes to digits. Bandages are intact with bloody strikethrough on inner bandages. Foot wound
appears healthy and bleeding. It measures 2.5 cm x 2.5 cm x 1.0 cm. No odor, no purulence. No bone exposed.
[2025-03-29] MEDS: KCL 40 MEQ PO ×2 (10:27→13:35)
--- NOTE | 2025-03-29 14:01 | W.PN.ID1 ---
Date of Service
Date of Service: March 29, 2025
Today's Communication
- Continue Zosyn (d#7), vancomycin (d#2)
Assessment / Plan
# Acute cellulitis of LLE, improving
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 No osteo on MRI.
# Leukocytosis - stable
# DM with neuropathy
# CKD3
- getting daily flushing/packing with podiatry and to return to the OR sunday for graft and vac
- MRI - large wound with subcutaneous emphysema. No osteo
- Arterial duplex: no significant stenosis
- blood cx's neg to date
- s/p OR debridement 03/26/25; cx's MRSA, Enterococcus and GBS
- Continue Zosyn (d#7), vancomycin (d#2)
- Follow wbc, temp curve
# Conditions present on admission:
Diabetes mellitus
Neuropathy
HTN
HLD
HFpEF
Afib
gout
BPH
CKD3
Benign brain tumor resection
L TKR
Chief Complaint
-: Cellulitis
Subjective / Review of Systems
afebrile
bp mildly hypotensive started on midodrine
no events overnight
no pain in the foot
Vital Signs / Physical Exam
Vital Signs
Vital Signs
Temp Pulse Resp BP Pulse Ox
97.9 F 77 16 97/45 91
03/29/25 07:30 03/29/25 11:56 03/29/25 07:30 03/29/25 11:56 03/29/25 09:09
Physical Exam
Constitutional: No Acute Distress
Cardiovascular: Regular Rate and S1/S2; Negative Murmur or Rub
Pulmonary: Clear and Symmetric; Negative Wheezes or Rales
Gastrointestinal: Soft, Non Tender, Non Distended and Normal Bowel Sounds
Skin: Warm and Dry; Negative Rash or Jaundice
Wound: Other (deferred dressing take down)
Objective Data
Lab Data
Lab Results
03/29/25 06:15
03/29/25 06:15
ESR 132 mm/hour (0-20) H 03/24/25 07:00
Estimated Creat Clear 21 ml/min 03/29/25 06:15
Lactic Acid Cancelled 03/24/25 05:45
Total Bilirubin 0.8 mg/dl (0.2-1.3) 03/28/25 05:44
AST 16 U/L (17-59) L 03/28/25 05:44
ALT 11 U/L (0-50) 03/28/25 05:44
Alkaline Phosphatase 61 U/L (38-126) 03/28/25 05:44
Most recent labs reviewed.
Micro Results:
03/26/25 17:40 Anaerobic Culture - Preliminary
Foot - Left Culture pending. Anaerobic cultures are examined after 3
days incubation. Additional information to follow.
03/26/25 17:40 Wound Culture - Preliminary
Foot - Left Staph aureus MRSA
Enterococcus species
Streptococcus agalactiae
Gram Stain - Preliminary
03/24/25 02:00 Blood Culture - Final
Blood/Venous No Growth - Final Report
03/24/25 02:00 Blood Culture - Final
Blood/Venous No Growth - Final Report
03/24/25 05:10 MRSA Screen - Final
Nose No Methicillin Resistant Staphylococcus aureus isolated.
03/24/25 MRI LLE:
1. LARGE 3.3 cm SOFT TISSUE WOUND plantar to the 5th metatarsal base containing soft tissue emphysema.
2. ACUTE CELLULITIS throughout the lateral and dorsal forefoot.
3. No MRI evidence for acute osteomyelitis.
4. Severe acute on chronic muscle denervation throughout the foot.
5. Severe longitudinal split tear of the peroneus brevis tendon with surrounding stenosing tenosynovitis.
03/24/25 L Foot XRAY: Soft tissue gas adjacent to the fifth metatarsal base at the site of the reported soft tissue ulcer. No osseous destructive changes to confirm acute osteomyelitis by radiograph. The patient is currently scheduled for an MRI of
the left foot, which will be more sensitive for osteomyelitis.
[2025-03-29 15:20] VITALS: BP 107/56
--- NOTE | 2025-03-29 15:41 | W.PN.NEPH.PH ---
Today's Communication / Plan
-
hold diuresis, RHC
Assessment/Plan
-
84-year-old male with known history of noninsulin dependent diabetes, CHF with preserved ejection fraction, A-fib on Eliquis 2.5 mg twice daily, gout, BPH presented with left lower extremity cellulitis. He has a large wound on the plantar surface
of his metatarsal being seen by podiatry and infectious disease on antibiotics. He has a history of CHF and is on Lasix 80 twice a day, metolazone he is on valsartan and spironolactone.
Renal consultation for acute on chronic kidney disease with a creatinine at 3 with a baseline creatinine labile between 1.5 and 1.8. Most recent January 2025 creatinine was 3.2.
Impression.
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
Hyponatremia
Foot wound for debridement.
Sepsis.
Diabetes stable.
Plan.
GAYATHRI-cr is slightly up gain at 3.4 with diuretics
suspected to be cardiorenal, cr noted progressive increase in last few months from historic baseline 1.4-1.7(October 2024)
bland UA and Fena not low, follow bladder scan 127cc, renal US non acute , U PCr 0.4
BP are soft on low dose BB, midodrine added per primary
cont to hold ARB and avoid nephrotoxins
it is hard to understand the vol status agree with RHC
holding diuretics for time being though wts are up from admit
hold Aldactone too, echo noted nrml EF
monitor UOP, maintain FR
hypervolemic hyponatremia-monitor for now
no emergent indication of dialysis however high risk -reviewed with pt and do not refuse HD if needed
d/w pt
d/w primary and cards
-
-
Date of Service: March 29, 2025
CC / HPI / ROS
-
Chief Complaint:
GAYATHRI
History of Present Illness:
cr up again 3.4, UOP non oliguric
BP soft
off O2
no fever
Review of Systems:
no sob at rest
no cp
no n/v
Labs
-
Labs:
WBC 12.2 10^3/uL (4.8-10.8) H 03/29/25 06:15
RBC 3.34 10^6/uL (4.70-6.10) L 03/29/25 06:15
Hgb 10.3 g/dL (13.0-18.0) L 03/29/25 06:15
Hct 31.4 % (39.0-52.0) L 03/29/25 06:15
Plt Count 223 10^3/uL (130-400) 03/29/25 06:15
Sodium 129 mmol/L (135-145) L 03/29/25 06:15
Potassium 3.2 mmol/L (3.5-5.1) L 03/29/25 06:15
Chloride 90 mmol/L (98-107) L 03/29/25 06:15
Carbon Dioxide 28 mmol/L (22-30) 03/29/25 06:15
BUN 89 mg/dl (9-20) H 03/29/25 06:15
Creatinine 3.4 mg/dL (0.7-1.3) H 03/29/25 06:15
eGFR 16.88 03/29/25 06:15
Glucose 188 mg/dl (70-99) H 03/29/25 06:15
Calcium 9.7 mg/dl (8.4-10.2) 03/29/25 06:15
Kxw-S-Jectspcshyq Pept 2240 pg/ml 03/27/25 06:18
Albumin 3.2 g/dl (3.5-5.0) L 03/28/25 05:44
Physical Exam
-
Vital Signs:
Vital Signs
Temp Pulse Resp BP Pulse Ox
97.9 F 77 16 97/45 91
03/29/25 07:30 03/29/25 11:56 03/29/25 07:30 03/29/25 11:56 03/29/25 09:09
Cardiovascular:: Regular rate and rhythm
Respiratory:: Bilateral: Rales
Lung Excursion:: Normal
Abdomen:: Nontender and Soft
Extremity Edema:: +2: Bilateral:
Sethi Catheter: No
--- NOTE | 2025-03-29 16:41 | W.PN.CD ---
Today's Communication / Plan
-
OR tomorrow
Continue midodrine and hold diuretics for hypotension
May ultimately need right heart catheterization to clarify volume status and hemodynamics
Impression / Plan
-
84-year-old man with HFpEF, CKD, and permanent atrial fibrillation who presented with left foot wound s/p OR debridement with wound cultures growing MRSA, Enterococcus, and strep agalactiae. During hospitalization, he had CXR with mild pulm edema
and elevated NTproBNP. Cardiology is consulted due to concern for CHF.
Cardiology: Daniel
His volume status is unclear. He denies any heart failure symptoms. His weight has been uptrending since 03/25 (was 250 pounds on 03/24 but this was bed scale). Diuretics were held initially and then resumed on 03/27. On admission creatinine was
2.2 and is now up to 3.4. His blood pressures have been dropping and he is now requiring midodrine (started 03/29). He would benefit from right heart catheterization but he does not want to delay his foot surgery tomorrow.
HFpEF, acute on chronic.
- Unclear volume status as outlined above. Would benefit from RHC. Need to figure out timing.
- Hold diuretics with rising creatinine.
- SGLT2i is cost prohibitive.
- GDMT: On Toprol-XL, valsartan, Aldactone. All currently on hold due to GAYATHRI and hypotension requiring midodrine.
- continue to monitor daily weights, I&Os, sodium and fluid restriction.
Hypotension
- May be hypovolemic but does not fully fit with increasing weight. Unlikely septic with good infectious source control, afebrile, no worsening leukocytosis, etc. TTE 03/27 with normal LVEF so unlikely cardiogenic.
- Recommend right heart catheterization as above
- Continue midodrine 5 mg 3 times daily for now
Left foot wound - managed by podiatry s/p surgical debridement 03/26/25. Planning to go back to OR tomorrow
- MRI with no osteo
- Infectious disease following
Permanent atrial fibrillation - chronic, rate controlled.
- Metoprolol on hold due to hypotension
- [id number]: Score at least 5 (Heart failure, HTN, age 75 or more, Diabetes Mellitus)
- Oral anticoagulation: Apixaban 2.5 mg twice daily on hold for anticipated surgery tomorrow
Type 2 diabetes mellitus - HgbA1c 8.5%.
- management per primary Hospitalist team.
Chronic kidney disease, stage 3 - worse than baseline.
-creatinine up from baseline 2.0-2.4.
-Nephrology on board
HTN -currently hypotensive requiring midodrine
Subjective/interval events: Patient feels at his baseline. He denies chest pain, shortness of breath, lightheadedness/dizziness, or worsening lower extremity edema. He has been hypotensive throughout the day to 90s/50s. Midodrine 5 mg 3 times
daily started. Yesterday he received 80 mg IV Lasix twice. Weight went from 266 to 265 pounds. By I/os, he is net -500 cc. Creatinine went from 3.2 -> 3.4. BUN 91 -> 89.
Physical Exam
Vital Signs/Labs
Vital Signs
Temp Pulse Resp BP Pulse Ox
98.3 F 78 12 107/56 90
03/29/25 15:20 03/29/25 15:20 03/29/25 15:20 03/29/25 15:20 03/29/25 15:20
03/28/25 03/29/25 03/30/25
06:59 06:59 06:59
Actual Weight 266 lb 11.2 oz 265 lb 2 oz
03/29/25 06:15
03/29/25 06:15
03/27/25
06:18
Zit-X-Uxqmygkkphw Pept 2240
Physical Exam
Constitutional: No acute distress and Comfortable
Cardiovascular: Pedal edema present (1+ LLE, trace RLE), S1S2 is normal and Murmur/rub/gallop absent
Respiratory: Respiratory effort normal and Crackles Present
Neuro/Psych: AO x 3
Data Reviewed
-
Date of Service: March 29, 2025
Medical Decision Making: Reviewed Test Results, Test Interpretation and Review of Case with other Provider
EKG: Tracing Personally Visualized and interpreted
Echo: Report Reviewed by me
X-Ray/CT/US/MRI/NUC/PET: Report Reviewed by me
Labs: Labs Reviewed by me
Total Time Spent with Patient (in minutes): 30
[2025-03-29 19:00] VITALS: BP 115/53
[2025-03-29] MEDS: TYLENOL 650 MG PO (20:29)
[2025-03-29] MEDS: MELATONIN 3 MG PO (21:34)
[2025-03-29] MEDS: LIPITOR 80 MG PO (21:34)
[2025-03-29 23:00] VITALS: BP 95/48
[2025-03-30 04:28] VITALS: BMI 36.1
[2025-03-30] MEDS: ZOSYN 50 IV (05:05)
[2025-03-30] MEDS: NOVOLOG FLEXPEN-MODERATE RESISTANCE 3 UNITS SC ×2 (05:17→13:31)
--- NOTE | 2025-03-30 05:30 | PTCARENOTE ---
Addendum entered by Jennifer Parikh RN 03/30/25 06:40:
pt sustaining 86%-88% RA. Placed pt on 2L o2 NC.
Original Note:
Pt's spO2 at 86% to 92% on room air. Pt stated no complaints of shortness of breath. Encouraged deep breathing and spO2 now at 96% on room air. Educated on use of incentive spirometer and encouraged use of incentive spirometer at least 10 times
every hour while awake. Pt demonstrated proper use of incentive spirometer.
[2025-03-30 07:00] VITALS: BP 98/54
--- NOTE | 2025-03-30 08:11 | PN.DE.MGMTRT ---
Insulin Management
- -
03/30/2025: Diabetes Management Follow up
84 year old male admitted with acute LLE swelling and redness. PMH: A-Fib on DOAC, CHF (HFpEF), HTN, Hypercholesterolemia, CKD 3, Gout, BPH, Benign brain tumor, T2DM and chronic nonhealing left foot wound. He reports he has a left lateral plantar
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 He was told wound was getting better. However 03/23 when nurse came by, she noted foot and leg were significantly swollen with erythema from the wound up to below
the knee, so he was sent to the ER. Patient reports that the leg looks a little bit better today. He is to have MRI of the foot. Currently on antibiotics. Prior to admission was taking Glipizide 10mg daily & Januvia 100mg daily. Current A1C 10%,
worsened, was 8.8% in 02/2025.
Cr 3--> , eGFR 19.61 today (baseline Cr 1.6)
Patient has had diabetes 20+ years. He resides at an Assisted Living Facility where his medications are administered to him by staff.
Discussed insulin as best course of management given GAYATHRI with Cr of 2.3 in setting of CKD3 and patient was agreeable to insulin therapy.
Patient awake, alert, oriented, sitting up in bed, very anxious about OR today, able to discuss diabetes care plan.
States he doesn't want to proceed with RHC tomorrow, spoke to pt's son Myrna via phone at bedside who collaborated pt's decision.
Patient is noted for persistent Hyperglycemia. He is currently NPO for Integra grafting and vac application today.
Received 22 units Lantus in AM and 10 units NovoLog AC yesterday, his glucose range was 213 to 217, received 3 units of corrective insulin.
HS glucose was 242, fasting [address] Barba has ordered a reduced dose of Lantus 11 units for today while NPO.
Will increase Lantus to 24 units for tomorrow AM and increase AC NovoLog to 12 units to start after procedure. Cont moderate corrective with meals.
Discussed with Nurse, instructed to HOLD AC NovoLog while NPO and use corrective if needed. Cont to follow.
Patient is currently residing in Assisted Living Facility, where glucose monitoring and medication administration is done for patient.
Diabetes History
- -
Type of Diabetes: 2 requiring insulin
Pre-Admission Diabetes Regimen
03/29/25
06:15
Creatinine 3.4 H
Lab Results
Hemoglobin A1c 10.0 % (4.0-5.9) H 03/24/25 07:00
Insulin Pump Settings
IP Diabetes Regimen
03/28/25 03/28/25 03/29/25
17:35 21:04 06:15
Glucose 188 H
POC Glucose 249 H 263 H
03/29/25 03/29/25
07:47 08:26
Glucose
POC Glucose 208 H 217 H
Meal type: Dinner
Meal type: Breakfast
Amount consumed: 100%
Amount consumed: 50%
Patient Education
[2025-03-30 08:45] LABS: Glucose - Point of Care 242 mg/dl (70-99)
[2025-03-30 08:45] LABS: Glucose - Point of Care 203 mg/dl (70-99)
[2025-03-30 08:45] LABS: Glucose - Point of Care 213 mg/dl (70-99)
[2025-03-30 08:45] LABS: Glucose - Point of Care 217 mg/dl (70-99)
[2025-03-30 08:55] LABS: Hematocrit 30.9 % (39.0-52.0); Hemoglobin 10.0 g/dL (13.0-18.0); Mean Corp Hgb Conc. 32.4 g/dL (33.0-37.0); Mean Corpuscular Volume 96.6 fL (80.0-94.0); Nucleated Red Blood Cells % 0 % (-); Platelet Count 218 10^3/uL (130-400); Red Cell Dist. Width 15.0 % (11.5-14.5)
[2025-03-30] MEDS: NEURONTIN PO (08:55)
[2025-03-30] MEDS: FLOMAX PO (08:55)
[2025-03-30] MEDS: NOVOLOG FLEXPEN SC ×3 (08:55→16:45)
[2025-03-30] MEDS: ZYLOPRIM PO (08:59)
--- NOTE | 2025-03-30 09:09 | W.PN.ID1 ---
Date of Service
Date of Service: March 30, 2025
Today's Communication
- Narrow Zosyn (d#7) to Unasyn
- Continue vancomycin (d#3)
- At time of dc, will transition to po abx's.
Assessment / Plan
# Acute cellulitis of LLE, resolving
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 No osteo on MRI.
# Leukocytosis - resolved
# DM with neuropathy
# CKD3
- MRI - large wound with subcutaneous emphysema. No osteo
- Arterial duplex: no significant stenosis
- s/p OR debridement 03/26/25; cx's MRSA, Enterococcus and GBS
- getting daily flushing/packing with podiatry and to return to the OR today for graft and vac
- Narrow Zosyn (d#7) to Unasyn
- Continue vancomycin (d#3)
- At time of dc, will transition to po abx's.
# Conditions present on admission:
Diabetes mellitus
Neuropathy
HTN
HLD
HFpEF
Afib
gout
BPH
CKD3
Benign brain tumor resection
L TKR
Chief Complaint
-: Cellulitis
Subjective / Review of Systems
No complaints today.
Vital Signs / Physical Exam
Vital Signs
Vital Signs
Temp Pulse Resp BP Pulse Ox
98.4 F 67 16 98/54 95
03/30/25 07:00 03/30/25 07:00 03/30/25 07:00 03/30/25 07:00 03/30/25 07:00
Physical Exam
Constitutional: No Acute Distress
Pulmonary: Clear
Gastrointestinal: Soft, Non Tender and Non Distended
Extremities: Edema (LLE decreasing) and Erythema (LLE decreasing)
Neurological: AO x 3
Objective Data
Lab Data
Lab Results
03/30/25 08:05
ESR 132 mm/hour (0-20) H 03/24/25 07:00
Estimated Creat Clear 21 ml/min 03/29/25 06:15
Lactic Acid Cancelled 03/24/25 05:45
Total Bilirubin 0.8 mg/dl (0.2-1.3) 03/28/25 05:44
AST 16 U/L (17-59) L 03/28/25 05:44
ALT 11 U/L (0-50) 03/28/25 05:44
Alkaline Phosphatase 61 U/L (38-126) 03/28/25 05:44
Most recent labs reviewed.
Micro Results:
03/26/25 17:40 Anaerobic Culture - Preliminary
Foot - Left Culture pending. Anaerobic cultures are examined after 3
days incubation. Additional information to follow.
03/26/25 17:40 Wound Culture - Preliminary
Foot - Left Staph aureus MRSA
Enterococcus species
Streptococcus agalactiae
Gram Stain - Preliminary
03/24/25 02:00 Blood Culture - Final
Blood/Venous No Growth - Final Report
03/24/25 02:00 Blood Culture - Final
Blood/Venous No Growth - Final Report
03/24/25 05:10 MRSA Screen - Final
Nose No Methicillin Resistant Staphylococcus aureus isolated.
03/24/25 MRI LLE:
1. LARGE 3.3 cm SOFT TISSUE WOUND plantar to the 5th metatarsal base containing soft tissue emphysema.
2. ACUTE CELLULITIS throughout the lateral and dorsal forefoot.
3. No MRI evidence for acute osteomyelitis.
4. Severe acute on chronic muscle denervation throughout the foot.
5. Severe longitudinal split tear of the peroneus brevis tendon with surrounding stenosing tenosynovitis.
03/24/25 L Foot XRAY: Soft tissue gas adjacent to the fifth metatarsal base at the site of the reported soft tissue ulcer. No osseous destructive changes to confirm acute osteomyelitis by radiograph. The patient is currently scheduled for an MRI of
the left foot, which will be more sensitive for osteomyelitis.
[2025-03-30] MEDS: LANTUS 0.11 UNITS SC (09:42)
[2025-03-30 09:50] LABS: Glucose - Point of Care 209 mg/dl (70-99)
--- NOTE | 2025-03-30 09:52 | PHA.VAN.FU ---
Vancomycin Assessment / Plan
- Assessment
Renal Function: Stable (SCr 3.4 from 3.2)
WBC's are: Trending Down (10.7 from 12.2)
In the past 24 hrs, patient has been: Afebrile
Concomitant Antimicrobials: Unasyn
- Assessment - Therapeutic Drug Monitoring
Random Level: 17.5 (drawn approximately 38 hours post-dose)
Calculated half life (H): 113
- Dosing Plan
Continue: Vancomycin dosed by levels
Dosing by Level: Hold off on dosing today
- Monitoring Plan
Random Level: 03/31/25 0600
- Follow Up
Pharmacy will continue to follow.
Vancomycin Follow UP
- -
Patient Age: 84
Patient Sex: Male
Vancomycin Day #: 3
Indication: Skin And Soft Tissue
Requesting Provider: Dr. Barba / Abeba
Pertinent Antimicrobial Allergies:
NKDA
Height / Weight:
Height 6 ft
Actual Weight 120.61 kg
Pertinent Past Medical History: BMI ~ 36, DM 2, CKD
- Vital Signs / Lab Results
Temp Pulse Resp BP Pulse Ox
98.4 F 67 16 98/54 95
03/30/25 07:00 03/30/25 07:00 03/30/25 07:00 03/30/25 07:00 03/30/25 07:00
Lab Results - Hematology
03/28/25 03/29/25 03/30/25
05:44 06:15 08:05
WBC 12.3 H 12.2 H 10.7
Lab Results - Chemistry
03/28/25 03/29/25
05:44 06:15
BUN 91 H 89 H
Creatinine 3.2 H 3.4 H
Estimated Creat Clear 22 21
Albumin 3.2 L
Microbiology Results
03/26/25 17:40 Anaerobic Culture - Preliminary
Foot - Left Culture pending. Anaerobic cultures are examined after 3
days incubation. Additional information to follow.
03/26/25 17:40 Wound Culture - Preliminary
Foot - Left Staph aureus MRSA
Enterococcus species
Streptococcus agalactiae
Gram Stain - Preliminary
03/24/25 02:00 Blood Culture - Final
Blood/Venous No Growth - Final Report
03/24/25 02:00 Blood Culture - Final
Blood/Venous No Growth - Final Report
Therapeutic Drug Monitoring
Random Vancomycin 17.5 ug/ml 03/30/25 08:05
[2025-03-30] MEDS: LANTUS SC (09:54)
--- NOTE | 2025-03-30 10:01 | WOUNDNOTE ---
WOC RN NOTE: Wound vac information sent to [employer] and home vac approved. Dr. Elder made aware.
[2025-03-30 10:11] LABS: Blood Urea Nitrogen 94 mg/dl (9-20); Calcium 9.4 mg/dl (8.4-10.2); Carbon Dioxide 27 mmol/L (22-30); Chloride 93 mmol/L (98-107); Estimated Creatinine Clearance 19 ml/min; Glucose 174 mg/dl (70-99); Magnesium 1.9 mg/dl (1.6-2.3); Potassium 3.3 mmol/L (3.5-5.1); Sodium 133 mmol/L (135-145); eGFR 14.77
--- NOTE | 2025-03-30 10:30 | W.PN.CD ---
Today's Communication / Plan
-
OR today if pods/renal ok with him going
RHC tomorrow
Impression / Plan
-
84-year-old man with HFpEF, CKD, and permanent atrial fibrillation who presented with left foot wound s/p OR debridement with wound cultures growing MRSA, Enterococcus, and strep agalactiae. During hospitalization, he had CXR with mild pulm edema
and elevated NTproBNP. Cardiology is consulted due to concern for CHF.
Cardiology: Daniel
His volume status is unclear. He denies any heart failure symptoms. His weight has been uptrending since 03/25 (was 250 pounds on 03/24 but this was bed scale). Diuretics were held initially and then resumed on 03/27, now held again for rising
creatinine. On admission creatinine was 2.2 and is now up to 3.8. His blood pressures have been dropping and he is now requiring midodrine (started 03/29). He would benefit from right heart catheterization but he does not want to delay his foot
surgery.
HFpEF, acute on chronic.
- Unclear volume status as outlined above. Would benefit from RHC. Will plan for tomorrow.
- Hold diuretics with rising creatinine.
- SGLT2i is cost prohibitive.
- GDMT: On Toprol-XL, valsartan, Aldactone. All currently on hold due to GAYATHRI and hypotension requiring midodrine.
- continue to monitor daily weights, I&Os, sodium and fluid restriction.
Hypotension
- May be hypovolemic but does not fully fit with increasing weight. Unlikely septic with good infectious source control, afebrile, no worsening leukocytosis, etc. TTE 03/27 with normal LVEF so unlikely cardiogenic.
- Recommend right heart catheterization as above
- Continue midodrine 5 mg 3 times daily for now
Left foot wound - managed by podiatry s/p surgical debridement 03/26/25. Planning to go back to OR tomorrow
- MRI with no osteo
- Infectious disease following
Permanent atrial fibrillation - chronic, rate controlled.
- Metoprolol on hold due to hypotension
- [id number]: Score at least 5 (Heart failure, HTN, age 75 or more, Diabetes Mellitus)
- Oral anticoagulation: Apixaban 2.5 mg twice daily on hold for anticipated surgery tomorrow
Type 2 diabetes mellitus - HgbA1c 8.5%.
- management per primary Hospitalist team.
Chronic kidney disease, stage 3 - worse than baseline.
-creatinine up from baseline 2.0-2.4.
-Nephrology on board
HTN -currently hypotensive requiring midodrine
Subjective/interval events: Patient feels at his baseline. He denies chest pain, shortness of breath, lightheadedness/dizziness, or worsening lower extremity edema.
Physical Exam
Vital Signs/Labs
Vital Signs
Temp Pulse Resp BP Pulse Ox
98.4 F 67 16 98/54 95
03/30/25 07:00 03/30/25 07:00 03/30/25 07:00 03/30/25 07:00 03/30/25 07:00
03/29/25 03/30/25 03/31/25
06:59 06:59 06:59
Actual Weight 265 lb 2 oz 265 lb 14.4 oz
03/30/25 08:05
03/30/25 08:05
Magnesium 1.9 mg/dl (1.6-2.3) 03/30/25 08:05
03/27/25
06:18
Gkg-P-Lyghtoqgkhe Pept 2240
Physical Exam
Constitutional: No acute distress and Comfortable
Cardiovascular: Rhythm/rate is irregular, S1S2 is normal and Murmur/rub/gallop absent
Respiratory: Respiratory effort normal and Crackles Present
Neuro/Psych: AO x 3
Data Reviewed
-
Date of Service: March 30, 2025
Medical Decision Making: Reviewed Test Results, Test Interpretation and Review of Case with other Provider
Echo: Report Reviewed by me
Labs: Labs Reviewed by me
--- NOTE | 2025-03-30 10:41 | W.PN.NEPH.PH ---
Today's Communication / Plan
-
Observe off diuretics
Renal failure worsening
For right heart cath tomorrow
Assessment/Plan
-
84-year-old male with known history of noninsulin dependent diabetes, CHF with preserved ejection fraction, A-fib on Eliquis 2.5 mg twice daily, gout, BPH presented with left lower extremity cellulitis. He has a large wound on the plantar surface
of his metatarsal being seen by podiatry and infectious disease on antibiotics. He has a history of CHF and is on Lasix 80 twice a day, metolazone he is on valsartan and spironolactone.
Renal consultation for acute on chronic kidney disease with a creatinine at 3 with a baseline creatinine labile between 1.5 and 1.8. Most recent January 2025 creatinine was 3.2.
Impression.
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
Hyponatremia
Foot wound for debridement.
Sepsis.
Diabetes stable.
Plan.
GAYATHRI-cr is worsening as creatinine is up to 3.8 and BUN 94, recorded urine output 250 cc
suspected to be cardiorenal, cr noted progressive increase in last few months from historic baseline 1.4-1.7(October 2024)
bland UA and Fena not low, follow bladder scan 127cc, renal US non acute , U PCr 0.4
BP are soft on low dose BB, midodrine added per primary
continue to hold ARB and avoid nephrotoxins
it is hard to understand the volume status agree with RHC for tomorrow
holding diuretics for time being though wts are up from admit
hold Aldactone too, echo noted nrml EF
monitor UOP, maintain FR
hypervolemic hyponatremia-monitor for now
no emergent indication of dialysis however high risk -reviewed with pt and do not refuse HD if needed
Patient is at high clinical risk with further deterioration of renal failure and limited urine output of 250 cc recorded, weight stable
d/w pt
d/w primary and cards
-
-
Date of Service: March 30, 2025
CC / HPI / ROS
-
Chief Complaint:
GAYATHRI
History of Present Illness:
cr up again 3.8, UOP oliguric
BP soft
off O2
no fever
Review of Systems:
no sob at rest
no cp
no n/v
weights sable
Labs
-
Labs:
WBC 10.7 10^3/uL (4.8-10.8) 03/30/25 08:05
RBC 3.20 10^6/uL (4.70-6.10) L 03/30/25 08:05
Hgb 10.0 g/dL (13.0-18.0) L 03/30/25 08:05
Hct 30.9 % (39.0-52.0) L 03/30/25 08:05
Plt Count 218 10^3/uL (130-400) 03/30/25 08:05
Sodium 133 mmol/L (135-145) L 03/30/25 08:05
Potassium 3.3 mmol/L (3.5-5.1) L 03/30/25 08:05
Chloride 93 mmol/L (98-107) L 03/30/25 08:05
Carbon Dioxide 27 mmol/L (22-30) 03/30/25 08:05
BUN 94 mg/dl (9-20) H 03/30/25 08:05
Creatinine 3.8 mg/dL (0.7-1.3) H 03/30/25 08:05
eGFR 14.77 03/30/25 08:05
Glucose 174 mg/dl (70-99) H 03/30/25 08:05
Calcium 9.4 mg/dl (8.4-10.2) 03/30/25 08:05
Sof-R-Xuiupcpcqbe Pept 2240 pg/ml 03/27/25 06:18
Albumin 3.2 g/dl (3.5-5.0) L 03/28/25 05:44
Physical Exam
-
Vital Signs:
Vital Signs
Temp Pulse Resp BP Pulse Ox
98.4 F 67 16 98/54 95
03/30/25 07:00 03/30/25 07:00 03/30/25 07:00 03/30/25 07:00 03/30/25 07:00
Cardiovascular:: Regular rate and rhythm
Respiratory:: Bilateral: Rales
Lung Excursion:: Normal
Abdomen:: Nontender and Soft
Extremity Edema:: +2: Bilateral:
Sethi Catheter: No
--- NOTE | 2025-03-30 11:23 | W.PN.HOSP.TC ---
Today's Communication/Plan
-
Monitor vital signs
seen plan
Wean oxygen as tolerated
Follow cultures
Continue with antibiotic
Plan for or today by podiatry
Right heart cath when able per cardiology and patient if he agrees
Monitor renal function
Continue to hold metolazone, Lasix
Assessment / Plan
Assessment / Plan
General: Well Developed, No Apparent Distress and Obese
HEENT: Normocephalic, Atraumatic, Moist Mucous Membranes and Anicteric
Respiratory: Rales and Non Labored Respirations
Cardiac: Regular Rhythm and S1/S2; Negative Murmur
GI: Soft, Nontender, Nondistended and Normal Bowel Sounds
Musculoskeletal: No Clubbing, No Cyanosis, No Edema and Other (Left foot bandaged)
Neuro: AO x 3, Nonfocal/Grossly Intact and Central Nerve's Intact
Psych: Calm
#Decompensated HFpEF, acute on chronic
# Acute hypoxemic respiratory insufficiency, wean oxygen as tolerated
- TTE here with LVEF 59%, mild pulmonary hypertension; no known history of ischemic heart disease
- Home regimen includes GDMT with MRA and ARB, diuresis with Lasix 80 BID + metolazone 2.5 Q48
- holding IV Lasix and metolazone given worsening renal function.
- Continue to monitor on telemetry, wean oxygen for SpO2 goal >90%
- Cardiology and nephrology following
- Would benefit from right heart cath if patient agrees
#GAYATHRI on CKD stage III
- Baseline creatinine near 1.5; likely associated with poorly controlled diabetes
- Creatinine here uptrending due to cardiorenal physiology decompensated HFpEF
- Creatinine peaked at 3.5; started on IV diuretics with minimal improvement, developed HoTN
- Holding home spironolactone, valsartan, Lasix and metolazone
- Trend BMP + UOP, MAP > 65 mmHg, avoid nephrotoxic agents
- Consider RHC as above
#Hypotension
- Difficult to determine if this is due to hypovolemia or hypervolemia, difficult volume assessment
- Was receiving IV diuretics which are now held due to the soft blood pressures this morning
- Discussed with nephrology, will hold off on diuretics for today, may need right heart cath
- midodrine 5 mg 3 times daily and monitor BPs with MAP goal >65
#Hypervolemic hyponatremia
- Serum sodium in the range of 128-130
- Continue to trend BMP on IV diuretics
- Consider urine studies if worsening
#Diabetic foot ulcer of LLE plantar surface
- POD 2 from OR debridement, had bedside debridement performed prior to that
- MRI without signs of osteomyelitis; arterial ultrasound without macrovascular PAD
- Wound cultures growing polymicrobial species including MRSA; now on Unasyn and vancomycin
follow cultures and bone biopsy, trend CBC and temperature curve
- Plan for further OR debridement 03/30 with podiatry, Eliquis held
#IDDM with hyperglycemia
#Peripheral neuropathy
- A1c here was 10.3%; Home regimen included glipizide and Januvia
- Has history of peripheral neuropathy for which he takes gabapentin
- Home regimen transitioned to Lantus 22U and NovoLog 10U AC with ISS, decrease Lantus to 11 units 03/30 due to n.p.o.
#Paroxysmal AF
- Home medications include metoprolol succinate 25 mg and Eliquis
- No known history of EP interventions
- Currently NSR, monitor telemetry
#Gout
- Home regimen includes allopurinol
- No signs of flare at this time
#Dyslipidemia
- Home regimen includes high intensity atorvastatin
Diet: Diabetic, 2g sodium restricted, 40 oz FR
DVT prophylaxis: SCDs
CODE STATUS: full code
Disposition: SNF when medically stable
I spent a total of 53 minutes with the patient or on the floor. More than 50% of this time involved counseling and coordination of care.
Anticipated Discharge: > 48 hours
Subjective/Interval History
-
Date of Service: March 30, 2025
denies nausea
Objective Data
-
Labs:
Laboratory Results
03/30/25
08:05
WBC 10.7
Hgb 10.0 L
Hct 30.9 L
Plt Count 218
Sodium 133 L
Potassium 3.3 L
Chloride 93 L
Carbon Dioxide 27
BUN 94 H
Creatinine 3.8 H
Glucose 174 H
Calcium 9.4
Vital Signs:
Vital Signs
Temp Pulse Resp BP Pulse Ox
98.4 F 67 16 98/54 95
03/30/25 07:00 03/30/25 07:00 03/30/25 07:00 03/30/25 07:00 03/30/25 07:00
I&O
03/29/25 03/30/25 03/31/25
06:59 06:59 06:59
Intake Total 2100 / 2100 580 / 580
Output Total 1420 / 1420 250 / 250
Balance 680 / 680 330 / 330
[2025-03-30] MEDS: KCL IV ×2 (12:15→12:29)
--- NOTE | 2025-03-30 12:26 | PN.CDI ---
CDI
- -
CDI:
Physician Documentation Request
Admit Date: 03/24/25 03:01
Dear Doctor Jameson,
Patient admitted for diabetic foot wound, recurrent cellulitis.
Patient has a history of atrial fib.
Cardiology refers the atrial fibrillation as permanent. Hospitalist progress note states 'paroxysmal'
Please clarify regarding atrial fibrillation:
Paroxysmal atrial fibrillation - terminates spontaneously or with intervention within 7 days of onset
Permanent atrial fibrillation - when a decision has been made to accept the presence of AF and there is no further attempt to restore or maintain sinus rhythm
Other - please specify
Use of terms such as suspected, likely, concern for, or probable (associated with a specific diagnosis that is being evaluated, monitored, or treated as if it exists) are acceptable and can be coded in the inpatient setting, when documented at the
time of discharge.
Thank you,
Itzel Cheung RN, BSN
CDI Specialist
tiger text
Please use your independent medical judgment in providing your response.
--- NOTE | 2025-03-30 12:32 | PN.CDI ---
CDI
- -
CDI:
Physician Documentation Request
Admit Date: 03/24/25 03:[address] Barba
[facility] is using an adapted version of the 2016 Third International Consensus Definitions for Sepsis and Septic Shock (Sepsis-3) where sepsis is defined as life threatening organ dysfunction caused by a deregulated host response to infection.
Please reference the official [facility] Sepsis Recognition Tool for further information, which can be found on the Intranet under Infection Prevention.
Clinical Indicators Include:
H&P states 'Diabetic foot infection, nonpurulent cellulitis of the LLE with plantar ulcer' Patient has a history CKD III. H&P states 'creatinine stable'
03/26 Nephrology was consulted for acute on chronic kidney disease. Consultation states '...baseline creatinine between 1.5-1.8'
Laboratory Tests
03/24/25 03/24/25 03/25/25
00:38 07:00 06:27
Creatinine 2.3 H 2.2 H 2.4 H
03/26/25 03/27/25 03/28/25
06:06 06:18 05:44
Creatinine 3.0 H 3.5 H 3.2 H
03/29/25 03/30/25
06:15 08:05
Creatinine 3.4 H 3.8 H
Based on your medical judgment, can you further clarify the diagnosis being monitored/treated this admission?
� Sepsis due to cellulitis with organ dysfunction of GAYATHRI (please indicate if POA)
� Cellulitis only
� Other
� Clinically unable to determine
Use of terms such as suspected, likely, concern for, or probable (associated with a specific diagnosis that is being evaluated, monitored, or treated as if it exists) are acceptable and can be coded in the inpatient setting when documented at the
time of discharge.
Please use your independent medical judgement in providing your response.
Thank you,
Itzel Cheung RN, BSN
CDI Specialist
tiger text
[2025-03-30 12:37] VITALS: BP 102/51
[2025-03-30] MEDS: UNASYN IV ×2 (13:01→23:45)
[2025-03-30] MEDS: KCL 270 MEQ IV (13:35)
[2025-03-30 15:00] VITALS: BP 120/54
[2025-03-30 17:40] LABS: Glucose - Point of Care 207 mg/dl (70-99)
[2025-03-30 17:42] LABS: Glucose - Point of Care 182 mg/dl (70-99)
--- NOTE | 2025-03-30 18:02 | W.PN.POD ---
Today's Communication
Today's Communication
Left foot wound
Assessment / Plan
-
Stage 2 left foot wound S/P I&D with resolving cellulitis- POD # 4
Type 2 Diabetes Mellitus with neuropathy
Wound is flushed and packed today. Will continue daily flush/pack. Wound is looking healthy and viable. Unfortunately OR was no available for the case tonana maria. We discussed wound vac and graft to allow for greater healing potential. Possible VAC
at bedside and determine if OR is needed in a few days.
Unasyn/Vanco per ID
Subjective
Chief Complaint
Left foot wound
Subjective
No complaints of pain
Objective
Temp Pulse Resp BP Pulse Ox
97.7 F 78 16 120/54 91
03/30/25 15:00 03/30/25 15:00 03/30/25 15:00 03/30/25 15:00 03/30/25 15:00
03/30/25 08:05
03/30/25 08:05
Vital Signs and Lab results were reviewed.
Physical Exam
Physical Exam
Left LE with significantly less edema - skin tension lines are present, erythema is resolved. palpable pulses, CFT WNL, loss of pedal hair, atrophic changes to digits. Bandages are intact with bloody strikethrough on inner bandages. Foot wound
appears healthy and bleeding. It measures 2.5 cm x 2.5 cm x 1.0 cm. No odor, no purulence. No bone exposed.
[2025-03-30 18:20] VITALS: BP 139/70
[2025-03-30] MEDS: NOVOLOG FLEXPEN-MODERATE RESISTANCE 1 UNITS SC (18:23)
[2025-03-30] MEDS: NEURONTIN 300 MG PO (20:12)
[2025-03-30] MEDS: LIPITOR 80 MG PO (21:58)
[2025-03-30] MEDS: MELATONIN 3 MG PO (21:58)
[2025-03-30 22:05] LABS: Glucose - Point of Care 261 mg/dl (70-99)
[2025-03-30 23:14] VITALS: BP 126/82
[2025-03-30] MEDS: NOVOLOG FLEXPEN-MODERATE RESISTANCE SC (23:41)
[2025-03-31] VITALS (7 sets, daily range): BP systolic 99–142; BP diastolic 48–59; PULSE 75–81; O2SAT 95–97; BMI 35.1
[2025-03-31 06:07] LABS: Hematocrit 30.3 % (39.0-52.0); Hemoglobin 10.0 g/dL (13.0-18.0); Mean Corp Hgb Conc. 33.0 g/dL (33.0-37.0); Mean Corpuscular Volume 95.6 fL (80.0-94.0); Nucleated Red Blood Cells % 0 % (-); Platelet Count 224 10^3/uL (130-400); Red Cell Dist. Width 15.1 % (11.5-14.5)
[2025-03-31 06:29] LABS: Glucose - Point of Care 215 mg/dl (70-99)
[2025-03-31 06:34] LABS: Blood Urea Nitrogen 81 mg/dl (9-20); Calcium 9.8 mg/dl (8.4-10.2); Carbon Dioxide 27 mmol/L (22-30); Chloride 96 mmol/L (98-107); Estimated Creatinine Clearance 25 ml/min; Glucose 204 mg/dl (70-99); Potassium 3.1 mmol/L (3.5-5.1); Sodium 131 mmol/L (135-145); eGFR 20.43
[2025-03-31] MEDS: NOVOLOG FLEXPEN-MODERATE RESISTANCE 3 UNITS SC ×2 (06:47→17:48)
--- NOTE | 2025-03-31 07:33 | PN.DE.MGMTRT ---
Insulin Management
- -
03/31/2025: Diabetes Management Follow up
84 year old male admitted with acute LLE swelling and redness. PMH: A-Fib on DOAC, CHF (HFpEF), HTN, Hypercholesterolemia, CKD 3, Gout, BPH, Benign brain tumor, T2DM and chronic nonhealing left foot wound. He reports he has a left lateral plantar
foot wound for approximately 6 weeks manage by his glazing machine operator and home wound nurse. He was told wound was getting better. However 03/23 when nurse came by, she noted foot and leg were significantly swollen with erythema from the wound up to below
the knee, so he was sent to the ER. Patient reports that the leg looks a little bit better today. He is to have MRI of the foot. Currently on antibiotics. Prior to admission was taking Glipizide 10mg daily & Januvia 100mg daily. Current A1C 10%,
worsened, was 8.8% in 02/2025.
Cr 2.2, eGFR 20.91 today (baseline Cr 1.6)
Patient has had diabetes 20+ years. He resides at an Assisted Living Facility where his medications are administered to him by staff.
Discussed insulin as best course of management given GAYATHRI with Cr of 2.3 in setting of CKD3 and patient was agreeable to insulin therapy.
Patient awake, alert, oriented, sitting up in bed, very upset about OR cancellation yesterday, c/o of being very uncomfortable in bed, able to discuss diabetes care plan.
Patient is noted for persistent Hyperglycemia. S/P Integra grafting and vac application day 1.
Diet resumed 1800 calories. Will continue Lantus 24 units in AM will increase AC NovoLog from 10 units to 12 to start at lunch with moderate corrective with meals.
Discussed with nurse
Will follow.
Patient is currently residing in Assisted Living Facility, where glucose monitoring and medication administration is done for patient.
Diabetes History
- -
Type of Diabetes: 2 requiring insulin
Pre-Admission Diabetes Regimen
03/30/25 03/31/25
08:05 05:47
Creatinine 3.8 H 2.9 H
Lab Results
Hemoglobin A1c 10.0 % (4.0-5.9) H 03/24/25 07:00
Insulin Pump Settings
IP Diabetes Regimen
03/29/25 03/29/25 03/29/25
11:31 16:39 23:20
Glucose
POC Glucose 217 H 213 H 242 H
03/30/25 03/30/25 03/30/25
05:08 08:05 09:49
Glucose 174 H
POC Glucose 203 H 209 H
03/30/25 03/30/25 03/30/25
12:29 17:40 21:56
Glucose
POC Glucose 207 H 182 H 261 H
03/31/25 03/31/25
05:47 06:27
Glucose 204 H
POC Glucose 215 H
Meal type: Dinner
Meal type: Dinner
Meal type: Lunch
Meal type: Breakfast
Amount consumed: 100%
Patient Education
--- NOTE | 2025-03-31 08:03 | W.PN.CD ---
Today's Communication / Plan
-
Continue to hold diuretics
No plan for RHC today
Impression / Plan
-
84-year-old man with HFpEF, CKD, and permanent atrial fibrillation who presented with left foot wound s/p OR debridement with wound cultures growing MRSA, Enterococcus, and strep agalactiae. During hospitalization, he had CXR with mild pulm edema
and elevated NTproBNP. Cardiology is consulted due to concern for CHF.
Cardiology: Daniel
Creatinine has significantly improved today with holding diuretics. I do not think he needs RHC today though I did explain he may need it if things start to go the wrong direction again. He understands.
HFpEF, acute on chronic.
- Despite holding diuretics, weight is down from yesterday and he is net -1L. Cr 3.8 -> 2.9. BP also improving.
- No RHC today. Continue to hold diuresis.
- SGLT2i is cost prohibitive.
- GDMT: On Toprol-XL, valsartan, Aldactone. All currently on hold due to GAYATHRI and hypotension requiring midodrine.
- continue to monitor daily weights, I&Os, sodium and fluid restriction.
Hypotension, improving
- Could have been hypovolemic. Improved with holding diuretic. Unlikely septic with good infectious source control, afebrile, no worsening leukocytosis, etc. TTE 03/27 with normal LVEF so unlikely cardiogenic.
- Continue midodrine 5 mg 3 times daily for now. Wean as tolerated
Left foot wound - managed by podiatry s/p surgical debridement 03/26/25.
- MRI with no osteo
- Infectious disease following
- Podiatry on board. Possible plan for wound vac and further debridement
Permanent atrial fibrillation - chronic, rate controlled.
- Metoprolol on hold due to hypotension
- [id number]: Score at least 5 (Heart failure, HTN, age 75 or more, Diabetes Mellitus)
- Oral anticoagulation: Apixaban 2.5 mg twice daily on hold for anticipated surgery tomorrow
Type 2 diabetes mellitus - HgbA1c 8.5%.
- management per primary Hospitalist team.
Chronic kidney disease, stage 3 - worse than baseline.
-creatinine up from baseline 2.0-2.4.
-Nephrology on board
HTN -currently hypotensive requiring midodrine
Subjective/interval events: He is very frustrated because he did not go to the OR yesterday. Breathing is at baseline. He is still wearing supplemental O2 but it is on the side of his face.
Physical Exam
Vital Signs/Labs
Vital Signs
Temp Pulse Resp BP Pulse Ox
98.8 F 74 18 99/48 94
03/31/25 07:39 03/31/25 07:39 03/31/25 07:39 03/31/25 07:39 03/31/25 07:39
03/30/25 03/31/25 04/01/25
06:59 06:59 06:59
Actual Weight 265 lb 14.4 oz 258 lb 12.8 oz
03/31/25 05:47
03/31/25 05:47
Magnesium 1.9 mg/dl (1.6-2.3) 03/30/25 08:05
03/27/25
06:18
Nwr-I-Xmocrjjkzyc Pept 2240
Physical Exam
Constitutional: No acute distress and Comfortable
Cardiovascular: Rhythm/rate is irregular, Pedal edema present (trace bilateral), S1S2 is normal and Murmur/rub/gallop absent
Respiratory: Respiratory effort normal and Crackles Present
Neuro/Psych: AO x 3
Data Reviewed
-
Date of Service: March 31, 2025
Medical Decision Making: Reviewed Test Results, Test Interpretation and Review of Case with other Provider
EKG: Tracing Personally Visualized and interpreted
Echo: Report Reviewed by me
Labs: Labs Reviewed by me
[2025-03-31] MEDS: NOVOLOG FLEXPEN SC (08:13)
--- NOTE | 2025-03-31 08:44 | PHA.VAN.FU ---
Vancomycin Assessment / Plan
- Assessment
Renal Function: SCR Decreasing
WBC's are: WNL
In the past 24 hrs, patient has been: Afebrile
Concomitant Antimicrobials: ampicillin/sulbactam
- Assessment - Therapeutic Drug Monitoring
Random Level: 15 - drawn ~21.7H after previous level of 17.5
Calculated ke: 0.0071
Calculated half life (H): 97.6
- Dosing Plan
Dosing by Level: Hold off on dosing today (patient expected to maintain detectable level > 48H)
Dosing Comments: SCR and half-life decreased - will continue to follow daily levels
- Monitoring Plan
Random Level: 04/01 06
- Follow Up
Pharmacy will continue to follow.
Vancomycin Follow UP
- -
Patient Age: 84
Patient Sex: Male
Vancomycin Day #: 4
Indication: Skin And Soft Tissue
Requesting Provider: Dr. Barba / [place]
Pertinent Antimicrobial Allergies:
NKDA
Height / Weight:
Height 6 ft
Actual Weight 117.39 kg
Pertinent Past Medical History: BMI ~ 36, DM 2, CKD
- Vital Signs / Lab Results
Temp Pulse Resp BP Pulse Ox
98.8 F 74 18 99/48 94
03/31/25 07:39 03/31/25 07:39 03/31/25 07:39 03/31/25 07:39 03/31/25 07:39
Lab Results - Hematology
03/29/25 03/30/25 03/31/25
06:15 08:05 05:47
WBC 12.2 H 10.7 10.7
Lab Results - Chemistry
03/29/25 03/30/25 03/31/25
06:15 08:05 05:47
BUN 89 H 94 H 81 H
Creatinine 3.4 H 3.8 H 2.9 H
Estimated Creat Clear
Microbiology Results
03/26/25 17:40 Anaerobic Culture - Preliminary
Foot - Left Culture pending. Anaerobic cultures are examined after 3
days incubation. Additional information to follow.
03/26/25 17:40 Wound Culture - Preliminary
Foot - Left Staph aureus MRSA
Enterococcus faecalis
Streptococcus agalactiae
Gram Stain - Preliminary
Therapeutic Drug Monitoring
Random Vancomycin 15.0 ug/ml 03/31/25 05:47
--- NOTE | 2025-03-31 09:05 | W.PN.ID1 ---
Date of Service
Date of Service: March 31, 2025
Today's Communication
Continue abx's.
Assessment / Plan
# Acute cellulitis of LLE, resolving
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 No osteo on MRI.
# Leukocytosis - resolved
# DM with neuropathy
# CKD3
- MRI - large wound with subcutaneous emphysema. No osteo
- Arterial duplex: no significant stenosis
- s/p OR debridement 03/26/25; cx's MRSA, Enterococcus and GBS
- getting daily flushing/packing with podiatry; for vac placement today and eventual graft, if needed
- Continue Unasyn (d8)
- Continue vancomycin (d4)
- At time of dc, will transition to po Augmentin 500mg bid and doxycycline 100mg po bid.
# Conditions present on admission:
Diabetes mellitus
Neuropathy
HTN
HLD
HFpEF
Afib
gout
BPH
CKD3
Benign brain tumor resection
L TKR
Chief Complaint
-: Cellulitis
Subjective / Review of Systems
Upset that OR cancelled last night due to no OR room available.
Vital Signs / Physical Exam
Vital Signs
Vital Signs
Temp Pulse Resp BP Pulse Ox
98.8 F 74 18 99/48 94
03/31/25 07:39 03/31/25 07:39 03/31/25 07:39 03/31/25 07:39 03/31/25 07:39
Physical Exam
Constitutional: No Acute Distress
Pulmonary: Clear
Gastrointestinal: Soft, Non Tender and Non Distended
Extremities: Edema (LLE resolving), Erythema (LLE resolving) and Venous Insufficiency
Neurological: AO x 3
Objective Data
Lab Data
Lab Results
03/31/25 05:47
03/31/25 05:47
ESR 132 mm/hour (0-20) H 03/24/25 07:00
Estimated Creat Clear 25 ml/min 03/31/25 05:47
Lactic Acid Cancelled 03/24/25 05:45
Total Bilirubin 0.8 mg/dl (0.2-1.3) 03/28/25 05:44
AST 16 U/L (17-59) L 03/28/25 05:44
ALT 11 U/L (0-50) 03/28/25 05:44
Alkaline Phosphatase 61 U/L (38-126) 03/28/25 05:44
Most recent labs reviewed.
Micro Results:
03/26/25 17:40 Anaerobic Culture - Preliminary
Foot - Left Culture pending. Anaerobic cultures are examined after 3
days incubation. Additional information to follow.
03/26/25 17:40 Wound Culture - Preliminary
Foot - Left Staph aureus MRSA
Enterococcus faecalis
Streptococcus agalactiae
Gram Stain - Preliminary
03/24/25 02:00 Blood Culture - Final
Blood/Venous No Growth - Final Report
03/24/25 02:00 Blood Culture - Final
Blood/Venous No Growth - Final Report
03/24/25 05:10 MRSA Screen - Final
Nose No Methicillin Resistant Staphylococcus aureus isolated.
03/24/25 MRI LLE:
1. LARGE 3.3 cm SOFT TISSUE WOUND plantar to the 5th metatarsal base containing soft tissue emphysema.
2. ACUTE CELLULITIS throughout the lateral and dorsal forefoot.
3. No MRI evidence for acute osteomyelitis.
4. Severe acute on chronic muscle denervation throughout the foot.
5. Severe longitudinal split tear of the peroneus brevis tendon with surrounding stenosing tenosynovitis.
03/24/25 L Foot XRAY: Soft tissue gas adjacent to the fifth metatarsal base at the site of the reported soft tissue ulcer. No osseous destructive changes to confirm acute osteomyelitis by radiograph. The patient is currently scheduled for an MRI of
the left foot, which will be more sensitive for osteomyelitis.
[2025-03-31] MEDS: FLOMAX 0.4 MG PO (09:19)
[2025-03-31] MEDS: LANTUS 0.24 UNITS SC (09:19)
[2025-03-31] MEDS: NEURONTIN 300 MG PO ×2 (09:20→19:56)
[2025-03-31] MEDS: ZYLOPRIM 100 MG PO (09:20)
[2025-03-31] MEDS: NOVOLOG FLEXPEN 10 UNITS SC (09:23)
--- NOTE | 2025-03-31 10:38 | W.PN.HOSP.TC ---
Today's Communication/Plan
-
Monitor vitals
See plan
Discussed with podiatry, plan now for wound VAC
Bhupinder currently on hold, start heparin subcu for DVT prophylaxis
Monitor renal function
Continue with antibiotics
Discussed with son
Assessment / Plan
Assessment / Plan
General: Well Developed, No Apparent Distress and Obese
HEENT: Normocephalic, Atraumatic, Moist Mucous Membranes and Anicteric
Respiratory: Rales and Non Labored Respirations
Cardiac: Regular Rhythm and S1/S2; Negative Murmur
GI: Soft, Nontender, Nondistended and Normal Bowel Sounds
Musculoskeletal: No Clubbing, No Cyanosis, No Edema and Other (Left foot bandaged)
Neuro: AO x 3, Nonfocal/Grossly Intact and Central Nerve's Intact
Psych: Calm
#Decompensated HFpEF, acute on chronic
# Acute hypoxemic respiratory insufficiency, wean oxygen as tolerated
- TTE here with LVEF 59%, mild pulmonary hypertension; no known history of ischemic heart disease
- Home regimen includes GDMT with MRA and ARB, diuresis with Lasix 80 BID + metolazone 2.5 Q48
- holding IV Lasix and metolazone given worsening renal function. Creatinine today 2.9. Monitor
- Continue to monitor on telemetry, wean oxygen for SpO2 goal >90%
- Cardiology and nephrology following
- Would benefit from right heart cath if patient agrees. Currently patient does not want right heart cath
#GAYATHRI on CKD stage III
- Baseline creatinine near 1.5; likely associated with poorly controlled diabetes
- Creatinine here uptrending due to cardiorenal physiology decompensated HFpEF
- Creatinine peaked at 3.5; started on IV diuretics with minimal improvement, developed HoTN
- Holding home spironolactone, valsartan, Lasix and metolazone
- Trend BMP + UOP, MAP > 65 mmHg, avoid nephrotoxic agents
- Consider RHC as above
Creatinine 2.9, monitor
#Hypotension
- Difficult to determine if this is due to hypovolemia or hypervolemia, difficult volume assessment
- Was receiving IV diuretics which are now held due to the soft blood pressures this morning
- Discussed with nephrology, will hold off on diuretics for today, may need right heart cath
- midodrine 5 mg 3 times daily and monitor BPs with MAP goal >65
#Hypervolemic hyponatremia
- Serum sodium in the range of 128-130
- Continue to trend BMP on IV diuretics
- Consider urine studies if worsening
#Diabetic foot ulcer of LLE plantar surface
Cellulitis secondary to above. No signs of sepsis at this time
- s/p OR debridement, had bedside debridement performed prior to that
- MRI without signs of osteomyelitis; arterial ultrasound without macrovascular PAD
- Wound cultures growing polymicrobial species including MRSA; now on Unasyn and vancomycin
follow cultures and bone biopsy, trend CBC and temperature curve
- Plan for further OR debridement was scheduled for 03/30 with podiatry however was canceled. Now plan for wound VAC and podiatry will determine if OR is needed, Eliquis is on hold
#IDDM with hyperglycemia
#Peripheral neuropathy
- A1c here was 10.3%; Home regimen included glipizide and Januvia
- Has history of peripheral neuropathy for which he takes gabapentin
- Home regimen transitioned to Lantus 22U and NovoLog 10U AC with ISS
#Permanent AF
- Home medications include metoprolol succinate 25 mg and Eliquis
- No known history of EP interventions
#Gout
- Home regimen includes allopurinol
- No signs of flare at this time
#Dyslipidemia
- Home regimen includes high intensity atorvastatin
Diet: Diabetic, 2g sodium restricted, 40 oz FR
DVT prophylaxis: SCDs, subcu heparin until Eliquis is held
CODE STATUS: full code
Disposition: SNF when medically stable
I spent a total of 52 minutes with the patient or on the floor. More than 50% of this time involved counseling and coordination of care.
Anticipated Discharge: > 48 hours
Subjective/Interval History
-
Date of Service: March 31, 2025
Denies sob
Objective Data
-
Labs:
Laboratory Results
03/31/25
05:47
WBC 10.7
Hgb 10.0 L
Hct 30.3 L
Plt Count 224
Sodium 131 L
Potassium 3.1 L
Chloride 96 L
Carbon Dioxide 27
BUN 81 H
Creatinine 2.9 H
Glucose 204 H
Calcium 9.8
Vital Signs:
Vital Signs
Temp Pulse Resp BP Pulse Ox
98.8 F 74 18 99/48 94
03/31/25 07:39 03/31/25 09:20 03/31/25 07:39 03/31/25 09:20 03/31/25 09:45
I&O
03/30/25 03/31/25 04/01/25
06:59 06:59 06:59
Intake Total 580 / 580 510 / 510
Output Total 250 / 250 1425 / 1425 300 / 300
Balance 330 / 330 -915 / -915 -300 / -300
--- NOTE | 2025-03-31 11:10 | WOUNDNOTE ---
L FOOT AND HEEL
[2025-03-31] MEDS: KCL 40 MEQ PO (11:11)
--- NOTE | 2025-03-31 11:15 | WOUNDNOTE ---
WON RN note: Patient admitted with L plantar foot wound.
See H&P for complete history. Lives at [facility].
PMH: Past Medical History: Reports Arrhythmia (Afib on DOAC), CHF (HFpEF), HTN, Hypercholesterolemia, NIDDM and Other (benign brain tumor)
Past Surgical History: Reports Brain, Orthopedic (left knee replacement) and Tonsillectomy
Wound Location and type/assessment: Patient known to service, last seen 11/17/24 for R leg venous ulcer. Now admitted with healed venous ulcers to leg, has L plantar diabetic ulcer. Patient had I&D of L plantar foot ulcer by Dr. Elder on
03/26/25. Today asked to see for wound vac application. Plan per Dr. Elder is debridement and Integra graft and vac in OR . Patient able to turn self in bed with assist, Having L hip pain states patient. Bed also reported as
uncomfortable. Sacrum and heels are intact, mild MASD in gluteal cleft, few tiny openings.
Appetite: Good.
Pressure redistribution devices in place: Accumax. Called bed tech for versa care air bed. Nurse Марина aware and will switch bed when able. Pillows under calves. Repositioned patient onto R semi side lying position.
Plan: L plantar foot dressing applied- small Simplace black foam to 125mmhg, bridged to forefoot. ABD pad placed under tubing, wrapped with Kerlix and samuel wrap reapplied to secure. Foams placed on heels and sacrum to protect. Has Darco shoe at
bedside, patient reports he gets up to chair with assist. Teaching done with patient regarding wound care with wound vac. Patient was approved for home vac unit, have [employer] in office when ready for discharge.
Notified Dr. Elder that vac applied and to notify wound care if need further assistance with dressings.
Updated nurse, care plan and will follow as needed.
Note to case management of equipment requested for discharge: VN for wound care.
Recommend follow up with Professional Development Instructor.
[2025-03-31 11:50] LABS: Glucose - Point of Care 218 mg/dl (70-99)
[2025-03-31 12:02] LABS: Glucose - Point of Care 295 mg/dl (70-99)
[2025-03-31] MEDS: UNASYN IV ×2 (12:14→23:13)
[2025-03-31] MEDS: NOVOLOG FLEXPEN 12 UNITS SC ×2 (13:29→17:49)
[2025-03-31] MEDS: NOVOLOG FLEXPEN-MODERATE RESISTANCE 5 UNITS SC (13:39)
--- NOTE | 2025-03-31 13:54 | CM ---
CM following re: discharge planning.
Reviewed pt's chart, met with pt.
PT and OT evaluations noted - SNF level of care recommended. CM discussed it with the pt and pt stated he lives with spouse at [facility] and he preferred to return back there with [facility] at home rehab and [facility] care VN services for RN.
A referral to [facility] outpatient at home rehab and [facility] care VN made.
D/C plan: return back to [facility] with resumptions of [facility] at home rehab, [facility] care VN and staff support.
CM will follow with discharge plan updates as hospitalization progresses.
--- NOTE | 2025-03-31 13:58 | W.PN.POD ---
Today's Communication
Today's Communication
left foot wound
Assessment / Plan
-
Stage 2 left foot wound S/P I&D with resolving cellulitis- POD # 5
Type 2 Diabetes Mellitus with neuropathy
VAC is in place. Plan for OR debridement and integra graft placement on at 7:00am/ We discussed wound vac and graft to allow for greater healing potential.
Unasyn/Vanco per ID
Subjective
Chief Complaint
Left foot wound
Subjective
Patient sitting up - no complaints of pain
Objective
Temp Pulse Resp BP Pulse Ox
98.6 F 73 18 112/49 93
03/31/25 12:29 03/31/25 12:29 03/31/25 12:29 03/31/25 12:29 03/31/25 12:29
03/31/25 05:47
03/31/25 05:47
Vital Signs and Lab results were reviewed.
Physical Exam
Physical Exam
Left foot with VAC in place running at 125 mmHg continuous. Digital ROM intact with NV status intact. Bandages with no strikethrough.
--- NOTE | 2025-03-31 14:31 | W.PN.NEPH.PH ---
Today's Communication / Plan
-
Observe off diuretics
Follow BMP
Assessment/Plan
-
84-year-old male with known history of noninsulin dependent diabetes, CHF with preserved ejection fraction, A-fib on Eliquis 2.5 mg twice daily, gout, BPH presented with left lower extremity cellulitis. He has a large wound on the plantar surface
of his metatarsal being seen by podiatry and infectious disease on antibiotics. He has a history of CHF and is on Lasix 80 twice a day, metolazone he is on valsartan and spironolactone.
Renal consultation for acute on chronic kidney disease with a creatinine at 3 with a baseline creatinine labile between 1.5 and 1.8. Most recent January 2025 creatinine was 3.2.
Impression.
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
Hyponatremia
Foot wound for debridement.
Sepsis.
Diabetes stable.
Plan.
GAYATHRI-cr is worsening as creatinine down to 2.9 and BUN 81 recorded urine output 1675cc
suspected to be cardiorenal, cr noted progressive increase in last few months from historic baseline 1.4-1.7(October 2024)
bland UA and Fena not low, follow bladder scan 127cc, renal US non acute , U PCr 0.4
BP are soft on low dose BB, midodrine added per primary
continue to hold ARB and avoid nephrotoxins
it is hard to understand the volume status
holding diuretics for time being
For left foot debridement on , now with wound vac
holding Aldactone too, echo noted nrml EF
monitor UOP, maintain FR
hypervolemic hyponatremia-monitor for now
no emergent indication of dialysis however high risk -reviewed with pt and do not refuse HD if needed
-
-
Date of Service: March 31, 2025
CC / HPI / ROS
-
Chief Complaint:
GAYATHRI
History of Present Illness:
cr up again 2.9,
BP soft
off O2
Review of Systems:
no sob at rest
no cp
no n/v
weights down
No fever
Labs
-
Labs:
WBC 10.7 10^3/uL (4.8-10.8) 03/31/25 05:47
RBC 3.17 10^6/uL (4.70-6.10) L 03/31/25 05:47
Hgb 10.0 g/dL (13.0-18.0) L 03/31/25 05:47
Hct 30.3 % (39.0-52.0) L 03/31/25 05:47
Plt Count 224 10^3/uL (130-400) 03/31/25 05:47
Sodium 131 mmol/L (135-145) L 03/31/25 05:47
Potassium 3.1 mmol/L (3.5-5.1) L 03/31/25 05:47
Chloride 96 mmol/L (98-107) L 03/31/25 05:47
Carbon Dioxide 27 mmol/L (22-30) 03/31/25 05:47
BUN 81 mg/dl (9-20) H 03/31/25 05:47
Creatinine 2.9 mg/dL (0.7-1.3) H 03/31/25 05:47
eGFR 20.43 03/31/25 05:47
Glucose 204 mg/dl (70-99) H 03/31/25 05:47
Calcium 9.8 mg/dl (8.4-10.2) 03/31/25 05:47
Toc-O-Pzziyxifsnn Pept 2240 pg/ml 03/27/25 06:18
Albumin 3.2 g/dl (3.5-5.0) L 03/28/25 05:44
Physical Exam
-
Vital Signs:
Vital Signs
Temp Pulse Resp BP Pulse Ox
98.6 F 73 18 112/49 93
03/31/25 12:29 03/31/25 12:29 03/31/25 12:29 03/31/25 12:29 03/31/25 12:29
Cardiovascular:: Regular rate and rhythm
Respiratory:: Bilateral: Rales
Lung Excursion:: Normal
Abdomen:: Nontender and Soft
Extremity Edema:: +1: Bilateral:
Sethi Catheter: No
[2025-03-31 16:44] LABS: Glucose - Point of Care 218 mg/dl (70-99)
[2025-03-31] MEDS: HEPARIN 5000 UNITS SC (19:56)
[2025-03-31] MEDS: LIPITOR 80 MG PO (21:40)
[2025-03-31] MEDS: MELATONIN 3 MG PO (21:40)
[2025-03-31 21:55] LABS: Glucose - Point of Care 184 mg/dl (70-99)
--- NOTE | 2025-04-01 03:00 | DOWNTIME ---
There was a [employer] Client Data Support Specialist Downtime on 04/01/2025 from 0100 to 04/01/2025 at 0255. Downtime documentation of patient's care, including medication administrations, has been reconciled in the electronic record per guidelines. Refer to the
patient's paper chart under the miscellaneous tab to see printed paper medication records and downtime forms.
--- NOTE | 2025-04-01 07:03 | WOUNDNOTE ---
WORachel RN note: Notified [employer] via [facility] express portal of rental vac ulta pump serial #[id number] start rental date as of 03/31/25.
[2025-04-01 07:16] LABS: Hematocrit 32.6 % (39.0-52.0); Hemoglobin 10.7 g/dL (13.0-18.0); Mean Corp Hgb Conc. 32.8 g/dL (33.0-37.0); Mean Corpuscular Volume 94.5 fL (80.0-94.0); Nucleated Red Blood Cells % 0 % (-); Platelet Count 257 10^3/uL (130-400); Red Cell Dist. Width 15.2 % (11.5-14.5)
[2025-04-01 07:40] LABS: Blood Urea Nitrogen 61 mg/dl (9-20); Calcium 10.2 mg/dl (8.4-10.2); Carbon Dioxide 26 mmol/L (22-30); Chloride 98 mmol/L (98-107); Estimated Creatinine Clearance 32 ml/min; Glucose 187 mg/dl (70-99); Potassium 3.2 mmol/L (3.5-5.1); Sodium 133 mmol/L (135-145); eGFR 28.46
[2025-04-01 07:52] VITALS: BP 110/60
[2025-04-01 07:52] LABS: Glucose - Point of Care 231 mg/dl (70-99)
--- NOTE | 2025-04-01 08:06 | PN.DE.MGMTRT ---
Insulin Management
- -
04/01/2025: Diabetes Management Follow up
84 year old male admitted with acute LLE swelling and redness. PMH: A-Fib on DOAC, CHF (HFpEF), HTN, Hypercholesterolemia, CKD 3, Gout, BPH, Benign brain tumor, T2DM and chronic nonhealing left foot wound. He reports he has a left lateral plantar
foot wound for approximately 6 weeks manage by his personal lines agent and home wound nurse. He was told wound was getting better. However 03/23 when nurse came by, she noted foot and leg were significantly swollen with erythema from the wound up to below
the knee, so he was sent to the ER. Patient reports that the leg looks a little bit better today. He is to have MRI of the foot. Currently on antibiotics. Prior to admission was taking Glipizide 10mg daily & Januvia 100mg daily. Current A1C 10%,
worsened, was 8.8% in 02/2025.
Cr 2.2, eGFR 28.46 today (baseline Cr 1.6)
Patient has had diabetes 20+ years. He resides at an Assisted Living Facility where his medications are administered to him by staff.
Discussed insulin as best course of management given GAYATHRI with Cr of 2.3 in setting of CKD3 and patient was agreeable to insulin therapy.
Patient awake, alert, oriented, out of bed in chair resting, able to discuss diabetes care plan.
Patient is noted for persistent Hyperglycemia. S/P Integra grafting and vac application day 2. For OR 04/02 for wound debridement.
Glucose range [id number] to 295. Patient received Lantus 24 units in AM with AC NovoLog increased at lunch from 10 units to 12 with moderate corrective with meals. HS glucose improved 184.
Fasting glucose today 187. Will continue lantus 24 in AM with novolog 12 units AC and moderate corrective. Will assess pre lunch glucose for need for increased AC novolog.
Discussed with nurse
Will follow.
Patient is currently residing in Assisted Living Facility, where glucose monitoring and medication administration is done for patient.
Diabetes History
- -
Type of Diabetes: 2 requiring insulin
Pre-Admission Diabetes Regimen
04/01/25
06:46
Creatinine 2.2 H
Lab Results
Hemoglobin A1c 10.0 % (4.0-5.9) H 03/24/25 07:00
Insulin Pump Settings
IP Diabetes Regimen
03/31/25 03/31/25 03/31/25
09:15 12:00 16:43
Glucose
POC Glucose 218 H 295 H 218 H
03/31/25 04/01/25 04/01/25
21:31 06:46 07:51
Glucose 187 H
POC Glucose 184 H 231 H
Meal type: Dinner
Meal type: Breakfast
Amount consumed: 5%
Amount consumed: 100%
Patient Education
--- NOTE | 2025-04-01 08:18 | PHA.VAN.FU ---
Vancomycin Assessment / Plan
- Assessment
Renal Function: SCR Decreasing
WBC's are: Stable
In the past 24 hrs, patient has been: Afebrile
Concomitant Antimicrobials: ampicillin/sulbactam
- Assessment - Therapeutic Drug Monitoring
Random Level: 11.6 - drawn ~25H after previous level of 15
Calculated ke: 0.0103
Calculated half life (H): 67.4
- Dosing Plan
Dosing by Level: Re-dose today (Vanc 1250mg)
Dosing Comments: half-life and SCR continue to trend downwards
- Monitoring Plan
Random Level: 04/02 0600
- Follow Up
Pharmacy will continue to follow.
Vancomycin Follow UP
- -
Patient Age: 84
Patient Sex: Male
Vancomycin Day #: 5
Indication: Skin And Soft Tissue
Requesting Provider: Dr. Barba / [place]
Pertinent Antimicrobial Allergies:
NKDA
Height / Weight:
Height 6 ft
Actual Weight 117.39 kg
Pertinent Past Medical History: BMI ~ 36, DM 2, CKD
- Vital Signs / Lab Results
Temp Pulse Resp BP Pulse Ox
97.7 F 82 16 110/60 96
04/01/25 07:52 04/01/25 07:52 04/01/25 07:52 04/01/25 07:52 04/01/25 07:52
Lab Results - Hematology
03/29/25 03/30/25 03/31/25
06:15 08:05 05:47
WBC 12.2 H 10.7 10.7
04/01/25
06:46
WBC 11.4 H
Lab Results - Chemistry
03/29/25 03/30/25 03/31/25
06:15 08:05 05:47
BUN 89 H 94 H 81 H
Creatinine 3.4 H 3.8 H 2.9 H
Estimated Creat Clear
04/01/25
06:46
BUN 61 H
Creatinine 2.2 H
Estimated Creat Clear 32
Microbiology Results
03/26/25 17:40 Wound Culture - Final
Foot - Left Staph aureus MRSA
Enterococcus faecalis
Streptococcus agalactiae
Gram Stain - Final
03/26/25 17:40 Anaerobic Culture - Final
Foot - Left Bacteroides Caccae
Therapeutic Drug Monitoring
Random Vancomycin 11.6 ug/ml 04/01/25 06:46
[2025-04-01] MEDS: NOVOLOG FLEXPEN 12 UNITS SC (08:22)
[2025-04-01] MEDS: NOVOLOG FLEXPEN-MODERATE RESISTANCE 3 UNITS SC (08:22)
[2025-04-01] MEDS: LANTUS 0.24 UNITS SC (08:22)
[2025-04-01] MEDS: HEPARIN 5000 UNITS SC ×2 (08:23→20:07)
[2025-04-01] MEDS: ZYLOPRIM 100 MG PO (08:23)
[2025-04-01] MEDS: FLOMAX 0.4 MG PO (08:23)
[2025-04-01] MEDS: NEURONTIN 300 MG PO ×2 (08:23→20:08)
[2025-04-01] MEDS: KCL 40 MEQ PO (08:39)
--- NOTE | 2025-04-01 09:02 | W.PN.CD ---
Today's Communication / Plan
-
- Holding diuretics; Cr 3.8 -> 2.9. -> 2.2 today.
- Nephrology following.
- Podiatry plans for wound vac and further debridement tomorrow.
- Apixaban 2.5 mg twice daily on hold for anticipated surgery tomorrow.
Impression / Plan
-
84-year-old man with HFpEF, CKD, and permanent atrial fibrillation who presented with left foot wound s/p OR debridement with wound cultures growing MRSA, Enterococcus, and strep agalactiae. During hospitalization, he had CXR with mild pulm edema
and elevated NTproBNP. Cardiology is consulted due to concern for CHF.
Cardiology: Daniel
Creatinine has significantly improved today with holding diuretics. I do not think he needs RHC today though I did explain he may need it if things start to go the wrong direction again. He understands.
HFpEF, acute on chronic.
- Holding diuretics; Cr 3.8 -> 2.9. -> 2.2 today.
- Nephrology following.
- SGLT2i is cost prohibitive.
- GDMT: On Toprol-XL, valsartan, Aldactone. All currently on hold due to GAYATHRI and hypotension requiring midodrine.
- continue to monitor daily weights, I&Os, sodium and fluid restriction.
Hypotension, improving
- Could have been hypovolemic. Improved with holding diuretic. Unlikely septic with good infectious source control, afebrile, no worsening leukocytosis, etc. TTE 03/27 with normal LVEF so unlikely cardiogenic.
- On midodrine 5 mg TID.
Left foot wound - managed by podiatry s/p surgical debridement 03/26/25.
- MRI with no osteo
- Infectious disease following
- Podiatry plans for wound vac and further debridement tomorrow.
Permanent atrial fibrillation - chronic, rate controlled.
- Metoprolol on hold due to hypotension
- [id number]: Score at least 5 (Heart failure, HTN, age 75 or more, Diabetes Mellitus)
- Oral anticoagulation: Apixaban 2.5 mg twice daily on hold for anticipated surgery tomorrow.
Type 2 diabetes mellitus - HgbA1c 8.5%.
- management per primary Hospitalist team.
Chronic kidney disease, stage 3 - worse than baseline.
-creatinine up from baseline 2.0-2.4.
-Nephrology on board
HTN -currently hypotensive requiring midodrine
Subjective/interval events: No major events overnight. No cardiac complaints this a.m.
Physical Exam
Vital Signs/Labs
Vital Signs
Temp Pulse Resp BP Pulse Ox
97.7 F 82 16 110/60 96
04/01/25 07:52 04/01/25 07:52 04/01/25 07:52 04/01/25 07:52 04/01/25 07:52
03/31/25 04/01/25 04/02/25
06:59 06:59 06:59
Actual Weight 117.39 kg
04/01/25 06:46
04/01/25 06:46
Magnesium 1.9 mg/dl (1.6-2.3) 03/30/25 08:05
03/27/25
06:18
Afm-O-Tivoighmgfu Pept 2240
Physical Exam
Constitutional: No acute distress and Comfortable
EENT: Anicteric
Cardiovascular: Rhythm/rate is irregular, Pedal edema present (2+), Systolic murmur present (2/6) and S1S2 is normal
Respiratory: Respiratory effort normal and Rhonchi Present
GI: Soft
Neuro/Psych: AO x 3
Other: Skin (warm)
Data Reviewed
-
Date of Service: April 01, 2025
Echo: Report Reviewed by me (03/27/2025: LVEF 59%; trace tricuspid regurgitation, PASP 45 mmHg.)
Medical Tests (PFT, Pathology etc): Discussed with Patient
Labs: Labs Reviewed by me
[2025-04-01] MEDS: VANCOCIN 275 MG IV (10:05)
--- NOTE | 2025-04-01 10:46 | W.PN.ID1 ---
Date of Service
Date of Service: April 01, 2025
Today's Communication
Continue Unasyn and Vancomycin.
Assessment / Plan
# Acute cellulitis of LLE, resolving
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 No osteo on MRI.
# Leukocytosis
# DM with neuropathy
# CKD3
- MRI - large wound with subcutaneous emphysema. No osteo
- Arterial duplex: no significant stenosis
- s/p OR debridement 03/26/25; cx's MRSA, Enterococcus faecalis, GBS, Bacteroides
- getting daily flushing/packing with podiatry; graft tomorrow
- Continue Unasyn (d9)
- Continue vancomycin (d5)
- At time of dc, will transition to po Augmentin 500mg bid and doxycycline 100mg po bid.
# Conditions present on admission:
Diabetes mellitus
Neuropathy
HTN
HLD
HFpEF
Afib
gout
BPH
CKD3
Benign brain tumor resection
L TKR
Chief Complaint
-: Cellulitis
Vital Signs / Physical Exam
Vital Signs
Vital Signs
Temp Pulse Resp BP Pulse Ox
97.7 F 82 16 110/60 96
04/01/25 07:52 04/01/25 07:52 04/01/25 07:52 04/01/25 07:52 04/01/25 07:52
Physical Exam
Constitutional: No Acute Distress
Pulmonary: Clear
Gastrointestinal: Soft, Non Tender and Non Distended
Extremities: Edema (LLE resolving), Erythema (LLE resolving) and Venous Insufficiency
Wound: Other (left foot wound vac in place)
Neurological: AO x 3
Objective Data
Lab Data
Lab Results
04/01/25 06:46
04/01/25 06:46
ESR 132 mm/hour (0-20) H 03/24/25 07:00
Estimated Creat Clear 32 ml/min 04/01/25 06:46
Lactic Acid Cancelled 03/24/25 05:45
Total Bilirubin 0.8 mg/dl (0.2-1.3) 03/28/25 05:44
AST 16 U/L (17-59) L 03/28/25 05:44
ALT 11 U/L (0-50) 03/28/25 05:44
Alkaline Phosphatase 61 U/L (38-126) 03/28/25 05:44
Most recent labs reviewed.
Micro Results:
03/26/25 17:40 Wound Culture - Final
Foot - Left Staph aureus MRSA
Enterococcus faecalis
Streptococcus agalactiae
Gram Stain - Final
03/26/25 17:40 Anaerobic Culture - Final
Foot - Left Bacteroides Caccae
03/24/25 02:00 Blood Culture - Final
Blood/Venous No Growth - Final Report
03/24/25 02:00 Blood Culture - Final
Blood/Venous No Growth - Final Report
03/24/25 05:10 MRSA Screen - Final
Nose No Methicillin Resistant Staphylococcus aureus isolated.
03/24/25 MRI LLE:
1. LARGE 3.3 cm SOFT TISSUE WOUND plantar to the 5th metatarsal base containing soft tissue emphysema.
2. ACUTE CELLULITIS throughout the lateral and dorsal forefoot.
3. No MRI evidence for acute osteomyelitis.
4. Severe acute on chronic muscle denervation throughout the foot.
5. Severe longitudinal split tear of the peroneus brevis tendon with surrounding stenosing tenosynovitis.
03/24/25 L Foot XRAY: Soft tissue gas adjacent to the fifth metatarsal base at the site of the reported soft tissue ulcer. No osseous destructive changes to confirm acute osteomyelitis by radiograph. The patient is currently scheduled for an MRI of
the left foot, which will be more sensitive for osteomyelitis.
[2025-04-01 12:00] LABS: Glucose - Point of Care 352 mg/dl (70-99)
[2025-04-01] MEDS: UNASYN IV ×2 (12:03→23:15)
--- NOTE | 2025-04-01 12:06 | W.PN.HOSP.TC ---
Today's Communication/Plan
-
Monitor vitals
See plan
Continue with antibiotic
Monitor renal function
Continue to hold Lasix
Replete potassium
OR tomorrow by podiatry
Assessment / Plan
Assessment / Plan
General: Well Developed, No Apparent Distress and Obese
HEENT: Normocephalic, Atraumatic, Moist Mucous Membranes and Anicteric
Respiratory: Rales and Non Labored Respirations
Cardiac: Regular Rhythm and S1/S2; Negative Murmur
GI: Soft, Nontender, Nondistended and Normal Bowel Sounds
Musculoskeletal: No Clubbing, No Cyanosis, No Edema and Other (Left foot bandaged)
Neuro: AO x 3, Nonfocal/Grossly Intact and Central Nerve's Intact
Psych: Calm
#Decompensated HFpEF, acute on chronic
# Acute hypoxemic respiratory insufficiency, wean oxygen as tolerated
- TTE here with LVEF 59%, mild pulmonary hypertension; no known history of ischemic heart disease
- Home regimen includes GDMT with MRA and ARB, diuresis with Lasix 80 BID + metolazone 2.5 Q48
- holding IV Lasix and metolazone given worsening renal function. Creatinine today 2.2. Monitor
- Continue to monitor on telemetry, wean oxygen for SpO2 goal >90%
- Cardiology and nephrology following
- Would benefit from right heart cath if patient agrees. Currently patient does not want right heart cath
#GAYATHRI on CKD stage III likely secondary to IV diuresis
- Baseline creatinine near 1.5; likely associated with poorly controlled diabetes
- Creatinine here uptrending due to cardiorenal physiology decompensated HFpEF
- Creatinine peaked at 3.5; started on IV diuretics with minimal improvement, developed HoTN
- Holding home spironolactone, valsartan, Lasix and metolazone
- Trend BMP + UOP, MAP > 65 mmHg, avoid nephrotoxic agents
- Consider RHC as above
Creatinine 2.2, monitor
#Hypotension
- Difficult to determine if this is due to hypovolemia or hypervolemia, difficult volume assessment
- Was receiving IV diuretics which are now held due to the soft blood pressures this morning
- Discussed with nephrology, will hold off on diuretics for today, may need right heart cath
- midodrine 5 mg 3 times daily and monitor BPs with MAP goal >65
#Hypervolemic hyponatremia
- Serum sodium in the range of 128-130
- Continue to trend BMP on IV diuretics
- Consider urine studies if worsening
#Diabetic foot ulcer of LLE plantar surface
Cellulitis secondary to above. No signs of sepsis at this time
- s/p OR debridement, had bedside debridement performed prior to that
- MRI without signs of osteomyelitis; arterial ultrasound without macrovascular PAD
- Wound cultures growing polymicrobial species including MRSA; now on Unasyn and vancomycin
follow cultures and bone biopsy, trend CBC and temperature curve
- Discussed with podiatry, plan for OR 04/02, Eliquis is on hold
#IDDM with hyperglycemia
#Peripheral neuropathy
- A1c here was 10.3%; Home regimen included glipizide and Januvia
- Has history of peripheral neuropathy for which he takes gabapentin
- Home regimen transitioned to Lantus 22U and NovoLog 10U AC with ISS
#Permanent AF
- Home medications include metoprolol succinate 25 mg and Eliquis
- No known history of EP interventions
#Gout
- Home regimen includes allopurinol
- No signs of flare at this time
#Dyslipidemia
- Home regimen includes high intensity atorvastatin
DVT prophylaxis: SCDs, subcu heparin until Eliquis is held
CODE STATUS: full code
Disposition: SNF when medically stable
I spent a total of 51 minutes with the patient or on the floor. More than 50% of this time involved counseling and coordination of care.
Anticipated Discharge: > 48 hours
Subjective/Interval History
-
Date of Service: April 01, 2025
denies pain
Objective Data
-
Labs:
Laboratory Results
04/01/25
06:46
WBC 11.4 H
Hgb 10.7 L
Hct 32.6 L
Plt Count 257
Sodium 133 L
Potassium 3.2 L
Chloride 98
Carbon Dioxide 26
BUN 61 H
Creatinine 2.2 H
Glucose 187 H
Calcium 10.2
Vital Signs:
Vital Signs
Temp Pulse Resp BP Pulse Ox
97.7 F 82 16 110/60 96
04/01/25 07:52 04/01/25 07:52 04/01/25 07:52 04/01/25 07:52 04/01/25 08:45
I&O
03/31/25 04/01/25 04/02/25
06:59 06:59 06:59
Intake Total 510 / 510 240 / 240
Output Total 1425 / 1425 1700 / 1700 300 / 300
Balance -915 / -915 -1460 / -1460 -300 / -300
[2025-04-01] MEDS: TYLENOL 650 MG PO ×2 (12:12→21:35)
[2025-04-01] MEDS: NOVOLOG FLEXPEN SC ×3 (12:41→17:16)
[2025-04-01] MEDS: NOVOLOG FLEXPEN 18 UNITS SC (12:41)
[2025-04-01] MEDS: NOVOLOG FLEXPEN-MODERATE RESISTANCE 9 UNITS SC (12:42)
[2025-04-01 16:01] VITALS: BP 115/57
--- NOTE | 2025-04-01 16:45 | CM ---
Addendum entered by Jeni Washburn 04/01/25 17:02:
TUCKER spoke with patient's son, Myrna, via phone to discuss discharge plan Home @ [facility] w/ Home Health and [facility] vs SNF; he requested that I call Codi @ [facility];
TUCKER spoke w/ Codi via phone; PT/OT notes and disposition recommendation were discussed. She was made aware that patient is scheduled for Podiatry procedure tomorrow;
Codi requested that TUCKER call her in the AM @ #[phone]; at that time she will provide the FAX # where clinicals can be sent for review.
Plan: Home to [facility]/ Home Health and [facility] vs. SNF
Original Note:
Chart reviewed; Anticipated discharge is > 48 hours
Case Management will continue to monitor and will support discharge planning needs when identified
[2025-04-01 16:51] LABS: Glucose - Point of Care 323 mg/dl (70-99)
[2025-04-01] MEDS: NOVOLOG FLEXPEN-MODERATE RESISTANCE SC (17:03)
--- NOTE | 2025-04-01 17:51 | W.PN.NEPH.PH ---
Today's Communication / Plan
-
observe, follow lab s
Assessment/Plan
-
84-year-old male with known history of noninsulin dependent diabetes, CHF with preserved ejection fraction, A-fib on Eliquis 2.5 mg twice daily, gout, BPH presented with left lower extremity cellulitis. He has a large wound on the plantar surface
of his metatarsal being seen by podiatry and infectious disease on antibiotics. He has a history of CHF and is on Lasix 80 twice a day, metolazone he is on valsartan and spironolactone.
Renal consultation for acute on chronic kidney disease with a creatinine at 3 with a baseline creatinine labile between 1.5 and 1.8. Most recent January 2025 creatinine was 3.2.
Impression.
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
Hyponatremia
Foot wound for debridement.
Sepsis.
Diabetes stable.
Plan.
GAYATHRI-cr better at 2.2 and non oliguric
suspected to be cardiorenal, cr noted progressive increase in last few months from historic baseline 1.4-1.7(October 2024)
bland UA and Fena not low, follow bladder scan 127cc, renal US non acute , U PCr 0.4
BP are soft on low dose BB, midodrine added per primary
continue to hold ARB and avoid nephrotoxins
it is hard to understand the volume status, stable resp status and cont to hold lasix, wt is down
For left foot debridement on , now with wound vac
holding Aldactone too, echo noted nrml EF
monitor UOP, maintain FR
hypervolemic hyponatremia-stable
replace k
-
-
Date of Service: April 01, 2025
CC / HPI / ROS
-
Chief Complaint:
GAYATHRI
History of Present Illness:
cr better at 2.2
BP stable
wt is down
Review of Systems:
no sob at rest
no cp
no n/v
No fever
Labs
-
Labs:
WBC 11.4 10^3/uL (4.8-10.8) H 04/01/25 06:46
RBC 3.45 10^6/uL (4.70-6.10) L 04/01/25 06:46
Hgb 10.7 g/dL (13.0-18.0) L 04/01/25 06:46
Hct 32.6 % (39.0-52.0) L 04/01/25 06:46
Plt Count 257 10^3/uL (130-400) 04/01/25 06:46
Sodium 133 mmol/L (135-145) L 04/01/25 06:46
Potassium 3.2 mmol/L (3.5-5.1) L 04/01/25 06:46
Chloride 98 mmol/L (98-107) 04/01/25 06:46
Carbon Dioxide 26 mmol/L (22-30) 04/01/25 06:46
BUN 61 mg/dl (9-20) H 04/01/25 06:46
Creatinine 2.2 mg/dL (0.7-1.3) H 04/01/25 06:46
eGFR 28.46 04/01/25 06:46
Glucose 187 mg/dl (70-99) H 04/01/25 06:46
Calcium 10.2 mg/dl (8.4-10.2) 04/01/25 06:46
Mgo-E-Fvotashefsv Pept 2240 pg/ml 03/27/25 06:18
Albumin 3.2 g/dl (3.5-5.0) L 03/28/25 05:44
Physical Exam
-
Vital Signs:
Vital Signs
Temp Pulse Resp BP Pulse Ox
98.6 F 80 16 143/76 94
04/01/25 16:01 04/01/25 17:11 04/01/25 16:01 04/01/25 17:11 04/01/25 16:01
Cardiovascular:: Regular rate and rhythm
Respiratory:: Bilateral: Rales
Lung Excursion:: Normal
Abdomen:: Nontender and Soft
Extremity Edema:: +1: Bilateral:
Sethi Catheter: No
[2025-04-01] MEDS: NOVOLOG FLEXPEN 20 UNITS SC (17:58)
[2025-04-01 20:03] LABS: Glucose - Point of Care 235 mg/dl (70-99)
[2025-04-01] MEDS: NOVOLOG FLEXPEN 6 UNITS SC (20:40)
[2025-04-01] MEDS: MELATONIN 3 MG PO (21:32)
[2025-04-01] MEDS: LIPITOR 80 MG PO (21:32)
--- NOTE | 2025-04-01 22:18 | PTCARENOTE ---
Addendum entered by Carla Costa RN 04/02/25 06:34:
0300 fingerstick glucose read 124. Reading did not transmit to [employer]it.
Original Note:
2000 fingerstick glucose read 235. This RN reached out to Lizzie Callahan NP> order to administer a one time 6 units Novolog now. Recheck fingerstick glucose at 0300. Plan reviewed with patient and daughter.
[2025-04-01 23:14] VITALS: BP 115/58
[2025-04-02] VITALS (7 sets, daily range): BP systolic 111–130; BP diastolic 54–68; PULSE 70–76; O2SAT 94–95; BMI 35.0
--- NOTE | 2025-04-02 06:26 | PTCARENOTE ---
Patient off floor for scheduled I&D in OR. Report given to IDA Machado.
[2025-04-02 06:38] LABS: Hematocrit 32.1 % (39.0-52.0); Hemoglobin 10.7 g/dL (13.0-18.0); Mean Corp Hgb Conc. 33.3 g/dL (33.0-37.0); Mean Corpuscular Volume 92.0 fL (80.0-94.0); Nucleated Red Blood Cells % 0 % (-); Platelet Count 274 10^3/uL (130-400); Red Cell Dist. Width 15.1 % (11.5-14.5)
--- NOTE | 2025-04-02 06:39 | W.PN.POD ---
Today's Communication
Today's Communication
left foot wound
Assessment / Plan
-
Stage 2 left foot wound S/P I&D with resolving cellulitis-
Type 2 Diabetes Mellitus with neuropathy
OR debridement and integra graft placement today. We discussed wound vac and graft to allow for greater healing potential. Surgical consent is reviewed and discussed. Questions answered
Unasyn/Vanco per ID
Subjective
Chief Complaint
Left foot wound
Subjective
Patient seen at bedside no complaints
Objective
Temp Pulse Resp BP Pulse Ox
98.6 F 87 17 115/58 95
04/01/25 23:14 04/01/25 23:14 04/01/25 23:14 04/01/25 23:14 04/01/25 23:14
04/02/25 06:20
Vital Signs and Lab results were reviewed.
Physical Exam
Physical Exam
Dressings and vac in place on left foot - digital ROM intact
[2025-04-02 06:58] LABS: Blood Urea Nitrogen 50 mg/dl (9-20); Calcium 10.2 mg/dl (8.4-10.2); Carbon Dioxide 26 mmol/L (22-30); Chloride 100 mmol/L (98-107); Estimated Creatinine Clearance 35 ml/min; Glucose 145 mg/dl (70-99); Potassium 3.5 mmol/L (3.5-5.1); Sodium 134 mmol/L (135-145); eGFR 31.90
--- NOTE | 2025-04-02 08:07 | PN.DE.MGMTRT ---
Insulin Management
- -
04/02/2025: Diabetes Management Follow up
84 year old male admitted with acute LLE swelling and redness. PMH: A-Fib on DOAC, CHF (HFpEF), HTN, Hypercholesterolemia, CKD 3, Gout, BPH, Benign brain tumor, T2DM and chronic nonhealing left foot wound. He reports he has a left lateral plantar
foot wound for approximately 6 weeks manage by his fish butcher and home wound nurse. He was told wound was getting better. However 03/23 when nurse came by, she noted foot and leg were significantly swollen with erythema from the wound up to below
the knee, so he was sent to the ER. Patient reports that the leg looks a little bit better today. He is to have MRI of the foot. Currently on antibiotics. Prior to admission was taking Glipizide 10mg daily & Januvia 100mg daily. Current A1C 10%,
worsened, was 8.8% in 02/2025.
Cr 2.2, eGFR 28.46 today (baseline Cr 1.6)
Patient has had diabetes 20+ years. He resides at an Assisted Living Facility where his medications are administered to him by staff.
Discussed insulin as best course of management given GAYATHRI with Cr of 2.3 in setting of CKD3 and patient was agreeable to insulin therapy.
Patient in OR this AM; back in room by 9:15, able to discuss diabetes care.
Glucose range yesterday 187 to 352. Patient received Lantus 24 units in AM with AC NovoLog increased at lunch from 15 units to 18 with moderate corrective with meals. HS glucose 235, 6 units novolog ordered.
Fasting glucose today 145. Will continue lantus 24 in AM with novolog 18 units AC and moderate corrective. Will assess pre lunch glucose for need for increased AC novolog.
Discussed with nurse
Will follow.
Diabetes History
- -
Type of Diabetes: 2 requiring insulin
Pre-Admission Diabetes Regimen
04/02/25
06:20
Creatinine 2.0 H
Lab Results
Hemoglobin A1c 10.0 % (4.0-5.9) H 11/11/25 07:00
Insulin Pump Settings
IP Diabetes Regimen
04/01/25 04/01/25 04/01/25
11:58 16:47 20:01
Glucose
POC Glucose 352 H 323 H 235 H
04/02/25
06:20
Glucose 145 H
POC Glucose
Meal type: Dinner
Meal type: Breakfast
Amount consumed: 100%
Amount consumed: 100%
Patient Education
--- NOTE | 2025-04-02 08:28 | W.PN.UPDATE ---
Update Note
Progress Note Update
Patient underwent left foot debridement, Integra graft application and wound VAC. See Operative note. The wound was healthy bleeding and granular. There was no sign of infection. Continue Unasyn and Vanco per ID. Patient will remain non
weightbearing, may use heel for transfers. Pt consulted. Next VAC change will be on Sunday. PT will require home VAC and VNS upon Discharge.
[2025-04-02 08:30] LABS: Glucose - Point of Care 165 mg/dl (70-99)
--- NOTE | 2025-04-02 08:32 | PHA.VAN.FU ---
Vancomycin Assessment / Plan
- Assessment
Renal Function: SCR Decreasing
WBC's are: Stable
In the past 24 hrs, patient has been: Afebrile
Concomitant Antimicrobials: ampicillin/sulbactam
- Assessment - Therapeutic Drug Monitoring
Random Level: 15.6 - drawn ~20.5H after previous dose of 1250mg
- Dosing Plan
Dosing by Level: Re-dose today (Vanc 1000mg)
will trial re-dosing today with reduced dose
may still have prolonged half-life - follow for accumulation
- Monitoring Plan
Random Level: 04/03 0600
- Follow Up
Pharmacy will continue to follow.
Vancomycin Follow UP
- -
Patient Age: 84
Patient Sex: Male
Vancomycin Day #: 6
Indication: Skin And Soft Tissue
Requesting Provider: Dr. Barba / [place]
Pertinent Antimicrobial Allergies:
NKDA
Height / Weight:
Height 6 ft
Actual Weight 117.118 kg
Pertinent Past Medical History: BMI ~ 36, DM 2, CKD
- Vital Signs / Lab Results
Temp Pulse Resp BP Pulse Ox
98.6 F 81 21 115/58 96
04/01/25 23:14 04/02/25 08:18 04/02/25 08:18 04/01/25 23:14 04/02/25 08:18
Lab Results - Hematology
03/30/25 03/31/25 04/01/25
08:05 05:47 06:46
WBC 10.7 10.7 11.4 H
04/02/25
06:20
WBC 12.0 H
Lab Results - Chemistry
03/30/25 03/31/25 04/01/25
08:05 05:47 06:46
BUN 94 H 81 H 61 H
Creatinine 3.8 H 2.9 H 2.2 H
Estimated Creat Clear
04/02/25
06:20
BUN 50 H
Creatinine 2.0 H
Estimated Creat Clear 35
Microbiology Results
03/26/25 17:40 Wound Culture - Final
Foot - Left Staph aureus MRSA
Enterococcus faecalis
Streptococcus agalactiae
Gram Stain - Final
03/26/25 17:40 Anaerobic Culture - Final
Foot - Left Bacteroides Caccae
Therapeutic Drug Monitoring
Random Vancomycin 15.6 ug/ml 04/02/25 06:20
[2025-04-02 08:46] LABS: Glucose - Point of Care 124 mg/dl (70-99)
[2025-04-02 09:14] LABS: Glucose - Point of Care 180 mg/dl (70-99)
[2025-04-02] MEDS: FLOMAX 0.4 MG PO (09:16)
[2025-04-02] MEDS: NEURONTIN 300 MG PO ×2 (09:16→21:00)
[2025-04-02] MEDS: LANTUS 0.24 UNITS SC (09:16)
[2025-04-02] MEDS: HEPARIN 5000 UNITS SC ×2 (09:17→21:00)
[2025-04-02] MEDS: ZYLOPRIM 100 MG PO (09:17)
[2025-04-02] MEDS: NOVOLOG FLEXPEN-MODERATE RESISTANCE 1 UNITS SC (09:19)
[2025-04-02] MEDS: NOVOLOG FLEXPEN 18 UNITS SC ×2 (09:19→17:18)
[2025-04-02] MEDS: VANCOCIN 200 IV (09:24)
--- NOTE | 2025-04-02 09:30 | W.PN.CD ---
Today's Communication / Plan
-
hold lasix
BP improving
Cr improving
Likely d/c on lasix 80 mg daily
Impression / Plan
-
84-year-old man with HFpEF, CKD, and permanent atrial fibrillation who presented with left foot wound s/p OR debridement with wound cultures growing MRSA, Enterococcus, and strep agalactiae. During hospitalization, he had CXR with mild pulm edema
and elevated NTproBNP. Cardiology is consulted due to concern for CHF.
Cardiology: Daniel
Creatinine has significantly improved today with holding diuretics. I do not think he needs RHC today though I did explain he may need it if things start to go the wrong direction again. He understands.
HFpEF, acute on chronic.
- Holding diuretics; Cr 3.8 -> 2.9. -> 2.0 today.
- Nephrology following.
- weight stable
- SGLT2i is cost prohibitive.
- GDMT: On Toprol-XL, valsartan, Aldactone. All currently on hold due to GAYATRHI and hypotension requiring midodrine.
- continue to monitor daily weights, I&Os, sodium and fluid restriction.
Hypotension, improving
- Could have been hypovolemic. Improved with holding diuretic. Unlikely septic with good infectious source control, afebrile, no worsening leukocytosis, etc. TTE 03/27 with normal LVEF so unlikely cardiogenic.
- likely will not need midodrine going fwd
Left foot wound - managed by podiatry s/p surgical debridement 03/26/25.
- MRI with no osteo
- Infectious disease following
- s/p debridement --> Podiatry following
Permanent atrial fibrillation - chronic, rate controlled.
- Metoprolol on hold due to hypotension
- [id number]: Score at least 5 (Heart failure, HTN, age 75 or more, Diabetes Mellitus)
- Oral anticoagulation: Resume apixaban when OK from podiatry
Type 2 diabetes mellitus - HgbA1c 8.5%.
- management per primary Hospitalist team.
Chronic kidney disease, stage 3 - worse than baseline.
-creatinine up from baseline 2.0-2.4.
-Nephrology on board
HTN -currently hypotensive requiring midodrine
Subjective/interval events: No major events overnight. No cardiac complaints this a.m.
Physical Exam
Vital Signs/Labs
Vital Signs
Temp Pulse Resp BP Pulse Ox
97.4 F 66 17 127/80 96
04/02/25 08:59 04/02/25 08:45 04/02/25 08:45 04/02/25 09:18 04/02/25 08:45
04/01/25 04/02/25 04/03/25
06:59 06:59 06:59
Actual Weight 258 lb 3.2 oz
04/02/25 06:20
04/02/25 06:20
Magnesium 1.9 mg/dl (1.6-2.3) 03/30/25 08:05
03/27/25
06:18
Rmo-L-Ajbqcjztcio Pept 2240
Physical Exam
Constitutional: No acute distress and Comfortable
EENT: Anicteric
Cardiovascular: Rhythm/rate is irregular
Respiratory: Respiratory effort normal and Lungs clear to auscul.
GI: Soft
Neuro/Psych: AO x 3
Data Reviewed
-
Date of Service: April 02, 2025
EKG: Tracing Personally Visualized and interpreted (af)
Echo: Report Reviewed by me
Labs: Labs Reviewed by me
--- NOTE | 2025-04-02 09:56 | W.PN.NEPH.PH ---
Today's Communication / Plan
-
follow labs
Assessment/Plan
-
84-year-old male with known history of noninsulin dependent diabetes, CHF with preserved ejection fraction, A-fib on Eliquis 2.5 mg twice daily, gout, BPH presented with left lower extremity cellulitis. He has a large wound on the plantar surface
of his metatarsal being seen by podiatry and infectious disease on antibiotics. He has a history of CHF and is on Lasix 80 twice a day, metolazone he is on valsartan and spironolactone.
Renal consultation for acute on chronic kidney disease with a creatinine at 3 with a baseline creatinine labile between 1.5 and 1.8. Most recent January 2025 creatinine was 3.2.
Impression.
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
Hyponatremia
Foot wound for debridement.
Sepsis.
Diabetes stable.
Plan.
GAYATHRI-cr better at 2 and non oliguric
suspected to be cardiorenal, cr noted progressive increase in last few months from historic baseline 1.4-1.7(October 2024)
bland UA and Fena not low, follow bladder scan 127cc, renal US non acute , U PCr 0.4
BP are stable on low dose BB, midodrine added per primary
continue to hold ARB and avoid nephrotoxins
resume lasix once cr returns baseline
For left foot debridement today, now with wound vac
holding Aldactone too, echo noted nrml EF
monitor UOP, maintain FR
hypervolemic hyponatremia-stable
follow labs
-
-
Date of Service: April 02, 2025
CC / HPI / ROS
-
Chief Complaint:
GAYATHRI
History of Present Illness:
cr better at 2
BP stable
wt stable
Review of Systems:
no sob at rest
no cp
no n/v
No fever
Labs
-
Labs:
WBC 12.0 10^3/uL (4.8-10.8) H 04/02/25 06:20
RBC 3.49 10^6/uL (4.70-6.10) L 04/02/25 06:20
Hgb 10.7 g/dL (13.0-18.0) L 04/02/25 06:20
Hct 32.1 % (39.0-52.0) L 04/02/25 06:20
Plt Count 274 10^3/uL (130-400) 04/02/25 06:20
Sodium 134 mmol/L (135-145) L 04/02/25 06:20
Potassium 3.5 mmol/L (3.5-5.1) 04/02/25 06:20
Chloride 100 mmol/L (98-107) 04/02/25 06:20
Carbon Dioxide 26 mmol/L (22-30) 04/02/25 06:20
BUN 50 mg/dl (9-20) H 04/02/25 06:20
Creatinine 2.0 mg/dL (0.7-1.3) H 04/02/25 06:20
eGFR 31.90 04/02/25 06:20
Glucose 145 mg/dl (70-99) H 04/02/25 06:20
Calcium 10.2 mg/dl (8.4-10.2) 04/02/25 06:20
Ezf-C-Wrhopyohtll Pept 2240 pg/ml 03/27/25 06:18
Albumin 3.2 g/dl (3.5-5.0) L 03/28/25 05:44
Physical Exam
-
Vital Signs:
Vital Signs
Temp Pulse Resp BP Pulse Ox
97.4 F 66 17 127/80 96
04/02/25 08:59 04/02/25 08:45 04/02/25 08:45 04/02/25 09:18 04/02/25 08:45
Cardiovascular:: Regular rate and rhythm
Respiratory:: Bilateral: Rales
Lung Excursion:: Normal
Abdomen:: Nontender and Soft
Extremity Edema:: +1: Bilateral:
Sethi Catheter: No
--- NOTE | 2025-04-02 10:24 | W.PN.ID1 ---
Date of Service
Date of Service: April 02, 2025
Today's Communication
Transition to po Augmentin 875mg bid and doxycycline 100mg po bid x 7 days through 04/08/25.
Assessment / Plan
# Acute cellulitis of LLE, resolved
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 No osteo on MRI.
# Leukocytosis
# DM with neuropathy
# CKD3
- MRI - large wound with subcutaneous emphysema. No osteo
- Arterial duplex: no significant stenosis
- s/p OR debridement 03/26/25; cx's MRSA, Enterococcus faecalis, GBS, Bacteroides
- 04/02 s/p wound graft and vac; no further signs infection per Podiatry
- Discontinue Unasyn (d10)
- Discontinue vancomycin (d6)
- Transition to po Augmentin 875mg bid and doxycycline 100mg po bid x 7 days through 04/08/25.
# Conditions present on admission:
Diabetes mellitus
Neuropathy
HTN
HLD
HFpEF
Afib
gout
BPH
CKD3
Benign brain tumor resection
L TKR
Chief Complaint
-: Cellulitis
Subjective / Review of Systems
Had foot surgery this am.
c/o right hand and wrist swelling/discomfort after an incident . Hospitalist aware, will evaluate.
Vital Signs / Physical Exam
Vital Signs
Vital Signs
Temp Pulse Resp BP Pulse Ox
97.4 F 66 17 127/80 96
04/02/25 08:59 04/02/25 08:45 04/02/25 08:45 04/02/25 09:18 04/02/25 08:45
Physical Exam
Constitutional: No Acute Distress
Pulmonary: Clear
Gastrointestinal: Soft, Non Tender and Non Distended
Extremities: Venous Insufficiency; Negative Edema or Erythema
Musculoskeletal: Other (+ edema entire hand to wrist, ROM wrist and fingers somewhat limited due to edema and discomfort)
Wound: Other (left foot with post-op dressing wound vac in place)
Neurological: AO x 3
Objective Data
Lab Data
Lab Results
04/02/25 06:20
04/02/25 06:20
ESR 132 mm/hour (0-20) H 03/24/25 07:00
Estimated Creat Clear 35 ml/min 04/02/25 06:20
Lactic Acid Cancelled 03/24/25 05:45
Total Bilirubin 0.8 mg/dl (0.2-1.3) 03/28/25 05:44
AST 16 U/L (17-59) L 03/28/25 05:44
ALT 11 U/L (0-50) 03/28/25 05:44
Alkaline Phosphatase 61 U/L (38-126) 03/28/25 05:44
Most recent labs reviewed.
Micro Results:
03/26/25 17:40 Wound Culture - Final
Foot - Left Staph aureus MRSA
Enterococcus faecalis
Streptococcus agalactiae
Gram Stain - Final
03/26/25 17:40 Anaerobic Culture - Final
Foot - Left Bacteroides Caccae
03/24/25 02:00 Blood Culture - Final
Blood/Venous No Growth - Final Report
03/24/25 02:00 Blood Culture - Final
Blood/Venous No Growth - Final Report
03/24/25 05:10 MRSA Screen - Final
Nose No Methicillin Resistant Staphylococcus aureus isolated.
03/24/25 MRI LLE:
1. LARGE 3.3 cm SOFT TISSUE WOUND plantar to the 5th metatarsal base containing soft tissue emphysema.
2. ACUTE CELLULITIS throughout the lateral and dorsal forefoot.
3. No MRI evidence for acute osteomyelitis.
4. Severe acute on chronic muscle denervation throughout the foot.
5. Severe longitudinal split tear of the peroneus brevis tendon with surrounding stenosing tenosynovitis.
03/24/25 L Foot XRAY: Soft tissue gas adjacent to the fifth metatarsal base at the site of the reported soft tissue ulcer. No osseous destructive changes to confirm acute osteomyelitis by radiograph. The patient is currently scheduled for an MRI of
the left foot, which will be more sensitive for osteomyelitis.
Care Review
Plan reviewed with: Physician (Dr. Dena Barba)
--- NOTE | 2025-04-02 11:31 | W.PN.HOSP.TC ---
Today's Communication/Plan
-
Monitor vital signs see plan
Continue with wound VAC per podiatry
Check right wrist x-ray
Prednisone
Continue with antibiotic
PT
Continue to hold Lasix
Monitor renal function
Called son, left voicemail
Assessment / Plan
Assessment / Plan
General: Well Developed, No Apparent Distress and Obese
HEENT: Normocephalic, Atraumatic, Moist Mucous Membranes and Anicteric
Respiratory: Rales and Non Labored Respirations
Cardiac: Regular Rhythm and S1/S2; Negative Murmur
GI: Soft, Nontender, Nondistended and Normal Bowel Sounds
Musculoskeletal: No Clubbing, No Cyanosis, No Edema and Other (Left foot bandaged)
Neuro: AO x 3, Nonfocal/Grossly Intact and Central Nerve's Intact
Psych: Calm
#Decompensated HFpEF, acute on chronic
# Acute hypoxemic respiratory insufficiency, wean oxygen as tolerated
- TTE here with LVEF 59%, mild pulmonary hypertension; no known history of ischemic heart disease
- Home regimen includes GDMT with MRA and ARB, diuresis with Lasix 80 BID + metolazone 2.5 Q48
- holding IV Lasix and metolazone given worsening renal function. Creatinine today 2. Monitor
- Continue to monitor on telemetry, wean oxygen for SpO2 goal >90%
- Cardiology and nephrology following
- Would benefit from right heart cath if patient agrees. Currently patient does not want right heart cath
#GAYATHRI on CKD stage III likely secondary to IV diuresis
- Baseline creatinine near 1.5; likely associated with poorly controlled diabetes
- Creatinine here uptrending due to cardiorenal physiology decompensated HFpEF
- Creatinine peaked at 3.5; started on IV diuretics with minimal improvement, developed HoTN
- Holding home spironolactone, valsartan, Lasix and metolazone
- Trend BMP + UOP, MAP > 65 mmHg, avoid nephrotoxic agents
- Consider RHC as above
Creatinine 2, monitor
Right wrist swelling
Could be secondary to wearing too much pressure, IV stick. Given history of gout we will start prednisone. Check x-ray wrist
#Hypotension
- Difficult to determine if this is due to hypovolemia or hypervolemia, difficult volume assessment
- Was receiving IV diuretics which are now held due to the soft blood pressures this morning
- midodrine 5 mg 3 times daily and monitor BPs with MAP goal >65
#hyponatremia
- Serum sodium in the range of 128-130
- Continue to trend BMP
#Diabetic foot ulcer of LLE plantar surface
Cellulitis secondary to above. No signs of sepsis at this time
- s/p OR debridement, had bedside debridement performed prior to that
- MRI without signs of osteomyelitis; arterial ultrasound without macrovascular PAD
- Wound cultures growing polymicrobial species including MRSA; was on vancomycin and Unasyn, now transition to Augmentin and doxycycline through 04/08
follow cultures and bone biopsy, trend CBC and temperature curve
- Podiatry following, status post ORIF 04/02 with Integra graft application and wound VAC , Eliquis is on hold, restart 04/03 per podiatry
#IDDM with hyperglycemia
#Peripheral neuropathy
- A1c here was 10.3%; Home regimen included glipizide and Januvia
- Has history of peripheral neuropathy for which he takes gabapentin
- Home regimen transitioned to Lantus and NovoLog with ISS
#Permanent AF
- Home medications include metoprolol succinate 25 mg and Eliquis
- No known history of EP interventions
#Gout
- Home regimen includes allopurinol
- No signs of flare at this time
#Dyslipidemia
- Home regimen includes high intensity atorvastatin
DVT prophylaxis: SCDs, subcu heparin until Eliquis is held
CODE STATUS: full code
Disposition: SNF when medically stable
I spent a total of 52 minutes with the patient or on the floor. More than 50% of this time involved counseling and coordination of care.
Anticipated Discharge: 24 - 48 hours
Subjective/Interval History
-
Date of Service: April 02, 2025
has Right wrist swelling
Objective Data
-
Labs:
Laboratory Results
04/02/25
06:20
WBC 12.0 H
Hgb 10.7 L
Hct 32.1 L
Plt Count 274
Sodium 134 L
Potassium 3.5
Chloride 100
Carbon Dioxide 26
BUN 50 H
Creatinine 2.0 H
Glucose 145 H
Calcium 10.2
Vital Signs:
Vital Signs
Temp Pulse Resp BP Pulse Ox
97.8 F 79 18 127/80 96
04/02/25 09:05 04/02/25 09:05 04/02/25 09:05 04/02/25 09:18 04/02/25 09:05
I&O
04/01/25 04/02/25 04/03/25
06:59 06:59 06:59
Intake Total 240 / 240 1150 / 1150 100 / 100
Output Total 1700 / 1700 850 / 850
Balance -1460 / -1460 300 / 300 100 / 100
[2025-04-02] MEDS: DELTASONE 40 MG PO (11:59)
[2025-04-02] MEDS: VIBRAMYCIN 100 MG PO ×2 (11:59→21:00)
[2025-04-02] MEDS: AUGMENTIN 875 MG/125 MG 1 TABLET PO ×2 (11:59→21:00)
[2025-04-02] MEDS: PEPCID 20 MG PO (12:01)
[2025-04-02] MEDS: NOVOLOG FLEXPEN-MODERATE RESISTANCE SC (12:11)
[2025-04-02] MEDS: NOVOLOG FLEXPEN SC (12:11)
[2025-04-02] MEDS: NOVOLOG FLEXPEN 10 UNITS SC (12:14)
[2025-04-02 12:34] LABS: Glucose - Point of Care 252 mg/dl (70-99)
--- NOTE | 2025-04-02 15:42 | CM ---
TUCKER spoke with Karina at [facility] and faxed clinical information to her to review at her request. Patient with wound Vac at this time. TUCKER faxed clinical data to Karina at . Patient current plan is home with [facility] and [facility] to
[facility] with Karina as medicare contact specialist. TUCKER will continue to follow for discharge planning needs.
Plan; return to [facility] with Wound Vac/ [facility] and [facility] care.
[2025-04-02] MEDS: NOVOLOG FLEXPEN-MODERATE RESISTANCE 3 UNITS SC (17:19)
[2025-04-02 17:21] LABS: Glucose - Point of Care 236 mg/dl (70-99)
[2025-04-02] MEDS: LIPITOR 80 MG PO (21:19)
[2025-04-02] MEDS: MELATONIN 3 MG PO (21:19)
[2025-04-02 22:14] LABS: Glucose - Point of Care 307 mg/dl (70-99)
[2025-04-03 06:00] VITALS: BMI 35.3
[2025-04-03 07:12] LABS: Hematocrit 30.7 % (39.0-52.0); Hemoglobin 10.2 g/dL (13.0-18.0); Mean Corp Hgb Conc. 33.2 g/dL (33.0-37.0); Mean Corpuscular Volume 92.5 fL (80.0-94.0); Nucleated Red Blood Cells % 0 % (-); Platelet Count 285 10^3/uL (130-400); Red Cell Dist. Width 14.8 % (11.5-14.5)
[2025-04-03 07:20] VITALS: BP 137/71
--- NOTE | 2025-04-03 07:37 | PN.DE.MGMTRT ---
Insulin Management
- -
04/03/2025: Diabetes Management Follow up
84 year old male admitted with acute LLE swelling and redness. PMH: A-Fib on DOAC, CHF (HFpEF), HTN, Hypercholesterolemia, CKD 3, Gout, BPH, Benign brain tumor, T2DM and chronic nonhealing left foot wound. He reports he has a left lateral plantar
foot wound for approximately 6 weeks manage by his drum sealer and home wound nurse. He was told wound was getting better. However 03/23 when nurse came by, she noted foot and leg were significantly swollen with erythema from the wound up to below
the knee, so he was sent to the ER. Currently on antibiotics. Prior to admission was taking Glipizide 10mg daily & Januvia 100mg daily. Current A1C 10%, worsened, was 8.8% in 02/2025. Cr 1.7, eGFR 38.78 today (baseline Cr 1.6)
Patient has had diabetes 20+ years. He resides at an Assisted Living Facility where his medications are administered to him by staff.
Discussed insulin as best course of management given GAYATHRI with Cr of 2.3 in setting of CKD3 and patient was agreeable to insulin therapy.
Patient is awake alert and oriented, out of bed in chair eating breakfast, able to discuss diabetes care. Expressed frustration at being in hospital, encouragement given.
Glucose range yesterday 145 to 307. Patient received Lantus 24 units in AM with AC NovoLog 18 with moderate corrective with meals.
Fasting glucose today 225. Will increase AM lantus to 28 units with novolog 22 units AC and moderate corrective.
Discussed with nurse
Will follow.
Diabetes History
- -
Type of Diabetes: 2 requiring insulin
Pre-Admission Diabetes Regimen
Lab Results
Hemoglobin A1c 10.0 % (4.0-5.9) H 03/24/25 07:00
Insulin Pump Settings
IP Diabetes Regimen
04/02/25 04/02/25 04/02/25
03:03 08:27 09:12
POC Glucose 124 H 165 H 180 H
04/02/25 04/02/25 04/02/25
12:04 16:55 22:03
POC Glucose 252 H 236 H 307 H
Meal type: Dinner
Meal type: Lunch
Meal type: Breakfast
Amount consumed: 100%
Amount consumed: 0
Amount consumed: 100%
Patient Education
[2025-04-03 07:50] LABS: Blood Urea Nitrogen 42 mg/dl (9-20); Calcium 10.1 mg/dl (8.4-10.2); Carbon Dioxide 27 mmol/L (22-30); Chloride 98 mmol/L (98-107); Estimated Creatinine Clearance 41 ml/min; Glucose 229 mg/dl (70-99); Potassium 3.5 mmol/L (3.5-5.1); Sodium 132 mmol/L (135-145); eGFR 38.78
[2025-04-03 08:10] LABS: Glucose - Point of Care 225 mg/dl (70-99)
--- NOTE | 2025-04-03 08:19 | W.PN.CD ---
Today's Communication / Plan
-
Diuretics start tomorrow
Resume Metop today
Resume other BP meds as Cr and BP allows
We will sign off pls call with questions.
Impression / Plan
-
84-year-old man with HFpEF, CKD, and permanent atrial fibrillation who presented with left foot wound s/p OR debridement with wound cultures growing MRSA, Enterococcus, and strep agalactiae. During hospitalization, he had CXR with mild pulm edema
and elevated NTproBNP. Cardiology is consulted due to concern for CHF.
Cardiology: Daniel
Creatinine has significantly improved today with holding diuretics. I do not think he needs RHC today though I did explain he may need it if things start to go the wrong direction again. He understands.
HFpEF, acute on chronic.
- Holding diuretics Cr nearly normal --> resume Diuretics tomorrow; but daily
- Nephrology following.
- weight stable
- SGLT2i is cost prohibitive.
- GDMT: resumed toprol-XL; valsartan and spironolactone
- continue to monitor daily weights, I&Os, sodium and fluid restriction.
Hypotension --> resolved
- likely will not need midodrine going fwd
Left foot wound - managed by podiatry s/p surgical debridement 03/26/25.
- MRI with no osteo
- Infectious disease following
- s/p debridement --> Podiatry following
Permanent atrial fibrillation - chronic, rate controlled.
- Metoprolol on hold due to hypotension
- [id number]: Score at least 5 (Heart failure, HTN, age 75 or more, Diabetes Mellitus)
- Oral anticoagulation: Resume apixaban when OK from podiatry
Type 2 diabetes mellitus - HgbA1c 8.5%.
- management per primary Hospitalist team.
Chronic kidney disease, stage 3 - worse than baseline.
-creatinine up from baseline 2.0-2.4.
-Nephrology on board
HTN -currently hypotensive requiring midodrine
Subjective/interval events: No cardiac complaints.
Physical Exam
Vital Signs/Labs
Vital Signs
Temp Pulse Resp BP Pulse Ox
97.7 F 87 20 137/71 96
04/03/25 07:20 04/03/25 07:20 04/03/25 07:20 04/03/25 07:20 04/03/25 07:20
04/02/25 04/03/25 04/04/25
06:59 06:59 06:59
Actual Weight 258 lb 3.2 oz 259 lb 12.8 oz
04/03/25 06:34
04/03/25 06:34
Magnesium 1.9 mg/dl (1.6-2.3) 03/30/25 08:05
03/27/25
06:18
Ftw-Y-Lphiyqkkuqx Pept 2240
Physical Exam
Constitutional: No acute distress
EENT: Anicteric
Cardiovascular: Rhythm/rate is irregular
Respiratory: Respiratory effort normal and Lungs clear to auscul.
GI: Soft
Neuro/Psych: AO x 3
Data Reviewed
-
Date of Service: April 03, 2025
Medical Decision Making: Reviewed Test Results
EKG: Tracing Personally Visualized and interpreted (af)
Echo: Report Reviewed by me
Labs: Labs Reviewed by me
[2025-04-03] MEDS: VIBRAMYCIN 100 MG PO ×2 (08:42→20:58)
[2025-04-03] MEDS: DELTASONE 40 MG PO (08:42)
[2025-04-03] MEDS: AUGMENTIN 875 MG/125 MG 1 TABLET PO ×2 (08:43→20:58)
[2025-04-03] MEDS: ZYLOPRIM 100 MG PO (08:43)
[2025-04-03] MEDS: NEURONTIN 300 MG PO ×2 (08:43→20:58)
[2025-04-03] MEDS: FLOMAX 0.4 MG PO (08:43)
[2025-04-03] MEDS: NOVOLOG FLEXPEN SC (08:44)
[2025-04-03] MEDS: LANTUS 0.28 UNITS SC (08:45)
[2025-04-03] MEDS: NOVOLOG FLEXPEN-MODERATE RESISTANCE 3 UNITS SC ×2 (08:45→12:36)
[2025-04-03] MEDS: NOVOLOG FLEXPEN 22 UNITS SC ×3 (08:46→17:29)
--- NOTE | 2025-04-03 08:56 | CHAP ---
As requested, Mr. Solitario [facility].
--- NOTE | 2025-04-03 08:58 | W.PN.POD ---
Today's Communication
Today's Communication
Left foot wound
Assessment / Plan
-
Acute cellulitis of LLE, resolved
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 No osteo on MRI.
S/P I&D - POD #8 and debridement with integra graft and VAC - POD #1
DM with neuropathy
CKD3
Leukocytosis - foot appears clean
VAC in place. Keep VAC running at 75 mmHg. Patient will require VNS upon discharge. NWB to Left LE with heel transfers only - PT
Unasyn/Vanco per ID and then change to po Augmentin 875mg bid and doxycycline 100mg po bid x 7 days through 04/08/25.
Monitor leukocytosis - reactive post op, or possible other source of infection or possibly gout
Subjective
Chief Complaint
Left foot s/p debridement and graft
Subjective
Patient sitting up with no complaints.
Objective
Temp Pulse Resp BP Pulse Ox
97.7 F 87 20 137/71 96
04/03/25 07:20 04/03/25 07:20 04/03/25 07:20 04/03/25 07:20 04/03/25 07:20
04/03/25 06:34
04/03/25 06:34
Vital Signs and Lab results were reviewed.
Physical Exam
Physical Exam
Left with bandages in place. No strikethrough, VAC running at 75 mmHg. Digital ROM intact, extremity with resolved cellulitis.
--- NOTE | 2025-04-03 10:09 | W.PN.NEPH.PH ---
Today's Communication / Plan
-
Placed patient back on oral Lasix
We will sign off as creatinine is at baseline 1.7
Assessment/Plan
-
84-year-old male with known history of noninsulin dependent diabetes, CHF with preserved ejection fraction, A-fib on Eliquis 2.5 mg twice daily, gout, BPH presented with left lower extremity cellulitis. He has a large wound on the plantar surface
of his metatarsal being seen by podiatry and infectious disease on antibiotics. He has a history of CHF and is on Lasix 80 twice a day, metolazone he is on valsartan and spironolactone.
Renal consultation for acute on chronic kidney disease with a creatinine at 3 with a baseline creatinine labile between 1.5 and 1.8. Most recent January 2025 creatinine was 3.2.
Impression.
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
Hyponatremia
Foot wound for debridement.
Sepsis.
Diabetes stable.
Plan.
GAYATHRI-cr better at 1.7 and non oliguric
Okay to add back home oral Lasix dose
suspected to be cardiorenal, cr noted progressive increase in last few months from historic baseline 1.4-1.7(October 2024)
bland UA and Fena not low, follow bladder scan 127cc, renal US non acute , U PCr 0.4
BP are stable on low dose BB, midodrine added per primary
continue to hold ARB and avoid nephrotoxins
Status post left foot debridement today, now with wound vac
holding Aldactone too, echo noted nrml EF
monitor UOP, maintain FR
hypervolemic hyponatremia-stable
We will sign off
-
-
Date of Service: April 03, 2025
CC / HPI / ROS
-
Chief Complaint:
GAYATHRI
History of Present Illness:
cr better at 1.7
BP stable
wt stable
Review of Systems:
no sob at rest
no cp
no n/v
No fever
Nonoliguric
Labs
-
Labs:
WBC 12.2 10^3/uL (4.8-10.8) H 04/03/25 06:34
RBC 3.32 10^6/uL (4.70-6.10) L 04/03/25 06:34
Hgb 10.2 g/dL (13.0-18.0) L 04/03/25 06:34
Hct 30.7 % (39.0-52.0) L 04/03/25 06:34
Plt Count 285 10^3/uL (130-400) 04/03/25 06:34
Sodium 132 mmol/L (135-145) L 04/03/25 06:34
Potassium 3.5 mmol/L (3.5-5.1) 04/03/25 06:34
Chloride 98 mmol/L (98-107) 04/03/25 06:34
Carbon Dioxide 27 mmol/L (22-30) 04/03/25 06:34
BUN 42 mg/dl (9-20) H 04/03/25 06:34
Creatinine 1.7 mg/dL (0.7-1.3) H 04/03/25 06:34
eGFR 38.78 04/03/25 06:34
Glucose 229 mg/dl (70-99) H 04/03/25 06:34
Calcium 10.1 mg/dl (8.4-10.2) 04/03/25 06:34
Exd-S-Xfzxeihqmkf Pept 2240 pg/ml 03/27/25 06:18
Albumin 3.2 g/dl (3.5-5.0) L 03/28/25 05:44
Physical Exam
-
Vital Signs:
Vital Signs
Temp Pulse Resp BP Pulse Ox
97.7 F 87 20 137/71 96
04/03/25 07:20 04/03/25 07:20 04/03/25 07:20 04/03/25 07:20 04/03/25 07:20
Cardiovascular:: Regular rate and rhythm
Respiratory:: Bilateral: Rales
Lung Excursion:: Normal
Abdomen:: Nontender and Soft
Extremity Edema:: +1: Bilateral:
Sethi Catheter: No
--- NOTE | 2025-04-03 12:01 | W.PN.HOSP.TC ---
Today's Communication/Plan
-
Monitor vital signs see plan
Restart Lasix
Metoprolol restarted
Continue with antibiotic
PT
Discussed with manager case management, she will find out if [facility] to [facility]
Called son, unreachable
Discharge planning
Monitor renal function
Assessment / Plan
Assessment / Plan
General: Well Developed, No Apparent Distress and Obese
HEENT: Normocephalic, Atraumatic, Moist Mucous Membranes and Anicteric
Respiratory: Rales and Non Labored Respirations
Cardiac: Regular Rhythm and S1/S2; Negative Murmur
GI: Soft, Nontender, Nondistended and Normal Bowel Sounds
Musculoskeletal: No Clubbing, No Cyanosis, No Edema and Other (Left foot bandaged)
Neuro: AO x 3, Nonfocal/Grossly Intact and Central Nerve's Intact
Psych: Calm
#Decompensated HFpEF, acute on chronic
# Acute hypoxemic respiratory insufficiency, wean oxygen as tolerated
- TTE here with LVEF 59%, mild pulmonary hypertension; no known history of ischemic heart disease
Lasix restarted. Also restarted metoprolol.
- holding IV Lasix and metolazone given worsening renal function. Creatinine today 1.7. Monitor
- Continue to monitor on telemetry, wean oxygen for SpO2 goal >90%
- Cardiology and nephrology following
- Would benefit from right heart cath if patient agrees. Currently patient does not want right heart cath
#GAYATHRI on CKD stage III likely secondary to IV diuresis
- Baseline creatinine near 1.5; likely associated with poorly controlled diabetes
- Creatinine here uptrending due to cardiorenal physiology decompensated HFpEF
- Creatinine peaked at 3.5; started on IV diuretics with minimal improvement, developed HoTN
- Holding home spironolactone, valsartan. lasix restarted
- Trend BMP + UOP, MAP > 65 mmHg, avoid nephrotoxic agents
- Consider RHC as above
Creatinine 1.7, monitor
Right wrist swelling
Could be secondary to wearing too much pressure, IV stick. Check x-ray wrist with arthritis, chondrocalcinosis. Will treat with 5 days of prednisone given history of gout.
#Hypotension
- Difficult to determine if this is due to hypovolemia or hypervolemia, difficult volume assessment
- Was receiving IV diuretics which are now held due to the soft blood pressures this morning
- midodrine 5 mg 3 times daily and monitor BPs with MAP goal >65
#hyponatremia
- Serum sodium in the range of 128-130
- Continue to trend BMP
#Diabetic foot ulcer of LLE plantar surface
Cellulitis secondary to above. No signs of sepsis at this time
- s/p OR debridement, had bedside debridement performed prior to that
- MRI without signs of osteomyelitis; arterial ultrasound without macrovascular PAD
- Wound cultures growing polymicrobial species including MRSA; was on vancomycin and Unasyn, now transition to Augmentin and doxycycline through 04/08
follow cultures and bone biopsy, trend CBC and temperature curve
- Podiatry following, status post ORIF 04/02 with Integra graft application and wound VAC , restarted Eliquis per podiatry.
#IDDM with hyperglycemia
#Peripheral neuropathy
- A1c here was 10.3%; Home regimen included glipizide and Januvia
- Has history of peripheral neuropathy for which he takes gabapentin
- Home regimen transitioned to Lantus and NovoLog with ISS
#Permanent AF
- Home medications include metoprolol succinate 25 mg and Eliquis
- No known history of EP interventions
#Gout
- Home regimen includes allopurinol
- No signs of flare at this time
#Dyslipidemia
- Home regimen includes high intensity atorvastatin
DVT prophylaxis:eliquis
CODE STATUS: full code
Disposition: SNF or [facility] when medically stable
I spent a total of 52 minutes with the patient or on the floor. More than 50% of this time involved counseling and coordination of care.
Anticipated Discharge: Within 24 hours
Subjective/Interval History
-
Date of Service: April 03, 2025
denies nausea
Objective Data
-
Labs:
Laboratory Results
04/03/25
06:34
WBC 12.2 H
Hgb 10.2 L
Hct 30.7 L
Plt Count 285
Sodium 132 L
Potassium 3.5
Chloride 98
Carbon Dioxide 27
BUN 42 H
Creatinine 1.7 H
Glucose 229 H
Calcium 10.1
Vital Signs:
Vital Signs
Temp Pulse Resp BP Pulse Ox
97.7 F 87 20 137/71 96
04/03/25 07:20 04/03/25 07:20 04/03/25 07:20 04/03/25 07:20 04/03/25 11:08
I&O
04/02/25 04/03/25 04/04/25
06:59 06:59 06:59
Intake Total 1150 / 1150 2019
Output Total 850 / 850 1350 / 1350
Balance 300 / 300 670 / 670
[2025-04-03 12:24] LABS: Glucose - Point of Care 228 mg/dl (70-99)
[2025-04-03 12:34] VITALS: BP 122/61
[2025-04-03] MEDS: LASIX 80 MG PO (12:36)
[2025-04-03] MEDS: LMX 4 1 APPLIC TOPICAL (12:36)
--- NOTE | 2025-04-03 12:46 | CM ---
Addendum entered by Davian Maya RN 04/03/25 16:42:
[facility] can accept pt tomorrow.
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
[facility]
report [phone]
fax [phone]
PLAN To [facility] after Covid test
Original Note:
Spoke with Karina Rogel at [phone] reviewed PT OT she will be by to see patient by believes SNF would be better dc plan .
Spoke with Laila EPPS [phone] she agreed pt needed SNF [facility].
Referral made wound vac info sent .
[facility] reviewing case.
Will need ambulance Medical nec form.
PLAN To [facility] if accepted.
--- NOTE | 2025-04-03 13:13 | W.PN.ID1 ---
Date of Service
Date of Service: April 03, 2025
Today's Communication
Continue po Augmentin 875mg bid and doxycycline 100mg po bid x 7 days through 04/08/25.
ID will sign off
Assessment / Plan
# Acute cellulitis of LLE, resolved
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 No osteo on MRI.
# Leukocytosis - may trend up on prednisone
# DM with neuropathy
# CKD3
- MRI - large wound with subcutaneous emphysema. No osteo
- Arterial duplex: no significant stenosis
- s/p OR debridement 03/26/25; cx's MRSA, Enterococcus faecalis, GBS, Bacteroides
- 04/02 s/p wound graft and vac; no further signs infection per Podiatry
- Discontinued Unasyn (d10)
- Discontinued vancomycin (d6)
- Continue po Augmentin 875mg bid and doxycycline 100mg po bid x 7 days through 04/08/25.
ID will sign off
# Conditions present on admission:
Diabetes mellitus
Neuropathy
HTN
HLD
HFpEF
Afib
gout
BPH
CKD3
Benign brain tumor resection
L TKR
Chief Complaint
-: Cellulitis
Subjective / Review of Systems
No new complaints.
Vital Signs / Physical Exam
Vital Signs
Vital Signs
Temp Pulse Resp BP Pulse Ox
97.7 F 80 18 122/61 97
04/03/25 07:20 04/03/25 12:34 04/03/25 12:34 04/03/25 12:36 04/03/25 12:34
Physical Exam
Constitutional: No Acute Distress
Pulmonary: Clear
Gastrointestinal: Soft, Non Tender and Non Distended
Extremities: Venous Insufficiency; Negative Edema or Erythema
Wound: Other (left foot with post-op dressing wound vac in place)
Neurological: AO x 3
Objective Data
Lab Data
Lab Results
04/03/25 06:34
04/03/25 06:34
ESR 132 mm/hour (0-20) H 03/24/25 07:00
Estimated Creat Clear 41 ml/min 04/03/25 06:34
Lactic Acid Cancelled 03/24/25 05:45
Total Bilirubin 0.8 mg/dl (0.2-1.3) 03/28/25 05:44
AST 16 U/L (17-59) L 03/28/25 05:44
ALT 11 U/L (0-50) 03/28/25 05:44
Alkaline Phosphatase 61 U/L (38-126) 03/28/25 05:44
Most recent labs reviewed.
Micro Results:
03/26/25 17:40 Wound Culture - Final
Foot - Left Staph aureus MRSA
Enterococcus faecalis
Streptococcus agalactiae
Gram Stain - Final
03/26/25 17:40 Anaerobic Culture - Final
Foot - Left Bacteroides Caccae
03/24/25 02:00 Blood Culture - Final
Blood/Venous No Growth - Final Report
03/24/25 02:00 Blood Culture - Final
Blood/Venous No Growth - Final Report
03/24/25 05:10 MRSA Screen - Final
Nose No Methicillin Resistant Staphylococcus aureus isolated.
03/24/25 MRI LLE:
1. LARGE 3.3 cm SOFT TISSUE WOUND plantar to the 5th metatarsal base containing soft tissue emphysema.
2. ACUTE CELLULITIS throughout the lateral and dorsal forefoot.
3. No MRI evidence for acute osteomyelitis.
4. Severe acute on chronic muscle denervation throughout the foot.
5. Severe longitudinal split tear of the peroneus brevis tendon with surrounding stenosing tenosynovitis.
03/24/25 L Foot XRAY: Soft tissue gas adjacent to the fifth metatarsal base at the site of the reported soft tissue ulcer. No osseous destructive changes to confirm acute osteomyelitis by radiograph. The patient is currently scheduled for an MRI of
the left foot, which will be more sensitive for osteomyelitis.
[2025-04-03 15:45] VITALS: BP 132/69
[2025-04-03] MEDS: NOVOLOG FLEXPEN-MODERATE RESISTANCE 1 UNITS SC (17:28)
[2025-04-03 18:08] LABS: Glucose - Point of Care 180 mg/dl (70-99)
[2025-04-03] MEDS: ELIQUIS 2.5 MG PO (20:58)
[2025-04-03] MEDS: MELATONIN 3 MG PO (21:01)
[2025-04-03] MEDS: LIPITOR 80 MG PO (21:01)
[2025-04-03 22:29] LABS: Glucose - Point of Care 307 mg/dl (70-99)
[2025-04-03] MEDS: NOVOLOG FLEXPEN 7 UNITS SC (22:47)
[2025-04-03 23:09] VITALS: BP 101/58
[2025-04-04 04:40] VITALS: BMI 35.2
[2025-04-04 07:19] LABS: Hematocrit 31.7 % (39.0-52.0); Hemoglobin 10.6 g/dL (13.0-18.0); Mean Corp Hgb Conc. 33.4 g/dL (33.0-37.0); Mean Corpuscular Volume 91.4 fL (80.0-94.0); Nucleated Red Blood Cells % 0 % (-); Platelet Count 290 10^3/uL (130-400); Red Cell Dist. Width 14.9 % (11.5-14.5)
--- NOTE | 2025-04-04 07:48 | W.PN.POD ---
Today's Communication
Today's Communication
Left foot wound
Assessment / Plan
-
Acute cellulitis of LLE, resolved
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 No osteo on MRI.
S/P I&D - POD #8 and debridement with integra graft and VAC - POD #1
DM with neuropathy
CKD3
Leukocytosis - foot appears clean
VAC in place. Keep VAC running at 75 mmHg. Patient will require VAC changes upon discharge. VAC to be changed MWF with Black foam sponge. NWB to Left LE with heel transfers only - PT
Unasyn/Vanco per ID and then change to po Augmentin 875mg bid and doxycycline 100mg po bid x 7 days through 04/08/25. Follow up with me Sunday or Sunday for post op care.
Monitor leukocytosis - reactive post op, steroids - possible other source - maybe gout
Subjective
Chief Complaint
Left foot wound
Subjective
Patient awake sitting up with no complaints
Objective
Temp Pulse Resp BP Pulse Ox
98.0 F 83 18 101/58 93
04/03/25 23:09 04/03/25 23:09 04/03/25 23:09 04/03/25 23:09 04/03/25 23:09
04/04/25 06:25
Vital Signs and Lab results were reviewed.
Physical Exam
Physical Exam
Left foot with VAC and bandages in place. Digital ROM intact. Upon removal of the VAC the Integra graft silicone layer is in place well adhered over the 2.4 cm x 2.5 cm wound in the submet 5 base area. No malodor, no drainage. Periwound skin
without erythema or edema.
[2025-04-04 07:53] VITALS: BP 136/70
[2025-04-04 08:18] LABS: Glucose - Point of Care 215 mg/dl (70-99)
[2025-04-04 08:30] LABS: Blood Urea Nitrogen 45 mg/dl (9-20); Calcium 10.1 mg/dl (8.4-10.2); Carbon Dioxide 28 mmol/L (22-30); Chloride 97 mmol/L (98-107); Estimated Creatinine Clearance 41 ml/min; Glucose 187 mg/dl (70-99); Potassium 3.3 mmol/L (3.5-5.1); Sodium 135 mmol/L (135-145); eGFR 38.78
[2025-04-04] MEDS: VIBRAMYCIN 100 MG PO (09:00)
[2025-04-04] MEDS: LASIX 80 MG PO (09:01)
[2025-04-04] MEDS: DELTASONE 40 MG PO (09:01)
[2025-04-04] MEDS: ZYLOPRIM 100 MG PO (09:01)
[2025-04-04] MEDS: FLOMAX 0.4 MG PO (09:01)
[2025-04-04] MEDS: ELIQUIS 2.5 MG PO (09:01)
[2025-04-04] MEDS: NEURONTIN 300 MG PO (09:01)
[2025-04-04] MEDS: AUGMENTIN 875 MG/125 MG 1 TABLET PO (09:02)
[2025-04-04] MEDS: TOPROL XL 25 MG PO (09:02)
[2025-04-04] MEDS: LANTUS 0.28 UNITS SC (09:03)
[2025-04-04] MEDS: NOVOLOG FLEXPEN-MODERATE RESISTANCE 3 UNITS SC (09:03)
[2025-04-04] MEDS: NOVOLOG FLEXPEN 22 UNITS SC ×2 (09:05→11:44)
[2025-04-04] MEDS: PEPCID 20 MG PO (09:06)
--- NOTE | 2025-04-04 09:50 | CM ---
Addendum entered by Vinayak Carey 04/04/25 12:30:
CM confirmed with [facility] nursing communications supervisor that they have a wound vac awaiting for pt in his room.
Original Note:
CM following re: discharge planning.
Reviewed pt's chart, met with pt.
According to MD pt is medically stable to be discharged today. Pt is aware, expressed his agreement.
IMM reviewed, placed on chart, pt has a copy.
TUCKER spoke to [facility] nursing and she confirmed that pt is accepted for admission today.
to arrange ambulance BLS. PMNC completed and left with .
[facility] nursing report: [phone]
Discharge instructions fax: [phone]
D/C plan: [facility].
--- NOTE | 2025-04-04 10:22 | W.PN.HOSP.TC ---
Addendum entered and electronically signed by Ole Barba MD 04/04/25 10:35:
No need for midodrine
Original Note:
Today's Communication/Plan
-
monitor vitals
see plan
Continue with antibiotic per infectious disease
Continue Lasix, metoprolol
Continue with wound VAC
Continue Eliquis
Discharge today
Time of discharge 39 minutes
Assessment / Plan
Assessment / Plan
General: Well Developed, No Apparent Distress and Obese
HEENT: Normocephalic, Atraumatic, Moist Mucous Membranes and Anicteric
Respiratory: Rales and Non Labored Respirations
Cardiac: Regular Rhythm and S1/S2; Negative Murmur
GI: Soft, Nontender, Nondistended and Normal Bowel Sounds
Musculoskeletal: No Clubbing, No Cyanosis, No Edema and Other (Left foot wound vac)
Neuro: AO x 3, Nonfocal/Grossly Intact and Central Nerve's Intact
Psych: Calm
#Decompensated HFpEF, acute on chronic
# Acute hypoxemic respiratory insufficiency, wean oxygen as tolerated
- TTE here with LVEF 59%, mild pulmonary hypertension; no known history of ischemic heart disease
Lasix restarted. Also restarted metoprolol.
Creatinine today 1.7. Monitor
- Continue to monitor on telemetry, wean oxygen for SpO2 goal >90%
- Cardiology and nephrology following
- Would benefit from right heart cath if patient agrees. Currently patient does not want right heart cath
#GAYATHRI on CKD stage III likely secondary to IV diuresis
- Baseline creatinine near 1.5; likely associated with poorly controlled diabetes
- Creatinine here uptrending due to cardiorenal physiology decompensated HFpEF
- Creatinine peaked at 3.5; started on IV diuretics with minimal improvement, developed HoTN
- Holding home spironolactone, valsartan. lasix restarted
- Trend BMP + UOP, MAP > 65 mmHg, avoid nephrotoxic agents
- Consider RHC as above
Creatinine 1.7, monitor
Right wrist swelling
Could be secondary to wearing too much pressure, IV stick. Check x-ray wrist with arthritis, chondrocalcinosis. Will treat with 5 days of prednisone given history of gout.
#Hypotension
- Difficult to determine if this is due to hypovolemia or hypervolemia, difficult volume assessment
- Was receiving IV diuretics which are now held due to the soft blood pressures this morning
- midodrine 5 mg 3 times daily and monitor BPs with MAP goal >65
#hyponatremia
- Serum sodium in the range of 128-130
- Continue to trend BMP
#Diabetic foot ulcer of LLE plantar surface
Cellulitis secondary to above. No signs of sepsis at this time
- s/p OR debridement, had bedside debridement performed prior to that
- MRI without signs of osteomyelitis; arterial ultrasound without macrovascular PAD
- Wound cultures growing polymicrobial species including MRSA; was on vancomycin and Unasyn, now transition to Augmentin and doxycycline through 04/08
follow cultures and bone biopsy, trend CBC and temperature curve
- Podiatry following, status post ORIF 04/02 with Integra graft application and wound VAC , restarted Eliquis per podiatry.
#IDDM with hyperglycemia
#Peripheral neuropathy
- A1c here was 10.3%; Home regimen included glipizide and Januvia
- Has history of peripheral neuropathy for which he takes gabapentin
- Home regimen transitioned to Lantus and NovoLog with ISS
#Permanent AF
- Home medications include metoprolol succinate 25 mg and Eliquis
- No known history of EP interventions
#Gout
- Home regimen includes allopurinol
#Dyslipidemia
- Home regimen includes high intensity atorvastatin
DVT prophylaxis:eliquis
CODE STATUS: full code
Disposition: SNF
Anticipated Discharge: Today
Subjective/Interval History
-
Date of Service: April 04, 2025
denies pain
Objective Data
-
Labs:
Laboratory Results
04/04/25
06:25
WBC 14.4 H
Hgb 10.6 L
Hct 31.7 L
Plt Count 290
Sodium 135
Potassium 3.3 L
Chloride 97 L
Carbon Dioxide 28
BUN 45 H
Creatinine 1.7 H
Glucose 187 H
Calcium 10.1
Vital Signs:
Vital Signs
Temp Pulse Resp BP Pulse Ox
97.7 F 77 16 136/70 95
04/04/25 07:53 04/04/25 09:02 04/04/25 07:53 04/04/25 09:02 04/04/25 07:53
I&O
04/03/25 04/04/25 04/05/25
06:59 06:59 06:59
Intake Total 2019 / 2019 510 / 510
Output Total 1350 / 1350 795 / 795
Balance 670 / 670 -285 / -285
--- NOTE | 2025-04-04 10:35 | W.DCSUMMARY ---
Discharge Summary
Discharge Data
Date of Admission: 03/24/25
Date of Discharge: 04/04/25
-
Pending Results: No
Hospital Course
84-year-old male with past medical history of CKD, CHF, gout, hyperal tension, diabetic foot ulcer of left lower extremity plantar, diabetes mellitus, peripheral neuropathy, permanent atrial fibrillation, hyperlipidemia came to the hospital with
cellulitis. Patient was seen by podiatry throughout hospitalization and was taken for debridement. MRI was also done which was negative for osteomyelitis. Arterial ultrasound was also without macrovascular PAD. Patient wound culture grew
polymicrobial species including MRSA. Patient was seen by infectious disease throughout hospitalization. On discharge patient antibiotic was transition to p.o. Augmentin and doxycycline to complete the course. While patient was in the hospital he
also had acute on chronic congestive heart failure exacerbation and was initially on IV Lasix. His kidney function continued to get worse over time and Lasix was held. Patient renal function then continued to improve and Lasix was restarted at 80
mg oral daily. Patient was seen by cardiology and nephrology throughout hospitalization. Per podiatry recommendation wound VAC was applied. PT recommended SNF. Once his symptoms continue to improve he was then discharged to rehab on wound VAC
with instructions to follow-up with all his physicians outpatient.
Discharge Plan
-
Patient Disposition: Shelter/SNF
Discharge Diagnosis/Procedures: Acute cellulitis of left lower extremity
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
Suspected pseudogout
GAYATHRI on CKD
Hyponatremia
Acute on chronic congestive heart failure with preserved ejection fraction
Diabetes mellitus
Condition: Fair
Diet: Diabetic, Carb Controlled
Activity: Do not bear weight L leg
Additional Activity: Left LE non wieghtbering - may use heel for transfers
Driving Restrictions: Not until seen by your Dr
Bathing Restrictions: None
Blood Work: CBC and BMP next week at rehab
Activity Restrictions/Additional Instructions:
Wound Care Instructions
L plantar foot: small spiral Black foam Keep VAC running at 75 mmHg. *Dressing change schedule per Dr. Elder
NWB to Left LE with heel transfers only
Upon discharge or transfer to another facility, remove VAC foam and apply NS moistened gauze dressing unless home VAC unit available.
Darco shoe when ambulating.
leg elevation when sitting
Follow up with Dr. Elder
Last prednisone 04/06/2025
po Augmentin 875mg bid and doxycycline 100mg po bid x 7 days through 04/08/25.
The VAC instructions for [facility] are apply back to left foot surgical site (integra graft with silicone layer in place).
Bridge to lateral foot, change MWF & run at 75 mmHg continuous therapy.
Referrals:
Faiza Elder DPM [Active, Podiatry] - in two to three days
Yao Lemon DO [Active, Nephrology]
Nima Chase DO [Family Provider, Internal Medicine] - in less than 1 week
Rohan Sanchez MD [Active, Cardiology] - in one week
Tiffany Doshi MD [Active, Infectious Diseases]
Prescriptions:
New
doxycycline hyclate 100 mg Capsule
100 mg PO Q12 Qty: 0 0RF
prednisone 20 mg Tablet
40 mg PO DAILY 3 Days Qty: 6 0RF
amoxicillin-pot clavulanate 875-125 mg Tablet
1 tab PO Q12 Qty: 0 0RF
insulin aspart U-100 100 unit/mL (3 mL) Insulin Pen
22 unit SC AC Qty: 0 0RF
Insulin Glargine Lantus [Lantus] 28 UNITS
Subcutaneous Insulin Syringe [Syringe-Insulin] 0 UNIT
As Directed mls/hr SC DAILY
Ordered By: Ole Barba MD
Last Taken: 04/04/25 09:03 0.28 mls
Continued
allopurinol 100 MG tablet
100 mg PO DAILY
metoprolol succinate 25 MG tablet extended release 24 hr
25 mg PO DAILY
Eliquis 2.5 mg tablet
2.5 mg PO BID
multivitamin Tablet
1 tab PO DAILY
polyethylene glycol 3350 [Miralax] 17 gram Powder In Packet
17 g PO DAILYPRN PRN (Reason: constipation)
melatonin 3 mg Tablet
3 mg PO HSPRN PRN (Reason: sleep)
tamsulosin 0.4 mg Capsule
0.4 mg PO DAILY
atorvastatin 80 mg Tablet
80 mg PO HS
acetaminophen [Tylenol] 325 mg Tablet
650 mg PO Q6HPRN MDD 3000 mg PRN (Reason: mild pain)
loperamide 2 mg Tablet
2 mg PO Q4HPRN MDD 8 mg PRN (Reason: loose stool)
docusate sodium [Colace] 100 mg Capsule
100 mg PO [id number] PRN (Reason: constipation)
potassium chloride 10 mEq Tablet,Er Particles/Crystals
10 meq PO DAILY
buspirone 5 mg Tablet
5 mg PO BID
levothyroxine 25 mcg Tablet
25 mcg PO DAILY@0600
gabapentin 300 mg Capsule
300 mg PO TID
Changed
furosemide 80 mg Tablet
80 mg PO DAILY Qty: 60 0RF
Held
valsartan 160 mg Tablet
160 mg PO DAILY
Hold Instructions: Restart when okay with cardiology
metolazone 2.5 mg Tablet
2.5 mg PO Q48H
Hold Instructions: Restart when okay with cardiology
Discontinued
Januvia 100 mg Tablet
100 mg PO DAILY
glipizide 10 mg Tablet
10 mg PO DAILY
spironolactone 25 mg Tablet
12.5 mg PO DAILY Qty: 30 0RF
Discharge Orders:
Discharge Patient (As Directed); Ordered 04/04/25
Ordered By: Ole Barba
Discharge Date and Time
Discharge Date/Time: 04/04/25 14:15
Print Language: KHMER
[2025-04-04] MEDS: KCL 40 MEQ PO (11:00)
[2025-04-04 11:39] LABS: Glucose - Point of Care 297 mg/dl (70-99)
[2025-04-04] MEDS: NOVOLOG FLEXPEN-MODERATE RESISTANCE 5 UNITS SC (11:44)
[2025-04-04 11:55] VITALS: BP 117/56
[2025-04-04 12:11] LABS: COVID-19 Antigen Negative (Negative)
--- NOTE | 2025-04-04 13:25 | PTCARENOTE ---
Wound VAC removed per Podiatry MD and wet to dry dressing in place for pt discharge. Called SNF gave report to DIA Aguila and confirmed wound VAC is ready in pt room. Dressing CDI and Darco shoe in place.
--- NOTE | 2025-04-06 07:25 | WOUNDNOTE ---
WOC RN note: Notified [employer] via [employer] [facility] rental bill date of Anna Marie marquez (serial #[id number]) as of 04/04/25 and pump slat pickler (work order #[id number]).
== END 2025-04-04 14:15 | DRG 622 ==
LOC: 2 NORTH 03:01
PROVIDERS: Internal Medicine; Nurse Practitioner Gerontology; Student in an Organized Health Care Education/Training Program; ADMITTING PHYSICIAN Internal Medicine; ATTENDING PHYSICIAN Internal Medicine; CONSULT PHYSICIAN Internal Medicine Infectious Disease; CONSULT PHYSICIAN Internal Medicine Nephrology; CONSULT PHYSICIAN Nurse Practitioner Acute Care; CONSULT PHYSICIAN Podiatrist; CONSULT PHYSICIAN Student in an Organized Health Care Education/Training Program; EMERGENCY PHYSICIAN Student in an Organized Health Care Education/Training Program; FAMILY PHYSICIAN Internal Medicine
PROC: 0JBR0ZZ Excision of Left Foot Subcutaneous Tissue and Fascia, Open Approach (ICD-10-PCS; 2025-03-26)
PROC: 0HRNXK3 Replacement of Left Foot Skin with Nonautologous Tissue Substitute, Full Thickness, External Approach (ICD-10-PCS; 2025-04-02)
DX: E11.628 Type 2 diabetes mellitus with other skin complications (principal); I50.33 Acute on chronic diastolic (congestive) heart failure; L03.116 Cellulitis of left lower limb; I48.21 Permanent atrial fibrillation; E87.1 Hypo-osmolality and hyponatremia; I13.0 Hypertensive heart and chronic kidney disease with heart failure and stage 1 through stage 4 chronic kidney disease, or unspecified chronic kidney disease; E11.621 Type 2 diabetes mellitus with foot ulcer; N17.9 Acute kidney failure, unspecified; E03.9 Hypothyroidism, unspecified; E11.22 Type 2 diabetes mellitus with diabetic chronic kidney disease; E11.42 Type 2 diabetes mellitus with diabetic polyneuropathy; B95.62 Methicillin resistant Staphylococcus aureus infection as the cause of diseases classified elsewhere; I48.0 Paroxysmal atrial fibrillation; D63.1 Anemia in chronic kidney disease; R09.02 Hypoxemia; B95.2 Enterococcus as the cause of diseases classified elsewhere; E11.40 Type 2 diabetes mellitus with diabetic neuropathy, unspecified; B95.1 Streptococcus, group B, as the cause of diseases classified elsewhere; N18.32 Chronic kidney disease, stage 3b; E11.65 Type 2 diabetes mellitus with hyperglycemia; E78.00 Pure hypercholesterolemia, unspecified; I95.9 Hypotension, unspecified; K59.00 Constipation, unspecified; L97.529 Non-pressure chronic ulcer of other part of left foot with unspecified severity; E78.5 Hyperlipidemia, unspecified; M10.9 Gout, unspecified; N40.0 Benign prostatic hyperplasia without lower urinary tract symptoms; Z11.52 Encounter for screening for COVID-19; Z79.01 Long term (current) use of anticoagulants; Z79.899 Other long term (current) drug therapy
CPT/HCPCS: 71045; 73110; 73630; 73720; 76775; 80048; 80053; 80202; 81003; 81015; 82570; 82947; 82962; 83036; 83605; 83735; 83880; 83935; 84156; 84300; 85025; 85027; 85652; 87040; 87070; 87075; 87076; 87077; 87147; 87185; 87186; 87205; 87811; 93306; 93922; 93925; 96365; 96375; 97110; 97163; 97167; 97530; 97535; A9575; Q4104

== ENCOUNTER → 2025-04-17 10:51 | Outpatient (REF) | payer MEDICARE, SELFPAY ==
[2025-04-17 11:48] LABS: Blood Urea Nitrogen 17 mg/dl (9-20); Calcium 9.0 mg/dl (8.4-10.2); Chloride 97 mmol/L (98-107); Glucose 157 mg/dl (70-99); Potassium 3.3 mmol/L (3.5-5.1); Sodium 134 mmol/L (135-145); eGFR 58.89
[2025-04-17 11:58] LABS: Carbon Dioxide 34 mmol/L (22-30)
== END ==
LOC: OLABPATH 10:51
PROVIDERS: ATTENDING PHYSICIAN Internal Medicine Cardiovascular Disease
DX: I50.30 Unspecified diastolic (congestive) heart failure (principal)
CPT/HCPCS: 36415; 80048

== ENCOUNTER → 2025-04-22 12:17 | Outpatient (REF) | payer MEDICARE, SELFPAY ==
[2025-04-22 16:30] LABS: Blood Urea Nitrogen 29 mg/dl (9-20); Calcium 9.3 mg/dl (8.4-10.2); Carbon Dioxide 29 mmol/L (22-30); Chloride 92 mmol/L (98-107); Glucose 200 mg/dl (70-99); Magnesium 1.8 mg/dl (1.6-2.3); Potassium 3.1 mmol/L (3.5-5.1); Sodium 131 mmol/L (135-145); eGFR 36.21
== END ==
LOC: OLABPATH 12:17
PROVIDERS: ATTENDING PHYSICIAN Internal Medicine
DX: M17.0 Bilateral primary osteoarthritis of knee (principal); I48.91 Unspecified atrial fibrillation; F41.9 Anxiety disorder, unspecified
CPT/HCPCS: 36415; 80048; 83735

== ENCOUNTER → 2025-04-30 09:41 | Outpatient (REF) | payer MEDICARE, SELFPAY ==
[2025-04-30 11:18] LABS: Calcium 9.4 mg/dl (8.4-10.2); Carbon Dioxide 29 mmol/L (22-30); Chloride 93 mmol/L (98-107); Glucose 223 mg/dl (70-99); Magnesium 1.5 mg/dl (1.6-2.3); Potassium 3.6 mmol/L (3.5-5.1); Sodium 130 mmol/L (135-145); eGFR 48.95
[2025-04-30 11:26] LABS: Blood Urea Nitrogen 37 mg/dl (9-20)
== END ==
LOC: OLABPATH 09:41
PROVIDERS: ATTENDING PHYSICIAN Internal Medicine
DX: I50.32 Chronic diastolic (congestive) heart failure (principal)
CPT/HCPCS: 36415; 80048; 83735

== ENCOUNTER → 2025-05-08 11:10 | Outpatient (REF) | payer MEDICARE, SELFPAY ==
[2025-05-08 11:38] LABS: Blood Urea Nitrogen 49 mg/dl (9-20); Calcium 10.0 mg/dl (8.4-10.2); Carbon Dioxide 30 mmol/L (22-30); Chloride 95 mmol/L (98-107); Glucose 194 mg/dl (70-99); Magnesium 1.9 mg/dl (1.6-2.3); Potassium 3.9 mmol/L (3.5-5.1); Sodium 131 mmol/L (135-145); eGFR 45.06
== END ==
LOC: OLABPATH 11:10
PROVIDERS: ATTENDING PHYSICIAN Internal Medicine
DX: F41.9 Anxiety disorder, unspecified (principal); M17.0 Bilateral primary osteoarthritis of knee; N40.0 Benign prostatic hyperplasia without lower urinary tract symptoms
CPT/HCPCS: 36415; 80048; 83735